=== PATIENT | female | born 1955 | race African-American/Black ===

== ENCOUNTER 2016-04-15 12:56 | Inpatient (IN) | payer MEDICAID ==
[~2016-04-15] VITALS: Ht 157.5 cm; Wt 108.9 kg
[~2016-04-15 12:56] MED LIST: ACET-2605 GT; ACET650S26 GT; ALBU2.5V13 HHN; ALBU2.5V38 IH; AMIN30LI4 GT; ASCO500S2 GT; BISA10SU8 RC; BLOO-668 IN; CALC-108 GT; CARV12.5 GT; DOCU50LI GT; EPOE1VIA6 SQ; FERR220S2 GT; GABA-532 GT; INSU100I19 SQ; INSU100V3 SQ; IPRA0.2S9 HHN; LORA1TAB GT; MAGN400O6 GT; MERO1VIA IV; MULT1TAB11 GT; NA P133E RC; NUT.237L36 GT; PANT40SU2 GT; VALP250S GT; ZINC220C8 GT
[2016-04-15 13:00] VITALS: BP 117/52
[2016-04-15 13:30] LABS: ANION GAP 11 (5-14); CALCIUM, SERUM 9.1 mg/dL (8.5-10.1); CARBON DIOXIDE 30 mmol/L (21-32); CHLORIDE 98 mmol/L (98-107); GFR 69 mL/min (>60); GLUCOSE 190 mg/dL (74-106); POTASSIUM 4.2 mmol/L (3.5-5.1); SODIUM SERUM 134 mmol/L (136-145); UREA NITROGEN, BLOOD 32 mg/dL (7-18)
[2016-04-15 13:34] LABS: BASOPHILS # (AUTO) 0.1 /CMM (0.0-0.2); BASOPHILS % (AUTO) 0.5 % (0.0-2.0); DIFF TOTAL % 100 %; EOSINOPHILS # (AUTO) 0.2 /CMM (0.0-0.7); EOSINOPHILS % (AUTO) 1.1 % (0.0-6.0); INR 1.05 (0.87-1.13); LYMPHOCYTES # (AUTO) 4.4 /CMM (0.8-4.8); LYMPHOCYTES % (AUTO) 25.5 % (20.0-44.0); MEAN CORPUSCULAR HEMOGLOBIN 31 PG (26.0-33.0); MEAN CORPUSCULAR HGB CONC 33 g/dl (31.0-36.0); MEAN CORPUSCULAR VOLUME 93 fL (82-100); MONOCYTES # (AUTO) 1.3 /CMM (0.1-1.30); MONOCYTES % (AUTO) 7.4 % (2.0-12.0); NEUTROPHILS # (AUTO) 11.1 /CMM (1.8-8.9); NEUTROPHILS % (AUTO) 65.5 % (43.0-81.0); PLATELET COUNT (AUTO) 342 /CMM (150-450); RED BLOOD CELL COUNT(AUTO) 2.19 MIL/uL (4.0-5.2); WHITE BLOOD COUNT (AUTO) 17.1 K/uL (4.3-11.0)
[2016-04-15 13:37] LABS: HEMATOCRIT 20 % (33-45); HEMOGLOBIN 6.7 g/dL (11.5-14.8)
[2016-04-15 13:38] LABS: TROPONIN I < 0.017 ng/mL (0.00-0.056)
[2016-04-15] MEDS ORDERED: IV SET PRIMARY PUMP SET 1 EA INFUS.SET MC ONE ×2 (13:51→18:41)
[2016-04-15] MEDS ORDERED: LEVOFLOXACIN 750 MG /D5W 150ML 150 ML IV ONE ×2 (13:51→14:00)
[2016-04-15 13:52] LABS: LACTIC ACID 1.8 mmol/L (0.4-2.0)
[2016-04-15] MEDS ORDERED: VANCOMYCIN 1 GM in IV D5W 250 ML IV ONE (14:00)
[2016-04-15 14:14] LABS: KETONES,URINE Negative (NEGATIVE); LEUKOCYTE ESTERASE ,URINE Large (NEGATIVE)
[2016-04-15 14:15] LABS: ANION GAP 10 (5-14); CALCIUM, SERUM 9.1 mg/dL (8.5-10.1); CARBON DIOXIDE 30 mmol/L (21-32); CHLORIDE 98 mmol/L (98-107); GFR 69 mL/min (>60); GLUCOSE 164 mg/dL (74-106); POTASSIUM 4.6 mmol/L (3.5-5.1); SODIUM SERUM 134 mmol/L (136-145); UREA NITROGEN, BLOOD 31 mg/dL (7-18)
[2016-04-15 14:20] LABS: ALANINE AMINOTRANSFERASE 11 U/L (12-78); ASPARTATE AMINOTRANSFERASE 17 U/L (15-37); BILIRUBIN,TOTAL 0.1 mg/dL (0.2-1.0); TOTAL PROTEIN, SERUM 9.8 g/dL (6.4-8.2)
[2016-04-15 14:21] LABS: ADD UA MICROSCOPIC YES
[2016-04-15 14:22] LABS: TROPONIN I < 0.017 ng/mL (0.00-0.056)
[2016-04-15] MEDS ORDERED: CRAN3875 GT (14:22)
[2016-04-15] MEDS ORDERED: NUT.237L30 GT (14:22)
[2016-04-15 14:24] LABS: ALBUMIN 1.3 g/dL (3.4-5.0); INDIRECT BILIRUBIN 0.1 mg/dL (0.0-1.1)
[2016-04-15 14:27] LABS: ADD URINE CULTURE YES; RBC,URINE 0-2 /HPF (0-2)
[2016-04-15 14:36] LABS: ANISOCYTOSIS 1+; EOSINOPHILS % (MANUAL) 1 % (0-4); HYPOCHROMASIA 1+; LYMPHOCYTES % (MANUAL) 25 % (16-48); MICROCYTOSIS 1+; PLATELET ESTIMATE ADEQUATE
[2016-04-15] MEDS ORDERED: ALBUTEROL FS 2.5 MG/3 ML VIAL.NEB IH PRN (15:30)
[2016-04-15] MEDS ORDERED: MISCELLANEOUS MED 1 EA EA GT PRN (15:30)
[2016-04-15] MEDS ORDERED: ONDANSETRON HCL/PF 4 MG/2 ML VIAL IVP PRN (15:30)
[2016-04-15] MEDS ORDERED: MAGNESIUM HYDROXIDE 30 ML UDC GT PRN (15:30)
[2016-04-15] MEDS ORDERED: DEXTROSE 50%-WATER 50 ML DISP.SYRIN IV PRN (15:30)
[2016-04-15] MEDS ORDERED: NA PHOS,M-B/NA PHOS,DI-BA 1 EA ENEMA RC PRN (15:30)
[2016-04-15] MEDS ORDERED: EPOETIN ALFA (10,000 UNIT) 10,000 UNIT/ML VIAL SQ SCH ×2 (15:30→18:33)
[2016-04-15] MEDS ORDERED: LORAZEPAM 1 MG TABLET GT PRN (15:30)
[2016-04-15] MEDS ORDERED: Z GUARD REMEDY 2 OZ OINT TP PRN (15:30)
[2016-04-15] MEDS: DOCUSATE SODIUM LIQ 100 MG/10 ML UDC GT SCH (17:54)
[2016-04-15] MEDS: GABAPENTIN 400 MG CAPSULE GT SCH (17:54)
[2016-04-15] MEDS ORDERED: BLOOD SUGAR DIAGNOSTIC 1 EACH STRIP IN SCH (18:00)
[2016-04-15] MEDS: CARVEDILOL 12.5 MG TABLET GT SCH (18:09)
[2016-04-15] MEDS: CEFTRIAXONE 1 G in IV D5W 50 ML IV SCH (18:44)
[2016-04-15] MEDS: BLOOD SUGAR DIAGNOSTIC 1 EACH STRIP IN SCH (18:45)
[2016-04-15] MEDS: IV NS 0.9% 1,000 ML IV PRN (18:46)
[2016-04-15] MEDS: IPRATROPIUM NEB FS 0.5 MG/2.5 ML AMPUL.NEB HHN SCH (20:14)
[2016-04-15] MEDS: ALBUTEROL FS 2.5 MG/0.5 ML VIAL.NEB HHN SCH (20:15)
[2016-04-15 20:23] VITALS: BP 119/55
[2016-04-15] MEDS: EPOETIN ALFA (10,000 UNIT) 10,000 UNIT/ML VIAL SQ SCH (20:54)
[2016-04-15] MEDS: VALPROIC ACID 250 MG/5 ML UDC GT SCH (20:55)
[2016-04-15] MEDS ORDERED: MEROPENEM 1 G in IV NS 0.9% 100 ML IV SCH (21:00)
[2016-04-15] MEDS: INSULIN DETEMIR 100 UNIT/ML CARTRIDGE SQ SCH (21:10)
[2016-04-15 22:00] VITALS: BP 104/55
[2016-04-15] MEDS ORDERED: BLOOD IV SET 1 EA INFUS.SET MC ONE (22:46)
[2016-04-15] MEDS ORDERED: IV NS 0.9% 250 ML IV ONE (22:46)
[2016-04-15 23:07] VITALS: BP 91/50
[2016-04-15 23:22] VITALS: BP 90/50
[2016-04-15 23:37] VITALS: BP 88/52
[2016-04-16] VITALS (16 sets, daily range): BP systolic 88–129; BP diastolic 44–58
[2016-04-16] MEDS: BLOOD SUGAR DIAGNOSTIC 1 EACH STRIP IN SCH ×4 (00:58→17:23)
[2016-04-16] MEDS: INSULIN REGULAR, HUMAN 100 UNIT/ML 3 ML VIAL SQ PRN ×4 (01:02→17:30)
[2016-04-16] MEDS: IPRATROPIUM NEB FS 0.5 MG/2.5 ML AMPUL.NEB HHN SCH ×4 (01:08→20:19)
[2016-04-16] MEDS: ALBUTEROL FS 2.5 MG/0.5 ML VIAL.NEB HHN SCH ×4 (01:08→20:19)
[2016-04-16] MEDS: GLYTROL 1,000 ML BAG GT SCH (01:11)
[2016-04-16] MEDS ORDERED: BLOOD IV SET 1 EA INFUS.SET MC ONE (01:33)
[2016-04-16] MEDS: ACETAMINOPHEN 325 MG TABLET PO PRN (03:35)
[2016-04-16 08:29] LABS: BILIRUBIN,TOTAL 0.2 mg/dL (0.2-1.0); CALCIUM, SERUM 8.6 mg/dL (8.5-10.1); CREATININE 1.1 mg/dL (0.6-1.3); PHOSPHORUS 4.2 mg/dL (2.5-4.9); POTASSIUM 3.9 mmol/L (3.5-5.1); TOTAL PROTEIN, SERUM 9.1 g/dL (6.4-8.2)
[2016-04-16 08:32] LABS: ALBUMIN 1.2 g/dL (3.4-5.0)
[2016-04-16 08:35] LABS: THYROID STIMULATING HORMONE 6.58 uIU/mL (0.358-3.74)
[2016-04-16 08:47] LABS: BASOPHILS % (AUTO) 0.2 % (0.0-2.0); DIFF TOTAL % 100 %; EOSINOPHILS # (AUTO) 0.1 /CMM (0.0-0.7); EOSINOPHILS % (AUTO) 0.7 % (0.0-6.0); HEMATOCRIT 26 % (33-45); HEMOGLOBIN 8.3 g/dL (11.5-14.8); LYMPHOCYTES # (AUTO) 3.4 /CMM (0.8-4.8); LYMPHOCYTES % (AUTO) 20.2 % (20.0-44.0); MEAN CORPUSCULAR HEMOGLOBIN 29 PG (26.0-33.0); MEAN CORPUSCULAR HGB CONC 32 g/dl (31.0-36.0); MEAN CORPUSCULAR VOLUME 91 fL (82-100); MONOCYTES % (AUTO) 6.1 % (2.0-12.0); NEUTROPHILS # (AUTO) 12.2 /CMM (1.8-8.9); NEUTROPHILS % (AUTO) 72.8 % (43.0-81.0); PLATELET COUNT (AUTO) 336 /CMM (150-450); RED BLOOD CELL COUNT(AUTO) 2.85 MIL/uL (4.0-5.2); WHITE BLOOD COUNT (AUTO) 16.7 K/uL (4.3-11.0)
[2016-04-16] MEDS ORDERED: PANTOPRAZOLE 40 MG/PACK PACK GT SCH (09:00)
[2016-04-16] MEDS ORDERED: ASCORBIC ACID SYRUP 500 MG/5 ML UDC GT SCH (09:00)
[2016-04-16] MEDS: CARVEDILOL 12.5 MG TABLET GT SCH ×2 (09:00→17:14)
[2016-04-16] MEDS: DOCUSATE SODIUM LIQ 100 MG/10 ML UDC GT SCH ×2 (09:21→17:09)
[2016-04-16] MEDS: VALPROIC ACID 250 MG/5 ML UDC GT SCH ×2 (09:21→21:19)
[2016-04-16] MEDS: GABAPENTIN 400 MG CAPSULE GT SCH ×2 (09:21→17:10)
[2016-04-16] MEDS: ZINC SULFATE 220 MG CAPSULE GT SCH (09:21)
[2016-04-16] MEDS: PANTOPRAZOLE 40 MG VIAL IV SCH (09:21)
[2016-04-16] MEDS ORDERED: ASCORBIC ACID 500 MG TABLET GT SCH (10:23)
[2016-04-16 11:35] LABS: LYMPHOCYTES % (MANUAL) 27 % (16-48)
[2016-04-16 11:36] LABS: ANISOCYTOSIS 1+; PLATELET ESTIMATE ADEQUATE
[2016-04-16] MEDS: IV NS 0.9% 1,000 ML IV PRN (15:34)
[2016-04-16] MEDS: CEFTRIAXONE 1 G in IV D5W 50 ML IV SCH (17:15)
[2016-04-16] MEDS ORDERED: HYDROGEL DRESSING 90 GM TUBE TP SCH (18:30)
[2016-04-16] MEDS ORDERED: SECONDARY IV SET 1 EA INFUS.SET MC ONE (21:07)
[2016-04-16] MEDS: MEROPENEM 500 MG in IV NS 0.9% 50 ML IV SCH (21:14)
[2016-04-16] MEDS: INSULIN DETEMIR 100 UNIT/ML CARTRIDGE SQ SCH (21:21)
[2016-04-16] MEDS: HYDROGEL DRESSING 90 GM TUBE TP SCH (21:22)
[2016-04-16] MEDS: Z GUARD REMEDY 2 OZ OINT TP SCH (21:23)
[2016-04-17] VITALS: BP 111/47
[2016-04-17] MEDS: BLOOD SUGAR DIAGNOSTIC 1 EACH STRIP IN SCH ×4 (00:28→18:09)
[2016-04-17] MEDS: INSULIN REGULAR, HUMAN 100 UNIT/ML 3 ML VIAL SQ PRN ×5 (00:30→22:53)
[2016-04-17] MEDS: GLYTROL 1,000 ML BAG GT SCH ×2 (00:33→18:17)
[2016-04-17] MEDS: IPRATROPIUM NEB FS 0.5 MG/2.5 ML AMPUL.NEB HHN SCH ×4 (01:18→19:49)
[2016-04-17] MEDS: ALBUTEROL FS 2.5 MG/0.5 ML VIAL.NEB HHN SCH ×4 (01:18→19:49)
[2016-04-17 04:00] VITALS: BP 111/46
[2016-04-17] MEDS: MEROPENEM 500 MG in IV NS 0.9% 50 ML IV SCH ×3 (05:15→20:38)
[2016-04-17] MEDS: IV NS 0.9% 1,000 ML IV PRN ×2 (05:17→20:37)
[2016-04-17 06:55] VITALS: BP 110/43
[2016-04-17 08:00] VITALS: BP 111/72
[2016-04-17 08:19] LABS: BASOPHILS # (AUTO) 0.1 /CMM (0.0-0.2); BASOPHILS % (AUTO) 0.5 % (0.0-2.0); DIFF TOTAL % 100 %; EOSINOPHILS # (AUTO) 0.1 /CMM (0.0-0.7); EOSINOPHILS % (AUTO) 1.1 % (0.0-6.0); HEMATOCRIT 26 % (33-45); HEMOGLOBIN 8.6 g/dL (11.5-14.8); LYMPHOCYTES # (AUTO) 2.5 /CMM (0.8-4.8); LYMPHOCYTES % (AUTO) 18.8 % (20.0-44.0); MEAN CORPUSCULAR HEMOGLOBIN 31 PG (26.0-33.0); MEAN CORPUSCULAR HGB CONC 34 g/dl (31.0-36.0); MEAN CORPUSCULAR VOLUME 92 fL (82-100); MONOCYTES # (AUTO) 1.1 /CMM (0.1-1.30); MONOCYTES % (AUTO) 8.6 % (2.0-12.0); NEUTROPHILS # (AUTO) 9.3 /CMM (1.8-8.9); PLATELET COUNT (AUTO) 330 /CMM (150-450); WHITE BLOOD COUNT (AUTO) 13.1 K/uL (4.3-11.0)
[2016-04-17 08:37] LABS: CALCIUM, SERUM 8.7 mg/dL (8.5-10.1); POTASSIUM 3.8 mmol/L (3.5-5.1)
[2016-04-17] MEDS: VALPROIC ACID 250 MG/5 ML UDC GT SCH ×2 (08:56→20:55)
[2016-04-17] MEDS: DOCUSATE SODIUM LIQ 100 MG/10 ML UDC GT SCH ×2 (08:56→17:02)
[2016-04-17] MEDS: ZINC SULFATE 220 MG CAPSULE GT SCH (08:57)
[2016-04-17] MEDS: PANTOPRAZOLE 40 MG VIAL IV SCH (08:57)
[2016-04-17] MEDS: GABAPENTIN 400 MG CAPSULE GT SCH ×2 (08:57→17:02)
[2016-04-17] MEDS: CARVEDILOL 12.5 MG TABLET GT SCH ×2 (08:57→17:02)
[2016-04-17] MEDS: HYDROGEL DRESSING 90 GM TUBE TP SCH (09:17)
[2016-04-17] MEDS: Z GUARD REMEDY 2 OZ OINT TP SCH (09:17)
[2016-04-17] MEDS: ASCORBIC ACID 500 MG TABLET GT SCH (12:24)
[2016-04-17 16:00] VITALS: BP 131/64
[2016-04-17 20:00] VITALS: BP 123/60
[2016-04-17] MEDS: EPOETIN ALFA (10,000 UNIT) 10,000 UNIT/ML VIAL SQ SCH (20:40)
[2016-04-17] MEDS: INSULIN DETEMIR 100 UNIT/ML CARTRIDGE SQ SCH (22:52)
[2016-04-18] VITALS: BP 123/63
[2016-04-18] MEDS: BLOOD SUGAR DIAGNOSTIC 1 EACH STRIP IN SCH ×5 (00:13→23:49)
[2016-04-18] MEDS: IPRATROPIUM NEB FS 0.5 MG/2.5 ML AMPUL.NEB HHN SCH ×4 (01:25→20:05)
[2016-04-18] MEDS: ALBUTEROL FS 2.5 MG/0.5 ML VIAL.NEB HHN SCH ×4 (01:26→20:05)
[2016-04-18] MEDS: INSULIN REGULAR, HUMAN 100 UNIT/ML 3 ML VIAL SQ PRN ×3 (05:53→23:51)
[2016-04-18] MEDS: MEROPENEM 500 MG in IV NS 0.9% 50 ML IV SCH ×3 (05:53→21:16)
[2016-04-18 07:00] VITALS: BP 126/56
[2016-04-18 08:00] VITALS: BP 136/72
[2016-04-18] MEDS: ASCORBIC ACID 500 MG TABLET GT SCH (08:12)
[2016-04-18] MEDS: VALPROIC ACID 250 MG/5 ML UDC GT SCH ×2 (08:12→21:16)
[2016-04-18] MEDS: DOCUSATE SODIUM LIQ 100 MG/10 ML UDC GT SCH ×2 (08:13→17:01)
[2016-04-18] MEDS: CARVEDILOL 12.5 MG TABLET GT SCH ×2 (08:13→17:10)
[2016-04-18] MEDS: ZINC SULFATE 220 MG CAPSULE GT SCH (08:13)
[2016-04-18] MEDS: PANTOPRAZOLE 40 MG VIAL IV SCH (08:13)
[2016-04-18] MEDS: GABAPENTIN 400 MG CAPSULE GT SCH ×2 (08:13→17:01)
[2016-04-18] MEDS: Z GUARD REMEDY 2 OZ OINT TP SCH (08:14)
[2016-04-18] MEDS: HYDROGEL DRESSING 90 GM TUBE TP SCH (08:15)
[2016-04-18] MEDS ORDERED: SECONDARY IV SET 1 EA INFUS.SET MC ONE (11:42)
[2016-04-18] MEDS ORDERED: IV NS 0.9% 1,000 ML ONE (11:42)
[2016-04-18 12:00] VITALS: BP 130/70
[2016-04-18] MEDS: GLYTROL 1,000 ML BAG GT SCH (15:41)
[2016-04-18 16:00] VITALS: BP 134/68
[2016-04-18] MEDS: IV NS 0.9% 1,000 ML IV PRN (16:41)
[2016-04-18 20:00] VITALS: BP 130/59
[2016-04-18] MEDS: INSULIN DETEMIR 100 UNIT/ML CARTRIDGE SQ SCH (21:17)
[2016-04-19] MEDS: ALBUTEROL FS 2.5 MG/0.5 ML VIAL.NEB HHN SCH ×2 (01:46→07:27)
[2016-04-19] MEDS: IPRATROPIUM NEB FS 0.5 MG/2.5 ML AMPUL.NEB HHN SCH ×4 (01:46→19:12)
[2016-04-19 04:00] VITALS: BP 123/67
[2016-04-19] MEDS: GLYTROL 1,000 ML BAG GT SCH ×2 (04:43→17:28)
[2016-04-19] MEDS: MEROPENEM 500 MG in IV NS 0.9% 50 ML IV SCH ×3 (04:43→21:01)
[2016-04-19] MEDS: IV NS 0.9% 1,000 ML IV PRN ×2 (04:44→18:43)
[2016-04-19] MEDS: BLOOD SUGAR DIAGNOSTIC 1 EACH STRIP IN SCH ×3 (05:19→17:30)
[2016-04-19] MEDS: INSULIN REGULAR, HUMAN 100 UNIT/ML 3 ML VIAL SQ PRN ×2 (05:20→12:54)
[2016-04-19 07:19] VITALS: BP 117/56
[2016-04-19] MEDS: ASCORBIC ACID 500 MG TABLET GT SCH (08:02)
[2016-04-19] MEDS: DOCUSATE SODIUM LIQ 100 MG/10 ML UDC GT SCH ×2 (08:02→16:51)
[2016-04-19] MEDS: GABAPENTIN 400 MG CAPSULE GT SCH ×2 (08:02→16:51)
[2016-04-19] MEDS: PROSOURCE / PROSTAT (PYXIS) 30 ML UDC GT SCH ×3 (08:02→16:51)
[2016-04-19] MEDS: VALPROIC ACID 250 MG/5 ML UDC GT SCH ×2 (08:09→21:02)
[2016-04-19] MEDS: CARVEDILOL 12.5 MG TABLET GT SCH ×2 (08:10→16:52)
[2016-04-19] MEDS: PANTOPRAZOLE 40 MG VIAL IV SCH (08:11)
[2016-04-19] MEDS: ZINC SULFATE 220 MG CAPSULE GT SCH (08:13)
[2016-04-19] MEDS: HYDROGEL DRESSING 90 GM TUBE TP SCH (08:24)
[2016-04-19] MEDS: Z GUARD REMEDY 2 OZ OINT TP SCH (08:24)
[2016-04-19] MEDS: ALBUTEROL FS 2.5 MG/3 ML VIAL.NEB NEB SCH ×2 (13:38→19:12)
[2016-04-19 16:00] VITALS: BP 136/66
[2016-04-19 20:00] VITALS: BP 122/79
[2016-04-19] MEDS: ACETAMINOPHEN 325 MG TABLET PO PRN (21:01)
[2016-04-19 21:06] VITALS: BP 122/79
[2016-04-19 21:07] LABS: BASOPHILS # (AUTO) 0.1 /CMM (0.0-0.2); BASOPHILS % (AUTO) 0.6 % (0.0-2.0); DIFF TOTAL % 100 %; EOSINOPHILS # (AUTO) 0.2 /CMM (0.0-0.7); EOSINOPHILS % (AUTO) 1.7 % (0.0-6.0); HEMATOCRIT 23 % (33-45); HEMOGLOBIN 7.5 g/dL (11.5-14.8); LYMPHOCYTES # (AUTO) 3.3 /CMM (0.8-4.8); LYMPHOCYTES % (AUTO) 23.5 % (20.0-44.0); MEAN CORPUSCULAR HEMOGLOBIN 31 PG (26.0-33.0); MEAN CORPUSCULAR HGB CONC 33 g/dl (31.0-36.0); MEAN CORPUSCULAR VOLUME 94 fL (82-100); MONOCYTES # (AUTO) 0.7 /CMM (0.1-1.30); MONOCYTES % (AUTO) 5.3 % (2.0-12.0); NEUTROPHILS # (AUTO) 9.6 /CMM (1.8-8.9); NEUTROPHILS % (AUTO) 68.9 % (43.0-81.0); PLATELET COUNT (AUTO) 161 /CMM (150-450); RED BLOOD CELL COUNT(AUTO) 2.45 MIL/uL (4.0-5.2); WHITE BLOOD COUNT (AUTO) 13.9 K/uL (4.3-11.0)
[2016-04-19] MEDS: EPOETIN ALFA (10,000 UNIT) 10,000 UNIT/ML VIAL SQ SCH (21:17)
[2016-04-19] MEDS: INSULIN DETEMIR 100 UNIT/ML CARTRIDGE SQ SCH (22:22)
[2016-04-20] VITALS: BP 116/50
[2016-04-20] MEDS: BLOOD SUGAR DIAGNOSTIC 1 EACH STRIP IN SCH ×4 (00:23→17:55)
[2016-04-20] MEDS: INSULIN REGULAR, HUMAN 100 UNIT/ML 3 ML VIAL SQ PRN ×2 (00:27→12:47)
[2016-04-20] MEDS: ALBUTEROL FS 2.5 MG/3 ML VIAL.NEB NEB SCH ×4 (01:34→19:42)
[2016-04-20] MEDS: IPRATROPIUM NEB FS 0.5 MG/2.5 ML AMPUL.NEB HHN SCH ×4 (01:34→19:42)
[2016-04-20 04:00] VITALS: BP 126/57
[2016-04-20] MEDS: MEROPENEM 500 MG in IV NS 0.9% 50 ML IV SCH ×3 (04:38→21:41)
[2016-04-20 08:00] VITALS: BP 108/44
[2016-04-20] MEDS: ZINC SULFATE 220 MG CAPSULE GT SCH (09:44)
[2016-04-20] MEDS: PANTOPRAZOLE 40 MG VIAL IV SCH (09:44)
[2016-04-20] MEDS: ASCORBIC ACID 500 MG TABLET GT SCH (09:44)
[2016-04-20] MEDS: DOCUSATE SODIUM LIQ 100 MG/10 ML UDC GT SCH ×2 (09:44→17:00)
[2016-04-20] MEDS: GABAPENTIN 400 MG CAPSULE GT SCH ×2 (09:44→17:54)
[2016-04-20] MEDS: PROSOURCE / PROSTAT (PYXIS) 30 ML UDC GT SCH ×3 (09:44→17:53)
[2016-04-20] MEDS: CARVEDILOL 12.5 MG TABLET GT SCH ×2 (09:45→17:54)
[2016-04-20] MEDS: Z GUARD REMEDY 2 OZ OINT TP SCH (09:47)
[2016-04-20] MEDS: HYDROGEL DRESSING 90 GM TUBE TP SCH (09:47)
[2016-04-20] MEDS: VALPROIC ACID 250 MG/5 ML UDC GT SCH ×2 (10:35→21:42)
[2016-04-20] MEDS: IV NS 0.9% 1,000 ML IV PRN (11:20)
[2016-04-20 12:00] VITALS: BP 110/61
[2016-04-20 16:00] VITALS: BP 116/58
[2016-04-20] MEDS: GLYTROL 1,000 ML BAG GT SCH (19:28)
[2016-04-20 20:00] VITALS: BP 139/66
[2016-04-20] MEDS: INSULIN DETEMIR 100 UNIT/ML CARTRIDGE SQ SCH (21:50)
[2016-04-20] MEDS ORDERED: BLOOD IV SET 1 EA INFUS.SET MC ONE (23:06)
[2016-04-20] MEDS ORDERED: IV NS 0.9% 250 ML IV ONE (23:07)
[2016-04-21] VITALS (19 sets, daily range): BP systolic 116–153; BP diastolic 54–71
[2016-04-21] MEDS: BLOOD SUGAR DIAGNOSTIC 1 EACH STRIP IN SCH ×4 (00:36→18:28)
[2016-04-21] MEDS: INSULIN REGULAR, HUMAN 100 UNIT/ML 3 ML VIAL SQ PRN ×3 (00:37→18:30)
[2016-04-21] MEDS: IPRATROPIUM NEB FS 0.5 MG/2.5 ML AMPUL.NEB HHN SCH ×4 (01:10→19:54)
[2016-04-21] MEDS: ALBUTEROL FS 2.5 MG/3 ML VIAL.NEB NEB SCH ×4 (01:10→19:54)
[2016-04-21] MEDS: GABAPENTIN 400 MG CAPSULE GT SCH ×2 (08:43→16:39)
[2016-04-21] MEDS: PROSOURCE / PROSTAT (PYXIS) 30 ML UDC GT SCH ×3 (08:43→16:39)
[2016-04-21] MEDS: MEROPENEM 500 MG in IV NS 0.9% 50 ML IV SCH ×3 (08:43→21:23)
[2016-04-21] MEDS: ZINC SULFATE 220 MG CAPSULE GT SCH (08:44)
[2016-04-21] MEDS: VALPROIC ACID 250 MG/5 ML UDC GT SCH ×2 (08:44→21:23)
[2016-04-21] MEDS: PANTOPRAZOLE 40 MG VIAL IV SCH (08:44)
[2016-04-21] MEDS ORDERED: BLOOD IV SET 1 EA INFUS.SET MC ONE (08:45)
[2016-04-21] MEDS: ASCORBIC ACID 500 MG TABLET GT SCH (08:45)
[2016-04-21] MEDS ORDERED: IV SET PRIMARY PUMP SET 1 EA INFUS.SET MC ONE (08:45)
[2016-04-21] MEDS ORDERED: IV NS 0.9% 0 ML IV ONE (08:45)
[2016-04-21] MEDS: CARVEDILOL 12.5 MG TABLET GT SCH ×2 (08:46→16:40)
[2016-04-21] MEDS ORDERED: IV NS 0.9% 250 ML IV ONE (08:48)
[2016-04-21] MEDS: DOCUSATE SODIUM LIQ 100 MG/10 ML UDC GT SCH ×2 (09:00→16:39)
[2016-04-21] MEDS: ACETAMINOPHEN 325 MG TABLET PO PRN (10:03)
[2016-04-21] MEDS: Z GUARD REMEDY 2 OZ OINT TP SCH (13:56)
[2016-04-21] MEDS: HYDROGEL DRESSING 90 GM TUBE TP SCH (13:56)
[2016-04-21] MEDS ORDERED: SECONDARY IV SET 1 EA INFUS.SET MC ONE (14:13)
[2016-04-21] MEDS: GLYTROL 1,000 ML BAG GT SCH (16:42)
[2016-04-21] MEDS: INSULIN DETEMIR 100 UNIT/ML CARTRIDGE SQ SCH (21:24)
[2016-04-22] VITALS: BP 140/58
[2016-04-22] MEDS: BLOOD SUGAR DIAGNOSTIC 1 EACH STRIP IN SCH ×3 (00:27→12:04)
[2016-04-22] MEDS: IPRATROPIUM NEB FS 0.5 MG/2.5 ML AMPUL.NEB HHN SCH ×3 (01:19→13:03)
[2016-04-22] MEDS: ALBUTEROL FS 2.5 MG/3 ML VIAL.NEB NEB SCH ×3 (01:20→13:02)
[2016-04-22 04:00] VITALS: BP 132/57
[2016-04-22] MEDS: MEROPENEM 500 MG in IV NS 0.9% 50 ML IV SCH ×2 (05:34→12:08)
[2016-04-22 06:50] VITALS: BP 133/52
[2016-04-22] MEDS: Z GUARD REMEDY 2 OZ OINT TP SCH (08:23)
[2016-04-22] MEDS: HYDROGEL DRESSING 90 GM TUBE TP SCH (08:24)
[2016-04-22] MEDS: PROSOURCE / PROSTAT (PYXIS) 30 ML UDC GT SCH ×2 (08:25→12:07)
[2016-04-22] MEDS: DOCUSATE SODIUM LIQ 100 MG/10 ML UDC GT SCH (08:26)
[2016-04-22] MEDS: ZINC SULFATE 220 MG CAPSULE GT SCH (08:26)
[2016-04-22] MEDS: GABAPENTIN 400 MG CAPSULE GT SCH (08:26)
[2016-04-22] MEDS: PANTOPRAZOLE 40 MG VIAL IV SCH (08:26)
[2016-04-22] MEDS: VALPROIC ACID 250 MG/5 ML UDC GT SCH (08:26)
[2016-04-22 08:27] VITALS: BP 131/58
[2016-04-22] MEDS: ASCORBIC ACID 500 MG TABLET GT SCH (08:27)
[2016-04-22] MEDS: CARVEDILOL 12.5 MG TABLET GT SCH (08:27)
== END 2016-04-22 16:15 | DRG 380 ==
LOC: ER 12:59 → TELE 14:34
PROVIDERS: ADMIT Nurse Practitioner Acute Care; ATTEND Nurse Practitioner Acute Care
PROC: 30233N1 Transfusion of Nonautologous Red Blood Cells into Peripheral Vein, Percutaneous Approach (ICD-10-PCS; principal; 2016-04-15)
PROC: 5A1955Z Respiratory Ventilation, Greater than 96 Consecutive Hours (ICD-10-PCS; principal; 2016-04-15)
PROC: 05H633Z Insertion of Infusion Device into Left Subclavian Vein, Percutaneous Approach (ICD-10-PCS; principal; 2016-04-15)
DX: L89.154 Pressure ulcer of sacral region, stage 4 (principal); G93.40 Encephalopathy, unspecified; G93.1 Anoxic brain damage, not elsewhere classified; Z99.11 Dependence on respirator [ventilator] status; J96.11 Chronic respiratory failure with hypoxia; R53.2 Functional quadriplegia; Z93.0 Tracheostomy status; E87.1 Hypo-osmolality and hyponatremia; G40.909 Epilepsy, unspecified, not intractable, without status epilepticus; N39.0 Urinary tract infection, site not specified; E11.9 Type 2 diabetes mellitus without complications; Z93.1 Gastrostomy status; R13.10 Dysphagia, unspecified; I47.1 Supraventricular tachycardia; K92.2 Gastrointestinal hemorrhage, unspecified; I10 Essential (primary) hypertension; G62.9 Polyneuropathy, unspecified; I25.10 Atherosclerotic heart disease of native coronary artery without angina pectoris; K21.9 Gastro-esophageal reflux disease without esophagitis; D64.9 Anemia, unspecified; E66.9 Obesity, unspecified; E78.5 Hyperlipidemia, unspecified; Z86.74 Personal history of sudden cardiac arrest
CPT/HCPCS: 31720; 36415; 71010-TC; 80048-TC; 80053-TC; 80061-TC; 80076-TC; 80164-TC; 81000-TC; 82272-TC; 82962-TC; 83605-TC; 83735-TC; 84100-TC; 84443-TC; 84484-TC; 85025-TC; 85730-TC; 86850-TC; 86921-TC; 87040-TC; 87081-TC; 87086-TC; 94002-TC; 94003-TC; A4216; A4606; A6248; A6253; A6402; A6403; C9113; J0696; J0885; J1815; J1956; J2185; J3370; J7030; J7050; J7060; P9016-BL; Z7610

== ENCOUNTER 2016-05-29 10:49 | Inpatient (IN) | payer MEDICAID ==
[~2016-05-29] VITALS: Ht 172.7 cm; Wt 102.1 kg
[~2016-05-29 10:49] MED LIST changes: -AMIN30LI4 GT; -BISA10SU8 RC; +CRAN3875 GT; -MERO1VIA IV; +NUT.237L30 GT; -NUT.237L36 GT
--- NOTE | 2016-05-29 11:20 | NUR ---
BIB PRIVATE AMBULANCE FROM [facility] FOR LOW H/H. SKIN IS WARM AND DRY. ASSISTED TO HOSPITAL GOWN. PLACED ON MONITOR. BLACK TARRY STOOL NOTED. VENT SETTINGS FOLLOWS: AC=12, RE=763, FIO2=40%, PEEP=0. DR JIMENEZ AT FOR EVAL. G-TUBE NOTED INTACT.
[2016-05-29 11:37] LABS: BASOPHILS % (AUTO) 0.3 % (0.0-2.0); EOSINOPHILS # (AUTO) 0.5 /CMM (0.0-0.7); EOSINOPHILS % (AUTO) 3.3 % (0.0-6.0); HEMATOCRIT 23 % (33-45); HEMOGLOBIN 7.5 g/dL (11.5-14.8); LYMPHOCYTES # (AUTO) 4.7 /CMM (0.8-4.8); LYMPHOCYTES % (AUTO) 30.8 % (20.0-44.0); MEAN CORPUSCULAR HEMOGLOBIN 30 PG (26.0-33.0); MEAN CORPUSCULAR HGB CONC 32 g/dl (31.0-36.0); MEAN CORPUSCULAR VOLUME 94 fL (82-100); MONOCYTES # (AUTO) 1.4 /CMM (0.1-1.30); MONOCYTES % (AUTO) 9.1 % (2.0-12.0); NEUTROPHILS # (AUTO) 8.5 /CMM (1.8-8.9); NEUTROPHILS % (AUTO) 56.5 % (43.0-81.0); PLATELET COUNT (AUTO) 363 /CMM (150-450); RDW COEFFICIENT OF VARIATION 15.1 (11.5-15.0); RED BLOOD CELL COUNT(AUTO) 2.48 MIL/uL (4.0-5.2); WHITE BLOOD COUNT (AUTO) 15.1 K/uL (4.3-11.0)
[2016-05-29 11:45] LABS: CALCIUM, SERUM 9.2 mg/dL (8.5-10.1); CREATININE 1.5 mg/dL (0.6-1.3); POTASSIUM 4.7 mmol/L (3.5-5.1)
[2016-05-29 11:48] LABS: INR 1.05 (0.87-1.13); PROTHROMBIN TIME 10.9 SECS (9.5-12.7)
[2016-05-29 11:51] LABS: BILIRUBIN,TOTAL 0.1 mg/dL (0.2-1.0); TOTAL PROTEIN, SERUM 9.4 g/dL (6.4-8.2)
[2016-05-29 11:53] LABS: ALBUMIN 1.2 g/dL (3.4-5.0)
[2016-05-29] MEDS ORDERED: IV NS 0.9% 1,000 ML ONE ×2 (11:58→12:34)
[2016-05-29] MEDS ORDERED: IV SET PRIMARY 1 EA INFUS.SET MC ONE ×2 (11:58→12:34)
[2016-05-29] MEDS ORDERED: IV NS 0.9% 1,000 ML BAG IV ONE ×2 (12:00→12:30)
[2016-05-29 12:15] LABS: APPEARANCE,URINE Clear (CLEAR); BILIRUBIN,URINE Negative (NEGATIVE); BLOOD, URINE Small Ery/uL (NEGATIVE); COLOR,URINE Yellow (YELLOW); KETONES,URINE Negative (NEGATIVE); LEUKOCYTE ESTERASE ,URINE Small (NEGATIVE); NITRITE, URINE Positive (NEGATIVE); PH,URINE 8.5 (5.0-8.0); PROTEIN,URINE 100 mg/dl (NEGATIVE); UGLUCOSE Negative (NEGATIVE); UROBILINOGEN,URINE 0.2 EU/dL (0.2)
[2016-05-29] MEDS ORDERED: IPRA0.2S9 HHN (12:16)
[2016-05-29] MEDS ORDERED: BACL20TA GT (12:16)
[2016-05-29] MEDS ORDERED: BISA10SU8 RC (12:16)
[2016-05-29 12:22] LABS: RBC,URINE 0-2 /HPF (0-2); TRIPLE PHOSPHATE CRYSTAL,UR Many /HPF (None Seen); URINE AMORPHOUS PHOSPHATES Few /HPF (None Seen)
[2016-05-29 12:23] LABS: ADD URINE CULTURE YES; BACTERIA,URINE Moderate /HPF (None Seen)
[2016-05-29 12:24] LABS: SQUAMOUS EPITHELIAL CELL,UR None Seen /HPF (None Seen)
[2016-05-29] MEDS ORDERED: CEFTRIAXONE 1GM BAG (ER ONLY) 1 GM/50 ML PIGGYBACK IV ONE (12:30)
[2016-05-29] MEDS ORDERED: CEFTRIAXONE 1GM BAG (ER ONLY) 50 ML IV ONE (12:34)
[2016-05-29] MEDS ORDERED: PANTOPRAZOLE 40 MG VIAL ONE (12:34)
[2016-05-29] MEDS ORDERED: IV SET PRIMARY PUMP SET 1 EA INFUS.SET MC ONE (12:34)
[2016-05-29] MEDS ORDERED: PANTOPRAZOLE 40 MG VIAL IV STA (12:44)
--- NOTE | 2016-05-29 12:55 | NUR ---
REPORT GIVEN TO SHASHI DURAN FOR GEOVANNA TELE 111-2
[2016-05-29 13:00] VITALS: BP 120/50
--- NOTE | 2016-05-29 13:00 | NUR ---
SENIOR SOFTWARE ENGINEER NOTES RECEIVED PATIENT WITH ADMISSION DIAGNOSIS OF ANEMIA AND UTI , NON VERBAL , OPENS EYES , NOT IN ACUTE DISTRESS , RESPIRATIONS EVEN AND UNLABORED SPO2 OF 100% VIA MECHANICAL VENTILATOR SETTINGS ORDERED , TRACH OF PORTEX # [address] , SR 55 ON TELE MONITOR , GT PATENT AND INTACT , FC WAS INSERTED IN ER PER KARMA RN , DRAINING VIA GRAVITY WITH CLEAR YELLOW URINE , KCI MATTRESS AND DVT PUMPS PLACED , SKIN ASSESSMENT DONE , NOTED WITH SACRAL ULCER , BILATERAL LOWER BUTTOCKS WOUND AND ABDOMINAL WOUND TOOK PICTURES AND PLACED IN THE CHART , WOUND CONSULT ORDERED , IV OF L FA # 20 AND R WRIST # 18 PATENT AND INTACT , ALL NEEDS ATTENDED , BED ON LOW AND LOCKED POSITION , SIDE RAILS X2 ,CALL LIGHT WITHIN REACH , HOB 45 WILL CONTINUE TO MONITOR , POLST CHECKED , PT CODE STATUS IS FULL CODE ,
--- NOTE | 2016-05-29 13:15 | NUR ---
DRAINAGE INSPECTOR NOTES] ADMISSION ORDERED CARRIED OUT FROM DR WALTON , NOTIFIED PT LABS , CHEST XRAY AND LACTIC ACID OF 2.1 , NOTED WITH DECUBITUS ULCER @ SACRAL AREA , AND ABDOMINAL WOUND , PER MD HE WILL CALL DR BENY WORRELL FOR WOUND EVALUATION ,
[2016-05-29 13:30] LABS: LACTIC ACID 2.1 mmol/L (0.4-2.0)
[2016-05-29] MEDS ORDERED: ACETAMINOPHEN 650 MG/20.3 ML UDC GT PRN (13:30)
[2016-05-29] MEDS ORDERED: IPRATROPIUM NEB FS 0.5 MG/2.5 ML AMPUL.NEB HHN PRN (13:30)
[2016-05-29] MEDS ORDERED: ALBUTEROL FS 2.5 MG/3 ML VIAL.NEB IH PRN (13:30)
[2016-05-29] MEDS: IPRATROPIUM NEB FS 0.5 MG/2.5 ML AMPUL.NEB HHN SCH ×2 (13:30→20:13)
[2016-05-29] MEDS ORDERED: NA PHOS,M-B/NA PHOS,DI-BA 1 EA ENEMA RC PRN (13:30)
[2016-05-29] MEDS ORDERED: MAGNESIUM HYDROXIDE 30 ML UDC GT PRN (13:30)
[2016-05-29] MEDS ORDERED: LORAZEPAM 1 MG TABLET GT PRN (13:30)
[2016-05-29] MEDS ORDERED: MISCELLANEOUS MED 1 EA EA GT PRN (13:30)
[2016-05-29] MEDS ORDERED: BISACODYL SUPP (10 MG) 10 MG/SUPP.RECT SUPP.RECT RC PRN (13:30)
[2016-05-29] MEDS ORDERED: DEXTROSE 50%-WATER 50 ML DISP.SYRIN IV PRN (13:30)
--- NOTE | 2016-05-29 14:30 | NUR ---
METER MECHANIC NOTES DR BENY WORRELL AT BEDSIDE , NOTIFIED PT CAME HERE DUE TO LOW H/H 7.5 , NOTED WITH SACRAL ULCER , BILATERAL LOWER BUTTOCKS WOUNDS AND ABDOMINAL WOUND , PER MD GATHER CONSENT FOR DEBRIDEMENT , ORDERS CARRIED OUT .
[2016-05-29 16:00] VITALS: BP_SYST 101; BP_DIAS 30; BP_DIAS 39
[2016-05-29] MEDS ORDERED: SILVER NITRATE APPLICATOR 1 EA BOX TP ONE ×2 (16:00→16:30)
--- NOTE | 2016-05-29 16:00 | NUR ---
AUTOMOTIVE FLEET SUPERVISOR NOTES CALLED ALFREDO (DAUGHTER) NOTIFIED DR WORRELL IS PLANNING TO DO DEBRIDEMENT OF SACRAL AND BILATERAL LOWER BUTTOCKS WOUND , EXPLAINED THE RISK AND BENEFITS OF THE PROCEDURE , DAUGHTER VERBALIZED UNDERSTANDING , AGREED AND CONSENTED THE PROCEDURE VIA TELEPHONE , WITNESS BY ANOTHER SHASHI LEO ,
[2016-05-29 16:22] LABS: RETICULOCYTE COUNT 2.6 % (0.6-2.5)
[2016-05-29] MEDS: GLYTROL 1,000 ML BAG GT SCH (16:24)
[2016-05-29] MEDS: Z GUARD REMEDY 2 OZ OINT TP PRN (16:27)
[2016-05-29] MEDS: HYDROGEL DRESSING 90 GM TUBE TP PRN (16:27)
[2016-05-29] MEDS: CARVEDILOL 12.5 MG TABLET GT SCH (17:00)
[2016-05-29] MEDS ORDERED: Medication Not On Formulary EA (Cran/Vitc/Mannose/Inulin/Brom (Uti-Stat Liquid) 30 MG) GT SCH (17:00)
--- NOTE | 2016-05-29 17:03 | NUR ---
WIRE STEWARD NOTES COREG 12.5MG HELD PT BP OF 101/30 HR OF 55 ON TELE MONITOR
[2016-05-29] MEDS: BACLOFEN (10 MG) 10 MG TABLET GT SCH (17:11)
[2016-05-29] MEDS: FERROUS SULFATE UDC 300 MG/5 ML UDC GT SCH (17:11)
[2016-05-29] MEDS: DOCUSATE SODIUM LIQ 100 MG/10 ML UDC GT SCH (17:11)
[2016-05-29] MEDS: GABAPENTIN 400 MG CAPSULE GT SCH (17:12)
[2016-05-29] MEDS: BLOOD SUGAR DIAGNOSTIC 1 EACH STRIP IN SCH (17:12)
[2016-05-29] MEDS: EPOETIN ALFA (10,000 UNIT) 10,000 UNIT/ML VIAL SQ SCH (17:13)
[2016-05-29] MEDS: INSULIN REGULAR, HUMAN 100 UNIT/ML 3 ML VIAL SQ PRN (17:14)
[2016-05-29 17:27] LABS: THYROID STIMULATING HORMONE 3.118 uIU/mL (0.358-3.74)
[2016-05-29] MEDS ORDERED: BLOOD SUGAR DIAGNOSTIC 1 EACH STRIP VI SCH (17:30)
[2016-05-29 17:43] LABS: URIC ACID 8.4 mg/dL (2.6-7.2)
--- NOTE | 2016-05-29 17:56 | NUR ---
CAR SUPPLIER NOTES NERA AT BEDSIDE , NOTIFIED PT CAME HERE DUE TO LOW H/H OF 7.5/23 , WBC OF 15.1 , AFEBRILE , BP OF 101/35 , LACTIC ACID OF 1.9 , URINALYSIS RESULT RELAYED ,PT HAS SACRAL ULCER , BILATERAL LOWER BUTTOCKS WOUND , PENDING CULTURES , MUTUAL FUND ACCOUNTANT AWARE
--- NOTE | 2016-05-29 18:32 | NUR ---
RT WILL START ROUTINE TX AT 1930 TO KEEP PROPER TIME AROUND CLOCK.
--- NOTE | 2016-05-29 18:51 | NUR ---
STREETCAR DISPATCHER NOTES PATIENT STABLE AT THIS TIME, NON VERBAL , OPENS EYES , NOT IN ACUTE DISTRESS , RESPIRATIONS EVEN AND UNLABORED SPO2 OF 100% VIA MECHANICAL VENTILATOR SETTINGS ORDERED , TRACH OF PORTEX # [address] , SB 58 ON TELE MONITOR , GT PATENT AND INTACT WITH GTF OF GLYTROL @ 50ML/HR NOTED WITH 20 ML RESIDUALS , FC DRAINING VIA GRAVITY WITH CLEAR YELLOW URINE , ON KCI MATTRESS AND DVT PUMPS , IV OF L FA # 20 AND R WRIST # 18 PATENT AND INTACT PEDRO MIDLINE PATENT INTACT , ALL NEEDS ATTENDED , BED ON LOW AND LOCKED POSITION , SIDE RAILS X2 ,CALL LIGHT WITHIN REACH , HOB 45 REPORT GIVEN TO PM NURSE FOR CONTINUITY OF CARE
[2016-05-29 20:00] VITALS: BP 98/36
--- NOTE | 2016-05-29 20:00 | NUR ---
LOG CHAIN FEEDER NOTES RECEIVED PTS ON BED , ON VENT DEPENDENT , AC SETTING WELL TOLERATED , PTS ON TELE SR ON THE MONITOR NO SOB NO DISTRESS NOTED NO FACIAL GRIMACES NOTED V/S STABLE AFEBRILE PTS SATING 99% ALL NEEDS ATTENDED TOO CALL LIGHT WITH IN REACH ,ALL DUE MEDS GIVEN ORDERED , PTS ON GT FEEDING NO RESIDUAL NOTED , GT TUBE IN PLACE , HOB ELEVATED FOR ASPIRATION PRECAUTION, SUCTION SECRETION DONE, KEPT PTS CLEAN DRY AND COMFORTABLE. WELL CONTINUE TO MONITOR PTS.
[2016-05-29] MEDS: ALBUTEROL FS 2.5 MG/3 ML VIAL.NEB NEB SCH (20:13)
[2016-05-29] MEDS: VALPROIC ACID 250 MG/5 ML UDC GT SCH (20:48)
[2016-05-29] MEDS: INSULIN DETEMIR 100 UNIT/ML CARTRIDGE SQ SCH (21:33)
--- NOTE | 2016-05-29 22:00 | NUR ---
ALTERNATIVE MEDICINE PRACTITIONER NOTES BLOOD SUGAR FOR 10 PM IS 192-30 UNITS OF LEVEMIR GIVEN AND3 UNITS OF REGULAR INSULIN GIVEN PER SLIDING CARE, PTS ON GT FEEDING , WILL CHECK BLOOD SUGAR AT 12MN.
[2016-05-29] MEDS: *INSULIN REGULAR(HUMULIN R)HUM 100 UNIT/ML VIAL SQ PRN (22:06)
[2016-05-30] VITALS: BP 100/41
--- NOTE | 2016-05-30 | NUR ---
telehealth director notes blood sugar for 12mn is 237 -4units insulin regular per sliding given as ordered. will chechk blood sugar again in am, pts is stable at this time
[2016-05-30] MEDS: *INSULIN REGULAR(HUMULIN R)HUM 100 UNIT/ML VIAL SQ PRN ×2 (01:12→21:42)
[2016-05-30] MEDS: IPRATROPIUM NEB FS 0.5 MG/2.5 ML AMPUL.NEB HHN SCH ×4 (02:29→19:51)
[2016-05-30] MEDS: ALBUTEROL FS 2.5 MG/3 ML VIAL.NEB NEB SCH ×4 (02:29→19:51)
[2016-05-30 04:00] VITALS: BP 125/38
[2016-05-30] MEDS: BLOOD SUGAR DIAGNOSTIC 1 EACH STRIP IN SCH ×4 (06:24→17:37)
[2016-05-30] MEDS: INSULIN REGULAR, HUMAN 100 UNIT/ML 3 ML VIAL SQ PRN ×4 (06:26→17:38)
[2016-05-30] MEDS ORDERED: SILVER NITRATE APPLICATOR 1 EA BOX TP ONE (07:00)
[2016-05-30] MEDS ORDERED: LIDOCAINE 1%-EPI 1:100,000 20 ML VIAL TP ONE (07:00)
--- NOTE | 2016-05-30 07:15 | NUR ---
GEOPHYSICAL ENGINEER INITIAL NOTES: Rec'd pt on bed, obtunded, not in any distress. [facility]Portex [facility] with following settings: AC 12, TV 500, FiO2 40%, PEEP 0, not in any respiratory distress. On telemonitoring, SR w/ HR of 64. Pt has MATTHIEU midline G18, LFA G20 and R wrist G18, flushed, patent, clean, dry, and intact, w/ no signs of infection/ infiltration noted. Pt has patent and intact PEG tube on continuous feeding, Glytrol at 600 cc/hr. Provided comfort and safety environment. Call light placed w/in reached. Bed kept low and in locked position. Will turn, reposition and offload heels as per protocol. Will continue to monitor.
--- NOTE | 2016-05-30 07:20 | NUR ---
Received female benny pt on mechanical ventilator. Pt benny is secure. Vent is plugged into a red outlet, alarms are audible, and BVM is at bedside. Addendum: 05/30/16 at 0911 by YOEL WISDOM RT Amended: Links added.
--- NOTE | 2016-05-30 07:26 | NUR ---
ROAD CONDUCTOR NOTES BLOOD SUGAR FOR 6AM IS 157 - 2 UNITS OF REGULAR INSULIN GIVEN PER SLIDING SCALE , PTS IS FOR DIBRIDEMENT TODAY UNDER DR ANAID SWAN, V/S STABLE AFEBRILE, ENDORSE TO SHASHI BUTLER FOR CONTINUITY OF CARE , PTS ON SR ON THE MONITOR SATING 97%.
[2016-05-30 07:50] LABS: BASOPHILS % (AUTO) 0.3 % (0.0-2.0); EOSINOPHILS # (AUTO) 0.5 /CMM (0.0-0.7); EOSINOPHILS % (AUTO) 4.1 % (0.0-6.0); HEMATOCRIT 23 % (33-45); HEMOGLOBIN 7.7 g/dL (11.5-14.8); MEAN CORPUSCULAR HEMOGLOBIN 31 PG (26.0-33.0); MEAN CORPUSCULAR HGB CONC 33 g/dl (31.0-36.0); MEAN CORPUSCULAR VOLUME 94 fL (82-100); MONOCYTES # (AUTO) 0.7 /CMM (0.1-1.30); MONOCYTES % (AUTO) 5.5 % (2.0-12.0); NEUTROPHILS # (AUTO) 7.9 /CMM (1.8-8.9); NEUTROPHILS % (AUTO) 65.1 % (43.0-81.0); PLATELET COUNT (AUTO) 388 /CMM (150-450); RDW COEFFICIENT OF VARIATION 15.7 (11.5-15.0); RED BLOOD CELL COUNT(AUTO) 2.46 MIL/uL (4.0-5.2); WHITE BLOOD COUNT (AUTO) 12.2 K/uL (4.3-11.0)
[2016-05-30 08:00] VITALS: BP 118/44
[2016-05-30 08:08] LABS: CREATININE 1.3 mg/dL (0.6-1.3); MAGNESIUM 2.7 mg/dL (1.8-2.4); PHOSPHORUS 3.3 mg/dL (2.5-4.9); POTASSIUM 4.5 mmol/L (3.5-5.1)
[2016-05-30 08:11] LABS: CARCINOEMBRYONIC AG (CEA) 3.8 ng/mL (0.0-4.7)
[2016-05-30] MEDS: FERROUS SULFATE UDC 300 MG/5 ML UDC GT SCH ×3 (08:40→16:53)
[2016-05-30] MEDS: MULTIVITAMIN LIQ 5 ML UDC GT SCH (08:40)
[2016-05-30] MEDS: DOCUSATE SODIUM LIQ 100 MG/10 ML UDC GT SCH ×2 (08:40→16:53)
[2016-05-30] MEDS: ACETAMINOPHEN 650 MG/20.3 ML UDC GT SCH (08:40)
[2016-05-30] MEDS: ASCORBIC ACID 500 MG TABLET GT SCH (08:41)
[2016-05-30] MEDS: PANTOPRAZOLE 40 MG/PACK PACK GT SCH (08:41)
[2016-05-30] MEDS: GABAPENTIN 400 MG CAPSULE GT SCH ×2 (08:41→16:53)
[2016-05-30] MEDS: ZINC SULFATE 220 MG CAPSULE GT SCH (08:41)
[2016-05-30] MEDS: BACLOFEN (10 MG) 10 MG TABLET GT SCH ×2 (08:42→16:53)
[2016-05-30] MEDS: CARVEDILOL 12.5 MG TABLET GT SCH ×2 (08:42→16:53)
[2016-05-30] MEDS: VALPROIC ACID 250 MG/5 ML UDC GT SCH ×2 (08:44→20:32)
[2016-05-30] MEDS: Z GUARD REMEDY 2 OZ OINT TP PRN (08:45)
[2016-05-30] MEDS: HYDROGEL DRESSING 90 GM TUBE TP PRN (08:46)
--- NOTE | 2016-05-30 11:15 | NUR ---
FINANCIAL LEGAL ASSISTANT NOTES: Pt seen and examined by naval aircrewmanHeather.
--- NOTE | 2016-05-30 11:46 | NUR ---
WOUND CARE CONSULT: PATIENT SEEN AND SKIN ASSESSMENT DONE. VENT TRACH DEPENDENT PATIENT, IMMOBILE, GENERALIZED BODY EDEMA NOTED. INCONTINENT, HAS WATERY STOOLS, ETELVINA 11, ON FIRST STEP HOLDEN MATTRESS. SEE TODAY'S SKIN ASSESSMENT IN PCS ALONG WITH RECOMMENDATIONS. RECOMMEND MOISTURE PROTECTION AND PRESSURE PREVENTION MEASURES ORDERED. ALL DISCUSSED WITH NURSING STAFF.MD IN AGREEMENT WITH PLAN OF CARE. Addendum: 05/30/16 at 1150 by JOSE ROBERTO MCCANN WNDNU Amended: Links added.
[2016-05-30 12:00] VITALS: BP 97/34
[2016-05-30] MEDS: CEFTRIAXONE 1 G in IV D5W 50 ML IV SCH (12:02)
[2016-05-30] MEDS ORDERED: SECONDARY IV SET 1 EA INFUS.SET MC ONE (12:11)
[2016-05-30] MEDS ORDERED: IV SET PRIMARY PUMP SET 1 EA INFUS.SET MC ONE (12:15)
[2016-05-30] MEDS ORDERED: IV NS 0.9% 250 ML IV ONE (12:15)
[2016-05-30 12:33] LABS: VIT D, 25-HYDROXY 15.6 ng/mL (30.0-100.0)
[2016-05-30] MEDS: GLYTROL 1,000 ML BAG GT SCH (15:00)
[2016-05-30 16:00] VITALS: BP 94/35
[2016-05-30] MEDS: FUROSEMIDE 40 MG/4 ML VIAL IV SCH ×2 (16:15→22:05)
--- NOTE | 2016-05-30 18:48 | NUR ---
ASH WORKER CLOSING NOTES: No acute changes noted w/in shift. Pt tolerated prescribed MV settings, not in any respiratory distress, saturating at 100%. On telemonitoring, still SR w/ HR of 69. Pt's MATTHIEU midline G18, LFA G20 and R wrist G18, patent, clean, dry, and intact, w/ no signs of infection/ infiltration noted. On continuous feeding, Glytrol at 600 cc/hr, tolerated well, checked for any residuals. Kept comfortable & rested. Call light placed w/in reached. Bed kept low and in locked position. Wound care done. Turned, repositioned and offloaded heels as per protocol. Will endorse to PM RN.
[2016-05-30 20:00] VITALS: BP 100/49
--- NOTE | 2016-05-30 20:00 | NUR ---
BANDER AND CELLOPHANER MACHINE NOTES RECEIVED PTS ON BED,OBTUNDED ON TELE SR ON THE MONITOR , SATING 97%, V/S STABLE AFEBRILE , NO SOB NO DISTRESS NOTED , NO FACIAL GRAMICES NOTED ,HOB ELEVATED FOR ASPIRATION PRECAUTION .SUCTION SECRETION DONE AND PRN , ALL DUE MEDS GIVEN ORDERED, ALL NEEDS ATTENDED TOO CALL LIGHT WITHIN REACH, KEEP PTS CLEAN DRY AND COMFORTABLE , CONTINUE TO MONITOR PTS.
[2016-05-30] MEDS: INSULIN DETEMIR 100 UNIT/ML CARTRIDGE SQ SCH (21:43)
--- NOTE | 2016-05-30 22:00 | NUR ---
PEDIATRIC NEPHROLOGIST NOTES BLOOD SUGAR FOR 10PM IS 158 - LEVEMIR 30 UNITS ORDERED, 2 UNITS OF REGULAR INSULIN PER SLIDING SCALE . PTS IS COMFORTABLE IN BED , V/S STABLE AFEBRILE. PTS ON GT FEEDING NO RESIDUAL NOTED , FEEDING WELL TOLERATED, WILL CONTINUE TO MONITOR PTS.
[2016-05-31] VITALS: BP 96/41
--- NOTE | 2016-05-31 | NUR ---
RECREATION TECHNICIAN NOTES BLOOD SUGAR FOR 12MN IS 171 NO COVERAGE GIVEN.
[2016-05-31] MEDS: ALBUTEROL FS 2.5 MG/3 ML VIAL.NEB NEB SCH ×4 (00:39→19:24)
[2016-05-31] MEDS: IPRATROPIUM NEB FS 0.5 MG/2.5 ML AMPUL.NEB HHN SCH ×4 (00:39→19:24)
[2016-05-31] MEDS: BLOOD SUGAR DIAGNOSTIC 1 EACH STRIP IN SCH ×5 (00:54→23:25)
[2016-05-31 04:00] VITALS: BP 128/58
[2016-05-31] MEDS: GLYTROL 1,000 ML BAG GT PRN ×2 (04:45→16:59)
--- NOTE | 2016-05-31 04:46 | NUR ---
ADJUDICATION SPECIALIST NOTES GT FEEDING GLYTROL UNABLE TO SCAN , STILL UNVERIFIED ORDER MD MADE AWARE , MANUALY VERIFIED THIS TIME .
[2016-05-31] MEDS: INSULIN REGULAR, HUMAN 100 UNIT/ML 3 ML VIAL SQ PRN ×2 (06:28→12:35)
[2016-05-31 07:19] LABS: CALCIUM, SERUM 9.1 mg/dL (8.5-10.1); CREATININE 1.2 mg/dL (0.6-1.3); POTASSIUM 3.9 mmol/L (3.5-5.1)
--- NOTE | 2016-05-31 07:30 | NUR ---
RN NOTES RECEIVED PT LAYING ON BED, PT IS OBTUNDED, ON MECH VENT SETTINGS PRESCRIBED, SUCTIONED AIRWAY FOR CLEARANCE ROGER WELL. ON GTF GLYTROL, NOTED 60ML GASTRIC RESIDUAL. REPOSITIONED FOR COMFORT, SAFETY MAINTAINED. CALL LIGHT WITHIN REACH, WILL CONT TO MONITOR
--- NOTE | 2016-05-31 07:38 | NUR ---
television repairman notes pts on bed remains on vent setting will tolerated , no sob no distress noted , for possible debridement today under dr friedman . endorse to rn day shift for continuity of care
[2016-05-31 08:00] VITALS: BP_SYST 117; BP_DIAS 46; BP_DIAS 55
[2016-05-31] MEDS: FERROUS SULFATE UDC 300 MG/5 ML UDC GT SCH ×3 (09:07→16:59)
[2016-05-31] MEDS: VALPROIC ACID 250 MG/5 ML UDC GT SCH ×2 (09:07→21:08)
[2016-05-31] MEDS: GABAPENTIN 400 MG CAPSULE GT SCH ×2 (09:07→16:59)
[2016-05-31] MEDS: ACETAMINOPHEN 650 MG/20.3 ML UDC GT SCH (09:07)
[2016-05-31] MEDS: MULTIVITAMIN LIQ 5 ML UDC GT SCH (09:07)
[2016-05-31] MEDS: DOCUSATE SODIUM LIQ 100 MG/10 ML UDC GT SCH ×2 (09:07→16:59)
[2016-05-31] MEDS: PANTOPRAZOLE 40 MG/PACK PACK GT SCH (09:07)
[2016-05-31] MEDS: ZINC SULFATE 220 MG CAPSULE GT SCH (09:07)
[2016-05-31] MEDS: BACLOFEN (10 MG) 10 MG TABLET GT SCH ×2 (09:08→16:59)
[2016-05-31] MEDS: CARVEDILOL 12.5 MG TABLET GT SCH ×2 (09:08→16:50)
[2016-05-31] MEDS: ASCORBIC ACID 500 MG TABLET GT SCH (09:08)
[2016-05-31 12:00] VITALS: BP_SYST 99; BP_DIAS 37; BP_DIAS 57
[2016-05-31] MEDS: CEFTRIAXONE 1 G in IV D5W 50 ML IV SCH (12:34)
[2016-05-31] MEDS: EPOETIN ALFA (10,000 UNIT) 10,000 UNIT/ML VIAL SQ SCH (15:31)
[2016-05-31 16:00] VITALS: BP 96/41
--- NOTE | 2016-05-31 19:24 | NUR ---
PT RCVD ON MECH VENT WITH NOTED SETTINGS. SUCTION SMALL AMOUNT OF YELLOWISH WHITE SECRETIONS. EQUAL BILATERAL BREATH SOUNDS. VENT ALARM WORKING AND AUDIBLE . VENT PLUGGED INTO RED OUTLET. AMBU BAG AT BEDSIDE, WILL CONTINUE TO MONITOR.
--- NOTE | 2016-05-31 19:24 | NUR ---
PT RCVD ON MECH VENT WITH NOTED SETTINGS. SUCTION SMALL AMOUNT OF YELLOWISH WHITE SEMI THICK SECRETIONS. EQUAL BILATERAL BREATH SOUNDS. VENT ALARM WORKING AND AUDIBLE . VENT PLUGGED INTO RED OUTLET. AMBU BAG AT BEDSIDE, WILL CONTINUE TO MONITOR.
[2016-05-31 20:00] VITALS: BP 150/65
--- NOTE | 2016-05-31 20:14 | NUR ---
RN:TELE: DR WORRELL AT BEDSIDE TO PERFORM SACRAL WOUND DEBRIDEMENT. PT TOLERATED PROCEDURE WELL.
[2016-05-31] MEDS: INSULIN DETEMIR 100 UNIT/ML CARTRIDGE SQ SCH (21:08)
[2016-06-01] VITALS: BP 135/68
[2016-06-01] MEDS: ALBUTEROL FS 2.5 MG/3 ML VIAL.NEB NEB SCH ×5 (01:39→20:46)
[2016-06-01] MEDS: IPRATROPIUM NEB FS 0.5 MG/2.5 ML AMPUL.NEB HHN SCH ×5 (01:40→20:46)
[2016-06-01 04:00] VITALS: BP 134/62
[2016-06-01] MEDS: BLOOD SUGAR DIAGNOSTIC 1 EACH STRIP IN SCH ×4 (05:08→23:05)
[2016-06-01] MEDS: INSULIN REGULAR, HUMAN 100 UNIT/ML 3 ML VIAL SQ PRN ×3 (05:09→17:23)
[2016-06-01 07:06] LABS: BASOPHILS % (AUTO) 0.2 % (0.0-2.0); EOSINOPHILS # (AUTO) 0.2 /CMM (0.0-0.7); EOSINOPHILS % (AUTO) 1.5 % (0.0-6.0); HEMATOCRIT 25 % (33-45); LYMPHOCYTES % (AUTO) 21.6 % (20.0-44.0); MEAN CORPUSCULAR HEMOGLOBIN 31 PG (26.0-33.0); MEAN CORPUSCULAR HGB CONC 33 g/dl (31.0-36.0); MEAN CORPUSCULAR VOLUME 95 fL (82-100); MONOCYTES # (AUTO) 0.9 /CMM (0.1-1.30); MONOCYTES % (AUTO) 6.7 % (2.0-12.0); NEUTROPHILS # (AUTO) 9.8 /CMM (1.8-8.9); PLATELET COUNT (AUTO) 369 /CMM (150-450); RDW COEFFICIENT OF VARIATION 16.2 (11.5-15.0); RED BLOOD CELL COUNT(AUTO) 2.58 MIL/uL (4.0-5.2); WHITE BLOOD COUNT (AUTO) 14.1 K/uL (4.3-11.0)
--- NOTE | 2016-06-01 07:15 | NUR ---
JINRIKSHA DRIVER INITIAL NOTES RECEIVED PT FROM PM NURSE, PT RESTING IN BED, A&O X1 OBTUNDED, NON VERBAL, [facility] ORDERED BY MD SAT ABOVE 97%, ON TELE MON SB 59, CHAUDHARY CATH DRAINING URINE VIA GRAVITY, ON GTUBE FEEDING GLYTROL @ 60 ML/HR NO RESIDUAL NOTED, LT FA 20 G, RT WRITS 18G, LT ARM MIDLINE ALL INTACT NO INFILTRATION NOTED, ALL NEEDS MET, ALL SAFETY MEASURES INITIATED, SIDE RAILS X2, BED LOW AND LOCKED, CALL LIGHT WITHIN REACH, WILL CONTINUE TO MONITOR.
[2016-06-01 07:25] LABS: CALCIUM, SERUM 8.8 mg/dL (8.5-10.1); CREATININE 1.1 mg/dL (0.6-1.3); MAGNESIUM 2.6 mg/dL (1.8-2.4); PHOSPHORUS 3.6 mg/dL (2.5-4.9)
[2016-06-01 08:00] VITALS: BP 134/56
[2016-06-01] MEDS: DOCUSATE SODIUM LIQ 100 MG/10 ML UDC GT SCH ×2 (08:15→17:18)
[2016-06-01] MEDS: FERROUS SULFATE UDC 300 MG/5 ML UDC GT SCH ×3 (08:15→17:19)
[2016-06-01] MEDS: VALPROIC ACID 250 MG/5 ML UDC GT SCH ×2 (08:15→20:35)
[2016-06-01] MEDS: ACETAMINOPHEN 650 MG/20.3 ML UDC GT SCH (08:15)
[2016-06-01] MEDS: ZINC SULFATE 220 MG CAPSULE GT SCH (08:15)
[2016-06-01] MEDS: PANTOPRAZOLE 40 MG/PACK PACK GT SCH (08:15)
[2016-06-01] MEDS: GABAPENTIN 400 MG CAPSULE GT SCH ×2 (08:15→17:19)
[2016-06-01] MEDS: MULTIVITAMIN LIQ 5 ML UDC GT SCH (08:15)
[2016-06-01] MEDS: BACLOFEN (10 MG) 10 MG TABLET GT SCH ×2 (08:15→17:19)
[2016-06-01] MEDS: ASCORBIC ACID 500 MG TABLET GT SCH (08:15)
[2016-06-01] MEDS: CARVEDILOL 12.5 MG TABLET GT SCH ×2 (08:16→17:19)
[2016-06-01 12:00] VITALS: BP 113/49
[2016-06-01] MEDS: GLYTROL 1,000 ML BAG GT PRN (12:06)
[2016-06-01] MEDS: CEFTRIAXONE 1 G in IV D5W 50 ML IV SCH (12:06)
[2016-06-01 16:00] VITALS: BP 117/53
--- NOTE | 2016-06-01 18:39 | NUR ---
CRIMINAL INVESTIGATIVE AGENT ENDING NOTES PT STABLE WITH NO ACUTE CHANGES NOTED, ALL DUE MEDS GIVEN, ALL NEEDS MET, BED BATH AND WOUND TX PROVIDED. WILL ENDORSE TO PM NURSE.
--- NOTE | 2016-06-01 19:30 | NUR ---
QUESTIONED DOCUMENTS EXAMINER INITIAL NOTE RECEIVED PT IN BED. OBTUNDED. ON MECH VENT WITH SETTINGS WELL TOLERATED AND SATING WELL. IV MATTHIEU MIDLINE, LFA, R WRIST PATENT, FLUSHING WELL, CLEAN, DRY AND INTACT. GTUBE FEEDING WELL TOLERATED, WITH 10ML RESIDUAL. GTUBE SITE CLEAN, DRY AND INTACT. CHAUDHARY CATHETER DRAINING BY GRAVITY, PATENT. TELE- SINUS RHYTHM 60'S. ALL SAFETY MEASURES IN PLACE. WILL CONTINUE TO MONITOR.
[2016-06-01 20:00] VITALS: BP 149/59
[2016-06-01] MEDS: INSULIN DETEMIR 100 UNIT/ML CARTRIDGE SQ SCH (23:11)
[2016-06-01] MEDS: *INSULIN REGULAR(HUMULIN R)HUM 100 UNIT/ML VIAL SQ PRN (23:11)
[2016-06-02] MEDS: ALBUTEROL FS 2.5 MG/3 ML VIAL.NEB NEB SCH ×5 (01:30→19:31)
[2016-06-02] MEDS: IPRATROPIUM NEB FS 0.5 MG/2.5 ML AMPUL.NEB HHN SCH ×5 (01:30→19:31)
[2016-06-02] MEDS: BLOOD SUGAR DIAGNOSTIC 1 EACH STRIP IN SCH ×3 (05:51→17:23)
[2016-06-02] MEDS: INSULIN REGULAR, HUMAN 100 UNIT/ML 3 ML VIAL SQ PRN ×3 (05:55→17:24)
[2016-06-02] MEDS ORDERED: IV NS 0.9% 250 ML IV ONE (06:05)
--- NOTE | 2016-06-02 06:30 | NUR ---
SILO MAN CLOSING NOTE PT REMAINED STABLE DURING SHIFT. NO ACUTE DISTRESS NOTED. CHAUDHARY CATHETER INTACT, PATENT. IV SITE CLEAN. GTUBE FLUSHING WELL WITH NO RESIDUAL. MECH VENT WELL TOLERATED. WILL ENDORSE TO NEXT SHIFT FOR GEOVANNA.
--- NOTE | 2016-06-02 07:10 | NUR ---
INSTRUMENT LENS GENERATOR NOTES RECEIVED PATIENT IN BED, EYES OPEN, NON VERBAL. ON MECH VENT WITH SETTINGS AC 12 TV 500 FiO2 40% PEEP 0. SHILEY SIZE 6. APPEARS COMFORTABLE IN BED, NO MOANING. ON GTUBE FEEDING GLYTROL AT 60ML/HR. MAINTAIN HOB ELEVATED. MADE COMFORTABLE IN BED. CHAUDHARY CATH INTACT DRAINING TO GRAVITY, URINE CLEAR AND YELLOW. CALL LIGHT WITHIN REACH. WILL CONT TO MONITOR.
[2016-06-02 08:00] VITALS: BP_SYST 138; BP_SYST 164; BP_DIAS 70; BP_DIAS 94
[2016-06-02] MEDS: VALPROIC ACID 250 MG/5 ML UDC GT SCH ×2 (09:03→21:28)
[2016-06-02] MEDS: MULTIVITAMIN LIQ 5 ML UDC GT SCH (09:03)
[2016-06-02] MEDS: FERROUS SULFATE UDC 300 MG/5 ML UDC GT SCH ×3 (09:03→16:54)
[2016-06-02] MEDS: DOCUSATE SODIUM LIQ 100 MG/10 ML UDC GT SCH ×2 (09:03→16:54)
[2016-06-02] MEDS: BACLOFEN (10 MG) 10 MG TABLET GT SCH ×2 (09:04→16:54)
[2016-06-02] MEDS: ZINC SULFATE 220 MG CAPSULE GT SCH (09:04)
[2016-06-02] MEDS: GABAPENTIN 400 MG CAPSULE GT SCH ×2 (09:04→16:54)
[2016-06-02] MEDS: PANTOPRAZOLE 40 MG/PACK PACK GT SCH (09:04)
[2016-06-02] MEDS: ASCORBIC ACID 500 MG TABLET GT SCH (09:05)
[2016-06-02] MEDS: CARVEDILOL 12.5 MG TABLET GT SCH ×2 (09:05→16:54)
[2016-06-02 12:00] VITALS: BP 126/59
[2016-06-02] MEDS: ACETAMINOPHEN 650 MG/20.3 ML UDC GT SCH (12:12)
--- NOTE | 2016-06-02 12:15 | NUR ---
BS 217MG/DL. GIVEN 6 UNITS INSULIN REGULAR SQ PER ISS COVERAGE.
--- NOTE | 2016-06-02 12:30 | NUR ---
PATIENT LISTED ALLERGIES TO ACETAMINOPHEN. SNF MEDICATION RECORDS IN THE CHART, PATIENT IS TAKING TYLENOL Q SHIFT FOR PAIN MANAGEMENT. UN ABLE TO SPEAK TO SNF MEDICAL RECORDS DUE TO CLOSE SERVICE ON WEEK ENDS. CHARGE NURSE MADE AWARE.
[2016-06-02] MEDS: CEFTRIAXONE 1 G in IV D5W 50 ML IV SCH (13:30)
[2016-06-02] MEDS: GLYTROL 1,000 ML BAG GT PRN (14:21)
[2016-06-02 16:00] VITALS: BP 120/54
[2016-06-02] MEDS: HYDROGEL DRESSING 90 GM TUBE TP PRN (17:08)
--- NOTE | 2016-06-02 17:27 | NUR ---
BS 182MG/DL. GIVEN 3 UNITS INSULIN REGULAR SQ PER ISS COVERAGE.
--- NOTE | 2016-06-02 17:40 | NUR ---
Pt tolerated current vent settings well. No changes made. Pt trach is secure. Vent is plugged into a red outlet, alarms are set and audible. Ambu bag at bedside. Addendum: 06/02/16 at 1742 by YOEL WISDOM RT Amended: Links added.
--- NOTE | 2016-06-02 18:48 | NUR ---
CHANGE MANAGEMENT CONSULTANT CLOSING NOTES PATIENT IN BED, NOT IN DISTRESS. CURRENT VENT SETTINGS REMAINS THE SAME AND TOLERATED WELL. ON TELE MONITOR SINUS JORDY HR 58. WOUND DRESSING CHANGED, MADE COMFORTABLE IN BED, TURN AND REPOSITIONED. BLOOD SUGAR MONITORED. ON ANTIBIOTIC WITH NO ADVERSE REACTION, AFEBRILE. MAINTAIN HOB ELEVATED. NO S/S OF ACTIVE BLEEDING. SIDE RAILS UP X2, BED LOW AND LOCKED. WILL ENDORSE TO TRANSCRIPTION SPECIALIST RN FOR CONTINUITY OF CARE.
--- NOTE | 2016-06-02 19:30 | NUR ---
SEALER SANDER INITIAL NOTE PT RESTING IN BED. OBTUNDED AND ON MECH VENT WITH ALL SETTINGS WELL TOLERATED. PT SATING WELL. IV SITES ALL INTACT, PATENT, FLUSHING WELL AND WITH NO S/S OF INFECTION NOTED. GTUBE SITE CLEAN AND INTACT. GTUBE FEEDING WELL TOLERATED WITHOUT RESIDUAL NOTED AT THIS TIME. CHAUDHARY CATHETER IN PLACE, PATENT AND DRAINING CLEAR, YELLOW URINE BY GRAVITY. WILL CONTINUE TO MONITOR.
[2016-06-02 20:00] VITALS: BP 101/44
[2016-06-02] MEDS: INSULIN DETEMIR 100 UNIT/ML CARTRIDGE SQ SCH (21:34)
[2016-06-03] VITALS: BP 102/49
[2016-06-03] MEDS: BLOOD SUGAR DIAGNOSTIC 1 EACH STRIP IN SCH ×5 (00:47→23:02)
[2016-06-03] MEDS: *INSULIN REGULAR(HUMULIN R)HUM 100 UNIT/ML VIAL SQ PRN ×2 (00:53→23:03)
[2016-06-03] MEDS: ALBUTEROL FS 2.5 MG/3 ML VIAL.NEB NEB SCH ×4 (01:02→20:07)
[2016-06-03] MEDS: IPRATROPIUM NEB FS 0.5 MG/2.5 ML AMPUL.NEB HHN SCH ×4 (01:02→20:08)
[2016-06-03] MEDS ORDERED: IV NS 0.9% 250 ML IV ONE (03:35)
[2016-06-03] MEDS ORDERED: IV SET PRIMARY PUMP SET 1 EA INFUS.SET MC ONE (03:35)
[2016-06-03 04:00] VITALS: BP 119/51
[2016-06-03] MEDS: INSULIN REGULAR, HUMAN 100 UNIT/ML 3 ML VIAL SQ PRN ×2 (06:15→11:59)
--- NOTE | 2016-06-03 06:30 | NUR ---
NUISANCE WILDLIFE CONTROL OPERATOR CLOSING NOTE PT REMAINED STABLE DURING SHIFT. MECH VENT WELL TOLERATED. CHAUDHARY CATHETER INTACT, PATENT. IV INTACT, FLUSHING WELL. ALL SAFETY MEASURES IN PLACE. WILL ENDORSE TO NEXT SHIFT FOR GEOVANNA.
--- NOTE | 2016-06-03 07:30 | NUR ---
PT RECEIVED RESTING COMFORTABLY IN BED. NO S/S OR C/O PAIN OR DISTRESS NOTED. SIDE RAILS UP X2, CALL LIGHT LEFT WITHIN REACH. WILL CONTINUE PLAN OF CARE.
[2016-06-03 08:00] VITALS: BP 124/52
[2016-06-03] MEDS: MULTIVITAMIN LIQ 5 ML UDC GT SCH (08:39)
[2016-06-03] MEDS: ACETAMINOPHEN 650 MG/20.3 ML UDC GT SCH (08:39)
[2016-06-03] MEDS: DOCUSATE SODIUM LIQ 100 MG/10 ML UDC GT SCH ×2 (08:40→17:24)
[2016-06-03] MEDS: VALPROIC ACID 250 MG/5 ML UDC GT SCH ×2 (08:40→20:55)
[2016-06-03] MEDS: ASCORBIC ACID 500 MG TABLET GT SCH (08:40)
[2016-06-03] MEDS: GABAPENTIN 400 MG CAPSULE GT SCH ×2 (08:40→17:24)
[2016-06-03] MEDS: ZINC SULFATE 220 MG CAPSULE GT SCH (08:40)
[2016-06-03] MEDS: BACLOFEN (10 MG) 10 MG TABLET GT SCH ×2 (08:40→17:24)
[2016-06-03] MEDS: PANTOPRAZOLE 40 MG/PACK PACK GT SCH (08:40)
[2016-06-03] MEDS: FERROUS SULFATE UDC 300 MG/5 ML UDC GT SCH ×3 (08:40→17:24)
--- NOTE | 2016-06-03 08:40 | NUR ---
GASTRIC RESIDUAL 200ML, FEEDING HELD. WILL CONTINUE TO MONITOR
[2016-06-03] MEDS: CARVEDILOL 12.5 MG TABLET GT SCH ×2 (08:58→17:24)
[2016-06-03 11:48] LABS: BASOPHILS % (AUTO) 0.3 % (0.0-2.0); EOSINOPHILS # (AUTO) 0.3 /CMM (0.0-0.7); EOSINOPHILS % (AUTO) 2.7 % (0.0-6.0); HEMATOCRIT 23 % (33-45); HEMOGLOBIN 7.4 g/dL (11.5-14.8); LYMPHOCYTES # (AUTO) 3.5 /CMM (0.8-4.8); LYMPHOCYTES % (AUTO) 26.8 % (20.0-44.0); MEAN CORPUSCULAR HEMOGLOBIN 31 PG (26.0-33.0); MEAN CORPUSCULAR HGB CONC 32 g/dl (31.0-36.0); MEAN CORPUSCULAR VOLUME 95 fL (82-100); MONOCYTES # (AUTO) 0.9 /CMM (0.1-1.30); NEUTROPHILS # (AUTO) 8.2 /CMM (1.8-8.9); NEUTROPHILS % (AUTO) 63.2 % (43.0-81.0); PLATELET COUNT (AUTO) 378 /CMM (150-450); RDW COEFFICIENT OF VARIATION 16.7 (11.5-15.0); RED BLOOD CELL COUNT(AUTO) 2.43 MIL/uL (4.0-5.2); WHITE BLOOD COUNT (AUTO) 12.9 K/uL (4.3-11.0)
[2016-06-03 12:00] VITALS: BP 121/50
--- NOTE | 2016-06-03 12:00 | NUR ---
GASTRIC RESIDUAL 125 ML, PAGED TO NOTIFY.
[2016-06-03 12:01] LABS: BILIRUBIN,TOTAL 0.1 mg/dL (0.2-1.0); CALCIUM, SERUM 9.2 mg/dL (8.5-10.1); CREATININE 0.9 mg/dL (0.6-1.3); MAGNESIUM 2.5 mg/dL (1.8-2.4); PHOSPHORUS 4.1 mg/dL (2.5-4.9); POTASSIUM 3.8 mmol/L (3.5-5.1); TOTAL PROTEIN, SERUM 9.7 g/dL (6.4-8.2)
[2016-06-03] MEDS: CEFTRIAXONE 1 G in IV D5W 50 ML IV SCH (12:01)
[2016-06-03 12:04] LABS: ALBUMIN 1.3 g/dL (3.4-5.0)
--- NOTE | 2016-06-03 13:00 | NUR ---
FEEDING RESUMED RESIDUAL 100. MD OK TO RESUME.
[2016-06-03] MEDS: EPOETIN ALFA (10,000 UNIT) 10,000 UNIT/ML VIAL SQ SCH (15:43)
--- NOTE | 2016-06-03 18:37 | NUR ---
CHANGE OF SHIFT REPORT PT RESTING COMFORTABLY IN BED. NO S/S OR C/O PAIN OR DISTRESS NOTED. SIDE RAILS UP X2, CALL LIGHT LEFT WITHIN REACH. PT KEPT CLEAN, DRY, AND COMFORTABLE. NO SIGNIFICANT CHANGES SINCE PREVIOUS SHIFT. WILL GIVE REPORT TO MARCOS DANIELLE.
--- NOTE | 2016-06-03 19:30 | NUR ---
TOUR AGENT INITIAL NOTE RECEIVED IN BED. OBT[facility]DED. [facility] WITH ALL SETTINGS WELL TOLERATED AND SATING WELL.TELE- SR 60'S. IV SITES ALL INTACT, FLUSHING WELL AND PATENT. GTUBE FLUSHING WELL AND WITHOUT RESIDUAL. FEEDING WELL TOLERATED. CHAUDHARY CATHETER PATENT AND DRAINING CLEAR, YELLOW URINE BY GRAVITY. WILL CONTINUE TO MONITOR.
[2016-06-03] MEDS: GLYTROL 1,000 ML BAG GT PRN (19:32)
[2016-06-03 20:00] VITALS: BP 110/46
[2016-06-03] MEDS: INSULIN DETEMIR 100 UNIT/ML CARTRIDGE SQ SCH (23:02)
[2016-06-04] VITALS: BP_SYST 121; BP_SYST 133; BP_DIAS 52; BP_DIAS 72
[2016-06-04] MEDS: ALBUTEROL FS 2.5 MG/3 ML VIAL.NEB NEB SCH ×4 (01:54→19:44)
[2016-06-04] MEDS: IPRATROPIUM NEB FS 0.5 MG/2.5 ML AMPUL.NEB HHN SCH ×4 (01:54→19:44)
[2016-06-04 04:00] VITALS: BP 130/43
[2016-06-04] MEDS ORDERED: IV NS 0.9% 250 ML IV ONE (05:05)
[2016-06-04] MEDS: BLOOD SUGAR DIAGNOSTIC 1 EACH STRIP IN SCH ×5 (05:40→23:44)
[2016-06-04] MEDS: INSULIN REGULAR, HUMAN 100 UNIT/ML 3 ML VIAL SQ PRN ×2 (05:45→23:44)
--- NOTE | 2016-06-04 06:35 | NUR ---
SCHOOL PSYCHOLOGY SPECIALIST CLOSING NOTE. PT REMAINED STABLE DURING SHIFT. MECH VENT WELL TOLERATED. IV SITES INTACT AND PATENT. CHAUDHARY CATHETER DRAINING WELL. GTUBE WITH RESIDUAL OF 150ML AND HELD. TREATMENTS DONE. MEDS GIVEN AND WELL TOLERATED. ALL SAFETY MEASURES IN PLACE. WILL ENDORSE TO NEXT SHIFT FOR GEOVANNA.
--- NOTE | 2016-06-04 07:05 | NUR ---
RN INITIAL NOTES RECEIVED PT IN BED, OBTUNDED, PT IS ON [facility] VENT, SHILEY # 6 AC 12 TV 500 FIO2 40% PEEP 0, SATING WELL, NO S/S OF RESP. DISTRESS OR SOB NOTED AT THIS TIME, PT IS ON TELE MONITOR SHOWING SR 65, NO S/S OF PAIN OR DISCOMFORT AT THIS TIME, PT HAS F/C DRAINING WELL TO GRAVITY, PT IS NOTED WITH SKIN ISSUES, HAS G TUBE, FEEDING ON HOLD AT THIS TIME D/T 150 ML RESIDUALS, PATENT/ INTACT, FLUSHING WELL, PT HAS LFA #20G, SL, R WRIST #18G, SL, L MIDLINE, SL, C/D/I/PATENT, FLUSHING WELL, NO INFECTION/ INFILTRATION NOTED AT THIS TIME, ALL SAFETY MEASURES IN PLACE AT ALL TIMES, CALL LIGHT WITHIN EASY REACH, WILL MONITOR PT CLOSELY FOR CHANGES.
[2016-06-04 07:15] LABS: CALCIUM, SERUM 8.9 mg/dL (8.5-10.1); CREATININE 0.8 mg/dL (0.6-1.3); MAGNESIUM 2.6 mg/dL (1.8-2.4); PHOSPHORUS 4.7 mg/dL (2.5-4.9); POTASSIUM 4.6 mmol/L (3.5-5.1)
[2016-06-04 08:00] VITALS: BP 132/54
[2016-06-04 08:21] LABS: BASOPHILS % (AUTO) 0.2 % (0.0-2.0); EOSINOPHILS # (AUTO) 0.2 /CMM (0.0-0.7); EOSINOPHILS % (AUTO) 1.6 % (0.0-6.0); HEMATOCRIT 27 % (33-45); HEMOGLOBIN 8.7 g/dL (11.5-14.8); LYMPHOCYTES % (AUTO) 27.3 % (20.0-44.0); MEAN CORPUSCULAR HEMOGLOBIN 31 PG (26.0-33.0); MEAN CORPUSCULAR HGB CONC 32 g/dl (31.0-36.0); MEAN CORPUSCULAR VOLUME 95 fL (82-100); MONOCYTES # (AUTO) 0.9 /CMM (0.1-1.30); MONOCYTES % (AUTO) 5.9 % (2.0-12.0); NEUTROPHILS # (AUTO) 9.5 /CMM (1.8-8.9); PLATELET COUNT (AUTO) 351 /CMM (150-450); RDW COEFFICIENT OF VARIATION 16.8 (11.5-15.0); RED BLOOD CELL COUNT(AUTO) 2.82 MIL/uL (4.0-5.2); WHITE BLOOD COUNT (AUTO) 14.6 K/uL (4.3-11.0)
[2016-06-04] MEDS: FERROUS SULFATE UDC 300 MG/5 ML UDC GT SCH ×3 (08:29→16:38)
[2016-06-04] MEDS: VALPROIC ACID 250 MG/5 ML UDC GT SCH ×2 (08:29→21:39)
[2016-06-04] MEDS: DOCUSATE SODIUM LIQ 100 MG/10 ML UDC GT SCH ×2 (08:29→16:38)
[2016-06-04] MEDS: MULTIVITAMIN LIQ 5 ML UDC GT SCH (08:29)
[2016-06-04] MEDS: CARVEDILOL 12.5 MG TABLET GT SCH ×2 (08:30→16:39)
[2016-06-04] MEDS: ASCORBIC ACID 500 MG TABLET GT SCH (08:30)
[2016-06-04] MEDS: GABAPENTIN 400 MG CAPSULE GT SCH ×2 (08:30→16:38)
[2016-06-04] MEDS: ACETAMINOPHEN 650 MG/20.3 ML UDC GT SCH (08:30)
[2016-06-04] MEDS: ZINC SULFATE 220 MG CAPSULE GT SCH (08:30)
[2016-06-04] MEDS: PANTOPRAZOLE 40 MG/PACK PACK GT SCH (08:30)
[2016-06-04] MEDS: BACLOFEN (10 MG) 10 MG TABLET GT SCH ×2 (08:30→16:38)
[2016-06-04] MEDS: HYDROGEL DRESSING 90 GM TUBE TP PRN ×2 (08:31→23:45)
[2016-06-04] MEDS: Z GUARD REMEDY 2 OZ OINT TP PRN ×2 (08:31→23:45)
--- NOTE | 2016-06-04 09:09 | NUR ---
RN NOTES CALLED ANGELA GONZALEZ [phone], REGARDING PTS ALLERGIES, GOT HUNG UP ON 3 TIMES, WILL NOTIFY MD AND TRY BACK LATER
[2016-06-04 12:00] VITALS: BP 143/65
[2016-06-04] MEDS: CEFTRIAXONE 1 G in IV D5W 50 ML IV SCH (12:01)
[2016-06-04 16:00] VITALS: BP 135/54
[2016-06-04] MEDS: GLYTROL 1,000 ML BAG GT PRN (16:37)
--- NOTE | 2016-06-04 18:49 | NUR ---
RN CLOSING NOTES PT REMAINED STABLE DURING SHIFT, ALL MD ORDERS CARRIED OUT, ALL MEDICATIONS GIVEN, ALL TREATMENTS CARRIED OUT, PT KEPT CLEAN AND DRY, IV REMAINS INTACT, G TUBE RUNNING FEEDING ORDERED, ALL SAFETY MEASURES IN PLACE AT ALL TIMES, CALL LIGHT WITHIN EASY REACH, REPORT WILL BE GIVEN TO PM RN FOR GEOVANNA
[2016-06-04 20:00] VITALS: BP 130/41
--- NOTE | 2016-06-04 23:00 | NUR ---
COMPLETE BED BATH GIVEN TO PATIENT WITH ASSISTANCE OF MAGGIE SMALL. ALL WOUND CARE DRESSINGS CHANGED. PT TOLERATED WELL. WILL CONTINUE TO MONITOR.
[2016-06-04] MEDS: INSULIN DETEMIR 100 UNIT/ML CARTRIDGE SQ SCH (23:41)
[2016-06-05] VITALS: BP 101/33
[2016-06-05] MEDS ORDERED: DEXTROSE 50%-WATER 50 ML DISP.SYRIN IV PRN
[2016-06-05] MEDS: IPRATROPIUM NEB FS 0.5 MG/2.5 ML AMPUL.NEB HHN SCH ×4 (00:58→19:55)
[2016-06-05] MEDS: ALBUTEROL FS 2.5 MG/3 ML VIAL.NEB NEB SCH ×4 (00:58→19:55)
[2016-06-05 04:00] VITALS: BP_SYST 114; BP_DIAS 37; BP_DIAS 57
--- NOTE | 2016-06-05 04:30 | NUR ---
MIDLINE DRESSING DONE UNDER ASEPTIC TECHNIQUE. PT TOLERATED PROCEDURE WELL. WILL CONTINUE TO MONITOR.
[2016-06-05] MEDS ORDERED: IV NS 0.9% 250 ML IV ONE (05:17)
[2016-06-05] MEDS: GLYTROL 1,000 ML BAG GT PRN (05:29)
[2016-06-05] MEDS: INSULIN REGULAR, HUMAN 100 UNIT/ML 3 ML VIAL SQ PRN (05:31)
[2016-06-05] MEDS: BLOOD SUGAR DIAGNOSTIC 1 EACH STRIP IN SCH ×3 (05:31→18:24)
--- NOTE | 2016-06-05 07:00 | NUR ---
WATER TAXI CAPTAIN- INITIAL NOTE RECEIVED PT OBTUNDED. ON MECHANICAL VENT, SETTINGS ORDERED, RESPIRATIONS EVEN AND UNLABORED, NO SOB OR DISTRESS PRESENT, SATURATING WELL AT 95%. TELE MONITOR REVEALS SINUS RHYTHM, HR= 71. TWO IVS PRESENT: 1) RIGHT WRIST 18G SL AND 2) MATTHIEU MIDLINE ON TKO. BOTH IV SITES FLUSHED, PATENT, INTACT AND FREE OF REDNESS, SWELLING AND INFLAMMATION. PT INCONTINENT OF URINE & STOOL, DIAPER IS CLEAN AND DRY. G-TUBE PRESENT AND RUNNING GLYTROL @ 60 ML/HR. CHAUDHARY CATHETER DRAINING TO GRAVITY. SAFETY MEASURES TAKEN: BED LOCKED AND IN LOW POSITION, SIDE RAILS UP X2 AND BED ALARM ON, WILL CONTINUE TO MONITOR.
--- NOTE | 2016-06-05 07:13 | NUR ---
HAND QUILTER- END OF SHIFT NOTE PT ENDORSED TO DAY SHIFT NURSE IN STABLE CONDITION, IN NO ACUTE DISTRESS.
--- NOTE | 2016-06-05 07:20 | NUR ---
Received female benny pt on mechanical vent. Pt benny is secure. Vent is plugged into a red outlet, alarms are audible, and BVM is at bedside. Addendum: 06/05/16 at 1341 by YOEL WISDOM RT Amended: Links added.
[2016-06-05 07:37] LABS: BASOPHILS % (AUTO) 0.4 % (0.0-2.0); EOSINOPHILS # (AUTO) 0.3 /CMM (0.0-0.7); EOSINOPHILS % (AUTO) 2.3 % (0.0-6.0); HEMATOCRIT 24 % (33-45); HEMOGLOBIN 7.8 g/dL (11.5-14.8); LYMPHOCYTES # (AUTO) 3.9 /CMM (0.8-4.8); LYMPHOCYTES % (AUTO) 30.8 % (20.0-44.0); MEAN CORPUSCULAR HEMOGLOBIN 31 PG (26.0-33.0); MEAN CORPUSCULAR HGB CONC 32 g/dl (31.0-36.0); MEAN CORPUSCULAR VOLUME 97 fL (82-100); MONOCYTES # (AUTO) 1.1 /CMM (0.1-1.30); MONOCYTES % (AUTO) 8.3 % (2.0-12.0); NEUTROPHILS # (AUTO) 7.4 /CMM (1.8-8.9); NEUTROPHILS % (AUTO) 58.2 % (43.0-81.0); PLATELET COUNT (AUTO) 337 /CMM (150-450); RDW COEFFICIENT OF VARIATION 17.5 (11.5-15.0); RED BLOOD CELL COUNT(AUTO) 2.49 MIL/uL (4.0-5.2); WHITE BLOOD COUNT (AUTO) 12.8 K/uL (4.3-11.0)
[2016-06-05 08:00] VITALS: BP 106/45
[2016-06-05 08:03] LABS: CALCIUM, SERUM 8.4 mg/dL (8.5-10.1); CREATININE 0.8 mg/dL (0.6-1.3); MAGNESIUM 2.3 mg/dL (1.8-2.4); PHOSPHORUS 4.4 mg/dL (2.5-4.9); POTASSIUM 4.4 mmol/L (3.5-5.1)
[2016-06-05] MEDS: GABAPENTIN 400 MG CAPSULE GT SCH ×2 (08:53→17:12)
[2016-06-05] MEDS: DOCUSATE SODIUM LIQ 100 MG/10 ML UDC GT SCH ×2 (08:53→17:12)
[2016-06-05] MEDS: CARVEDILOL 12.5 MG TABLET GT SCH ×2 (08:53→17:15)
[2016-06-05] MEDS: FERROUS SULFATE UDC 300 MG/5 ML UDC GT SCH ×3 (08:53→17:12)
[2016-06-05] MEDS: ZINC SULFATE 220 MG CAPSULE GT SCH (08:53)
[2016-06-05] MEDS: ASCORBIC ACID 500 MG TABLET GT SCH (08:54)
[2016-06-05] MEDS: PANTOPRAZOLE 40 MG/PACK PACK GT SCH (08:54)
[2016-06-05] MEDS: BACLOFEN (10 MG) 10 MG TABLET GT SCH ×2 (08:54→17:12)
[2016-06-05] MEDS: MULTIVITAMIN LIQ 5 ML UDC GT SCH (08:54)
[2016-06-05] MEDS: VALPROIC ACID 250 MG/5 ML UDC GT SCH ×2 (09:03→21:26)
[2016-06-05 10:19] LABS: IMMUNOGLOBULIN A, SERUM 747 mg/dL (87-352); IMMUNOGLOBULIN G, SERUM 4178 mg/dL (700-1600)
[2016-06-05 11:25] LABS: *SPE A/G RATIO 0.2 (0.7-1.7); *SPE ALBUMIN 1.7 g/dL (2.9-4.4); *SPE ALPHA-1-GLOBULIN 0.4 g/dL (0.0-0.4); *SPE ALPHA-2-GLOBULIN 1.1 g/dL (0.4-1.0); *SPE BETA GLOBULIN 1.3 g/dL (0.7-1.3); *SPE GLOBULIN, TOTAL 6.9 g/dL (2.2-3.9); *SPE M-SPIKE Not Observed g/dL (Not Observed); *SPE PROTEIN TOTAL 8.6 g/dL (6.0-8.5); *SPEGAMMA GLOBULIN 4.2 g/dL (0.4-1.8)
[2016-06-05 12:00] VITALS: BP 126/56
[2016-06-05 12:31] LABS: IMMUNOGLOBULIN M, SERUM 341 mg/dL (26-217)
[2016-06-05] MEDS: CEFTRIAXONE 1 G in IV D5W 50 ML IV SCH (12:49)
[2016-06-05] MEDS: EPOETIN ALFA (10,000 UNIT) 10,000 UNIT/ML VIAL SQ SCH (15:11)
[2016-06-05 16:00] VITALS: BP 131/56
[2016-06-05 20:00] VITALS: BP 113/36
--- NOTE | 2016-06-05 20:00 | NUR ---
RN INITIAL NOTE; PT RECEIVED ON BED WITHOUT ANY DISTRESS, [facility] , SETTING ORDERED, MATTHIEU PICC LINE INTACT AND PATENT, G TUBE INTACT AND WITH CONTINUE FEEDING GLYTROL @ 60 ML/HR, ASPIRATION PRECAUTION APPLIED, NO RESIDUAL NOTED. F/C INTACT AND DRAINING YELLOWISH URINE. PT IS COMFORTABLE . BED IN LOWEST AND LOCKED POSITION, CALL LIGHT WITHIN REACH, WILL CONTINUE TO MONITOR.
[2016-06-05] MEDS: INSULIN DETEMIR 100 UNIT/ML CARTRIDGE SQ SCH (21:38)
[2016-06-06] VITALS (12 sets, daily range): BP systolic 86–142; BP diastolic 30–63
[2016-06-06] MEDS: INSULIN REGULAR, HUMAN 100 UNIT/ML 3 ML VIAL SQ PRN ×4 (00:18→18:13)
[2016-06-06] MEDS: BLOOD SUGAR DIAGNOSTIC 1 EACH STRIP IN SCH ×4 (00:19→18:14)
[2016-06-06] MEDS: IPRATROPIUM NEB FS 0.5 MG/2.5 ML AMPUL.NEB HHN SCH ×4 (01:38→20:04)
[2016-06-06] MEDS: ALBUTEROL FS 2.5 MG/3 ML VIAL.NEB NEB SCH ×4 (01:39→20:04)
[2016-06-06] MEDS: GLYTROL 1,000 ML BAG GT PRN (05:08)
[2016-06-06 06:45] LABS: BASOPHILS % (AUTO) 0.2 % (0.0-2.0); EOSINOPHILS # (AUTO) 0.2 /CMM (0.0-0.7); EOSINOPHILS % (AUTO) 1.6 % (0.0-6.0); HEMATOCRIT 23 % (33-45); HEMOGLOBIN 7.7 g/dL (11.5-14.8); LYMPHOCYTES # (AUTO) 4.2 /CMM (0.8-4.8); LYMPHOCYTES % (AUTO) 36.2 % (20.0-44.0); MEAN CORPUSCULAR HEMOGLOBIN 32 PG (26.0-33.0); MEAN CORPUSCULAR HGB CONC 33 g/dl (31.0-36.0); MEAN CORPUSCULAR VOLUME 96 fL (82-100); MONOCYTES # (AUTO) 0.9 /CMM (0.1-1.30); MONOCYTES % (AUTO) 7.7 % (2.0-12.0); NEUTROPHILS # (AUTO) 6.3 /CMM (1.8-8.9); NEUTROPHILS % (AUTO) 54.3 % (43.0-81.0); PLATELET COUNT (AUTO) 305 /CMM (150-450); RDW COEFFICIENT OF VARIATION 17.3 (11.5-15.0); RED BLOOD CELL COUNT(AUTO) 2.42 MIL/uL (4.0-5.2); WHITE BLOOD COUNT (AUTO) 11.6 K/uL (4.3-11.0)
[2016-06-06 07:01] LABS: CALCIUM, SERUM 8.5 mg/dL (8.5-10.1); CREATININE 0.9 mg/dL (0.6-1.3); MAGNESIUM 2.6 mg/dL (1.8-2.4); PHOSPHORUS 4.6 mg/dL (2.5-4.9); POTASSIUM 4.3 mmol/L (3.5-5.1)
--- NOTE | 2016-06-06 07:03 | NUR ---
RN END OF SHIFT NOTE; PT REMAINED STABLE DURING THE SHIFT, NO ANY DISTRESS NOTED DURING THE SHIFT,IV INTACT AND PATENT . KEPT CLEAN AND DRY , ALL AM CARE RENDERED, WOUND DRESSING RENDERED, KEPT COMFORTABLE, WILL ENDORSE TO NEXT SHIFT FOR CONTINUITY OF CARE .
--- NOTE | 2016-06-06 08:00 | NUR ---
telecommunication engineer note patient in bed ,no sob noted ,with trach to vent setting as ordered , ambu bag at hob at all time , bed in lowest and locked position .with g tube feeding as ordered ,no residual noted ,keep hob elevated at all time, patient obtunded eys is open , with f\c to gravity with yellow color urine, lt upper arm mid line in place, no s\s infection noted, will cont to monitor closely. call light within reach o
[2016-06-06] MEDS: MULTIVITAMIN LIQ 5 ML UDC GT SCH (10:10)
[2016-06-06] MEDS: DOCUSATE SODIUM LIQ 100 MG/10 ML UDC GT SCH ×2 (10:10→17:13)
[2016-06-06] MEDS: VALPROIC ACID 250 MG/5 ML UDC GT SCH ×2 (10:10→21:13)
[2016-06-06] MEDS: ACIDOPHILUS/BULGARICUS 1 EACH TAB.CHEW PO SCH ×3 (10:11→17:13)
[2016-06-06] MEDS: GABAPENTIN 400 MG CAPSULE GT SCH ×2 (10:11→17:13)
[2016-06-06] MEDS: ZINC SULFATE 220 MG CAPSULE GT SCH (10:11)
[2016-06-06] MEDS: FERROUS SULFATE UDC 300 MG/5 ML UDC GT SCH ×3 (10:11→17:13)
[2016-06-06] MEDS: ASCORBIC ACID 500 MG TABLET GT SCH (10:11)
[2016-06-06] MEDS: CARVEDILOL 12.5 MG TABLET GT SCH ×2 (10:12→17:13)
[2016-06-06] MEDS: BACLOFEN (10 MG) 10 MG TABLET GT SCH ×2 (10:12→17:13)
[2016-06-06] MEDS: PANTOPRAZOLE 40 MG/PACK PACK GT SCH (10:28)
[2016-06-06] MEDS: CEFTRIAXONE 1 G in IV D5W 50 ML IV SCH (12:00)
--- NOTE | 2016-06-06 12:30 | NUR ---
INSOLE DEPARTMENT WORKER NOTE REPORTED TO DR TORRES HG 7.7 WITH ORDER TRANSFUSE 1 UNIT PR[facility] ,ORDER CARRIED OUT
[2016-06-06] MEDS ORDERED: CEFT1FRO2 IV (13:37)
--- NOTE | 2016-06-06 16:00 | NUR ---
DISTRICT CAPTAIN NOTE ABLE TO HOLD DAUGHTER TO GET BLOOD TRANSFUSING CONSENT , SPOKE WITH DR TORRES STATED STILL OK TO TRANSFER TO SNF
--- NOTE | 2016-06-06 17:20 | NUR ---
MINE LABORER NOTE CALLED TO FACILITY FOR DISCHARGE [place]O SPOKE WITH [place], STATED THAT BED NOT AVAILABLE YET , STATED THAT WILL CALL SOPHIE SHERIFFS OFFICER
[2016-06-06 17:22] LABS: FREE LAMBDA LT CHAIN SERUM 468.77 mg/L (5.71-26.30)
[2016-06-06] MEDS ORDERED: BLOOD IV SET 1 EA INFUS.SET MC ONE (17:37)
[2016-06-06] MEDS ORDERED: IV NS 0.9% 250 ML IV ONE (17:37)
--- NOTE | 2016-06-06 18:00 | NUR ---
CYBER DEFENSE ANALYST NOTE SISTER ARIELLA MILTON BACK WITH TELEPHONE CONSENT FOR BLOOD TRANSFUSION OBTAINED
--- NOTE | 2016-06-06 18:00 | NUR ---
teletypewriter installer note cont blood transfusion as ordered, not in acute distress
--- NOTE | 2016-06-06 18:15 | NUR ---
teletray operator note rn from snf called ,stated that ok to accept patient, and report given to benson sawyer
--- NOTE | 2016-06-06 18:16 | NUR ---
TABLE COVER FOLDER NOTE IST UNIT [facility] START TO TRANSFUSE NO ADVERSE REACTION NNOTED
--- NOTE | 2016-06-06 19:00 | NUR ---
TELE R NOTE FALLON DANIELLE FROM [facility] CALLED REPORT GIVEN ORDERED
--- NOTE | 2016-06-06 19:45 | NUR ---
RN NOTES RECEIVED PT BY ASTRID DANIELLE WITH TRACH CONNECTED TO VENT SETTING TOLERATED WELL. AFEBRILE TEMP99 DEG F. WITH ONGOING BLOOD TRANSFUSION PER PREVIOUS NURSE PT IS DISCHARGE TODAY AFTER BT AT [facility] AND REPORT GIVEN TO JOURDAN. WILL CONTINUE TO MONITOR.
[2016-06-06] MEDS: INSULIN DETEMIR 100 UNIT/ML CARTRIDGE SQ SCH (21:22)
--- NOTE | 2016-06-06 21:35 | NUR ---
RN NOTES BLOOD TRANSFUSION DONE TOLERATED WELL SATING 100% WITH TRACH AND VENT TOLERATED WELL AFEBRILE. VS TAKEN TEMP 98.8 RESP 17 PULSE 64 RESP 17 BP 142/63 MMHG. WILL CONTINUE TO MONITOR.
--- NOTE | 2016-06-06 22:30 | NUR ---
RN NOTES PT PICKED UP BY AMBULANCE IN STABLE CONDITION NO ACTIVE BLEEDING. REPORT GIVEN PT IS CLEANED AND DRY. DISCHARGED PAPER GIVEN.
[2016-06-07 00:08] LABS: IMMUNOGLOBULIN A, SERUM 740 mg/dL (87-352); IMMUNOGLOBULIN G, SERUM 4316 mg/dL (700-1600); IMMUNOGLOBULIN M, SERUM 337 mg/dL (26-217)
[2016-06-07 07:28] LABS: *IFEU ALBUMIN 8.8 % (.); *IFEU ALPHA-2-GLOBULIN 8.1 % (.); *IFEU BETA GLOBULIN 29.9 % (.); *IFEU GAMMA GLOBULIN 43.3 % (.); *IFEU M-SPIKE Not Observed % (Not Observed)
== END 2016-06-06 22:44 | DRG 710 ==
LOC: ER 10:51 → TELE1 12:37
PROVIDERS: ADMIT Internal Medicine; ATTEND Internal Medicine
PROC: 05H633Z Insertion of Infusion Device into Left Subclavian Vein, Percutaneous Approach (ICD-10-PCS; principal; 2016-05-29)
PROC: 5A1955Z Respiratory Ventilation, Greater than 96 Consecutive Hours (ICD-10-PCS; principal; 2016-05-29)
PROC: 0KBP0ZZ Excision of Left Hip Muscle, Open Approach (ICD-10-PCS; 2016-05-31)
PROC: 0KBN0ZZ Excision of Right Hip Muscle, Open Approach (ICD-10-PCS; 2016-05-31)
PROC: 30233N1 Transfusion of Nonautologous Red Blood Cells into Peripheral Vein, Percutaneous Approach (ICD-10-PCS; 2016-06-06)
DX: A41.9 Sepsis, unspecified organism (principal); N17.0 Acute kidney failure with tubular necrosis; E43 Unspecified severe protein-calorie malnutrition; Z99.11 Dependence on respirator [ventilator] status; G93.1 Anoxic brain damage, not elsewhere classified; L89.154 Pressure ulcer of sacral region, stage 4; J96.11 Chronic respiratory failure with hypoxia; Z93.0 Tracheostomy status; D68.59 Other primary thrombophilia; E11.9 Type 2 diabetes mellitus without complications; Z93.1 Gastrostomy status; E66.9 Obesity, unspecified; G40.909 Epilepsy, unspecified, not intractable, without status epilepticus; I10 Essential (primary) hypertension; I25.10 Atherosclerotic heart disease of native coronary artery without angina pectoris; K21.9 Gastro-esophageal reflux disease without esophagitis; N39.0 Urinary tract infection, site not specified; R13.10 Dysphagia, unspecified; R53.2 Functional quadriplegia; Z79.899 Other long term (current) drug therapy; Z86.74 Personal history of sudden cardiac arrest; R65.20 Severe sepsis without septic shock; E88.09 Other disorders of plasma-protein metabolism, not elsewhere classified; D63.8 Anemia in other chronic diseases classified elsewhere; Z68.34 Body mass index [BMI] 34.0-34.9, adult; R74.0 Nonspecific elevation of levels of transaminase and lactic acid dehydrogenase [LDH]; L89.322 Pressure ulcer of left buttock, stage 2; L89.312 Pressure ulcer of right buttock, stage 2; K92.2 Gastrointestinal hemorrhage, unspecified
CPT/HCPCS: 31720; 36415; 71010-TC; 80048-TC; 80053-TC; 80076-TC; 81000-TC; 82232; 82272-TC; 82306; 82378; 82728-TC; 82746; 82784; 82962-TC; 83540-TC; 83605-TC; 83615-TC; 83735-TC; 84100-TC; 84155; 84156; 84165; 84166; 84443-TC; 84550-TC; 85025-TC; 85045-TC; 85652-TC; 85730-TC; 86334; 86335; 86850-TC; 86921-TC; 87040-TC; 87070-TC; 87081-TC; 87086-TC; 94002-TC; 94003-TC; 94760-TC; A4606; A4623; A6248; A6253; A6402; A6403; C9113; J0696; J0885; J1815; J1940; J3490; J7030; J7050; J7060; P9016-BL; Z7610

== ENCOUNTER 2016-07-16 14:04 | Inpatient (IN) | payer MEDICAID ==
[~2016-07-16] VITALS: Ht 172.7 cm; Wt 95.3 kg
[~2016-07-16 14:04] MED LIST changes: -ACET-2605 GT; -ALBU2.5V38 IH; +BACL20TA GT; +BISA10SU8 RC; -CALC-108 GT; +CEFT1FRO2 IV
[2016-07-16 14:07] VITALS: BP 99/42
--- NOTE | 2016-07-16 14:07 | NUR ---
MICHI FROM [facility] DUE TO LOW HEMOGLOBIN AND HEMATOCRIT. PATIENT OBTUNDED, VENT/TRACHED DEPENDENT-- AC 12 TV 500 FIO2 30 PEEP 5. SKIN IS WARM TO TOUCH AND NON DIAPHORETIC. PATIENT IS AFEBRILE. GT INTACT. CONNECTED PT TO TELE MONITOR. VSS
--- NOTE | 2016-07-16 14:08 | NUR ---
RT AT BS
[2016-07-16] MEDS ORDERED: PANTOPRAZOLE 40 MG VIAL ONE (14:12)
[2016-07-16] MEDS ORDERED: IV SET PRIMARY PUMP SET 1 EA INFUS.SET MC ONE ×2 (14:13→19:24)
[2016-07-16] MEDS ORDERED: IV NS 0.9% 1,000 ML ONE ×2 (14:13→15:49)
[2016-07-16] MEDS ORDERED: IV NS 0.9% 1,000 ML BAG IV ONE ×2 (14:30→16:00)
[2016-07-16] MEDS ORDERED: PANTOPRAZOLE 40 MG VIAL IV ONE (14:30)
[2016-07-16] MEDS ORDERED: CALC-108 GT (14:42)
[2016-07-16] MEDS ORDERED: AMIN30LI2 GT (14:42)
[2016-07-16] MEDS ORDERED: CLON0.1T GT (14:42)
[2016-07-16] MEDS ORDERED: VALP250S3 GT ×2 (14:42)
[2016-07-16 14:51] LABS: CALCIUM, SERUM 9.6 mg/dL (8.5-10.1); CREATININE 0.9 mg/dL (0.6-1.3); POTASSIUM 4.3 mmol/L (3.5-5.1)
[2016-07-16 14:54] LABS: INR 1.02 (0.87-1.13); PROTHROMBIN TIME 10.6 SECS (9.5-12.7)
[2016-07-16 15:11] LABS: APPEARANCE,URINE Clear (CLEAR); BILIRUBIN,URINE Negative (NEGATIVE); BLOOD, URINE Trace-intact Ery/uL (NEGATIVE); COLOR,URINE Yellow (YELLOW); KETONES,URINE Negative (NEGATIVE); LEUKOCYTE ESTERASE ,URINE Small (NEGATIVE); NITRITE, URINE Positive (NEGATIVE); PROTEIN,URINE 30 mg/dl (NEGATIVE); UGLUCOSE Negative (NEGATIVE); UROBILINOGEN,URINE 0.2 EU/dL (0.2)
[2016-07-16 15:19] LABS: BASOPHILS % (AUTO) 0.2 % (0.0-2.0); EOSINOPHILS # (AUTO) 0.2 /CMM (0.0-0.7); EOSINOPHILS % (AUTO) 1.7 % (0.0-6.0); HEMATOCRIT 21 % (33-45); LYMPHOCYTES # (AUTO) 4.1 /CMM (0.8-4.8); LYMPHOCYTES % (AUTO) 39.6 % (20.0-44.0); MEAN CORPUSCULAR HEMOGLOBIN 32 PG (26.0-33.0); MEAN CORPUSCULAR HGB CONC 33 g/dl (31.0-36.0); MEAN CORPUSCULAR VOLUME 97 fL (82-100); MONOCYTES # (AUTO) 0.8 /CMM (0.1-1.30); MONOCYTES % (AUTO) 7.6 % (2.0-12.0); NEUTROPHILS # (AUTO) 5.3 /CMM (1.8-8.9); NEUTROPHILS % (AUTO) 50.9 % (43.0-81.0); PLATELET COUNT (AUTO) 387 /CMM (150-450); RDW COEFFICIENT OF VARIATION 16.2 (11.5-15.0); WHITE BLOOD COUNT (AUTO) 10.5 K/uL (4.3-11.0)
[2016-07-16 15:21] LABS: BACTERIA,URINE 1+ /HPF (None Seen)
[2016-07-16 15:22] LABS: SQUAMOUS EPITHELIAL CELL,UR Few /HPF (None Seen)
--- NOTE | 2016-07-16 15:22 | NUR ---
CALLED NURSING SUP. FOR TELE BED
--- NOTE | 2016-07-16 15:36 | NUR ---
[facility] PAGED, ELECTRICAL LINE WORKER
[2016-07-16] MEDS ORDERED: CEFTRIAXONE 1GM BAG (ER ONLY) 50 ML IV ONE ×2 (15:49→16:00)
--- NOTE | 2016-07-16 16:12 | NUR ---
REPOPRT GIVEN TO RENARD DANIELLE
--- NOTE | 2016-07-16 16:32 | NUR ---
DR. WILLSON AT BS
[2016-07-16 17:15] VITALS: BP 117/43
--- NOTE | 2016-07-16 17:17 | NUR ---
PEDRO MIDLINE #[address] WILLSON
--- NOTE | 2016-07-16 17:27 | NUR ---
PT TRANSPORTED TO 3W, VSS. RENARD RN VERBALIZED UNDERSTRANDING OF BLOOD TRANSFUSION
--- NOTE | 2016-07-16 17:57 | NUR ---
TRACH/VENT DEPENDANT PT TRANSFERRED TO [facility] RM 308-2. PT ON VENT, SETTINGS PER DR. CARISSA DIXON PLUGGED INTO RED OUTLET. VENT ALARMS CHECKED AND AUDIBLE PER POLICY, NO RESP. DISTRESS NOTED AT THIS TIME. BERRY GARCIA AT [facility], WILL CONTINUE TO MONITOR PT. RENARD DANIELLE AT BEDSIDE POST TRANSFER. Addendum: 07/16/16 at 1800 by RANDOLPH CACERES RT Amended: Links added.
[2016-07-16] MEDS ORDERED: HYDROCODONE/APAP 5/325MG 1 EACH TABLET PO PRN (18:00)
[2016-07-16] MEDS ORDERED: ACETAMINOPHEN 325 MG TABLET PO PRN (18:00)
[2016-07-16] MEDS ORDERED: ACETAMINOPHEN 650 MG/20.3 ML UDC GT PRN (18:00)
[2016-07-16] MEDS ORDERED: MORPHINE SULFATE INJ 2 MG/ML DISP.SYRIN IV PRN (18:00)
[2016-07-16] MEDS ORDERED: GLYTROL 1,000 ML BAG GT PRN (18:00)
[2016-07-16] MEDS ORDERED: ONDANSETRON HCL/PF 4 MG/2 ML VIAL IVP PRN (18:00)
[2016-07-16] MEDS ORDERED: MAG HYDROX/AL HYDROX/SIMETH 30 ML UDC PO PRN (18:00)
[2016-07-16] MEDS ORDERED: MAGNESIUM HYDROXIDE 30 ML UDC PO PRN (18:00)
[2016-07-16] MEDS ORDERED: CLONIDINE HCL 0.1 MG TABLET GT PRN (18:00)
[2016-07-16] MEDS ORDERED: NA PHOS,M-B/NA PHOS,DI-BA 1 EA ENEMA RC PRN (18:00)
[2016-07-16] MEDS ORDERED: MAGNESIUM HYDROXIDE 30 ML UDC GT PRN (18:00)
[2016-07-16] MEDS: BLOOD SUGAR DIAGNOSTIC 1 EACH STRIP IN SCH (18:00)
[2016-07-16] MEDS ORDERED: ZOLPIDEM TARTRATE 5 MG TABLET GT PRN (18:00)
[2016-07-16] MEDS ORDERED: BLOOD SUGAR DIAGNOSTIC 1 EACH STRIP IN SCH (18:00)
[2016-07-16] MEDS ORDERED: BISACODYL SUPP (10 MG) 10 MG/SUPP.RECT SUPP.RECT RC PRN (18:00)
[2016-07-16] MEDS ORDERED: LORAZEPAM 1 MG TABLET GT PRN (18:00)
[2016-07-16] MEDS ORDERED: MAG HYDROX/AL HYDROX/SIMETH 30 ML UDC GT PRN (18:24)
--- NOTE | 2016-07-16 18:35 | NUR ---
RN ADMITTING NOTES PATIENT ARRIVED TO UNIT AT 1735. PATIENT CONNECTED TO A MECHANICAL VENT BY A RESPIRATORY THERAPIST. NO SIGNS AND SYMPTOMS OF DISTRESS, PATIENT WAS CLEANED AND PICTURES WERE TAKEN. WOUND CONSULT ORDERS. PATIENT HAS A LOOSE STOOL, CONTACT ISOLATION PRECAUTION APPLIED. MIDLINE IS INTACT AND PATENT. CHAUDHARY IS DRAINING YELLOW CLEAR URINE.
[2016-07-16] MEDS ORDERED: FEE PK DOSING 1 MIN EA MC ONE (18:52)
--- NOTE | 2016-07-16 18:58 | NUR ---
DR TORRES PAGED REGARDING GT FEEDING ORDER.
[2016-07-16] MEDS ORDERED: SECONDARY IV SET 1 EA INFUS.SET MC ONE (19:24)
[2016-07-16] MEDS: PROSOURCE / PROSTAT (PYXIS) 30 ML UDC GT SCH (19:30)
[2016-07-16] MEDS: FERROUS SULFATE UDC 300 MG/5 ML UDC GT SCH (19:30)
[2016-07-16] MEDS: IV D5/0.45 NACL 1,000 ML IV PRN (19:31)
[2016-07-16] MEDS: BACLOFEN (10 MG) 10 MG TABLET GT SCH (19:31)
[2016-07-16] MEDS: GABAPENTIN 400 MG CAPSULE GT SCH (19:31)
[2016-07-16] MEDS ORDERED: IV NS 0.9% 250 ML IV ONE (19:36)
[2016-07-16] MEDS ORDERED: BLOOD IV SET 1 EA INFUS.SET MC ONE (19:36)
--- NOTE | 2016-07-16 19:45 | NUR ---
quality improvement coordinator closing notes Franny DANIELLE endorsed to next shift RN to continue care. All needs provided, attended, and anticipated. kept patient clean and comfortable in bed, call light with in patient reach.
--- NOTE | 2016-07-16 19:50 | NUR ---
TRAFFIC TECHNICIAN INITIAL NOTES: RECEIVED REPORT FROM RENARD RN, PT IN BED, AWAKE, OPEN EYES SPONTANEOUSLY, NO VERBAL, MECH VENT TRACHE DEPENDENT, WITH THE FF SETTING: AC 12 FIO2 30% PEEP 5, TV 500, PORTEX #9, ON CONTINUOUS PULSE OX SATING 98-100%, SUCTION SET UP SECURED, ALSO PT IN TELE MONITORING SINUS RHYTHM HR 73, AMBU BAG AT BED SIDE, ALL CLINICAL ALARMS CHECKED AND AUDIBLE. PT HAS PEDRO MIDLINE IN PLACED PATENT AND FLUSHING WELL, INFUSING WITH D5 1/2 NS AT 75ML/HR. ALSO PT HAS LEFT FA G 18 PATENT AND FLUSHING WELL, ON HL. NOTED GENERALIZED PITTING EDEMA. BLE KEPT OFFLOADED. PT HAS GTUBE IN PLACED, PT NOTED TO HAVE SOFT ABDOMEN UPON PALPATION, HYPOACTIVE BOWEL SOUND HEARD UPON AUSCULTATION, ALSO PT RECEIVED WITH CHAUDHARY CATHETER INN PLACED DRAINING INTO YELLOW COLORED URINE. SAFETY PRECAUTIONS FOR FALL INITIATED CALL LIGHT IN REACH WILL CONTINUE TO MONITOR.
[2016-07-16 20:00] VITALS: BP 123/58
[2016-07-16] MEDS: PIPERACILLIN /TAZOBACTAM 3.375 G in IV D5W 50 ML IV SCH (20:21)
[2016-07-16] MEDS ORDERED: VANCOMYCIN 1.25 GM in IV D5W 500 ML IV SCH (21:00)
[2016-07-16] MEDS ORDERED: MEROPENEM 1 G in IV NS 0.9% 100 ML IV SCH (21:00)
--- NOTE | 2016-07-16 21:12 | NUR ---
RADIATION THERAPY TECHNICIAN NOTES: RECEIVED CALL FROM FAMILY MEMBER, DEE FOUNTAIN PT'S SISTER ASKING REGARDING PT'S CONDITION, ALSO INFORM REGARDING BLOOD TRANSFUSION, EXPLAIN ABOUT BENEFITS AND IMPORTANCE, PT SISTER GIVING FULL CONSENT REGARDING TRANSFUSION WITNESSED BY SHASHI SETHI
--- NOTE | 2016-07-16 21:20 | NUR ---
VISUAL MERCHANDISING ASSOCIATE NOTES: CHECKED PATENTCY OF GTUBE, PT NOTED TO HAVE 50ML OF GTUBE RESIDUAL, PT'S ABDOMEN SODT TO TOUCH AND HYPOACTIVE BOWEL SOUND NOTED UPON AUSCULTATION, NO ABDOMINAL DISTENTION NOTED, WILL CONTINUE TO MONITOR
[2016-07-16] MEDS: VALPROIC ACID 250 MG/5 ML UDC GT SCH (21:29)
--- NOTE | 2016-07-16 21:29 | NUR ---
MANAGER GREEN NOTES: PRN TYLENOL ADMINISTERED ORDERED VIA GTUBE FOR TEMP 101.2, ALSO COOLING MEASURES PROVIDED, EXCESS BLANKET WERE REMOVED
[2016-07-16] MEDS: VANCOMYCIN 1.25 GM in IV D5W 500 ML IV SCH (21:30)
[2016-07-16] MEDS ORDERED: INSULIN DETEMIR 100 UNIT/ML CARTRIDGE SQ ONE (22:07)
[2016-07-16] MEDS ORDERED: INSULIN REGULAR, HUMAN 100 UNIT/ML 10 ML VIAL ONE (22:07)
[2016-07-16] MEDS: INSULIN DETEMIR 100 UNIT/ML CARTRIDGE SQ SCH (22:21)
--- NOTE | 2016-07-16 22:21 | NUR ---
RESIDENT MEDICAL OFFICER NOTES: CHECKED BLOOD SUGAR REVEAL 172, LEVEMIR 30UNITS SQ ADMINISTERED TO THE PT, PT ON IVF D5 1/2 NS AT 75ML/HR, ALSO ON GTUBE FEEDING GLYTROL ULTRAPAK AT 60ML/HR
--- NOTE | 2016-07-16 22:22 | NUR ---
BRUSH WORKER NOTES: RECHECK TEMP AND REVEAL 100.9, RELAYED TO [employer]OP[employer] TALEO MANAGER, COOLING MEASURES CONTINUED, WILL RECHECK TEMP AGAIN IN 30MINS
[2016-07-16 23:11] VITALS: BP 106/48
--- NOTE | 2016-07-16 23:12 | NUR ---
YACHT RIGGER NOTES: RECHECKED TEMP AND REVEAL 98.2, CONTINUE COOLING MEASURES, VS TAKEN AND RECORDED
[2016-07-16 23:45] VITALS: BP 115/58
--- NOTE | 2016-07-16 23:53 | NUR ---
BLOOD TRANSFUSION: 1ST UNIT OF PRBC ADMINISTERED AT THIS TIME, VS TAKEN AND RECORDED PRIOR TO ADMINISTERING THE BLOOD, COSIGNED BY SHASHI SETHI, WILL STAY WITH THE PT TO MONITOR FOR ANY S/S/ OF TRANSFUSION REACTION,
[2016-07-17] VITALS (26 sets, daily range): BP systolic 96–140; BP diastolic 51–79
[2016-07-17] MEDS: BLOOD SUGAR DIAGNOSTIC 1 EACH STRIP IN SCH ×5 (00:03→23:50)
[2016-07-17] MEDS: INSULIN REGULAR, HUMAN 100 UNIT/ML 3 ML VIAL SQ PRN ×4 (00:05→18:37)
--- NOTE | 2016-07-17 00:06 | NUR ---
ACCU CHECK: BLOOD SUGAR TAKEN AND REVEAL 276, 9UNITS OF INSULIN GIVEN PER SLIDING SCALE, PT ON GTUBE FEEDING GLYTROL 60ML/HR
--- NOTE | 2016-07-17 01:00 | NUR ---
CARDIOLOGY PHYSICIAN NOTES: SUCTION PT SECRETIONS, OBTAINED WHITISH SECRETIONS MODERATE IN AMOUNT. ORAL CARE PROVIDED AFTERWARDS
--- NOTE | 2016-07-17 02:32 | NUR ---
GARBAGE PERSON NOTES: COMPLETED 1ST UNIT OF PRBC, NO BLOOD TRANSFUSION REACTION NOTED, VS TAKEN AND RECORDED, WILL CONTINUE TO MONITOR
[2016-07-17] MEDS: PIPERACILLIN /TAZOBACTAM 3.375 G in IV D5W 50 ML IV SCH ×5 (02:36→23:50)
--- NOTE | 2016-07-17 02:38 | NUR ---
ZOSYN: IV ANTIBIOTIC ZOSYN 3.375 GM IV ADMINISTERED LATE, SCHEDULE SHOULD BE 0000, HOWEVER UNABLE TO HANG THE MEDICATION BECAUSE PT ONGOING BLOOD TRANSFUSION, CONFERENCE PLANNER ANNETTE CUEVAS, TO GIVE IV ATB AFTER TRANSFUSION.
[2016-07-17] MEDS ORDERED: BLOOD IV SET 1 EA INFUS.SET MC ONE (03:10)
[2016-07-17] MEDS ORDERED: IV NS 0.9% 250 ML IV ONE (03:10)
--- NOTE | 2016-07-17 03:42 | NUR ---
Pt was received on appropriate settings. Vent is plugged into the red oulet, ambubag by bedside, no extra trache in the room. Pt obtundent, with no distress. Pt received medication and suctioning on time. Sera BOWENP Addendum: 07/17/16 at 0345 by GEM VERNON RT Amended: Links added.
--- NOTE | 2016-07-17 03:48 | NUR ---
BLOOD TRANSFUSION: 2ND UNIT OF PRBC ADMINISTERED AT THIS TIME, VS TAKEN AND RECORDED PRIOR TO ADMINISTERING THE BLOOD, WILL STAY WITH THE PT FOR 30MINS TO MONITOR FOR ANY S/S OF BLOOD TRANSFUSION REACTION, WILL CONTINUE TO MONITOR
[2016-07-17] MEDS: PANTOPRAZOLE 40 MG/PACK PACK GT SCH (05:11)
--- NOTE | 2016-07-17 05:14 | NUR ---
accu check: checked blood sugar and reveal 151, 2units of insulin given per sliding scale, pt on ivf and gtube feeding. will monitor pt for any s/s/ of hypoglycemia. also due meds given at this time, gtube residual and patency were checked prior to administering the medication
--- NOTE | 2016-07-17 06:45 | NUR ---
blood transfusion: completed 2nd unit of prbc, vs taken and recorded, no blood transfusion reaction noted, will continue to monitor pt,
--- NOTE | 2016-07-17 07:00 | NUR ---
MASTER AUTOMOTIVE TECHNICIAN CLOSING NOTES: PT IN BED, AWAKE, [facility],NO SOB NOTED, SPO2 REMAINS 98-100%. REMAINS ON SINUS RHYTHM HR 65. PEDRO MIDLINE REMAINS PATENT AND FLUSHING WELL, INFUSING WITH D5 1/2 NS AT 75ML/HR, ALSO GTUBE REMAINS INFUSING WITH GLYTROL 60ML/HR, LATEST GASTRIC RESIDUAL IS 55ML. SUCTION PT PRN, BLE KEPT OFFLOADED. VS REMAINS STABLE, NEEDS ATTENDED. RESPIRATORY SPECIMEN, WOUND SPECIMEN, AND STOOL SPECIMEN ALL SENT TO LAB. WILL ENDORSE TO DAY RN FOR GEOVANNA.
[2016-07-17] MEDS ORDERED: PANTOPRAZOLE 40 MG TABLET.DR PO SCH (07:30)
--- NOTE | 2016-07-17 07:30 | NUR ---
RN NOTES PT RECEIVED IN BED. EYES OPEN; OBTUNDED. IN NO APPARENT DISTRESS. RESPIRATIONS EVEN AND UNLABORED ON ORDERED VENT SETTINGS; SINUS RHYTHM ON TELE MONITOR. AFEBRILE AT THIS TIME. WILL CONTINUE TO CLOSELY MONITOR. CALL LIGHT WITHIN REACH
[2016-07-17] MEDS: VANCOMYCIN 1.25 GM in IV D5W 500 ML IV SCH ×2 (08:50→20:01)
[2016-07-17] MEDS ORDERED: Medication Not On Formulary EA (Cran/Vitc/Mannose/Inulin/Brom (Uti-Stat Liquid) 30 MG) GT SCH (09:00)
[2016-07-17] MEDS: CALCIUM CARB 250MG /VITAMIN D 1 UDTAB GT SCH (09:55)
[2016-07-17] MEDS: ZINC SULFATE 220 MG CAPSULE GT SCH (09:55)
[2016-07-17] MEDS: DOCUSATE SODIUM LIQ 100 MG/10 ML UDC GT SCH ×2 (09:55→17:43)
[2016-07-17] MEDS: GABAPENTIN 400 MG CAPSULE GT SCH ×2 (09:55→17:44)
[2016-07-17] MEDS: BACLOFEN (10 MG) 10 MG TABLET GT SCH ×2 (09:55→17:44)
[2016-07-17] MEDS: PROSOURCE / PROSTAT (PYXIS) 30 ML UDC GT SCH ×2 (09:55→17:44)
[2016-07-17] MEDS: FERROUS SULFATE UDC 300 MG/5 ML UDC GT SCH ×3 (09:55→17:43)
[2016-07-17] MEDS: CARVEDILOL 12.5 MG TABLET GT SCH ×2 (09:56→17:45)
[2016-07-17] MEDS: MULTIVITAMINS W-MINERALS 1 TAB TABLET GT SCH (09:56)
[2016-07-17] MEDS: ASCORBIC ACID 500 MG TABLET GT SCH (09:56)
[2016-07-17] MEDS: VALPROIC ACID 250 MG/5 ML UDC GT SCH ×3 (09:57→23:38)
--- NOTE | 2016-07-17 10:21 | NUR ---
WOUND CARE CONSULT: PT PRESENTS WITH STAGE IV ULCER TO SACRUM AND EXCORIATED AREA TO RT POSTERIOR UPPER LEG, PRESENT ON ADMISSION. RECOMMEND SURGICAL CONSULT. PT INCONTINENT OF STOOL. FIRST STEP MATTRESS ORDERED. ALL SKIN AND WOUND RECOMMENDATIONS DISCUSSED WITH NURSING STAFF. MD IN AGREEMENT WITH PLAN OF CARE. Addendum: 07/17/16 at 1022 by CELESTINA PICKERING WNDNU Amended: Links added.
[2016-07-17] MEDS ORDERED: HYDROGEL DRESSING 90 GM TUBE TP PRN (10:30)
--- NOTE | 2016-07-17 10:30 | NUR ---
RN NOTES PT SEEN BY WOUND NURSECELESTINA. WITH RECOMMENDATIONS FOR WOUND CARE. WILL CHANGE TO [facility] 1ST STEP MATTRESS RECOMMENDED. WILL CONTINUE TO MONITOR
[2016-07-17 11:17] LABS: BASOPHILS % (AUTO) 0.2 % (0.0-2.0); EOSINOPHILS # (AUTO) 0.1 /CMM (0.0-0.7); EOSINOPHILS % (AUTO) 1.2 % (0.0-6.0); HEMATOCRIT 29 % (33-45); HEMOGLOBIN 9.7 g/dL (11.5-14.8); LYMPHOCYTES # (AUTO) 3.1 /CMM (0.8-4.8); LYMPHOCYTES % (AUTO) 24.6 % (20.0-44.0); MEAN CORPUSCULAR HEMOGLOBIN 30 PG (26.0-33.0); MEAN CORPUSCULAR HGB CONC 33 g/dl (31.0-36.0); MEAN CORPUSCULAR VOLUME 91 fL (82-100); MONOCYTES % (AUTO) 8.2 % (2.0-12.0); NEUTROPHILS # (AUTO) 8.3 /CMM (1.8-8.9); NEUTROPHILS % (AUTO) 65.8 % (43.0-81.0); PLATELET COUNT (AUTO) 359 /CMM (150-450); RDW COEFFICIENT OF VARIATION 20.1 (11.5-15.0); RED BLOOD CELL COUNT(AUTO) 3.22 MIL/uL (4.0-5.2); WHITE BLOOD COUNT (AUTO) 12.6 K/uL (4.3-11.0)
[2016-07-17 11:39] LABS: BILIRUBIN,TOTAL 0.4 mg/dL (0.2-1.0); CALCIUM, SERUM 9.4 mg/dL (8.5-10.1); CREATININE 0.9 mg/dL (0.6-1.3); PHOSPHORUS 5.3 mg/dL (2.5-4.9); POTASSIUM 3.9 mmol/L (3.5-5.1)
[2016-07-17 11:40] LABS: ALBUMIN 1.5 g/dL (3.4-5.0); BILIRUBIN,DIRECT 0.1 mg/dL (0.0-0.2); MAGNESIUM 2.1 mg/dL (1.8-2.4); TOTAL PROTEIN, SERUM 10.1 g/dL (6.4-8.2)
[2016-07-17 11:48] LABS: THYROID STIMULATING HORMONE 0.014 uIU/mL (0.358-3.74)
[2016-07-17 11:50] LABS: INR 1.05 (0.87-1.13); PROTHROMBIN TIME 11.3 SECS (9.5-12.7)
[2016-07-17] MEDS: DAKINS QUARTER STRENGTH (0.125%) 480 ML BOTTLE TOP SCH (11:57)
[2016-07-17] MEDS: HYDROGEL DRESSING 90 GM TUBE TP SCH (11:57)
[2016-07-17] MEDS: LACTOBACILLUS RHAMNOSUS GG 1 EACH CAP.SPRINK GT SCH (17:44)
[2016-07-17] MEDS: EPOETIN ALFA (10,000 UNIT) 10,000 UNIT/ML VIAL SQ SCH (17:44)
--- NOTE | 2016-07-17 18:00 | NUR ---
RN NOTES PT IN BED. OBTUNDED; ABLE TO OPEN EYES. IN NO APPARENT DISTRESS. RESPIRATIONS EVEN AND UNLABORED ON ORDERED VENT SETTINGS. TOLERATED ALL DUE MEDS AND TREATMENT. TURN AND REPOSITIONED Q2H. KEPT CLEAN AND DRY. AFEBRILE THE WHOLE SHIFT. WILL ENDORSE TO ONCOMING SHIFT
--- NOTE | 2016-07-17 19:35 | NUR ---
RN OPENING NOTES RECEIVED REPORT FROM MARTA RN. FOUND Pt IN BED. EQUAL CHEST RISE AND FALL NOTED. NO S/S OF ACUTE DISTRESS OR SOB NOTED. Pt IS BEDBOUND AND OBTUNDED. CHAUDHARY CATHETER IN PLACE. VENT SETTINGS: AC 12, TV 500, PEEP 5, FIO2 30%. GT FEEDING GLYTROL @55ML/HR. IV ACCESS ON PEDRO MIDLINE D51/2NS @75ML/HR INFUSING WELL. LFA 18G, SL. SAFETY MEASURES IN PLACE. BED LOW, LOCKED, HOB ELEVATED, SIDE RAILS UP, CALL LIGHT AND BEDSIDE TABLE WITHIN REACH. WILL CONTINUE TO MONITOR Pt THROUGHOUT THE NIGHT.
--- NOTE | 2016-07-17 22:00 | NUR ---
RN NOTES LEVEMIR 30UN GIVEN. BG OF 217. ON CONTINOUS GT FEEDING GLYTROL @55ML/HR
[2016-07-17] MEDS: INSULIN DETEMIR 100 UNIT/ML CARTRIDGE SQ SCH (23:50)
[2016-07-18] VITALS (7 sets, daily range): BP systolic 104–121; BP diastolic 50–60
--- NOTE | 2016-07-18 | NUR ---
RN NOTES BG 226. ADMINISTERED 6UN OF INSULIN PER SLIDING SCALE. ON CONTINUOUS GT FEED.
[2016-07-18] MEDS: GLYTROL 1,000 ML BAG GT PRN ×2 (03:11→22:47)
[2016-07-18] MEDS: INSULIN REGULAR, HUMAN 100 UNIT/ML 3 ML VIAL SQ PRN ×5 (03:15→23:14)
[2016-07-18] MEDS: PIPERACILLIN /TAZOBACTAM 3.375 G in IV D5W 50 ML IV SCH ×4 (05:57→23:53)
[2016-07-18] MEDS: BLOOD SUGAR DIAGNOSTIC 1 EACH STRIP IN SCH ×4 (05:57→23:53)
[2016-07-18] MEDS: PANTOPRAZOLE 40 MG/PACK PACK GT SCH (06:12)
--- NOTE | 2016-07-18 06:35 | NUR ---
RN CLOSING NOTES NO SIGNIFICANT CHANGES DURING THE NIGHT. NO S/S OF ACUTE DISTRESS OR SOB NOTED. ALL NEEDS MET AND ATTENDED TO. SAFETY MEASURES IN PLACE. TELE READING SR 61. WILL ENDORSE TO DAYSHIFT RN FOR Pt's GEOVANNA.
[2016-07-18 07:32] LABS: BASOPHILS % (AUTO) 0.1 % (0.0-2.0); EOSINOPHILS # (AUTO) 0.2 /CMM (0.0-0.7); EOSINOPHILS % (AUTO) 1.4 % (0.0-6.0); HEMATOCRIT 25 % (33-45); HEMOGLOBIN 8.6 g/dL (11.5-14.8); LYMPHOCYTES # (AUTO) 3.7 /CMM (0.8-4.8); LYMPHOCYTES % (AUTO) 32.2 % (20.0-44.0); MEAN CORPUSCULAR HEMOGLOBIN 31 PG (26.0-33.0); MEAN CORPUSCULAR HGB CONC 34 g/dl (31.0-36.0); MEAN CORPUSCULAR VOLUME 91 fL (82-100); MONOCYTES # (AUTO) 1.3 /CMM (0.1-1.30); NEUTROPHILS # (AUTO) 6.4 /CMM (1.8-8.9); NEUTROPHILS % (AUTO) 55.3 % (43.0-81.0); PLATELET COUNT (AUTO) 277 /CMM (150-450); RDW COEFFICIENT OF VARIATION 19.7 (11.5-15.0); RED BLOOD CELL COUNT(AUTO) 2.78 MIL/uL (4.0-5.2); WHITE BLOOD COUNT (AUTO) 11.6 K/uL (4.3-11.0)
--- NOTE | 2016-07-18 07:40 | NUR ---
RN NOTES PATIENT RECEIVED RESTING COMFORTABLY IN BED, ORIENTED,NONVERBAL. RESPIRATIONS EVEN AND UNLABORED, DENIES ANY PAIN OR DISCOMFORT AT THIS TIME. IV ACCESS PATENT INTACT, NO REDNESS OR INFILTRATION NOTED. CONTINUED ON MECHANICAL VENTILATION AND TELEMETRY MONITORING, KEPT CLEAN DRY AND COMFORTABLE, CALL LIGHT WITHIN EASY REACH WILL CONTINUE TO MONITOR
[2016-07-18 07:41] LABS: CALCIUM, SERUM 8.8 mg/dL (8.5-10.1); MAGNESIUM 1.8 mg/dL (1.8-2.4); PHOSPHORUS 3.6 mg/dL (2.5-4.9); POTASSIUM 3.2 mmol/L (3.5-5.1)
[2016-07-18] MEDS: VANCOMYCIN 1.25 GM in IV D5W 500 ML IV SCH ×2 (08:00→19:36)
[2016-07-18] MEDS: DOCUSATE SODIUM LIQ 100 MG/10 ML UDC GT SCH (09:30)
[2016-07-18] MEDS: ASCORBIC ACID 500 MG TABLET GT SCH (09:30)
[2016-07-18] MEDS: GABAPENTIN 400 MG CAPSULE GT SCH ×2 (09:30→17:04)
[2016-07-18] MEDS: FERROUS SULFATE UDC 300 MG/5 ML UDC GT SCH ×3 (09:30→17:04)
[2016-07-18] MEDS: BACLOFEN (10 MG) 10 MG TABLET GT SCH ×2 (09:30→17:04)
[2016-07-18] MEDS: PROSOURCE / PROSTAT (PYXIS) 30 ML UDC GT SCH ×2 (09:30→17:04)
[2016-07-18] MEDS: VALPROIC ACID 250 MG/5 ML UDC GT SCH ×3 (09:30→22:37)
[2016-07-18] MEDS: LACTOBACILLUS RHAMNOSUS GG 1 EACH CAP.SPRINK GT SCH ×2 (09:31→17:04)
[2016-07-18] MEDS: ZINC SULFATE 220 MG CAPSULE GT SCH (09:31)
[2016-07-18] MEDS: MULTIVITAMINS W-MINERALS 1 TAB TABLET GT SCH (09:31)
[2016-07-18] MEDS: CALCIUM CARB 250MG /VITAMIN D 1 UDTAB GT SCH (09:31)
[2016-07-18] MEDS: CARVEDILOL 12.5 MG TABLET GT SCH ×2 (09:33→17:05)
[2016-07-18] MEDS: HYDROGEL DRESSING 90 GM TUBE TP SCH (09:33)
[2016-07-18] MEDS: DAKINS QUARTER STRENGTH (0.125%) 480 ML BOTTLE TOP SCH (09:34)
[2016-07-18] MEDS ORDERED: POTASSIUM CHLORIDE 20 MEQ POWDER PACKET GT ONE (10:00)
[2016-07-18] MEDS ORDERED: IV SET PRIMARY PUMP SET 1 EA INFUS.SET MC ONE (11:22)
[2016-07-18] MEDS: POTASSIUM CL. PREMIX PERIPHER. 50 ML IV SCH ×4 (11:47→16:18)
[2016-07-18] MEDS: IV D5/0.45 NACL 1,000 ML IV PRN (11:48)
--- NOTE | 2016-07-18 19:28 | NUR ---
RN NOTES PATIENT COMFORTABLY IN BED, NONVERBAL. RESPIRATIONS EVEN AND UNLABORED, DENIES ANY PAIN OR DISCOMFORT AT THIS TIME. IV ACCESS PATENT INTACT, NO REDNESS OR INFILTRATION NOTED. CONTINUED ON MECHANICAL VENTILATION AND TELEMETRY MONITORING, KEPT CLEAN DRY AND COMFORTABLE, CALL LIGHT WITHIN EASY REACH, ENDORSED TO NEXT SHIFT FOR CONTINUITY OF CARE
[2016-07-18] MEDS: INSULIN DETEMIR 100 UNIT/ML CARTRIDGE SQ SCH (23:12)
[2016-07-19 00:17] VITALS: BP 104/58
[2016-07-19 04:00] VITALS: BP 96/42
[2016-07-19] MEDS: PIPERACILLIN /TAZOBACTAM 3.375 G in IV D5W 50 ML IV SCH ×4 (05:50→23:23)
[2016-07-19] MEDS: BLOOD SUGAR DIAGNOSTIC 1 EACH STRIP IN SCH ×4 (05:50→23:38)
[2016-07-19] MEDS: IV D5/0.45 NACL 1,000 ML IV PRN ×2 (05:57→19:55)
[2016-07-19] MEDS: PANTOPRAZOLE 40 MG/PACK PACK GT SCH (05:57)
[2016-07-19] MEDS: INSULIN REGULAR, HUMAN 100 UNIT/ML 3 ML VIAL SQ PRN ×4 (06:08→23:40)
--- NOTE | 2016-07-19 06:21 | NUR ---
YACHT CAPTAIN NOTES AWAKE AND ALERT. RESPONDS TO TACTILE STIMULI. WITH SAME VENT SETTINGS. NOT IN ANY DISTRESS. NO SOB NOTED. NO S/SX OF PAIN OR DISCOMFORT AT THIS TIME. ON TELE SB @ 56 WITH IVF & GTF INFUSING WELL. AM CARE DONE. MONITORED ACCORDINGLY. CALL LIGHT WITHIN REACH. BED IN LOWEST POSITION. SR UP X 3 FOR SAFETY. WILL ENDORSE TO NEXT SHIFT.
[2016-07-19 07:03] LABS: CALCIUM, SERUM 9.2 mg/dL (8.5-10.1); MAGNESIUM 2.1 mg/dL (1.8-2.4); PHOSPHORUS 4.1 mg/dL (2.5-4.9); POTASSIUM 3.7 mmol/L (3.5-5.1)
[2016-07-19 07:11] VITALS: BP 102/46
[2016-07-19] MEDS: GABAPENTIN 400 MG CAPSULE GT SCH ×2 (08:58→16:17)
[2016-07-19] MEDS: LACTOBACILLUS RHAMNOSUS GG 1 EACH CAP.SPRINK GT SCH ×2 (08:58→16:17)
[2016-07-19] MEDS: PROSOURCE / PROSTAT (PYXIS) 30 ML UDC GT SCH ×2 (08:58→16:17)
[2016-07-19] MEDS: ASCORBIC ACID 500 MG TABLET GT SCH (08:58)
[2016-07-19] MEDS: BACLOFEN (10 MG) 10 MG TABLET GT SCH ×2 (08:58→16:16)
[2016-07-19] MEDS: CALCIUM CARB 250MG /VITAMIN D 1 UDTAB GT SCH (08:58)
[2016-07-19] MEDS: MULTIVITAMINS W-MINERALS 1 TAB TABLET GT SCH (08:58)
[2016-07-19] MEDS: ZINC SULFATE 220 MG CAPSULE GT SCH (08:58)
[2016-07-19] MEDS: FERROUS SULFATE UDC 300 MG/5 ML UDC GT SCH ×3 (08:58→16:17)
[2016-07-19] MEDS: CARVEDILOL 12.5 MG TABLET GT SCH ×2 (09:00→16:41)
[2016-07-19] MEDS: DAKINS QUARTER STRENGTH (0.125%) 480 ML BOTTLE TOP SCH (09:28)
[2016-07-19] MEDS: HYDROGEL DRESSING 90 GM TUBE TP SCH (09:28)
[2016-07-19] MEDS: VALPROIC ACID 250 MG/5 ML UDC GT SCH ×3 (10:15→22:28)
[2016-07-19 12:00] VITALS: BP_SYST 115; BP_SYST 141; BP_DIAS 55; BP_DIAS 64
[2016-07-19 16:00] VITALS: BP 115/55
[2016-07-19] MEDS: GLYTROL 1,000 ML BAG GT PRN (16:15)
[2016-07-19] MEDS: EPOETIN ALFA (10,000 UNIT) 10,000 UNIT/ML VIAL SQ SCH (17:13)
--- NOTE | 2016-07-19 18:00 | NUR ---
RN NOTES PATIENT SEEN BY ID, WILL CARRY OUT ORDERS AND CONTINUE TO MONITOR
--- NOTE | 2016-07-19 18:48 | NUR ---
RN NOTES PATIENT RESTING COMFORTABLY IN BED, NONVERBAL. RESPIRATIONS EVEN AND UNLABORED, DENIES ANY PAIN OR DISCOMFORT AT THIS TIME. IV ACCESS PATENT INTACT, NO REDNESS OR INFILTRATION NOTED. CHAUDHARY CATHETER DRAINING CLEAR YELLOW URINE, PATENT AND INTACT. CONTINUED ON MECHANICAL VENTILATION AND TELEMETRY MONITORING, KEPT CLEAN DRY AND COMFORTABLE, CALL LIGHT WITHIN EASY REACH WILL CONTINUE TO MONITOR AND ENDORSE TO NEXT SHIFT FOR CONTINUITY OF CARE
--- NOTE | 2016-07-19 19:45 | NUR ---
teletypesetter initial notes: received report from gini sawyer, pt in bed, awake, open eyes spontaneously non verbal, mech vent trache dependent with the ff setting ac 12 tv 500 peep 5 fio2 30%, portex #9, ambu bag at bed side, clinical alarms checked and audible. pt has bibi midline patent and flushing well, infusing with d5 1/2 ns at 75ml/hr, pt also have gtube in placed receiving glytrol ultrapak at 55ml/hr. pt's abdomen soft to touch, with active bowel sound heard upon auscultation. ble offloaded. on sinus lani hr 56. safety precautions for fall initiated call light in reach will continue to monitor
[2016-07-19] MEDS: VANCOMYCIN 1.25 GM in IV D5W 500 ML IV SCH (19:48)
[2016-07-19] MEDS ORDERED: SET RED CAP 1 EA INFUS.SET MC ONE (19:49)
[2016-07-19] MEDS ORDERED: SECONDARY IV SET 1 EA INFUS.SET MC ONE (19:49)
[2016-07-19 20:00] VITALS: BP 129/62
--- NOTE | 2016-07-19 20:37 | NUR ---
gtube check: pt's abdomen soft to touch, with active bowel sound heard upon auscultation. checked gtube patency and residual, pt noted to have 70ml of gtube residual, will continue to monitor
[2016-07-19] MEDS: INSULIN DETEMIR 100 UNIT/ML CARTRIDGE SQ SCH (22:28)
--- NOTE | 2016-07-19 22:29 | NUR ---
ACCU CHECK: CHECKED BLOOD SUGAR AND REVEAL 186, 30UNITS OF LEVEMIR GIVEN ORDERED, ALSO CHECKED PT'S GTUBE RESIDUAL OBTAINED 60ML, ADMINISTERED DUE MEDS AT THIS TIME.
--- NOTE | 2016-07-19 23:40 | NUR ---
ACCU CHECK: CHECKED BLOOD SUGAR AND REVEAL 211, 6UNITS OF INSULIN GIVEN PER SLIDING SCALE, PT ON GTUBE FEEING, WILL MONITOR PT FOR S/S OF HYPOGLYCEMIA
[2016-07-20] VITALS: BP 127/61
--- NOTE | 2016-07-20 02:59 | NUR ---
RESIDUAL CHECK: CHECKED PT'S GTUBE RESIDUAL NOTED TO BE 35ML, YELLOWISH COLOR, ALSO CHANGED ALL SUCTION ST UP AND TUBING
--- NOTE | 2016-07-20 03:45 | NUR ---
AM CARE: ASSISTED LEAD ENTERPRISE ARCHITECT IN PROVIDING BED BATH TO THE PT, WOUND CARE DONE ORDERED, SUCTION PT NEEDED, OBTAINED WHITISH SECRETIONS MODERATE IN AMOUNT,
[2016-07-20 04:00] VITALS: BP 121/56
[2016-07-20] MEDS: PIPERACILLIN /TAZOBACTAM 3.375 G in IV D5W 50 ML IV SCH ×4 (05:26→23:16)
[2016-07-20] MEDS: PANTOPRAZOLE 40 MG/PACK PACK GT SCH (05:26)
[2016-07-20] MEDS: BLOOD SUGAR DIAGNOSTIC 1 EACH STRIP IN SCH ×4 (05:26→23:16)
[2016-07-20] MEDS: INSULIN REGULAR, HUMAN 100 UNIT/ML 3 ML VIAL SQ PRN ×2 (05:26→23:17)
--- NOTE | 2016-07-20 05:27 | NUR ---
ACCU CHECK: CHECKED BLOOD SUGAR AND REVEAL 74, NO INSULIN COVERAGE GIVEN PER SLIDING SCALE, PT AWAKE, RECEIVING GTUBE FEEDING GLYTROL AT 55ML/HR AND IVF D5 1/2NS AT 75ML/HR. ALSO CHECKED PT'S GTUBE PATENCY AND RESIDUAL, PT RESIDUAL OBTAINED IS 60ML. DUE MEDS GIVEN. WILL CONTINUE TO MONITOR
--- NOTE | 2016-07-20 06:38 | NUR ---
CAR SWEEPER CLOSING NOTES: PT IN BED, AWAKE, TOLERATED [facility] VENT SETTING WELL. AMBU BAG AVAILABLE AT BED SIDE. REMAINS SINUS RHYTHM HR 62. PEDRO MIDLINE REMAINS PATENT AND FLUSHING WELL, INFUSING WITH D5 1/2NS AT 75ML/HR, GTUBE REMAINS PATENT AND RECEIVING GLYTROL ULTRAPAK AT 55ML/HR, LATEST GTUBE RESIDUAL IS 60ML. CHAUDHARY CATHETER REMAINS IN PLACED. VS REMAINS STABLE, BUE AND BLE OFFLOADED. NEEDS ATTENDED. SAFETY PRECAUTIONS FOR FALL REMAINS ENGAGED, CALL LIGHT IN REACH. WILL ENDORSE TO DAY RN FOR GEOVANNA.
[2016-07-20 07:06] LABS: CREATININE 0.9 mg/dL (0.6-1.3); MAGNESIUM 2.3 mg/dL (1.8-2.4); PHOSPHORUS 4.3 mg/dL (2.5-4.9); POTASSIUM 3.7 mmol/L (3.5-5.1)
[2016-07-20 07:22] LABS: EOSINOPHILS # (AUTO) 0.3 /CMM (0.0-0.7); EOSINOPHILS % (AUTO) 2.4 % (0.0-6.0); HEMATOCRIT 25 % (33-45); HEMOGLOBIN 8.5 g/dL (11.5-14.8); LYMPHOCYTES # (AUTO) 2.8 /CMM (0.8-4.8); LYMPHOCYTES % (AUTO) 24.4 % (20.0-44.0); MEAN CORPUSCULAR HEMOGLOBIN 31 PG (26.0-33.0); MEAN CORPUSCULAR HGB CONC 33 g/dl (31.0-36.0); MEAN CORPUSCULAR VOLUME 92 fL (82-100); MONOCYTES # (AUTO) 0.9 /CMM (0.1-1.30); NEUTROPHILS # (AUTO) 7.4 /CMM (1.8-8.9); NEUTROPHILS % (AUTO) 65.2 % (43.0-81.0); PLATELET COUNT (AUTO) 268 /CMM (150-450); RDW COEFFICIENT OF VARIATION 18.4 (11.5-15.0); RED BLOOD CELL COUNT(AUTO) 2.77 MIL/uL (4.0-5.2); WHITE BLOOD COUNT (AUTO) 11.3 K/uL (4.3-11.0)
--- NOTE | 2016-07-20 07:45 | NUR ---
DEVELOPMENT MECHANIC NOTES OPENING NOTES RECEIVED PATIENT ASLEEP IN BED, HEAD OF BED ELEVATED, OPEN EYES NON VERBAL. PATIENT ON VENTILATOR AC 12, TV 500, PEEP 5 FIO2 30%.PATIENT"S MIDLINE PATENT AND INTACT. CALL LIGHT WITHIN PATIENT REACH. WILL CONTINUE TO MONITOR PATIENT ACCORDINGLY.
[2016-07-20 08:00] VITALS: BP 126/59
[2016-07-20] MEDS: FERROUS SULFATE UDC 300 MG/5 ML UDC GT SCH ×3 (11:08→17:08)
[2016-07-20] MEDS: PROSOURCE / PROSTAT (PYXIS) 30 ML UDC GT SCH ×2 (11:08→17:09)
[2016-07-20] MEDS: VALPROIC ACID 250 MG/5 ML UDC GT SCH ×3 (11:09→21:45)
[2016-07-20] MEDS: MULTIVITAMINS W-MINERALS 1 TAB TABLET GT SCH (11:09)
[2016-07-20] MEDS: BACLOFEN (10 MG) 10 MG TABLET GT SCH ×2 (11:09→17:08)
[2016-07-20] MEDS: LACTOBACILLUS RHAMNOSUS GG 1 EACH CAP.SPRINK GT SCH ×2 (11:09→17:08)
[2016-07-20] MEDS: CALCIUM CARB 250MG /VITAMIN D 1 UDTAB GT SCH (11:10)
[2016-07-20] MEDS: ZINC SULFATE 220 MG CAPSULE GT SCH (11:10)
[2016-07-20] MEDS: ASCORBIC ACID 500 MG TABLET GT SCH (11:10)
[2016-07-20] MEDS: GABAPENTIN 400 MG CAPSULE GT SCH ×2 (11:10→17:09)
[2016-07-20] MEDS: CARVEDILOL 12.5 MG TABLET GT SCH ×2 (11:11→17:00)
[2016-07-20] MEDS: HYDROGEL DRESSING 90 GM TUBE TP SCH (11:11)
[2016-07-20] MEDS: DAKINS QUARTER STRENGTH (0.125%) 480 ML BOTTLE TOP SCH (11:12)
[2016-07-20 12:00] VITALS: BP 133/62
--- NOTE | 2016-07-20 13:30 | NUR ---
RN NOTES G-TUBE FEEDING HELD FOR ONE HOUR DUE TO RESIDUAL OF 100CC.
[2016-07-20 16:00] VITALS: BP 105/55
[2016-07-20] MEDS: IV D5/0.45 NACL 1,000 ML IV PRN (17:07)
[2016-07-20] MEDS ORDERED: DOSING PER PHARMACY-AMIKACI IV XX PRN (17:30)
[2016-07-20] MEDS ORDERED: FEE PK DOSING 1 MIN EA MC ONE (18:14)
--- NOTE | 2016-07-20 18:58 | NUR ---
RN CLOSING NOTES ALL NEEDS PROVIDED, ATTENDED AND ANTICIPATED. ON TELE MONITOR SR HEART RATE OF 61. MONITORED FOR RESIDUAL. KEPT PATIENT CLEAN AND COMFORTABLE IN BED, CALL LIGHT WITHIN PATIENT REACH, WILL CONTINUE TO MONITOR ACCORDINGLY. ENDORSED TO NEXT SHIFT RN TO CONTINUE CARE.
--- NOTE | 2016-07-20 19:30 | NUR ---
EXPERIMENTAL TECHNICIAN INITIAL NOTES: received report from reina sawyer, pt in bed, asleep, non verbal, no facial grimace noted at this time,on sinus rhythm hr 62 mech vent trache dependent with the ff setting ac 12 tv 500 peep 5 fio2 30%, portex #9, ambu bag at bed side, clinical alarms checked and audible. bibi midline patent and flushing well, infusing with d5 1/2 ns at 75ml/hr, pt also have gtube in placed receiving glytrol ultrapak at 55ml/hr. pt's abdomen soft to touch, with active bowel sound heard upon auscultation. ble offloaded. . safety precautions for fall initiated call light in reach will continue to monitor
[2016-07-20 20:00] VITALS: BP 115/52
[2016-07-20] MEDS: VANCOMYCIN 1.25 GM in IV D5W 500 ML IV SCH (20:00)
[2016-07-20] MEDS ORDERED: AMIKACIN 1,000 MG in IV D5W 100 ML IV SCH (20:00)
[2016-07-20] MEDS ORDERED: SECONDARY IV SET 1 EA INFUS.SET MC ONE (20:25)
--- NOTE | 2016-07-20 20:45 | NUR ---
VANCO THROUGH: VANCOMYCIN 1.25 MG IV NOT ADMINISTERED AT THIS TIME, VANCO TROUGH IS 25, PER PARAMETER DO NOT GIVE WHEN VANCO TROUGH IS GREATER THAN 20
[2016-07-20] MEDS: INSULIN DETEMIR 100 UNIT/ML CARTRIDGE SQ SCH (22:02)
--- NOTE | 2016-07-20 22:03 | NUR ---
ACCUCHECK: CHECKED BLOOD SUGARA ND REVEAL 146, LEVEMIR 30UNITS GIVEN ORDERED, ALSO CHECKED GTUBE PATENCY AND RESIDUAL, OBTAINED 60ML OF YELLOWISH COLOR, ABDOMEN SOFT TO TOUCH WITH ACTIVE BOWEL SOUND HEARD UPON AUSCULTATION, DUE MEDS GIVEN AT THIS TIME,
--- NOTE | 2016-07-20 23:18 | NUR ---
ACCU CHECK: CHECKED BLOOD SUGAR AND REVEAL 162, 3UNITS OF INSULIN GIVEN PER SLIDING SCALE, PT ON GTUBE FEEDING, WILL MONITOR PT FOR ANY S/S OF HYPOGLYCEMIA
[2016-07-21] VITALS (11 sets, daily range): BP systolic 67–138; BP diastolic 31–76
[2016-07-21] MEDS: GLYTROL 1,000 ML BAG GT PRN (03:26)
--- NOTE | 2016-07-21 03:26 | NUR ---
RN NOTES: GTUBE RESIDUAL CHECKED AT THIS TIME, OBTAINED 50ML YELLOWISH COLOR, ABDOMEN SOFT TO TOUCH WITH ACTIVE BOWEL SOUND HEARD UPON AUSCULTATION, ADMINISTERED NEW BAG OF GLYTROL ULTRAPAK AT 55ML/HR, CHANGED SUCTION SET UP AND TUBING,
[2016-07-21] MEDS: BLOOD SUGAR DIAGNOSTIC 1 EACH STRIP IN SCH ×3 (05:20→17:36)
[2016-07-21] MEDS: PIPERACILLIN /TAZOBACTAM 3.375 G in IV D5W 50 ML IV SCH ×3 (05:20→17:36)
[2016-07-21] MEDS: PANTOPRAZOLE 40 MG/PACK PACK GT SCH (05:20)
[2016-07-21] MEDS: INSULIN REGULAR, HUMAN 100 UNIT/ML 3 ML VIAL SQ PRN (05:20)
--- NOTE | 2016-07-21 05:21 | NUR ---
ACCU CHECK: BLOOD SUGAR CHECK AND REVEAL 85, NO INSULIN COVERAGE GIVEN PER SLIDING SCALE, PT ON GTUBE FEEDING GLYTROL 55ML/HR, AND RECEIVING IVF AT 75ML/HR
--- NOTE | 2016-07-21 06:33 | NUR ---
SENIOR FIELD ENGINEER CLOSING NOTES: PT IN BED, AWAKE, [facility]. AMBU BAG AVAILABLE AT BED SIDE. REMAINS SINUS RHYTHM HR 62. PEDRO MIDLINE REMAINS PATENT AND FLUSHING WELL, INFUSING WITH D5 1/2NS AT 75ML/HR, CHAUDHARY CATHETER REMAINS IN PLACED DRAINING INTO YELLOW COLORED URINE, NO ABDOMINAL DISTENTION NOTED. GTUBE REMAINS PATENT AND RECEIVING GLYTROL ULTRAPAK AT 55ML/HR, VS REMAINS STABLE, BUE AND BLE OFFLOADED. NEEDS ATTENDED. SAFETY PRECAUTIONS FOR FALL REMAINS ENGAGED, CALL LIGHT IN REACH. WILL ENDORSE TO DAY RN FOR GEOVANNA.
[2016-07-21 06:48] LABS: BASOPHILS % (AUTO) 0.2 % (0.0-2.0); EOSINOPHILS # (AUTO) 0.5 /CMM (0.0-0.7); EOSINOPHILS % (AUTO) 3.6 % (0.0-6.0); HEMATOCRIT 26 % (33-45); HEMOGLOBIN 8.4 g/dL (11.5-14.8); MEAN CORPUSCULAR HEMOGLOBIN 30 PG (26.0-33.0); MEAN CORPUSCULAR HGB CONC 33 g/dl (31.0-36.0); MEAN CORPUSCULAR VOLUME 93 fL (82-100); MONOCYTES # (AUTO) 0.8 /CMM (0.1-1.30); MONOCYTES % (AUTO) 5.6 % (2.0-12.0); NEUTROPHILS # (AUTO) 9.3 /CMM (1.8-8.9); NEUTROPHILS % (AUTO) 68.6 % (43.0-81.0); PLATELET COUNT (AUTO) 288 /CMM (150-450); RDW COEFFICIENT OF VARIATION 18.8 (11.5-15.0); RED BLOOD CELL COUNT(AUTO) 2.76 MIL/uL (4.0-5.2); WHITE BLOOD COUNT (AUTO) 13.5 K/uL (4.3-11.0)
[2016-07-21 07:21] LABS: CALCIUM, SERUM 9.3 mg/dL (8.5-10.1); MAGNESIUM 2.3 mg/dL (1.8-2.4); PHOSPHORUS 4.7 mg/dL (2.5-4.9); POTASSIUM 2.9 mmol/L (3.5-5.1)
--- NOTE | 2016-07-21 07:53 | NUR ---
AM RN NOTES RECEIVED PT IN STABLE CONDITION, ON MECHANICAL VENT, NOB ELEVATED, NO S/S OF PAIN, WILL MONITOR.
[2016-07-21] MEDS: ZINC SULFATE 220 MG CAPSULE GT SCH (08:44)
[2016-07-21] MEDS: BACLOFEN (10 MG) 10 MG TABLET GT SCH ×2 (08:44→16:20)
[2016-07-21] MEDS: PROSOURCE / PROSTAT (PYXIS) 30 ML UDC GT SCH ×2 (08:44→16:19)
[2016-07-21] MEDS: GABAPENTIN 400 MG CAPSULE GT SCH ×2 (08:44→16:19)
[2016-07-21] MEDS: MULTIVITAMINS W-MINERALS 1 TAB TABLET GT SCH (08:44)
[2016-07-21] MEDS: VALPROIC ACID 250 MG/5 ML UDC GT SCH ×3 (08:44→22:21)
[2016-07-21] MEDS: ASCORBIC ACID 500 MG TABLET GT SCH (08:44)
[2016-07-21] MEDS: FERROUS SULFATE UDC 300 MG/5 ML UDC GT SCH ×3 (08:44→16:20)
[2016-07-21] MEDS: LACTOBACILLUS RHAMNOSUS GG 1 EACH CAP.SPRINK GT SCH ×2 (08:45→16:20)
[2016-07-21] MEDS: CARVEDILOL 12.5 MG TABLET GT SCH ×2 (08:45→16:20)
[2016-07-21] MEDS: CALCIUM CARB 250MG /VITAMIN D 1 UDTAB GT SCH (08:45)
[2016-07-21] MEDS: HYDROGEL DRESSING 90 GM TUBE TP SCH (08:46)
[2016-07-21] MEDS: DAKINS QUARTER STRENGTH (0.125%) 480 ML BOTTLE TOP SCH (08:46)
[2016-07-21] MEDS ORDERED: SECONDARY IV SET 1 EA INFUS.SET MC ONE (09:51)
[2016-07-21] MEDS: POTASSIUM CL. PREMIX PERIPHER. 50 ML IV SCH ×4 (09:55→14:08)
[2016-07-21] MEDS: IV D5/0.45 NACL 1,000 ML IV PRN (12:52)
--- NOTE | 2016-07-21 19:29 | NUR ---
PT IN STABLE CONDITION, NO SOB OR DISTRESS NOTED, HOB ELEVATED, TOLERATED WELL TO GTF, INDORSED TO NEXT SHIFT FOR GEOVANNA.
--- NOTE | 2016-07-21 19:35 | NUR ---
RN OPENING NOTES RECEIVED REPORT FROM MARTA RN. FOUND Pt AWAKE IN BED. OBTUNDED. NO S/S OF ACUTE DISTRESS OR SOB NOTED. EQUAL CHEST RISE AND FALL. VENT SETTINGS: AC 12, PEEP 5, TV 500, FIO2 30%, PORTEX #9. TELE SR 60's. CHAUDHARY CATHETER IN PLACE. IV ACCESS ON PEDRO MIDLINE IVF D5 1/2NS @75ML/HR. SAFETY MEASURES IN PLACE. BED LOW, LOCKED, HOB ELEVATED, & SIDE RAILS UP. WILL CONTINUE TO MONITOR Pt THROUGHOUT THE NIGHT FOR SAFETY.
[2016-07-21] MEDS: INSULIN DETEMIR 100 UNIT/ML CARTRIDGE SQ SCH (22:00)
--- NOTE | 2016-07-21 22:00 | NUR ---
RN NOTES WITH HELD TEZ 30UN DUE TO LOW BG OF 97. WILL RECHECK BG @0000.
[2016-07-21] MEDS: VANCOMYCIN 1 GM in IV D5W 250 ML IV SCH (22:20)
[2016-07-22] VITALS (7 sets, daily range): BP systolic 90–125; BP diastolic 37–69
--- NOTE | 2016-07-22 | NUR ---
BG 136. ADMINISTERED 2UN OF INSULIN PER SLIDING SCALE.
[2016-07-22] MEDS: BLOOD SUGAR DIAGNOSTIC 1 EACH STRIP IN SCH ×4 (00:39→17:43)
[2016-07-22] MEDS: PIPERACILLIN /TAZOBACTAM 3.375 G in IV D5W 50 ML IV SCH ×4 (00:39→17:43)
[2016-07-22] MEDS: INSULIN REGULAR, HUMAN 100 UNIT/ML 3 ML VIAL SQ PRN ×5 (00:41→21:12)
[2016-07-22] MEDS: PANTOPRAZOLE 40 MG/PACK PACK GT SCH (06:35)
[2016-07-22] MEDS: GLYTROL 1,000 ML BAG GT PRN (06:38)
--- NOTE | 2016-07-22 06:45 | NUR ---
BG 164. ADMINISTERED 3UN OF INSULIN PER SLIDING SCALE. ON CONTINUOUS GT FEEDING.
--- NOTE | 2016-07-22 06:46 | NUR ---
RN CLOSING NOTES NO SIGNIFICANT CHANGES DURING THE SHIFT. ALL NEEDS MET AND ATTENDED TO. SAFETY MEASURES IN PLACE. WILL ENDORSE TO DAYSHIFT RN FOR Pt's GEOVANNA.
[2016-07-22 07:14] LABS: EOSINOPHILS # (AUTO) 0.8 /CMM (0.0-0.7); EOSINOPHILS % (AUTO) 5.8 % (0.0-6.0); HEMATOCRIT 28 % (33-45); HEMOGLOBIN 9.2 g/dL (11.5-14.8); LYMPHOCYTES # (AUTO) 3.9 /CMM (0.8-4.8); MEAN CORPUSCULAR HEMOGLOBIN 31 PG (26.0-33.0); MEAN CORPUSCULAR HGB CONC 33 g/dl (31.0-36.0); MEAN CORPUSCULAR VOLUME 94 fL (82-100); MONOCYTES # (AUTO) 0.7 /CMM (0.1-1.30); MONOCYTES % (AUTO) 5.5 % (2.0-12.0); NEUTROPHILS % (AUTO) 59.7 % (43.0-81.0); PLATELET COUNT (AUTO) 293 /CMM (150-450); RDW COEFFICIENT OF VARIATION 18.8 (11.5-15.0); RED BLOOD CELL COUNT(AUTO) 2.98 MIL/uL (4.0-5.2); WHITE BLOOD COUNT (AUTO) 13.4 K/uL (4.3-11.0)
--- NOTE | 2016-07-22 07:30 | NUR ---
MS RN MS RN RECEIVED ON BED,NON VERBAL PATIENT, NOT IN ANY FORM OF DISTRESS, RESPIRATIONS EVEN AND UNLABORED,NO SOB NOTED, VENT DEPENDENT PATIENT,W/ G TUBE FEEDING OFF AT THIS TIME, REPOSITIONED FOR COMFORT, ALL NEEDS ATTENDED.
[2016-07-22 07:58] LABS: CALCIUM, SERUM 9.2 mg/dL (8.5-10.1); MAGNESIUM 2.3 mg/dL (1.8-2.4); PHOSPHORUS 4.4 mg/dL (2.5-4.9); POTASSIUM 3.4 mmol/L (3.5-5.1)
[2016-07-22] MEDS: VALPROIC ACID 250 MG/5 ML UDC GT SCH ×3 (08:48→21:00)
[2016-07-22] MEDS: FERROUS SULFATE UDC 300 MG/5 ML UDC GT SCH ×3 (08:49→17:42)
[2016-07-22] MEDS: PROSOURCE / PROSTAT (PYXIS) 30 ML UDC GT SCH ×2 (08:49→17:42)
[2016-07-22] MEDS: CALCIUM CARB 250MG /VITAMIN D 1 UDTAB GT SCH (08:50)
[2016-07-22] MEDS: MULTIVITAMINS W-MINERALS 1 TAB TABLET GT SCH (08:50)
[2016-07-22] MEDS: LACTOBACILLUS RHAMNOSUS GG 1 EACH CAP.SPRINK GT SCH ×2 (08:50→17:42)
[2016-07-22] MEDS: GABAPENTIN 400 MG CAPSULE GT SCH ×2 (08:50→17:42)
[2016-07-22] MEDS: BACLOFEN (10 MG) 10 MG TABLET GT SCH ×2 (08:50→17:41)
[2016-07-22] MEDS: ZINC SULFATE 220 MG CAPSULE GT SCH (08:50)
[2016-07-22] MEDS: ASCORBIC ACID 500 MG TABLET GT SCH (08:50)
[2016-07-22] MEDS: Z GUARD REMEDY 2 OZ OINT TP PRN (08:52)
[2016-07-22] MEDS: CARVEDILOL 12.5 MG TABLET GT SCH ×2 (08:52→17:41)
[2016-07-22] MEDS: HYDROGEL DRESSING 90 GM TUBE TP SCH (08:52)
[2016-07-22] MEDS: DAKINS QUARTER STRENGTH (0.125%) 480 ML BOTTLE TOP SCH (08:53)
--- NOTE | 2016-07-22 09:00 | NUR ---
ms rn due meds given via gtuibe, tolerated well, w/o residual
--- NOTE | 2016-07-22 09:50 | NUR ---
ms rn was seen by dr. nassar, w/ orders made and carried out.
[2016-07-22] MEDS ORDERED: POTASSIUM CHLORIDE 20 MEQ POWDER PACKET NG SCH (11:00)
[2016-07-22] MEDS ORDERED: POTASSIUM CHLORIDE 20 MEQ TAB.PRT.SR PO ONE (11:30)
--- NOTE | 2016-07-22 11:44 | NUR ---
ms rn am care done w/ forest pathology teacher, dressing to sacral wound changed.
[2016-07-22] MEDS: EPOETIN ALFA (10,000 UNIT) 10,000 UNIT/ML VIAL SQ SCH (17:43)
--- NOTE | 2016-07-22 18:00 | NUR ---
MS RN ON BED, NO DISTRESS NOTED,ALL NEEDS ATTENDED.
[2016-07-22] MEDS: IV D5/0.45 NACL 1,000 ML IV PRN (18:09)
--- NOTE | 2016-07-22 19:35 | NUR ---
RN OPENING NOTES RECEIVED REPORT FROM MARTA AMARAL. Pt IS OBTUNDED. VENT SETTINGS: AC 12, TV 500, PEEP 5, FIO2 30%, WITH PORTEX #9. TELE READING SR 60's-70'S. CHAUDHARY CATHETER IN PLACE. GT FEEDING GLYTROL @55ML/HR. IV ACCESS ON PEDRO MIDLINE IVF D5 1/2NS @75ML/HR. SAFETY MEASURES IN PLACE. BED LOW, LOCKED, HOB ELEVATED, SIDE RAILS UP. WILL CONTINUE TO MONITOR Pt THROUGHOUT THE SHIFT.
[2016-07-22] MEDS ORDERED: SECONDARY IV SET 1 EA INFUS.SET MC ONE (20:42)
[2016-07-22] MEDS ORDERED: IV SET PRIMARY PUMP SET 1 EA INFUS.SET MC ONE (20:42)
[2016-07-22] MEDS: AMIKACIN 1,000 MG in IV D5W 100 ML IV SCH (20:42)
[2016-07-22] MEDS: INSULIN DETEMIR 100 UNIT/ML CARTRIDGE SQ SCH (21:09)
--- NOTE | 2016-07-22 22:00 | NUR ---
BG 195. ADMINISTERED SCHEDULED LEVEMIR 30UN. ALSO GAVE ADDITIONAL 3UN OF INSULIN COVERAGE PER SLIDING SCALE. ON CONTINUOUS GT FEEDING.
[2016-07-22] MEDS: VANCOMYCIN 1 GM in IV D5W 250 ML IV SCH (22:15)
[2016-07-23] VITALS (19 sets, daily range): BP systolic 82–135; BP diastolic 36–68
--- NOTE | 2016-07-23 | NUR ---
BG 235. ADMINISTERED 6UN OF INSULIN PER SLIDING SCALE. ON CONTINUOUS GT FEED. WILL CONTINUE TO MONITOR BG LEVELS.
[2016-07-23] MEDS: PIPERACILLIN /TAZOBACTAM 3.375 G in IV D5W 50 ML IV SCH ×4 (00:06→22:27)
[2016-07-23] MEDS: BLOOD SUGAR DIAGNOSTIC 1 EACH STRIP IN SCH ×5 (00:07→23:41)
[2016-07-23] MEDS: INSULIN REGULAR, HUMAN 100 UNIT/ML 3 ML VIAL SQ PRN ×4 (00:19→18:22)
--- NOTE | 2016-07-23 06:00 | NUR ---
BG 135. ADMINISTERED 2UN OF INSULIN PER SLIDING SCALE. ON CONTINUOUS GT FEEDING.
[2016-07-23] MEDS: PANTOPRAZOLE 40 MG/PACK PACK GT SCH (06:18)
--- NOTE | 2016-07-23 06:45 | NUR ---
RN CLOSING NOTES NO SIGNIFICANT CHANGES DURING THE NIGHT. NO S/S OF ACUTE DISTRESS OR SOB. ALL NEEDS MET AND ATTENDED TO. SAFETY MEASURES CARRIED OUT. WILL ENDORSE TO DAYSDALIA RN FOR Pt's GEOVANNA. Addendum: 07/23/16 at 0652 by RASHID DIXON RN TELE READING SR 60s-70s
[2016-07-23 06:55] LABS: BASOPHILS % (AUTO) 0.2 % (0.0-2.0); EOSINOPHILS # (AUTO) 0.8 /CMM (0.0-0.7); EOSINOPHILS % (AUTO) 6.3 % (0.0-6.0); HEMATOCRIT 22 % (33-45); HEMOGLOBIN 7.4 g/dL (11.5-14.8); LYMPHOCYTES # (AUTO) 4.5 /CMM (0.8-4.8); LYMPHOCYTES % (AUTO) 37.5 % (20.0-44.0); MEAN CORPUSCULAR HEMOGLOBIN 31 PG (26.0-33.0); MEAN CORPUSCULAR HGB CONC 33 g/dl (31.0-36.0); MEAN CORPUSCULAR VOLUME 94 fL (82-100); MONOCYTES # (AUTO) 0.8 /CMM (0.1-1.30); MONOCYTES % (AUTO) 6.5 % (2.0-12.0); NEUTROPHILS % (AUTO) 49.5 % (43.0-81.0); PLATELET COUNT (AUTO) 239 /CMM (150-450); RED BLOOD CELL COUNT(AUTO) 2.35 MIL/uL (4.0-5.2); WHITE BLOOD COUNT (AUTO) 12.1 K/uL (4.3-11.0)
[2016-07-23 07:13] LABS: CALCIUM, SERUM 9.1 mg/dL (8.5-10.1); CREATININE 1.2 mg/dL (0.6-1.3); MAGNESIUM 2.3 mg/dL (1.8-2.4); PHOSPHORUS 4.2 mg/dL (2.5-4.9); POTASSIUM 4.4 mmol/L (3.5-5.1)
[2016-07-23] MEDS: GLYTROL 1,000 ML BAG GT PRN (07:33)
--- NOTE | 2016-07-23 08:00 | NUR ---
FEED PREPARATION OPERATOR OPENING NOTES RECEIVED PATIENT ON BED, NON VERBAL, ON VENTILATOR. RESPIRATIONS EVEN AND UNLABORED, NO DISTRESS IN ANY FORM. TELEMETRY SINUS RHYTHM 72. IV SITE PATENT AND INTACT. CHAUDHARY CATHETER IN PLACE WITH CLEAR MARYAM URINE. PATIENT ON G-TUBE FEEDING GLYTROL @ 55 ML/HR. BED IN LOWEST POSITION. SIDE RAILS UP. HEAD OF BED ELEVATED. WILL CONTINUE TO MONITOR..
[2016-07-23] MEDS: VALPROIC ACID 250 MG/5 ML UDC GT SCH ×2 (08:54→16:32)
[2016-07-23] MEDS: ZINC SULFATE 220 MG CAPSULE GT SCH (08:55)
[2016-07-23] MEDS: FERROUS SULFATE UDC 300 MG/5 ML UDC GT SCH ×3 (08:55→16:34)
[2016-07-23] MEDS: CALCIUM CARB 250MG /VITAMIN D 1 UDTAB GT SCH (08:56)
[2016-07-23] MEDS: LACTOBACILLUS RHAMNOSUS GG 1 EACH CAP.SPRINK GT SCH ×2 (08:59→16:34)
[2016-07-23] MEDS: ASCORBIC ACID 500 MG TABLET GT SCH (08:59)
[2016-07-23] MEDS: GABAPENTIN 400 MG CAPSULE GT SCH ×2 (08:59→16:34)
[2016-07-23] MEDS: CARVEDILOL 12.5 MG TABLET GT SCH ×2 (09:00→16:33)
[2016-07-23] MEDS: BACLOFEN (10 MG) 10 MG TABLET GT SCH ×2 (09:00→16:33)
[2016-07-23] MEDS: MULTIVITAMINS W-MINERALS 1 TAB TABLET GT SCH (09:17)
[2016-07-23] MEDS: PROSOURCE / PROSTAT (PYXIS) 30 ML UDC GT SCH ×2 (09:18→16:32)
[2016-07-23] MEDS: DAKINS QUARTER STRENGTH (0.125%) 480 ML BOTTLE TOP SCH (10:00)
[2016-07-23] MEDS: HYDROGEL DRESSING 90 GM TUBE TP SCH (10:02)
[2016-07-23 12:48] LABS: APPEARANCE,URINE CLOUDY (CLEAR); BILIRUBIN,URINE NEGATIVE (NEGATIVE); BLOOD, URINE TRACE Ery/uL (NEGATIVE); COLOR,URINE YELLOW (YELLOW); KETONES,URINE NEGATIVE (NEGATIVE); LEUKOCYTE ESTERASE ,URINE 1+ (NEGATIVE); NITRITE, URINE NEGATIVE (NEGATIVE); PH,URINE 5.5 (5.0-8.0); PROTEIN,URINE 1+ mg/dl (NEGATIVE); UGLUCOSE NEGATIVE (NEGATIVE); UROBILINOGEN,URINE 0.2 EU/dL (0.2)
[2016-07-23 13:02] LABS: BACTERIA,URINE 1+ /HPF (None Seen); MUCUS,URINE Moderate /LPF (None Seen); YEAST,URINE Moderate /HPF (None Seen)
[2016-07-23 13:03] LABS: URINE AMORPHOUS URATE Moderate /HPF (None Seen)
[2016-07-23] MEDS: IV D5/0.45 NACL 1,000 ML IV PRN (14:15)
--- NOTE | 2016-07-23 14:50 | NUR ---
DR CARVAJAL ORDERED FOR MICROBIOLOGY REPORT SENSITIVITIES OF THE MRSA FROM THE SACRAL WOUND AND CALLED MICROBIOLOGY IN [facility] AND SPOKE TO RAMILA WHO STATED THAT THEY WILL DO IT TODAY AND HAVE THE RESULT BY TIMI.
[2016-07-23] MEDS ORDERED: BLOOD IV SET 1 EA INFUS.SET MC ONE (15:30)
[2016-07-23] MEDS ORDERED: IV NS 0.9% 250 ML IV ONE (15:30)
--- NOTE | 2016-07-23 16:20 | NUR ---
STARTED TRANSFUSING FIRST UNIT PRBC.STABLE V/S AND AFEBRILE.PT HAS NO S/S OF PAIN OR DISTRESS.WILL CONTINUE TO MONITOR FOR ANY ADVERSE REACTIONS.
--- NOTE | 2016-07-23 16:35 | NUR ---
TRANSFUSING FIRST UNIT PRBC WITH NO ADVERSE REACTIONS NOTED.VITAL SIGNS STABLE.WILL CONTINUE TO MONITOR.
--- NOTE | 2016-07-23 17:35 | NUR ---
G-TUBE FEEDING HOLD, RESIDUAL 100 MLs.
--- NOTE | 2016-07-23 18:46 | NUR ---
TRANSFUSED 2ND UNIT PRBC WITH STABLE V/S.PT IS AFEBRILE AND WITH NO S/S OF PAIN OR DISTRESS.ENDORSED IV ATBS TO ADMINISTER:ZOSYN AND ZYVOX IV TO NIGHT NURSE.
--- NOTE | 2016-07-23 18:46 | NUR ---
COMPLETED FIRST UNIT PRBC WITH STABLE V/S AND NO ADVERSE REACTIONS NOTED.WILL TRANSFUSE SECOND UNIT PRBC AND MONITOR FOR ANY ADVERSE REACTION.
--- NOTE | 2016-07-23 19:30 | NUR ---
RN NOTES: -RECEIVED PATIENT IN BED,OBSTUNDED, NON VERBAL,ON VENTILATOR, NO SIGN OF RESPIRATORY DISTRESS NOTED,ON TELE MONITORING SINUS RHYTHM, ON ISOLATION PRECAUTION FOR MRSA AND PSEUDOMONAS, ON CHAUDHARY CATH DRAINING WELL AT 100CC LEVEL.FEEDING ON HOLD RESIDUAL IS MORE THAN 100 CC, PEG TUBE IN SITE,BLOOD TRANSFUSSION SECOND UNIT ONGOING STARTED AT 1845PM,V/S MONITORED AND MONITOR FOR TRANSFUSION REACTION.BED LOW AND LOCKED, CALL LIGHT WITHIN REACH, ALARM ON AT ALL TIME.
--- NOTE | 2016-07-23 20:00 | NUR ---
RN NOTES: PATIENT HAD BOWEL MOVEMENT, BED BATH RENDERED CLEAN AND CHANGE,DRESSING DONE ON THE PRESSURE SORE SITE, DRESSING DRY AND INTACT.OFF LOADING DONE,TURNING AND REPOSITION DONE.
[2016-07-23] MEDS ORDERED: LINEZOLID RTU BAG 600 MG in PREMIX 1 EA IV SCH (21:00)
--- NOTE | 2016-07-23 21:45 | NUR ---
RN NOTES: BLOOD TRANSFUSSION SECOND UNIT FINISHED AT 5 WITH LATEST V/S-BP-123/64 AFEBRILE NO SIGN OF RESPIRATORY DISTESS, NO SIGN OF TRANSFUSION REACTION NOTED, V/S WITH IN RANGE.
[2016-07-23] MEDS: INSULIN DETEMIR 100 UNIT/ML CARTRIDGE SQ SCH (22:00)
--- NOTE | 2016-07-23 22:45 | NUR ---
RN NOTES: BLOOD SUGAR CHECK-63 , NO INSULIN GIVEN PER SCALE, EVENING DOSE OF INSULIN NOT GIVEN.CM NOTIFIED,RESIDUAL IS STILL MORE THAN 100ML FROM PEG TUBE,FEEDING NOT STARTED,ON IVF OF D5 1/2 NS AT 75ML/HR. -ZOSYN FOR 1800 GIVEN AT 2245 AFTER BT.
[2016-07-23] MEDS: LINEZOLID RTU BAG 600 MG in PREMIX 1 EA IV SCH (23:44)
[2016-07-24] VITALS (7 sets, daily range): BP systolic 120–153; BP diastolic 51–75
--- NOTE | 2016-07-24 | NUR ---
RN NOTES; BLOOD SUGAR CHECKED-57,BP-121/57 MD-68 PATIENT IS NOT DIAPHORETIC,SUCTIONING AND TURNING DONE,(REMOTE OPERATIONS PRODUCER) WAS NOTIFIED OF PATIENT BLOOD SUGAR, IV/ANTIBIOTIC ON GOING,BT IS FINISHED AND FEEDING ON HOLD DUE DUE RESIDUAL,HE JUST VERBALLY ORDERED TO MONITOR PATIENT DO NOT GIVE ANY INSULIN AND CONTINUE WITH IV FLUIDS.RECHECK SUGAR AFTER AN HOUR.
[2016-07-24] MEDS: VALPROIC ACID 250 MG/5 ML UDC GT SCH ×4 (00:21→21:19)
[2016-07-24] MEDS: PIPERACILLIN /TAZOBACTAM 3.375 G in IV D5W 50 ML IV SCH ×4 (00:23→17:54)
--- NOTE | 2016-07-24 01:00 | NUR ---
RN NOTES: BLOOD SUGAR CHECKED -87, KEEP ON MONIOTRING FOR SIGN OF HYPER AND HYPOGLYCEMIA, TURNING AND REPOSITIONING DONE.
[2016-07-24] MEDS ORDERED: SECONDARY IV SET 1 EA INFUS.SET MC ONE (05:24)
[2016-07-24] MEDS: BLOOD SUGAR DIAGNOSTIC 1 EACH STRIP IN SCH ×3 (05:56→17:54)
--- NOTE | 2016-07-24 06:45 | NUR ---
RN NOTES: MORNING CARE DONE, REPOSITION, PASS BM CLEAN AND CHANGE,PANTOPRAZOLE NOT GIVEN, RESIDUAL MORE THAN 100,KEPT ON HIGH FOWLERS POSITION, ENDORSED FOR CONTINUITY OF CARE.
[2016-07-24 08:09] LABS: CALCIUM, SERUM 9.6 mg/dL (8.5-10.1); CREATININE 1.1 mg/dL (0.6-1.3); POTASSIUM 4.6 mmol/L (3.5-5.1)
[2016-07-24] MEDS ORDERED: IV SET PRIMARY PUMP SET 1 EA INFUS.SET MC ONE (08:14)
[2016-07-24] MEDS: FERROUS SULFATE UDC 300 MG/5 ML UDC GT SCH ×3 (08:40→16:56)
[2016-07-24] MEDS: GABAPENTIN 400 MG CAPSULE GT SCH ×2 (08:40→16:56)
[2016-07-24] MEDS: PROSOURCE / PROSTAT (PYXIS) 30 ML UDC GT SCH ×2 (08:40→16:57)
[2016-07-24] MEDS: CALCIUM CARB 250MG /VITAMIN D 1 UDTAB GT SCH (08:41)
[2016-07-24] MEDS: LACTOBACILLUS RHAMNOSUS GG 1 EACH CAP.SPRINK GT SCH ×2 (08:41→16:56)
[2016-07-24] MEDS: MULTIVITAMINS W-MINERALS 1 TAB TABLET GT SCH (08:41)
[2016-07-24] MEDS: CARVEDILOL 12.5 MG TABLET GT SCH ×2 (08:41→16:57)
[2016-07-24] MEDS: BACLOFEN (10 MG) 10 MG TABLET GT SCH ×2 (08:41→16:56)
[2016-07-24] MEDS: ZINC SULFATE 220 MG CAPSULE GT SCH (08:41)
[2016-07-24] MEDS: ASCORBIC ACID 500 MG TABLET GT SCH (08:41)
[2016-07-24] MEDS: HYDROGEL DRESSING 90 GM TUBE TP SCH (08:42)
[2016-07-24] MEDS: LINEZOLID RTU BAG 600 MG in PREMIX 1 EA IV SCH ×2 (08:42→21:18)
[2016-07-24] MEDS: DAKINS QUARTER STRENGTH (0.125%) 480 ML BOTTLE TOP SCH (08:43)
[2016-07-24] MEDS: PANTOPRAZOLE 40 MG/PACK PACK GT SCH (08:44)
--- NOTE | 2016-07-24 08:53 | NUR ---
MS/RN Medications Morning medications given via GT.
--- NOTE | 2016-07-24 09:30 | NUR ---
MS/RN S/B Dr Huerta Seen by Dr Huerta - patient top be discharged to sub acute at [facility] today.
--- NOTE | 2016-07-24 10:00 | NUR ---
MS/RN Morning care Morning care provided to patient, skin kept clean and dry. Has been turned and repositioned every 2-3 hours to prevent further skin breakdown, heels off loaded on two pillows.
[2016-07-24] MEDS ORDERED: LINE600I9 IV (10:57)
[2016-07-24] MEDS ORDERED: AMIK250V14 IJ (10:57)
[2016-07-24] MEDS ORDERED: PIPE2.257 IV (10:57)
--- NOTE | 2016-07-24 13:28 | NUR ---
MS/ticket collector or usher paperwork Exit care prepared, copies of medical record made. Midline to stay in place as patient needs to continue with IVAB. Pictures taken of all wounds and all dressing changed. Call received from case management assistant Brittany, facility does not have any isolation bed at this time and will rearrange to accommodate patient, at this time, transport placed on hold.
--- NOTE | 2016-07-24 14:01 | NUR ---
MS/RN Dr Reyna Orellana at bedside for debridement of wounds. Telephone consent obtained from family.
--- NOTE | 2016-07-24 16:00 | NUR ---
MS/crisis nurse on hold Discharge on hold at this time as no isolation bed at facility.
[2016-07-24] MEDS: IV D5/0.45 NACL 1,000 ML IV PRN (17:54)
[2016-07-24] MEDS: EPOETIN ALFA (10,000 UNIT) 10,000 UNIT/ML VIAL SQ SCH (18:07)
[2016-07-24] MEDS: INSULIN REGULAR, HUMAN 100 UNIT/ML 3 ML VIAL SQ PRN (18:10)
[2016-07-24] MEDS: GLYTROL 1,000 ML BAG GT PRN (18:15)
--- NOTE | 2016-07-24 19:03 | NUR ---
MS RN CLOSING NOTES PT REMAINS STABLE AWAITING ISOLATION BED AT FACILITY. ENDORSE TO RADIOSONDE OPERATOR
--- NOTE | 2016-07-24 19:30 | NUR ---
HVAC SERVICE MANAGER NOTES RECEIVED PATIENT IN BED,AWAKE, NON VERBAL, ON VENTILATOR, VENT SETTINGS ORDERED. NO APPARENT DISTRESS NOTED, NO SOB, NO FACIAL GRIMACING NOTED.IV LINE LINES PATENT, INFUSING, D5 1/S NS AT 75ML/HR. G TUBE PATENT. PATIENT TO BE DISCHARGED ONCE BED IS AVAILABLE AT FACILITY. ALL NEEDS MET, KEPT CLEAN AND DRY.
[2016-07-24] MEDS: AMIKACIN 1,000 MG in IV D5W 100 ML IV SCH (20:00)
--- NOTE | 2016-07-24 20:45 | NUR ---
ROOFER NOTES PHARMACIST CALLED TO ASK IF PT IS ON DIALYSIS OR NOT. NOTIFIED HER PT IS NOT ON DIALYSIS. WILL CONTINUE TO MONITOR.
--- NOTE | 2016-07-24 21:00 | NUR ---
SLURRY CONTROL TENDER NOTES CALLED PHARMACIST TO VERIFY IF PT IS GETTING AMIKACIN OR NOT. PHARMACIST ALREADY LEFT. NOTIFIED NURSING VACUUM BOTTLE ASSEMBLER TO PLACE A CALL TO PHARMACIST MENAGERIE SUPERINTENDENT. WILL CONTINUE TO MONITOR.
--- NOTE | 2016-07-24 21:45 | NUR ---
MEDICAL RADIATION DOSIMETRIST NOTES RN SUP CALLED PHARMACIST PROFESSIONAL APPLICATION DESIGNER. NOTIFIED HER RE PT'S AMIKACIN ORDER. WITH NEW ORDERS TO HOLD AMIKACIN FOR TONIGHT. ORDERS NOTED AND CARRIED OUT. WILL CONTINUE TO MONITOR.
[2016-07-24] MEDS: INSULIN DETEMIR 100 UNIT/ML CARTRIDGE SQ SCH (22:11)
[2016-07-25] VITALS: BP 133/63
[2016-07-25] MEDS: PIPERACILLIN /TAZOBACTAM 3.375 G in IV D5W 50 ML IV SCH ×4 (00:20→18:05)
[2016-07-25] MEDS: BLOOD SUGAR DIAGNOSTIC 1 EACH STRIP IN SCH ×4 (00:20→18:08)
[2016-07-25 04:00] VITALS: BP 148/69
[2016-07-25] MEDS: PANTOPRAZOLE 40 MG/PACK PACK GT SCH (05:18)
[2016-07-25] MEDS: INSULIN REGULAR, HUMAN 100 UNIT/ML 3 ML VIAL SQ PRN ×2 (06:01→12:40)
--- NOTE | 2016-07-25 07:00 | NUR ---
PSYCHIATRIC NURSE NOTES PATIENT IN BED IN NO APPARENT DISTRESS, VENT SETTINGS ORDERED, NO SOB NOTES, NO FACIAL GRIMACING NOTED. ALL NEEDS MET, KEPT CLEAN AND DRY, WOUND DRESSING CHANGED, F/C INSERTED, DRAINING WELL. ALL NEEDS MET KEPT CLEAN AND DRY.
[2016-07-25 07:16] VITALS: BP 146/76
--- NOTE | 2016-07-25 07:30 | NUR ---
MS RN INITIAL NOTES RECEIVED REPORT FROM DIRECTOR SHOPPER MARKETING. PT IS IN BED STABLE NO APPARENT SIGNS OF DISTRESS AT THIS TIME. VENT SETTINGS AC 12, PEEP 5, TV 500, FiO2 305. MIDLINE ON PEDRO WITH D5 1/2 NS RUNNING AT 75 ML/HR WITH NO SIGNS OF INFILTRATION. AWAITING FURTHER DISCHARGE INSTRUCTIONS TO ANGELA GONZALEZ. WILL CONTINUE TO MONITOR.
[2016-07-25] MEDS: LINEZOLID RTU BAG 600 MG in PREMIX 1 EA IV SCH ×2 (08:24→21:09)
[2016-07-25] MEDS: VALPROIC ACID 250 MG/5 ML UDC GT SCH ×3 (08:24→21:09)
[2016-07-25] MEDS: ASCORBIC ACID 500 MG TABLET GT SCH (08:25)
[2016-07-25] MEDS: GABAPENTIN 400 MG CAPSULE GT SCH ×2 (08:25→18:07)
[2016-07-25] MEDS: FERROUS SULFATE UDC 300 MG/5 ML UDC GT SCH ×3 (08:25→18:06)
[2016-07-25] MEDS: MULTIVITAMINS W-MINERALS 1 TAB TABLET GT SCH (08:25)
[2016-07-25] MEDS: ZINC SULFATE 220 MG CAPSULE GT SCH (08:25)
[2016-07-25] MEDS: PROSOURCE / PROSTAT (PYXIS) 30 ML UDC GT SCH ×2 (08:26→18:05)
[2016-07-25] MEDS: LACTOBACILLUS RHAMNOSUS GG 1 EACH CAP.SPRINK GT SCH ×2 (08:26→18:06)
[2016-07-25] MEDS: CALCIUM CARB 250MG /VITAMIN D 1 UDTAB GT SCH (08:26)
[2016-07-25] MEDS: CARVEDILOL 12.5 MG TABLET GT SCH ×2 (08:26→18:08)
[2016-07-25] MEDS: HYDROGEL DRESSING 90 GM TUBE TP SCH (08:27)
[2016-07-25] MEDS: DAKINS QUARTER STRENGTH (0.125%) 480 ML BOTTLE TOP SCH (08:27)
[2016-07-25] MEDS: BACLOFEN (10 MG) 10 MG TABLET GT SCH ×2 (08:36→18:06)
--- NOTE | 2016-07-25 08:55 | NUR ---
MS SHASHI GTUBE FEEDING RESIDUAL WAS 90. HELD TUBE FEEDING. D5 1/2 NS IS RUNNING AT 75 ML/HR. WILL REASSESS.
[2016-07-25 09:15] LABS: CALCIUM, SERUM 9.2 mg/dL (8.5-10.1); CREATININE 0.9 mg/dL (0.6-1.3); POTASSIUM 3.7 mmol/L (3.5-5.1)
[2016-07-25 09:23] VITALS: BP 146/76
[2016-07-25 11:00] LABS: BASOPHILS % (AUTO) 0.2 % (0.0-2.0); EOSINOPHILS # (AUTO) 0.4 /CMM (0.0-0.7); EOSINOPHILS % (AUTO) 4.1 % (0.0-6.0); HEMATOCRIT 32 % (33-45); HEMOGLOBIN 10.6 g/dL (11.5-14.8); LYMPHOCYTES # (AUTO) 2.9 /CMM (0.8-4.8); MEAN CORPUSCULAR HEMOGLOBIN 30 PG (26.0-33.0); MEAN CORPUSCULAR HGB CONC 33 g/dl (31.0-36.0); MEAN CORPUSCULAR VOLUME 91 fL (82-100); MONOCYTES # (AUTO) 0.7 /CMM (0.1-1.30); MONOCYTES % (AUTO) 6.4 % (2.0-12.0); NEUTROPHILS # (AUTO) 6.3 /CMM (1.8-8.9); NEUTROPHILS % (AUTO) 61.3 % (43.0-81.0); PLATELET COUNT (AUTO) 215 /CMM (150-450); RDW COEFFICIENT OF VARIATION 19.9 (11.5-15.0); RED BLOOD CELL COUNT(AUTO) 3.53 MIL/uL (4.0-5.2); WHITE BLOOD COUNT (AUTO) 10.3 K/uL (4.3-11.0)
[2016-07-25] MEDS ORDERED: AMIKACIN 1,000 MG in IV D5W 100 ML IV SCH (15:00)
[2016-07-25 16:00] VITALS: BP 147/63
[2016-07-25] MEDS ORDERED: BLOOD IV SET 1 EA INFUS.SET MC ONE (17:06)
[2016-07-25] MEDS ORDERED: SECONDARY IV SET 1 EA INFUS.SET MC ONE (17:56)
--- NOTE | 2016-07-25 18:00 | NUR ---
MS RN MIDLINE PATIENTS MIDLINE WAS LEAKING, CONNECTION WAS OFF AND WAS ABLE TO ADJUST IT.
[2016-07-25] MEDS: IV D5/0.45 NACL 1,000 ML IV PRN (18:05)
--- NOTE | 2016-07-25 18:15 | NUR ---
MS RN GLUCOSE CHECK PT BLOOD GLUCOSE WAS 36. GAVE D5 PUSH. AT 1840 BLOOD GLUCOSE WAS 126. NO SIGNS OF SOB OR DISTRESS.
[2016-07-25] MEDS: DEXTROSE 50%-WATER 50 ML DISP.SYRIN IV PRN (18:21)
--- NOTE | 2016-07-25 18:59 | NUR ---
MS RN CLOSING NOTES PATIENT IS NOW STABLE, CONTINUES TO HAVE ORAL AND NASAL SECRETIONS. SUCTION NEEDED. ENDORSE TO INSURANCE ACCOUNT REPRESENTATIVE TO MONITOR BLOOD GLUCOSE
--- NOTE | 2016-07-25 19:30 | NUR ---
INTERNET RETAILER NOTES RECEIVED PATIENT IN BED, IN NO APPARENT DISTRESS, VENT SETTINGS ORDERED, NO SOB NOTED, NO FACIAL GRIMACING NOTED. MID LINE PATENT INFUSING D51/2 NS AT75CC/HR. NOTED WITH BP OF 98/47 HR 58, WILL CONTINUE TO MONITOR FOR ANY CHANGES. ALL NEEDS MET, KEPT CLEAN AND DRY. BED IN LOCKED POSITION, CALL LIGHT WITHIN REACH.
[2016-07-25 20:00] VITALS: BP 109/50
--- NOTE | 2016-07-25 21:59 | NUR ---
RECEIVED NEW ORDERS FROM DR. POND TO DECREASE LEVEMIR TO 25 UNITS SQ QHS. ORDERS NOTED AND CARRIED OUT.
[2016-07-25] MEDS: INSULIN DETEMIR 100 UNIT/ML CARTRIDGE SQ SCH (22:03)
[2016-07-26] VITALS: BP 121/56
[2016-07-26] MEDS: PIPERACILLIN /TAZOBACTAM 3.375 G in IV D5W 50 ML IV SCH ×3 (00:07→12:38)
[2016-07-26] MEDS: BLOOD SUGAR DIAGNOSTIC 1 EACH STRIP IN SCH ×4 (00:07→17:10)
[2016-07-26] MEDS: GLYTROL 1,000 ML BAG GT PRN (01:36)
--- NOTE | 2016-07-26 03:00 | NUR ---
RUBBER STAMP DIES INSPECTOR NOTES PATIENT IN BED SLEEPING, IN NO APPARENT DISTRESS, NO SOB NOTED, NO FACIAL GRIMACING NOTED. ALL NEEDS MET, KEPT CLEAN AND DRY.
[2016-07-26 04:00] VITALS: BP 140/73
[2016-07-26] MEDS: PANTOPRAZOLE 40 MG/PACK PACK GT SCH (05:29)
--- NOTE | 2016-07-26 06:44 | NUR ---
ADVISORY SOFTWARE ENGINEER CLOSING NOTES PATIENT IN BED, IN NO APPARENT DISTRESS, NO SOB, NO FACIAL GRIMACING NOTED. VENT SETTING ORDERED, G TUBE PATENT, IV LINE PATENT. DRESSING CHANGED DONE DUE TO DRESSING BEING SOILED. ALL NEEDS MET, KEPT CLEAN AND DRY.
[2016-07-26 07:16] LABS: CALCIUM, SERUM 9.6 mg/dL (8.5-10.1); CREATININE 0.9 mg/dL (0.6-1.3)
[2016-07-26 08:00] VITALS: BP 147/68
--- NOTE | 2016-07-26 08:00 | NUR ---
FLAME CHANNELER OPENING NOTES RECEIVED PATIENT ON BED, NON VERBAL, ON VENTILATOR. RESPIRATIONS EVEN AND UNLABORED, NO DISTRESS IN ANY FORM. TELEMETRY SINUS RHYTHM 63. IV SITE PATENT AND INTACT. CHAUDHARY CATHETER IN PLACE WITH CLEAR MARYAM URINE. PATIENT ON G-TUBE FEEDING GLYTROL @ 55 ML/HR. BED IN LOWEST POSITION. SIDE RAILS UP. HEAD OF BED ELEVATED. WILL CONTINUE TO MONITOR..
--- NOTE | 2016-07-26 10:15 | NUR ---
GTUBE FEEDING HELD, RESIDUAL 150 ML.
[2016-07-26] MEDS: ZINC SULFATE 220 MG CAPSULE GT SCH (10:18)
[2016-07-26] MEDS: VALPROIC ACID 250 MG/5 ML UDC GT SCH ×3 (10:18→22:21)
[2016-07-26] MEDS: ASCORBIC ACID 500 MG TABLET GT SCH (10:18)
[2016-07-26] MEDS: FERROUS SULFATE UDC 300 MG/5 ML UDC GT SCH ×3 (10:18→17:09)
[2016-07-26] MEDS: MULTIVITAMINS W-MINERALS 1 TAB TABLET GT SCH (10:18)
[2016-07-26] MEDS: CALCIUM CARB 250MG /VITAMIN D 1 UDTAB GT SCH (10:19)
[2016-07-26] MEDS: LACTOBACILLUS RHAMNOSUS GG 1 EACH CAP.SPRINK GT SCH ×2 (10:19→17:10)
[2016-07-26] MEDS: BACLOFEN (10 MG) 10 MG TABLET GT SCH ×2 (10:19→17:09)
[2016-07-26] MEDS: POTASSIUM CHLORIDE 20 MEQ POWDER PACKET NG SCH ×3 (10:20→15:07)
[2016-07-26] MEDS: GABAPENTIN 400 MG CAPSULE GT SCH ×2 (10:20→17:09)
[2016-07-26] MEDS: CARVEDILOL 12.5 MG TABLET GT SCH ×2 (10:24→17:09)
[2016-07-26] MEDS: PROSOURCE / PROSTAT (PYXIS) 30 ML UDC GT SCH ×2 (10:25→17:09)
[2016-07-26] MEDS: DAKINS QUARTER STRENGTH (0.125%) 480 ML BOTTLE TOP SCH (10:52)
[2016-07-26] MEDS: HYDROGEL DRESSING 90 GM TUBE TP SCH (10:53)
[2016-07-26] MEDS: LINEZOLID RTU BAG 600 MG in PREMIX 1 EA IV SCH ×2 (11:01→22:21)
[2016-07-26 11:05] VITALS: BP 137/72
--- NOTE | 2016-07-26 11:20 | NUR ---
GTUBE FEEDING RESUMED, RESIDUAL 5 ML
[2016-07-26] MEDS: IV D5/0.45 NACL 1,000 ML IV PRN (12:37)
[2016-07-26] MEDS ORDERED: POTASSIUM PHOSPHATE MM 15 MMOL in IV D5W 250 ML IV SCH (13:00)
[2016-07-26] MEDS ORDERED: IV SET PRIMARY PUMP SET 1 EA INFUS.SET MC ONE (15:15)
[2016-07-26] MEDS: POTASSIUM PHOSPHATE MM 7.5 MMOL in IV D5W 100 ML IV SCH ×2 (15:23→17:09)
[2016-07-26] MEDS ORDERED: POTASSIUM CHLORIDE 20 MEQ POWDER PACKET GT ONE (15:30)
[2016-07-26 16:00] VITALS: BP 132/60
[2016-07-26] MEDS: EPOETIN ALFA (10,000 UNIT) 10,000 UNIT/ML VIAL SQ SCH (17:12)
--- NOTE | 2016-07-26 18:50 | NUR ---
RN PM NOTES PT STABLE VITAL SIGNS. NO ACUTE DISTRESS NOTED. NO CHANGE IN CONDITION. BED IN LOWEST POSITION. SIDE RAILS UP. CALL LIGHT WITHIN REACH. WILL CONTINUE TO MONITOR
--- NOTE | 2016-07-26 19:30 | NUR ---
TELE/RN NOTES RECEIVED PT. LYING IN BED. PT. OPENS EYES, IS OBTUNDED AND HAS A PORTEX 9 TRACH. PT. IS VENT/TRACH DEPENDENT. CURRENT VENT SETTINGS: AC 12, TV 500, FIO2 30%, PEEP5. BREATHING EVEN AND UNLABORED. NO SOB, RESPIRATORY DISTRESS OR S/S OF PAIN NOTED AT THIS TIME. PT. WITH EXTERNAL INVESTIGATOR INTERNAL REVENUE PRESENT AND INTACT. CURRENT RHYTHM SINUS RHYTHM HR 68. PT. WITH G-TUBE PRESENT, PATENT AND INTACT ADMINISTERING TO PT. GLYTROL @ 55ML/HR. PT. TOLERATING WELL. NO RESIDUALS NOTED. PT. WITH CHAUDHARY CATHETER PRESENT, PATENT AND INTACT DRAINING SLIGHTLY CLOUDY YELLOW URINE. BED IN LOWEST POSITION, CALL LIGHT WITHIN REACH, SIDE RAILS UP X3, BED ALARM ON. WILL CONTINUE TO MONITOR.
[2016-07-26 20:45] VITALS: BP 126/58
[2016-07-26] MEDS: INSULIN DETEMIR 100 UNIT/ML CARTRIDGE SQ SCH (22:39)
[2016-07-27] VITALS (7 sets, daily range): BP systolic 129–160; BP diastolic 55–78
[2016-07-27] MEDS: BLOOD SUGAR DIAGNOSTIC 1 EACH STRIP IN SCH ×4 (00:49→17:09)
[2016-07-27] MEDS: INSULIN REGULAR, HUMAN 100 UNIT/ML 3 ML VIAL SQ PRN ×5 (00:50→23:59)
[2016-07-27] MEDS: GLYTROL 1,000 ML BAG GT PRN (04:35)
[2016-07-27] MEDS: IV D5/0.45 NACL 1,000 ML IV PRN ×2 (04:35→20:26)
[2016-07-27 06:42] LABS: BASOPHILS % (AUTO) 0.2 % (0.0-2.0); EOSINOPHILS # (AUTO) 0.3 /CMM (0.0-0.7); EOSINOPHILS % (AUTO) 3.8 % (0.0-6.0); HEMATOCRIT 35 % (33-45); HEMOGLOBIN 11.8 g/dL (11.5-14.8); LYMPHOCYTES # (AUTO) 3.9 /CMM (0.8-4.8); LYMPHOCYTES % (AUTO) 43.2 % (20.0-44.0); MEAN CORPUSCULAR HEMOGLOBIN 31 PG (26.0-33.0); MEAN CORPUSCULAR HGB CONC 34 g/dl (31.0-36.0); MEAN CORPUSCULAR VOLUME 91 fL (82-100); MONOCYTES # (AUTO) 0.9 /CMM (0.1-1.30); MONOCYTES % (AUTO) 9.6 % (2.0-12.0); NEUTROPHILS # (AUTO) 3.9 /CMM (1.8-8.9); NEUTROPHILS % (AUTO) 43.2 % (43.0-81.0); PLATELET COUNT (AUTO) 134 /CMM (150-450); RDW COEFFICIENT OF VARIATION 19.3 (11.5-15.0); RED BLOOD CELL COUNT(AUTO) 3.87 MIL/uL (4.0-5.2); WHITE BLOOD COUNT (AUTO) 9.1 K/uL (4.3-11.0)
[2016-07-27] MEDS: PANTOPRAZOLE 40 MG/PACK PACK GT SCH (06:42)
--- NOTE | 2016-07-27 07:05 | NUR ---
TELE/RN NOTES PT. LYING IN BED RESTING. BREATHING EVEN AND UNLABORED. NO SOB, RESPIRATORY DISTRESS OR S/S OF PAIN NOTED AT THIS TIME. PT. WITH EXTERNAL MONEY COUNTER PRESENT AND INTACT. CURRENT RHYTHM SINUS RHYTHM HR 71. PT. WITH G-TUBE PRESENT, PATENT AND INTACT ADMINISTERING TO PT. GLYTROL @ 55ML/HR. PT. TOLERATING WELL. NO RESIDUALS NOTED. PT. WITH CHAUDHARY CATHETER PRESENT, PATENT AND INTACT EMPTIED 1000ML SLIGHTLY CLOUDY YELLOW URINE. ALL PT. NEEDS MET. OFFLOADED. TURNED AND REPOSITIONED Q2H AND NEEDED. BED IN LOWEST POSITION, CALL LIGHT WITHIN REACH, SIDE RAILS UP X3, BED ALARM ON. WILL ENDORSE TO DAYSHIFT NURSE FOR CONTINUITY OF CARE.
[2016-07-27 07:08] LABS: CALCIUM, SERUM 9.3 mg/dL (8.5-10.1); CREATININE 0.9 mg/dL (0.6-1.3); MAGNESIUM 1.9 mg/dL (1.8-2.4); PHOSPHORUS 4.6 mg/dL (2.5-4.9); POTASSIUM 4.4 mmol/L (3.5-5.1)
--- NOTE | 2016-07-27 07:30 | NUR ---
TELE/RN NOTES RECEIVED PATIENT LYING IN BED WITH HOB SLIGHTLY ELEVATED. OPENS EYES ONLY, OBTUNDED, WITH TRACH IN PLACE PORTEX 9. ON MECH. VENT/TRACH DEPENDENT. BREATHING EVEN AND UNLABORED. NO SOB, RESPIRATORY DISTRESS OR S/S OF PAIN NOTED AT THIS TIME. W/ G-TUBE PRESENT, PATENT AND INTACT, ON GLYTROL @ 55ML/HR TOLERATING WELL. NO RESIDUALS NOTED. WITH CHAUDHARY CATHETER IN SITU DRAINING TO CLEAR YELLOW URINE OUTPUT. CALL LIGHT WITHIN REACH, SIDE RAILS UP X3, BED ALARM ON. CALL LIGHT WITHIN REACH, WILL CONTINUE TO MONITOR.
--- NOTE | 2016-07-27 08:00 | NUR ---
OPERATIONS OFFICER AFLOAT NOTES. SEEN AND EXAMINED BY DR. TORRES WITH NO NEW ORDERS MADE. STILL AWAITING FOR SNF PLACEMENT
[2016-07-27] MEDS: FERROUS SULFATE UDC 300 MG/5 ML UDC GT SCH ×3 (08:46→16:03)
[2016-07-27] MEDS: VALPROIC ACID 250 MG/5 ML UDC GT SCH ×3 (08:46→21:25)
[2016-07-27] MEDS: LACTOBACILLUS RHAMNOSUS GG 1 EACH CAP.SPRINK GT SCH ×2 (08:47→16:03)
[2016-07-27] MEDS: MULTIVITAMINS W-MINERALS 1 TAB TABLET GT SCH (08:47)
[2016-07-27] MEDS: CALCIUM CARB 250MG /VITAMIN D 1 UDTAB GT SCH (08:47)
[2016-07-27] MEDS: ZINC SULFATE 220 MG CAPSULE GT SCH (08:47)
[2016-07-27] MEDS: GABAPENTIN 400 MG CAPSULE GT SCH ×2 (08:47→16:03)
[2016-07-27] MEDS: ASCORBIC ACID 500 MG TABLET GT SCH (08:47)
[2016-07-27] MEDS: CARVEDILOL 12.5 MG TABLET GT SCH ×2 (08:48→16:04)
[2016-07-27] MEDS: BACLOFEN (10 MG) 10 MG TABLET GT SCH ×2 (08:48→16:03)
[2016-07-27] MEDS: LINEZOLID RTU BAG 600 MG in PREMIX 1 EA IV SCH ×2 (08:50→20:25)
[2016-07-27] MEDS: PROSOURCE / PROSTAT (PYXIS) 30 ML UDC GT SCH ×2 (08:51→16:03)
[2016-07-27] MEDS: HYDROGEL DRESSING 90 GM TUBE TP SCH (08:53)
[2016-07-27] MEDS: DAKINS QUARTER STRENGTH (0.125%) 480 ML BOTTLE TOP SCH (08:54)
[2016-07-27] MEDS: AMIKACIN 1,000 MG in IV D5W 100 ML IV SCH (15:07)
--- NOTE | 2016-07-27 18:26 | NUR ---
JAVA ANDROID DEVELOPER NOTES ALL NEEDS ANTICIPATED AND ATTENDED. TURN AND REPOSITIONED Q2HRS DONE. ENDORSED TO INCOMING SHIFT FOR CONTINUITY OF CARE.
--- NOTE | 2016-07-27 19:30 | NUR ---
HEATER HELPER FORGE NOTE RECEIVED PATIENT FROM DAY SHIFT, PATIENT IS OBTUNDED, ON VENT, NO S/S OF RESPIRATORY DISTRESS AND NO FACIAL GRIMACE NOTED. RIGHT UPPER ARM MID LINE IS PATENT AND INTACT, D51/2 IS RUNNING. G TUBE NOTED, 10ML OF RESIDUAL, TOLERATING WELL. CHAUDHARY CATH PRESENT WITH CLEAR YELLOW URINE. TELE MONITOR SR 72. SRX2, BED IN LOW POSITION, CALL LIGHT WITHIN REACH, WILL CONTINUE TO MONITOR PATIENT.
[2016-07-27] MEDS ORDERED: SECONDARY IV SET 1 EA INFUS.SET MC ONE (20:20)
[2016-07-27] MEDS: INSULIN DETEMIR 100 UNIT/ML CARTRIDGE SQ SCH (21:27)
[2016-07-28] VITALS: BP 127/60
[2016-07-28] MEDS: GLYTROL 1,000 ML BAG GT PRN (00:03)
[2016-07-28 04:30] VITALS: BP 120/60
[2016-07-28] MEDS: PANTOPRAZOLE 40 MG/PACK PACK GT SCH (06:09)
[2016-07-28] MEDS: INSULIN REGULAR, HUMAN 100 UNIT/ML 3 ML VIAL SQ PRN ×3 (06:09→17:09)
[2016-07-28] MEDS: BLOOD SUGAR DIAGNOSTIC 1 EACH STRIP IN SCH ×4 (06:10→17:08)
--- NOTE | 2016-07-28 06:44 | NUR ---
VIDEO TAPE DUPLICATOR NOTE PATIENT IS RESTING IN BED COMFORTABLY, NO ACUTE DISTRESS NOTED DURING THE LIGHT INDUSTRIAL SUPERVISOR. MORNING CARE RENDERED, AND DRESSING CHANGED WELL. KEPT SUCTIONING HER MOUTH AND NOSE FOR SECRETION. TELE MONITOR SR 65. WILL ENDORSE TO DAY SHIFT NURSE FOR GEOVANNA.
[2016-07-28 07:23] LABS: CALCIUM, SERUM 9.2 mg/dL (8.5-10.1); CREATININE 0.8 mg/dL (0.6-1.3); POTASSIUM 3.6 mmol/L (3.5-5.1)
--- NOTE | 2016-07-28 07:30 | NUR ---
TELE/RN NOTES RECEIVED PATIENT LYING IN BED WITH HOB SLIGHTLY ELEVATED. OPENS EYES ONLY, OBTUNDED, WITH TRACH IN PLACE PORTEX 9. ON MECH. VENT/TRACH DEPENDENT. BREATHING EVEN AND UNLABORED. NO SOB, RESPIRATORY DISTRESS OR S/S OF PAIN NOTED AT THIS TIME. G-TUBE PRESENT, PATENT AND INTACT, ON GLYTROL @ 55ML/HR TOLERATING WELL. NO RESIDUALS NOTED. WITH CHAUDHARY CATHETER IN SITU DRAINING TO CLEAR YELLOW URINE OUTPUT. CALL LIGHT WITHIN REACH, SIDE RAILS UP X3, BED ALARM ON. CALL LIGHT WITHIN REACH, WILL CONTINUE TO MONITOR.
[2016-07-28 08:00] VITALS: BP_SYST 124; BP_SYST 134; BP_DIAS 65
[2016-07-28] MEDS: FERROUS SULFATE UDC 300 MG/5 ML UDC GT SCH ×3 (08:44→16:33)
[2016-07-28] MEDS: LACTOBACILLUS RHAMNOSUS GG 1 EACH CAP.SPRINK GT SCH ×2 (08:45→16:34)
[2016-07-28] MEDS: ASCORBIC ACID 500 MG TABLET GT SCH (08:45)
[2016-07-28] MEDS: CALCIUM CARB 250MG /VITAMIN D 1 UDTAB GT SCH (08:45)
[2016-07-28] MEDS: MULTIVITAMINS W-MINERALS 1 TAB TABLET GT SCH (08:45)
[2016-07-28] MEDS: VALPROIC ACID 250 MG/5 ML UDC GT SCH ×3 (08:45→21:47)
[2016-07-28] MEDS: ZINC SULFATE 220 MG CAPSULE GT SCH (08:45)
[2016-07-28] MEDS: GABAPENTIN 400 MG CAPSULE GT SCH ×2 (08:45→16:34)
[2016-07-28] MEDS: CARVEDILOL 12.5 MG TABLET GT SCH ×2 (08:45→16:33)
[2016-07-28] MEDS: BACLOFEN (10 MG) 10 MG TABLET GT SCH ×2 (08:45→16:33)
[2016-07-28] MEDS: HYDROGEL DRESSING 90 GM TUBE TP SCH (08:46)
[2016-07-28] MEDS: DAKINS QUARTER STRENGTH (0.125%) 480 ML BOTTLE TOP SCH (08:46)
[2016-07-28] MEDS: PROSOURCE / PROSTAT (PYXIS) 30 ML UDC GT SCH ×2 (08:48→16:34)
[2016-07-28] MEDS: LINEZOLID RTU BAG 600 MG in PREMIX 1 EA IV SCH ×2 (08:53→21:47)
[2016-07-28] MEDS: SCOPOLAMINE HBR 1 EA PATCH.TD72 TD SCH (08:56)
[2016-07-28 12:00] VITALS: BP_SYST 121; BP_DIAS 53; BP_DIAS 56
[2016-07-28] MEDS: IV D5/0.45 NACL 1,000 ML IV PRN ×2 (15:31→21:50)
[2016-07-28 16:00] VITALS: BP 150/69
--- NOTE | 2016-07-28 17:54 | NUR ---
RT RECEIVED PT TRACHED ON [facility] VENT WITH SETTINGS PER MD ORDER. SOCIAL SCIENCE PROFESSOR DONE. BILAT BREATH SOUNDS ON AUSCULTATION. VENT PLUGGED INTO RED OUTLET. ALARMS ON AND WORKING PROPERLY. AMBU BAG AT HEAD OF BED. PORTEX #9 CUFFED TRACH SECURED AND AIRWAY PATENT. SUCTIONS MOD AMOUNTS OF THICK, PALE YELLOW SECRETIONS. NO SOB OR SIGNS OF DISTRESS NOTED AT THIS TIME. WILL CONTINUE TO MONITOR THE PATIENT FOR ANY CHANGES. Addendum: 07/28/16 at 1757 by NEVAEH VELASQUEZ RT Amended: Links added.
--- NOTE | 2016-07-28 19:27 | NUR ---
RN NOTE;' RECEIVED PT IN BED . VENT DEPENDENT BREATHING EVENLY. TRACH IN PLACE. NO SOB. NAD. SKIN WARM AND DRY. NO S/S OF PAIN OR DISCOMFORT,. GT IN PLACE. GTF ROGER WELL. HOB ELEVATED. F/C IN PLACE. DRAINING .CLEAR YELLOW URINE. HEART MONITOR IN PLACE., READING SB :54. WILL CONT TO MONITOR
[2016-07-28 20:00] VITALS: BP 118/62
[2016-07-28] MEDS: INSULIN DETEMIR 100 UNIT/ML CARTRIDGE SQ SCH (22:02)
[2016-07-29] VITALS: BP 107/50
[2016-07-29] MEDS: BLOOD SUGAR DIAGNOSTIC 1 EACH STRIP IN SCH ×5 (00:10→23:00)
[2016-07-29] MEDS: INSULIN REGULAR, HUMAN 100 UNIT/ML 3 ML VIAL SQ PRN ×3 (00:11→23:05)
[2016-07-29 00:21] VITALS: BP 107/50
[2016-07-29 04:00] VITALS: BP 128/65
--- NOTE | 2016-07-29 04:01 | NUR ---
PLACED A CALL TO LAB AND SPOKE TO AKOSUA REGARDING AMIKACIN TROUGH LEVEL. PER AKOSUA IT'S A SENT OUT LAB AND THE RESULT WILL TAKE AROUND 4 HOURS. WILL WAIT FOR THE RESULT AND WILL HOLD ON TO THE MEDICATION FOR NOW UNTIL THE RESULT IS AVAILABLE.
[2016-07-29] MEDS: PANTOPRAZOLE 40 MG/PACK PACK GT SCH (05:20)
[2016-07-29 06:00] VITALS: BP 130/60
[2016-07-29] MEDS: GLYTROL 1,000 ML BAG GT PRN (06:15)
--- NOTE | 2016-07-29 06:40 | NUR ---
RN NOTE; PT IN BED SLEEPING, BREATHING EVENLY. NO SOB. NAD. TRACH IN PLACE. VENT DEPENDENT. SKIN WARM AND DRY. GTF ROGER WELL. W/ HOB ELEVATED. SB ON TELE MONITOR W/ RATE OF 56. NO S/S OF PAIN OR DISCOMFORT. CLEANED AND DRIED. REPOSITIONED ROUTINELY. SUCTIONED PRN. CALL LIGHT WITHIN REACH. WILL CONT TO MONITOR AND WILL ENDORSE TO AM SHIFT FOR GEOVANNA.
[2016-07-29] MEDS: AMIKACIN 1,000 MG in IV D5W 100 ML IV SCH (07:00)
--- NOTE | 2016-07-29 07:00 | NUR ---
RECEIVED A CALL FROM LAB REPORTING AMIKACIN TROUGH LEVEL: 6.1. PLACED A CALL TO THE PHARMACY AND RELAYED THE LEVEL TO THE PHARMACIST . PER HER TO HOLD ON TO THE AMIKACIN FOR NOW AND SHE WILL F/U LATER.
[2016-07-29 07:12] LABS: CALCIUM, SERUM 9.3 mg/dL (8.5-10.1); CREATININE 0.8 mg/dL (0.6-1.3); MAGNESIUM 2.1 mg/dL (1.8-2.4); PHOSPHORUS 5.1 mg/dL (2.5-4.9); POTASSIUM 3.6 mmol/L (3.5-5.1)
[2016-07-29 07:24] LABS: BASOPHILS % (AUTO) 0.1 % (0.0-2.0); EOSINOPHILS # (AUTO) 0.3 /CMM (0.0-0.7); EOSINOPHILS % (AUTO) 3.2 % (0.0-6.0); HEMATOCRIT 35 % (33-45); HEMOGLOBIN 11.8 g/dL (11.5-14.8); LYMPHOCYTES # (AUTO) 3.7 /CMM (0.8-4.8); LYMPHOCYTES % (AUTO) 45.7 % (20.0-44.0); MEAN CORPUSCULAR HEMOGLOBIN 31 PG (26.0-33.0); MEAN CORPUSCULAR HGB CONC 34 g/dl (31.0-36.0); MEAN CORPUSCULAR VOLUME 92 fL (82-100); MONOCYTES # (AUTO) 0.7 /CMM (0.1-1.30); MONOCYTES % (AUTO) 9.1 % (2.0-12.0); NEUTROPHILS # (AUTO) 3.4 /CMM (1.8-8.9); NEUTROPHILS % (AUTO) 41.9 % (43.0-81.0); PLATELET COUNT (AUTO) 109 /CMM (150-450); RDW COEFFICIENT OF VARIATION 18.8 (11.5-15.0); WHITE BLOOD COUNT (AUTO) 8.1 K/uL (4.3-11.0)
--- NOTE | 2016-07-29 07:30 | NUR ---
RN NOTE; PT IN BED SLEEPING, BREATHING EVENLY. NO SOB. NAD. TRACH IN PLACE. VENT DEPENDENT. SKIN WARM AND DRY. GTF ROGER WELL. W/ HOB ELEVATED. SB ON TELE MONITOR W/ RATE OF 56. NO S/S OF PAIN OR DISCOMFORT. CALL LIGHT WITHIN REACH. WILL CONT TO MONITOR AND WILL ENDORSE TO AM SHIFT FOR GEOVANNA.
[2016-07-29] MEDS: ZINC SULFATE 220 MG CAPSULE GT SCH (08:34)
[2016-07-29] MEDS: BACLOFEN (10 MG) 10 MG TABLET GT SCH ×2 (08:34→16:22)
[2016-07-29] MEDS: VALPROIC ACID 250 MG/5 ML UDC GT SCH ×3 (08:34→21:43)
[2016-07-29] MEDS: ASCORBIC ACID 500 MG TABLET GT SCH (08:35)
[2016-07-29] MEDS: CARVEDILOL 12.5 MG TABLET GT SCH ×2 (08:35→16:24)
[2016-07-29] MEDS: CALCIUM CARB 250MG /VITAMIN D 1 UDTAB GT SCH (08:36)
[2016-07-29] MEDS: LACTOBACILLUS RHAMNOSUS GG 1 EACH CAP.SPRINK GT SCH ×2 (08:36→16:22)
[2016-07-29] MEDS: GABAPENTIN 400 MG CAPSULE GT SCH ×2 (08:36→16:29)
[2016-07-29] MEDS: MULTIVITAMINS W-MINERALS 1 TAB TABLET GT SCH (08:37)
[2016-07-29] MEDS: FERROUS SULFATE UDC 300 MG/5 ML UDC GT SCH ×3 (08:37→16:22)
[2016-07-29] MEDS: LINEZOLID RTU BAG 600 MG in PREMIX 1 EA IV SCH (08:39)
[2016-07-29] MEDS ORDERED: SECONDARY IV SET 1 EA INFUS.SET MC ONE ×2 (08:41→22:48)
[2016-07-29] MEDS: DAKINS QUARTER STRENGTH (0.125%) 480 ML BOTTLE TOP SCH (09:57)
[2016-07-29] MEDS: HYDROGEL DRESSING 90 GM TUBE TP SCH (09:57)
[2016-07-29] MEDS: PROSOURCE / PROSTAT (PYXIS) 30 ML UDC GT SCH ×2 (09:57→16:29)
[2016-07-29] MEDS ORDERED: AMIKACIN 1,000 MG in IV D5W 100 ML IV SCH (15:00)
[2016-07-29 16:00] VITALS: BP 133/56
[2016-07-29] MEDS: EPOETIN ALFA (10,000 UNIT) 10,000 UNIT/ML VIAL SQ SCH (18:00)
--- NOTE | 2016-07-29 19:30 | NUR ---
RN NOTE;' RECEIVED PT IN BED . VENT DEPENDENT BREATHING EVENLY. TRACH IN PLACE. NO SOB. NAD. SKIN WARM AND DRY. NO S/S OF PAIN OR DISCOMFORT,. GT IN PLACE. GTF ROGER WELL. HOB ELEVATED. F/C IN PLACE. DRAINING .CLEAR YELLOW URINE. HEART MONITOR IN PLACE., READING SR:60. WILL CONT TO MONITOR
[2016-07-29 20:00] VITALS: BP 157/77
--- NOTE | 2016-07-29 20:32 | NUR ---
PT W/ PENDING RESULT FOR AMIKACIN . PLACED A CALL TO PHARMACY A SPOKE TO PAUL THE PHARMACIST FOR FURTHER INSTRUCTION. PER PAUL TO GIVE THE MEDICATION FOR LEVEL < OR =4 . AND HOLD FOR THE LEVEL ABOVE 4. WILL AWAIT FOR THE RESULT.
[2016-07-29] MEDS: INSULIN DETEMIR 100 UNIT/ML CARTRIDGE SQ SCH (21:44)
[2016-07-29] MEDS: IV D5/0.45 NACL 1,000 ML IV PRN (21:46)
[2016-07-30] VITALS (8 sets, daily range): BP systolic 107–144; BP diastolic 47–67
[2016-07-30] MEDS: GLYTROL 1,000 ML BAG GT PRN (05:30)
[2016-07-30] MEDS: BLOOD SUGAR DIAGNOSTIC 1 EACH STRIP IN SCH ×3 (05:30→18:12)
[2016-07-30] MEDS: PANTOPRAZOLE 40 MG/PACK PACK GT SCH (05:31)
--- NOTE | 2016-07-30 06:40 | NUR ---
RN NOTE; PT IN BED W/ NO ACUTE DISTRESS. NO ACUTE CHANGES OVER THE NIGHT . REMAINED STABLE, AFEBRILE. W/ NO S/S OF PAIN OR DISCOMFORT. CLEANED AND DRIED. WOUND CARE RENDERED. REPOSITIONED ROUTINELY. SUCTIONED PRN. CALL LIGHT WITHIN REACH, WILL CONT TO MONITOR AND WILL ENDORSE TO DAY SHIFT FOR GEOVANNA.
[2016-07-30] MEDS: PROSOURCE / PROSTAT (PYXIS) 30 ML UDC GT SCH ×2 (08:38→16:26)
[2016-07-30] MEDS: VALPROIC ACID 250 MG/5 ML UDC GT SCH ×3 (08:39→22:30)
[2016-07-30] MEDS: LACTOBACILLUS RHAMNOSUS GG 1 EACH CAP.SPRINK GT SCH ×2 (08:39→16:18)
[2016-07-30] MEDS: GABAPENTIN 400 MG CAPSULE GT SCH ×2 (08:39→16:18)
[2016-07-30] MEDS: FERROUS SULFATE UDC 300 MG/5 ML UDC GT SCH ×3 (08:39→16:18)
[2016-07-30] MEDS: CALCIUM CARB 250MG /VITAMIN D 1 UDTAB GT SCH (08:39)
[2016-07-30] MEDS: ASCORBIC ACID 500 MG TABLET GT SCH (08:40)
[2016-07-30] MEDS: BACLOFEN (10 MG) 10 MG TABLET GT SCH ×2 (08:40→16:19)
[2016-07-30] MEDS: CARVEDILOL 12.5 MG TABLET GT SCH ×2 (08:40→16:19)
[2016-07-30] MEDS: MULTIVITAMINS W-MINERALS 1 TAB TABLET GT SCH (08:40)
[2016-07-30] MEDS: ZINC SULFATE 220 MG CAPSULE GT SCH (08:40)
[2016-07-30] MEDS: Z GUARD REMEDY 2 OZ OINT TP PRN (08:41)
[2016-07-30] MEDS: DAKINS QUARTER STRENGTH (0.125%) 480 ML BOTTLE TOP SCH (08:42)
[2016-07-30] MEDS: HYDROGEL DRESSING 90 GM TUBE TP SCH (08:42)
--- NOTE | 2016-07-30 09:57 | NUR ---
Dr. Warner gave verbal orders to d/c iv fluids.
--- NOTE | 2016-07-30 10:01 | NUR ---
bed scale not working
--- NOTE | 2016-07-30 19:40 | NUR ---
end of shift left patient in stable condition. breathing and LOC unchanged. no complications with f/c, GT or iv. patient had moderate secretions in trach, nose and mouth. provided extensive skin care. discussed plan of care with daughter at bed side. call light in reach. isolation precautions observed.
[2016-07-30] MEDS: INSULIN DETEMIR 100 UNIT/ML CARTRIDGE SQ SCH (22:29)
[2016-07-31 00:16] VITALS: BP 126/60
[2016-07-31] MEDS: BLOOD SUGAR DIAGNOSTIC 1 EACH STRIP IN SCH ×3 (00:48→11:24)
[2016-07-31] MEDS: INSULIN REGULAR, HUMAN 100 UNIT/ML 3 ML VIAL SQ PRN (00:49)
[2016-07-31] MEDS: PANTOPRAZOLE 40 MG/PACK PACK GT SCH (05:17)
[2016-07-31 06:45] LABS: BASOPHILS % (AUTO) 0.3 % (0.0-2.0); EOSINOPHILS # (AUTO) 0.3 /CMM (0.0-0.7); EOSINOPHILS % (AUTO) 2.8 % (0.0-6.0); HEMATOCRIT 31 % (33-45); HEMOGLOBIN 10.6 g/dL (11.5-14.8); LYMPHOCYTES # (AUTO) 3.9 /CMM (0.8-4.8); LYMPHOCYTES % (AUTO) 39.8 % (20.0-44.0); MEAN CORPUSCULAR HEMOGLOBIN 31 PG (26.0-33.0); MEAN CORPUSCULAR HGB CONC 34 g/dl (31.0-36.0); MEAN CORPUSCULAR VOLUME 92 fL (82-100); MONOCYTES # (AUTO) 0.9 /CMM (0.1-1.30); MONOCYTES % (AUTO) 8.9 % (2.0-12.0); NEUTROPHILS # (AUTO) 4.7 /CMM (1.8-8.9); NEUTROPHILS % (AUTO) 48.2 % (43.0-81.0); PLATELET COUNT (AUTO) 177 /CMM (150-450); RDW COEFFICIENT OF VARIATION 19.6 (11.5-15.0); WHITE BLOOD COUNT (AUTO) 9.8 K/uL (4.3-11.0)
[2016-07-31 06:51] LABS: CALCIUM, SERUM 9.1 mg/dL (8.5-10.1); CREATININE 0.8 mg/dL (0.6-1.3); POTASSIUM 3.3 mmol/L (3.5-5.1)
[2016-07-31 07:07] VITALS: BP 120/53
--- NOTE | 2016-07-31 07:27 | NUR ---
RN NOTES RECEIVED PT IN BED. OBTUNDED; EYES OPEN. IN NO APPARENT DISTRESS. RESPIRATIONS EVEN AND UNLABORED ON ORDERED VENT SETTINGS. CALL LIGHT WITHIN REACH. WILL CONTINUE TO MONITOR
[2016-07-31 08:00] VITALS: BP 100/50
[2016-07-31] MEDS: CARVEDILOL 12.5 MG TABLET GT SCH (09:00)
[2016-07-31] MEDS: HYDROGEL DRESSING 90 GM TUBE TP SCH (09:23)
[2016-07-31] MEDS: FERROUS SULFATE UDC 300 MG/5 ML UDC GT SCH ×2 (09:24→13:36)
[2016-07-31] MEDS: DAKINS QUARTER STRENGTH (0.125%) 480 ML BOTTLE TOP SCH (09:24)
[2016-07-31] MEDS: VALPROIC ACID 250 MG/5 ML UDC GT SCH (09:24)
[2016-07-31] MEDS: ASCORBIC ACID 500 MG TABLET GT SCH (09:24)
[2016-07-31] MEDS: BACLOFEN (10 MG) 10 MG TABLET GT SCH (09:25)
[2016-07-31] MEDS: MULTIVITAMINS W-MINERALS 1 TAB TABLET GT SCH (09:25)
[2016-07-31] MEDS: CALCIUM CARB 250MG /VITAMIN D 1 UDTAB GT SCH (09:25)
[2016-07-31] MEDS: LACTOBACILLUS RHAMNOSUS GG 1 EACH CAP.SPRINK GT SCH (09:25)
[2016-07-31] MEDS: ZINC SULFATE 220 MG CAPSULE GT SCH (09:25)
[2016-07-31] MEDS: GABAPENTIN 400 MG CAPSULE GT SCH (09:25)
[2016-07-31] MEDS: PROSOURCE / PROSTAT (PYXIS) 30 ML UDC GT SCH (09:36)
[2016-07-31] MEDS: SCOPOLAMINE HBR 1 EA PATCH.TD72 TD SCH (10:04)
[2016-07-31] MEDS: DEXTROSE 50%-WATER 50 ML DISP.SYRIN IV PRN (11:25)
--- NOTE | 2016-07-31 11:31 | NUR ---
RN NOTES PT NOTED TO HAVE BS OF 45- INNO DISTRESS. PROTOCOL INITIATED- ADMINISTERED D50. REPEAT BS NOTED IMPROVED @ 11. WILL CONTINUE TO CLOSELY MONITOR
--- NOTE | 2016-07-31 12:10 | NUR ---
RN NOTES RECEIVED NEW ORDER FOR DISCHARGE- NOTED AND CARRIED OUT. PICTURES PLACED IN CHART. REPORT GIVEN TO NURSE JAYESH FROM [facility]. FAXED OVER INFORMATION ABOUT PT'S INFECTION BEING COLONIZED ( PER ID). APPRECIATED INFORMATION
[2016-07-31] MEDS ORDERED: POTASSIUM CHLORIDE 20 MEQ POWDER PACKET GT SCH (12:30)
[2016-07-31 14:12] VITALS: BP 133/64
[2016-07-31 16:00] VITALS: BP 132/63
--- NOTE | 2016-07-31 17:00 | NUR ---
RN NOTES PT DISCHARGED TO [facility]. PICKED UP BY 2 EMT'S AND 1 RT. IN NO DISTRESS. DAUGHTER AWARE OF TRANSFER
== END 2016-07-31 17:00 | DRG 710 ==
LOC: ER 14:06 → TELE 17:11 → MED 07-29 11:00 → TELE 07-29 21:26
PROVIDERS: ADMIT Internal Medicine; ATTEND Internal Medicine
PROC: 5A1955Z Respiratory Ventilation, Greater than 96 Consecutive Hours (ICD-10-PCS; principal; 2016-07-16)
PROC: 30233N1 Transfusion of Nonautologous Red Blood Cells into Peripheral Vein, Percutaneous Approach (ICD-10-PCS; principal; 2016-07-16)
PROC: B546ZZA Ultrasonography of Right Subclavian Vein, Guidance (ICD-10-PCS; 2016-07-19)
PROC: 05H533Z Insertion of Infusion Device into Right Subclavian Vein, Percutaneous Approach (ICD-10-PCS; 2016-07-19)
PROC: 0QB10ZZ Excision of Sacrum, Open Approach (ICD-10-PCS; 2016-07-24)
DX: A41.9 Sepsis, unspecified organism (principal); N17.0 Acute kidney failure with tubular necrosis; G93.1 Anoxic brain damage, not elsewhere classified; E43 Unspecified severe protein-calorie malnutrition; Z99.11 Dependence on respirator [ventilator] status; J15.1 Pneumonia due to Pseudomonas; L89.154 Pressure ulcer of sacral region, stage 4; J44.0 Chronic obstructive pulmonary disease with (acute) lower respiratory infection; J96.11 Chronic respiratory failure with hypoxia; J96.12 Chronic respiratory failure with hypercapnia; R53.2 Functional quadriplegia; R13.10 Dysphagia, unspecified; N39.0 Urinary tract infection, site not specified; I47.1 Supraventricular tachycardia; D63.8 Anemia in other chronic diseases classified elsewhere; I25.10 Atherosclerotic heart disease of native coronary artery without angina pectoris; K21.9 Gastro-esophageal reflux disease without esophagitis; I10 Essential (primary) hypertension; G40.909 Epilepsy, unspecified, not intractable, without status epilepticus; E78.5 Hyperlipidemia, unspecified; E11.9 Type 2 diabetes mellitus without complications; J44.9 Chronic obstructive pulmonary disease, unspecified; K92.2 Gastrointestinal hemorrhage, unspecified; Z93.1 Gastrostomy status; Z93.0 Tracheostomy status; R65.20 Severe sepsis without septic shock; D68.59 Other primary thrombophilia; E11.649 Type 2 diabetes mellitus with hypoglycemia without coma; E11.69 Type 2 diabetes mellitus with other specified complication; E87.6 Hypokalemia; Z87.440 Personal history of urinary (tract) infections; Z86.74 Personal history of sudden cardiac arrest; E66.2 Morbid (severe) obesity with alveolar hypoventilation; Z79.899 Other long term (current) drug therapy; Z88.4 Allergy status to anesthetic agent; Z88.5 Allergy status to narcotic agent; Z88.8 Allergy status to other drugs, medicaments and biological substances; Z91.018 Allergy to other foods; B49 Unspecified mycosis
CPT/HCPCS: 31720; 36415; 71010-TC; 80048-TC; 80053-TC; 80061-TC; 80076-TC; 80150; 80202-TC; 81000-TC; 82272-TC; 82553-TC; 82746; 82962-TC; 83010; 83540-TC; 83605-TC; 83615-TC; 83735-TC; 84100-TC; 84443-TC; 85025-TC; 85045-TC; 85652-TC; 85730-TC; 86850-TC; 86921-TC; 87040-TC; 87070-TC; 87081-TC; 87086-TC; 87186-TC; 93307-TC; 94002-TC; 94003-TC; 94762-TC; A4216; A4606; A4623; A6248; A6253; A6402; A6403; A7526; C1769; C9113; J0278; J0696; J0885; J1815; J2020; J2185; J2543; J3370; J3480; J3490; J7030; J7050; J7060; P9016-BL; Z7610

== ENCOUNTER 2016-08-13 05:59 | Inpatient (IN) | payer MEDICAID ==
[2016-08-13] VITALS (61 sets, daily range): BP systolic 64–140; BP diastolic 27–68
[~2016-08-13] VITALS: Ht 170.2 cm; Wt 125.7 kg
[~2016-08-13 05:59] MED LIST changes: -ALBU2.5V13 HHN; +AMIN30LI2 GT; +CALC-108 GT; -CEFT1FRO2 IV; +CLON0.1T GT; -IPRA0.2S9 HHN; +VALP250S3 GT
--- NOTE | 2016-08-13 06:05 | NUR ---
To bed 05 a 61 yo female bibra with c/o "shortness of breathng since 514." Upon arrival to er, patient is obtunded, bp is 88/31, temp via rectum is 100.7, hr is 70's. With trach to mech vent, maintained patent airway. Suctioned for airway clearance. Kept hob elevated. Noted with dependent edema on the extremities. Cardiac monitoring on. Initiated comfort measures. Awaiting for er md osullivan.
--- NOTE | 2016-08-13 06:10 | NUR ---
placed patient on mech vent with settings rate 12, tv 500, fiO2 100%, peep 5, janna wel with o2 saturation is 96% at this time.
--- NOTE | 2016-08-13 06:20 | NUR ---
started a saline lock on the right hand g20, blood drawn and sent to lab.
[2016-08-13] MEDS ORDERED: ACETAMINOPHEN 650 MG/SUPP.RECT RC ONE ×2 (06:31→07:00)
[2016-08-13 06:33] LABS: BASOPHILS % (AUTO) 0.2 % (0.0-2.0); EOSINOPHILS % (AUTO) 0.2 % (0.0-6.0); HEMATOCRIT 21 % (33-45); LYMPHOCYTES # (AUTO) 3.3 /CMM (0.8-4.8); LYMPHOCYTES % (AUTO) 21.7 % (20.0-44.0); MEAN CORPUSCULAR HEMOGLOBIN 31 PG (26.0-33.0); MEAN CORPUSCULAR HGB CONC 33 g/dl (31.0-36.0); MEAN CORPUSCULAR VOLUME 94 fL (82-100); MONOCYTES # (AUTO) 0.2 /CMM (0.1-1.30); MONOCYTES % (AUTO) 1.1 % (2.0-12.0); NEUTROPHILS # (AUTO) 11.8 /CMM (1.8-8.9); NEUTROPHILS % (AUTO) 76.8 % (43.0-81.0); PLATELET COUNT (AUTO) 277 /CMM (150-450); RDW COEFFICIENT OF VARIATION 20.8 (11.5-15.0); RED BLOOD CELL COUNT(AUTO) 2.25 MIL/uL (4.0-5.2); WHITE BLOOD COUNT (AUTO) 15.4 K/uL (4.3-11.0)
[2016-08-13 06:34] LABS: HEMOGLOBIN 6.9 g/dL (11.5-14.8)
[2016-08-13] MEDS ORDERED: IV SET PRIMARY 1 EA INFUS.SET MC ONE ×2 (06:45→08:36)
[2016-08-13] MEDS ORDERED: IV NS 0.9% 1,000 ML ONE ×2 (06:45→08:31)
[2016-08-13] MEDS ORDERED: IV SET PRIMARY PUMP SET 1 EA INFUS.SET MC ONE ×4 (06:45→17:05)
[2016-08-13] MEDS ORDERED: MEROPENEM 1 G VIAL IV ONE (06:45)
[2016-08-13 06:46] LABS: APPEARANCE,URINE CLOUDY (CLEAR); BILIRUBIN,URINE NEGATIVE (NEGATIVE); BLOOD, URINE TRACE-INTA Ery/uL (NEGATIVE); COLOR,URINE YELLOW (YELLOW); KETONES,URINE NEGATIVE (NEGATIVE); LEUKOCYTE ESTERASE ,URINE 3+ (NEGATIVE); NITRITE, URINE NEGATIVE (NEGATIVE); PROTEIN,URINE TRACE mg/dl (NEGATIVE); UGLUCOSE NEGATIVE (NEGATIVE); UROBILINOGEN,URINE 0.2 EU/dL (0.2)
[2016-08-13] MEDS ORDERED: VANCOMYCIN 1 GM VIAL ONE (06:46)
[2016-08-13 06:47] LABS: INR 1.03 (0.87-1.13)
[2016-08-13] MEDS ORDERED: IV NS 0.9% 100 ML IV ONE (06:48)
[2016-08-13 06:50] LABS: TROPONIN I < 0.017 ng/mL (0.00-0.056)
[2016-08-13 06:51] LABS: BACTERIA,URINE 4+ /HPF (None Seen); MUCUS,URINE Few /LPF (None Seen); URINE AMORPHOUS URATE Few /HPF (None Seen); WBC,URINE 21-50 /HPF (0-3); YEAST,URINE Few /HPF (None Seen)
[2016-08-13 06:56] LABS: BAND % (MANUAL) 20 % (0.0-5.0); LYMPHOCYTES % (MANUAL) 31 % (16-48); METAMYELOCYTES % 3 % (0-0); MONOCYTES % (MANUAL) 5 % (0-11.0); MYELOCYTES % 3 % (0-0); NEUTROPHILS % (MANUAL) 38 (42-76)
[2016-08-13] MEDS ORDERED: IV NS 0.9% 1,000 ML IV ONE (07:00)
[2016-08-13] MEDS ORDERED: MEROPENEM 1,000 MG in IV NS 0.9% 100 ML IV ONE (07:00)
[2016-08-13] MEDS ORDERED: VANCOMYCIN 1 GM in IV D5W 250 ML IV ONE ×2 (07:00→10:30)
--- NOTE | 2016-08-13 07:11 | NUR ---
Report given to Antonio DANIELLE for doug.
--- NOTE | 2016-08-13 07:15 | NUR ---
SANITATION SUPERINTENDENT NOTES RECEIVED A CALL FROM DR MEREDITH , NOTIFIED ABG RESULT ON VENT SETTINGS OF AC 12 , TV 500 , FIO2 100 PEEP OF , PEAK INSPIRATORY PRESSURE IS 30 , PER MD INCREASE AC OF 22 AND REPEAT ABG AT 1999 , ORDERS CARRIED OUT
[2016-08-13 08:00] LABS: BILIRUBIN,DIRECT 0.5 mg/dL (0.0-0.2); BILIRUBIN,TOTAL 0.7 mg/dL (0.2-1.0); CALCIUM, SERUM 9.4 mg/dL (8.5-10.1); CARBON DIOXIDE 23 mmol/L (21-32); CHLORIDE 99 mmol/L (98-107); CREATININE 2.2 mg/dL (0.6-1.3); GLUCOSE 76 mg/dL (74-106); POTASSIUM 4.7 mmol/L (3.5-5.1); SODIUM SERUM 132 mmol/L (136-145)
[2016-08-13 08:01] LABS: ALANINE AMINOTRANSFERASE 31 U/L (12-78); ALKALINE PHOSPHATASE 433 U/L (46-116); ASPARTATE AMINOTRANSFERASE 41 U/L (15-37); TOTAL PROTEIN, SERUM 7.9 g/dL (6.4-8.2)
[2016-08-13 08:09] LABS: ALBUMIN 0.8 g/dL (3.4-5.0); UREA NITROGEN, BLOOD 93 mg/dL (7-18)
[2016-08-13] MEDS ORDERED: IV NS 0.9% 1,000 ML BAG IV ONE ×2 (08:30→10:30)
[2016-08-13] MEDS ORDERED: IV NS 0.9% 2,000 ML ONE (08:36)
--- NOTE | 2016-08-13 09:56 | NUR ---
PAGED DR ESCAMILLA PROFESSOR OF GERMAN FOR PANEL
--- NOTE | 2016-08-13 10:26 | NUR ---
PT TO CT
[2016-08-13] MEDS ORDERED: NOREPINEPHRINE 8 MG in IV D5W 500 ML IV PRN ×2 (10:30→13:00)
[2016-08-13] MEDS ORDERED: MEROPENEM 1 G in IV NS 0.9% 100 ML IV SCH (10:30)
[2016-08-13] MEDS ORDERED: ONDANSETRON HCL/PF 4 MG/2 ML VIAL IVP PRN (10:30)
[2016-08-13] MEDS ORDERED: NOREPINEPHRINE 16 MG in IV D5W 500 ML IV PRN (10:30)
--- NOTE | 2016-08-13 10:49 | NUR ---
LEVOPHED STARTED AT 8MCG/ML. WILL CONTINUE TO MONITOR.
--- NOTE | 2016-08-13 12:00 | NUR ---
PIGMENT MIXER PATIENT IS NEUROLOGICALLY OBTUNDED. PATIENT IS UNABLE TO SIGN BLOOD TRANSFUSION AND PICC LINE CONSENT FOR SELF. EMERGENCY CONSENTS DONE DUE TO HEMODYNAMIC INSTABILITY. ER PHYSICIAN AND PRIMARY PHYSICIAN AWARE. RN LEFT A MESSAGE WITH DAUGHTER ALFREDO WHO DID NOT REGIONAL TRANSFER LIAISON THE PHONE. AWAITING CALL BACK.
--- NOTE | 2016-08-13 12:00 | NUR ---
ESL INSTRUCTIONAL ASSISTANT NOTES RECEIVED PATIENT FROM ER WITH ADMITTING DX OF ANEMIA , SEPTIC SHOCK , NOT IN ACUTE DISTRESS , RESPIRATIONS EVEN AND UNLABORED WITH SPO2 OF 100% VIA AC 12 , TV 500 FIO2 100 PEEP OF 0 , PORTEX # [address] , SR 85 ON BEDSIDE MONITOR , FC DRAINING VIA GRAVITY WITH CLOUDY YELLOW URINE CONCENTRATED , GT PATENT AND INTACT CLAMMED , ON NANDO BED , SKIN ASSESSMENT DONE , TOOK PICTURES AND PLACED IN THE CHART , RENDERED TREATMENT AND ORDERED WOUND CONSULT , IV OF R HAND # 20 AND L FA # 18 PATENT AND INTACT SL , PT ON LEVOPHED @ 12MCG/MIN WITH SBP OF 68 / 58 , TITRATION ACCORDINGLY , ADMISSION ORDERED CARRIED OUT , ALL NEEDS ATTENDED , BED ON LOW AND LOCKED POSITION , SIDE RAILS X2 ,FLAT ON BED , WILL CONTINUE TO MONITOR .
[2016-08-13] MEDS ORDERED: IV NS 0.9% 250 ML IV ONE (12:05)
[2016-08-13] MEDS ORDERED: BLOOD IV SET 1 EA INFUS.SET MC ONE (12:05)
[2016-08-13] MEDS: PANTOPRAZOLE 40 MG VIAL IV SCH (12:56)
[2016-08-13] MEDS ORDERED: FEE PK DOSING 1 MIN EA MC ONE (13:09)
[2016-08-13 13:35] LABS: BILIRUBIN,DIRECT 0.8 mg/dL (0.0-0.2); CALCIUM, SERUM 9.1 mg/dL (8.5-10.1); CREATININE 2.1 mg/dL (0.6-1.3); POTASSIUM 4.9 mmol/L (3.5-5.1); TOTAL PROTEIN, SERUM 8.1 g/dL (6.4-8.2)
[2016-08-13 13:36] LABS: ALBUMIN 0.8 g/dL (3.4-5.0)
--- NOTE | 2016-08-13 14:23 | NUR ---
SUPERVISOR PRESSING DEPARTMENT NOTES PAGED DR ESCAMILLA , NOTIFIED REGARDING REPEAT LABS , MD AWARE , NO NEW ORDERS RECEIVED
--- NOTE | 2016-08-13 15:09 | NUR ---
SUPERINTENDENT TERMINAL NOTES DR ROSE AT BEDSIDE , SEEN AND EVALUATED THE PT , DISCUSSED PT HISTORY CC AND ABNORMAL LABS , PT IS OLIGURIC NOTED WITH 50ML URINE OUTPUT SINCE 1200 , 2UNITS PRBC GIVEN , TOLERATING CURRENT VENT SETTINGS OF AC 12 , TV 500 , FIO2 100% PEEP OF 0 WITH SPO2 OF 92-95 % , AFEBRILE , ON LEVOPHED @ 20MCG/MIN , AWARE
[2016-08-13] MEDS ORDERED: Z GUARD REMEDY 4 OZ OINT TP PRN (15:30)
[2016-08-13] MEDS ORDERED: DAKINS FULL STRENGTH (0.5%) 480 ML BOTTLE TOP PRN (16:00)
--- NOTE | 2016-08-13 16:01 | NUR ---
PROGRAMMER ANALYST CONSULTANT NOTES DR CASPER AT BEDSIDE , SEEN AND EVALUATED THE WOUND , PER MD CONTINUE CURRENT TREATMENT , ADD DAKINS SOLUTION FOR PACKING AT SACRAL ULCER , WILL DO DEBRIDEMENT ON FRIDAY , ORDERS CARRIED OUT
--- NOTE | 2016-08-13 17:00 | NUR ---
LOMBARDI DEVELOPER NOTES PAGED EPIC :DR ESCAMILLA TO MARCUS PT HAS LOW URINE OUTPUT , NO IV FLUID ORDER , AWAITING FOR CALL BACK
--- NOTE | 2016-08-13 17:00 | NUR ---
RIM TURNING MACHINE OPERATOR NOTES SPOKE WITH DR ROSE , NOTIFIED PT HAS NO IVF , NO BASELINE ABG , DISCUSSED PT IS OLIGURIC , BLADDER IS NOT DISTENDED , DISUSSED VENT SETTINGS . PER MD CONTINUE AC 12 , TV 500 FIO2 100 PEEP OF 5 , ORDER ABG NOW .
[2016-08-13] MEDS: NOREPINEPHRINE 16 MG in IV D5W 500 ML IV PRN (17:20)
[2016-08-13] MEDS: IV NS 0.9% 1,000 ML IV PRN (17:21)
[2016-08-13 18:16] LABS: ABG BASE EXCESS -10.3 mmol/L; ABG OXYGEN SATURATION 94.7 % (92.0-98.5); ABG PCO2 48.5 mmHg (35.0-45.0); ABG PH 7.179 (7.350-7.450); ABG PO2 86.6 mmHg (75.0-100.0); AaDO2 577.9 mmHg; MetHb 0.9 % (0.0-1.5); O2Hb 93.8 % (94.0-97.0); SITE, ABG Left Brachial; VENT MODE, BG AC 12 500 100% +5
--- NOTE | 2016-08-13 18:39 | NUR ---
DOOR FRAME BUILDER NOTES PAGED DR ROSE , SPOKE WITH TRINY , LEFT A MESSAGE TO NOTIFY REGARDING ABNORMAL ABG , AWAITING FOR CALL BACK
--- NOTE | 2016-08-13 18:40 | NUR ---
TAPE STRINGER NOTES RECEIVED A CALL FROM DR FROST , DISCUSSED ABG RESULT , PT ON AC 12 TV 500 FIO2 100 PEEP OF 5 , INSPIRATORY PEAK PRESSURE OF 30 , PER MD INCREASE AC OF 22 AND REPEAT ABG @ 2100 , ORDERS CARRIED OUT
[2016-08-13] MEDS ORDERED: SECONDARY IV SET 1 EA INFUS.SET MC ONE (19:27)
[2016-08-13] MEDS: MEROPENEM 500 MG in IV NS 0.9% 50 ML IV SCH (20:02)
[2016-08-13 21:07] LABS: HEMOGLOBIN 8.7 g/dL (11.5-14.8)
[2016-08-13 21:16] LABS: ABG BASE EXCESS -8.5 mmol/L; ABG OXYGEN SATURATION 97.8 % (92.0-98.5); ABG PH 7.239 (7.350-7.450); COHb 0.5 % (0.5-1.5); MetHb 0.3 % (0.0-1.5); SITE, ABG Right Radial; VENT MODE, BG A/C; VT, ABG 500 mL
--- NOTE | 2016-08-13 21:40 | NUR ---
ICU/RN- CALLED AND SPOKE WITH DR FROST. INFORMED ABOUT CRITICAL ABG W/ PH - 7.23, PO2 120, PCO2 44, HCO3 18.4. MD ORDERED TO INCREASE AC - 24 AND TV 600. NO FURTHER ORDERS.
--- NOTE | 2016-08-13 22:55 | NUR ---
ICU/RN- ALFREDO MIDDLETON (DAUGHTER) AT BEDSIDE TO SIGN CONSENT FOR SACRAL, BILATERAL THIGH, MIDBACK PRESSURE ULCER DEBRIDEMENT.
[2016-08-14] VITALS (80 sets, daily range): BP systolic 70–120; BP diastolic 31–107
--- NOTE | 2016-08-14 01:30 | NUR ---
BATHING SUIT MAKER: REPORT RECEIVED FROM JULIO DANIELLE FOR CONTINUATION OF CARE.
[2016-08-14] MEDS: IV NS 0.9% 1,000 ML IV PRN (04:46)
[2016-08-14] MEDS: VANCOMYCIN 1 GM in IV D5W 250 ML IV SCH (06:05)
[2016-08-14 06:47] LABS: BASOPHILS # (AUTO) 0.1 /CMM (0.0-0.2); BASOPHILS % (AUTO) 0.2 % (0.0-2.0); HEMATOCRIT 26 % (33-45); HEMOGLOBIN 8.8 g/dL (11.5-14.8); LYMPHOCYTES # (AUTO) 2.1 /CMM (0.8-4.8); LYMPHOCYTES % (AUTO) 9.1 % (20.0-44.0); MEAN CORPUSCULAR HEMOGLOBIN 31 PG (26.0-33.0); MEAN CORPUSCULAR HGB CONC 34 g/dl (31.0-36.0); MEAN CORPUSCULAR VOLUME 92 fL (82-100); MONOCYTES # (AUTO) 0.6 /CMM (0.1-1.30); MONOCYTES % (AUTO) 2.6 % (2.0-12.0); NEUTROPHILS # (AUTO) 20.3 /CMM (1.8-8.9); NEUTROPHILS % (AUTO) 88.1 % (43.0-81.0); PLATELET COUNT (AUTO) 254 /CMM (150-450); RDW COEFFICIENT OF VARIATION 20.1 (11.5-15.0); RED BLOOD CELL COUNT(AUTO) 2.82 MIL/uL (4.0-5.2)
[2016-08-14 06:51] LABS: INR 1.08 (0.87-1.13); PROTHROMBIN TIME 11.6 SECS (9.5-12.7)
[2016-08-14 07:03] LABS: BILIRUBIN,TOTAL 2.4 mg/dL (0.2-1.0); CALCIUM, SERUM 9.4 mg/dL (8.5-10.1); CREATININE 1.9 mg/dL (0.6-1.3); POTASSIUM 4.1 mmol/L (3.5-5.1); TOTAL PROTEIN, SERUM 8.4 g/dL (6.4-8.2)
[2016-08-14] MEDS ORDERED: DEXTROSE 50%-WATER 50 ML DISP.SYRIN ONE (07:10)
[2016-08-14 07:12] LABS: ALBUMIN 0.8 g/dL (3.4-5.0)
[2016-08-14] MEDS ORDERED: DEXTROSE 50%-WATER 50 ML DISP.SYRIN IVP ONE (07:25)
[2016-08-14 07:30] LABS: TROPONIN I 0.604 ng/mL (0.00-0.056)
[2016-08-14] MEDS ORDERED: DEXTROSE 50%-WATER 50 ML DISP.SYRIN IV PRN (07:30)
--- NOTE | 2016-08-14 07:37 | NUR ---
COMBINATION PRESSER : CRITICAL LAB VALUES REPORTED TO GRAYSON , GLUCOSE 32, ALB 0.8, BUN 90 . AWARE THAT PT IS NPO AND GT CLAMPED AND IVF IS NS BUT HE DID NOT GIVE ORDER TO CHANGE IVF . GAVE ORDER TO GIVE D50 IVP AND DO ACC Q6 HR W MILD SLIDING SCALE. INSTRUCTED AM NURSE TO ADDRESS PTS DIET .
--- NOTE | 2016-08-14 08:00 | NUR ---
ICU/RN AM SHIFT INITIAL NOTES RECEIVED PT ASLEEP IN BED, PT IS OBTUNDED, NO ACUTE CHANGE OF CONDITION OR GRIMACING NOTED. PT ON VENTILATOR RATES SET PRESCRIBED, SATURATING @ 100%. SUCTIONED FOR AIRWAY CLEARANCE. ON TELE WITH SINUS RHYTHM, HR 73. WITH ON GOING INFUSION OF LEVOPHED WITH 10MCG/MIN SBP SUSTAINING ABOVE 90. ALSO INFUSING NS @ 100CC/HR. GT CLAMP. CHAUDHARY CATHETER NOTED WITH CLOUDY YELLOW URINE OUTPUT. PT IS COMFORTABLE. SCHEDULED AM MEDS TO BE GIVEN. CL WITHIN REACHED AND SAFETY MAINTAINED. ON GOING MONITORING.
[2016-08-14] MEDS ORDERED: SECONDARY IV SET 1 EA INFUS.SET MC ONE ×2 (08:23→10:46)
[2016-08-14] MEDS: PANTOPRAZOLE 40 MG VIAL IV SCH (09:05)
[2016-08-14] MEDS: MEROPENEM 500 MG in IV NS 0.9% 50 ML IV SCH ×2 (09:05→20:00)
[2016-08-14] MEDS: ALBUMIN 25% 25 GM in PREMIX 1 EA IV SCH ×3 (09:06→20:48)
[2016-08-14 09:45] LABS: ABG BASE EXCESS -6.9 mmol/L; ABG PCO2 27.8 mmHg (35.0-45.0); ABG PH 7.399 (7.350-7.450); ABG PO2 83.1 mmHg (75.0-100.0); AaDO2 386.1 mmHg; COHb 0.5 % (0.5-1.5); MetHb 0.8 % (0.0-1.5); O2Hb 94.8 % (94.0-97.0); SITE, ABG Right Radial; VENT MODE, BG AC 24 600 70% +5
--- NOTE | 2016-08-14 10:00 | NUR ---
ICU/RN ROUNDS - DR. ROSE UPDATED PT'S CONDITION. PT SEEN [address] ROSE, WITH NEW ORDER RECEIVED FOR STAT ABG. RT NOTIFIED. ORDER NOTED AND CARRIED. ON GOING MONITORING.
[2016-08-14] MEDS: IV D5/ 0.9% NACL 1,000 ML IV PRN ×2 (10:39→23:20)
[2016-08-14] MEDS: NOREPINEPHRINE 16 MG in IV D5W 500 ML IV PRN (10:46)
[2016-08-14 11:10] LABS: BAND % (MANUAL) 37 % (0.0-5.0); LYMPHOCYTES % (MANUAL) 7 % (16-48); MONOCYTES % (MANUAL) 2 % (0-11.0); NEUTROPHILS % (MANUAL) 54 (42-76)
--- NOTE | 2016-08-14 11:21 | NUR ---
ICU/RN MD ROUNDS - DR. SWAN UPDATED PT'S CONDITION. PT SEEN & EXAMINED BY DR. SWAN. NO NEW ORDERS RECEIVED AT THIS TIME. MONITORING CONTINUED. Addendum: 08/14/16 at 1127 by EMILE WILSON RN ADDENDUM: DR. SWAN MADE AWARE OF CRITICAL LAB VALUE FOR TROPONIN 0.604. NO NEW ORDER RECEIVED. ALSO NOTIFIED HIM THAT DR. CANNON IS AWARE OF THE RESULT, NO NEW ORDER RECEIVED.
--- NOTE | 2016-08-14 11:34 | NUR ---
WOUND CARE CONSULT: PT WAS UNSTABLE FOR TURNING/SKIN ASSESSMENT. PT FOLLOWED BY SURGICAL TEAM FOR WOUNDS. PT ON NANDO ISOFLEX LOW AIRLOSS BED. WILL SEE PT PT CONDITION PERMITS.
[2016-08-14] MEDS: BLOOD SUGAR DIAGNOSTIC 1 EACH STRIP IN SCH ×3 (11:44→23:45)
[2016-08-14] MEDS ORDERED: BLOOD SUGAR DIAGNOSTIC 1 EACH STRIP IN SCH (12:00)
--- NOTE | 2016-08-14 12:37 | NUR ---
ICU/RN PT ENDORSED - NEW ASSIGNED NURSE REPORT GIVEN TO NURSE BENY TO CONTINUE CARE.
[2016-08-14] MEDS: ACETAMINOPHEN 650 MG/20.3 ML UDC GT PRN (16:22)
--- NOTE | 2016-08-14 18:37 | NUR ---
AUTOMATIC FANCY MACHINE OPERATOR NOTED PT URINE OUTPUT IS <30CC HR PAGED DR. KERRI WORRELL TO NOTIFY, PT IS ON IV FLUIDS 100CC/HR AND ON LEVOPHED, ALL PT NEEDS MEET NO MAJOR CHANGES ON PT CONDITION FROM TAKING OVER, PT HAD TEMP OF 102.0 AT 1600 PROVIDED COOL BATH AND ICE BAGS ALSO GAVE TYLENOL. VS STABLE REPORT GIVEN TO PM NURSE FOR CONTINUITY OF CARE.
--- NOTE | 2016-08-14 20:00 | NUR ---
RN INITIAL NOTE; PT ON THE BED WITHOUT ANY DISTRESS , ON MECH VENT , SETTING ORDERED . SHOWING SR 70 HR ON MONITOR , LFA 20 G PERIPHERAL IV AND PEDRO PICC LINE INTACT AND PATENT WITH CONTINUE D5NS @ 100 ML/HR, ON LEVOPHED DRIP @ 28 MCG . G TUBE CLAMPED AT THIS TIME. F/C INTACT AND DRAINING YELLOW CLOUDY URINE . BED ON THE LOWEST/LOCKED POSITION , SAFETY MEASURES APPLIED. WILL TURN AND REPOSITION Q2H . WILL CONTINUE TO MONITOR .
--- NOTE | 2016-08-14 20:03 | NUR ---
PT RCVD ON MECH VENT WITH NOTED SETTINGS. SXN SMALL AMOUNT OF WHITE THIN SECRETIONS. BILATERAL BS NOTED. VENT ALARM CHECKED AND AUDIBLE. VENT PLUGGED INTO RED OUTLET,AMBU BAG AT [facility]. NO RESPIRATORY DISTRESS NOTED, WILL CONTINUE TO MONITOR.
--- NOTE | 2016-08-14 23:00 | NUR ---
RN NOTE; URINE OUTPUT NOTED DECREASED , ONCKIMO ROBLES INFORMED , RECEIVED ORDER TO INCREASE CURRENT IV FLUID RATE TO 150 ML/HR FOR 4 HOURS, AND MONITOR THE OUTPUT . WILL CONTINUE TO MONITOR .
[2016-08-14] MEDS: INSULIN REGULAR, HUMAN 100 UNIT/ML 3 ML VIAL SQ PRN (23:32)
[2016-08-15] VITALS (59 sets, daily range): BP systolic 84–138; BP diastolic 42–80
[2016-08-15] MEDS: NOREPINEPHRINE 16 MG in IV D5W 500 ML IV PRN (00:01)
--- NOTE | 2016-08-15 03:00 | NUR ---
RN NOTE; URINE OUTPUT ADEQUATE AT THIS TIME . ONGOING D5NS @ 100 ML/HR AT THIS TIME. WILL CONTINUE TO MONITOR
[2016-08-15] MEDS: ALBUMIN 25% 25 GM in PREMIX 1 EA IV SCH (03:05)
[2016-08-15] MEDS: INSULIN REGULAR, HUMAN 100 UNIT/ML 3 ML VIAL SQ PRN (05:29)
[2016-08-15] MEDS: BLOOD SUGAR DIAGNOSTIC 1 EACH STRIP IN SCH ×3 (05:30→18:00)
[2016-08-15 06:31] LABS: HEMATOCRIT 23 % (33-45); HEMOGLOBIN 7.9 g/dL (11.5-14.8); LYMPHOCYTES # (AUTO) 2.1 /CMM (0.8-4.8); LYMPHOCYTES % (AUTO) 7.4 % (20.0-44.0); MEAN CORPUSCULAR HEMOGLOBIN 32 PG (26.0-33.0); MEAN CORPUSCULAR HGB CONC 34 g/dl (31.0-36.0); MEAN CORPUSCULAR VOLUME 93 fL (82-100); MONOCYTES # (AUTO) 1.1 /CMM (0.1-1.30); MONOCYTES % (AUTO) 3.8 % (2.0-12.0); NEUTROPHILS # (AUTO) 25.3 /CMM (1.8-8.9); NEUTROPHILS % (AUTO) 88.8 % (43.0-81.0); PLATELET COUNT (AUTO) 222 /CMM (150-450); RDW COEFFICIENT OF VARIATION 19.9 (11.5-15.0); WHITE BLOOD COUNT (AUTO) 28.5 K/uL (4.3-11.0)
[2016-08-15 07:23] LABS: CALCIUM, SERUM 9.4 mg/dL (8.5-10.1); CREATININE 1.9 mg/dL (0.6-1.3); MAGNESIUM 2.9 mg/dL (1.8-2.4); PHOSPHORUS 4.6 mg/dL (2.5-4.9); POTASSIUM 3.6 mmol/L (3.5-5.1)
--- NOTE | 2016-08-15 07:25 | NUR ---
RN EOS NOTE; PT ON THE BED WITHOUT ANY DISTRESS, MECH VENT TOLERATED WELL. ON LEVO AT 20 MCG AT THIS TIME. TOTAL CARE RENDERED , ALL NEEDS ATTENDED PROMPTLY. ENDORSED TO SHASHI EMANUEL .
--- NOTE | 2016-08-15 07:30 | NUR ---
DENTURES LAB TECHNICIAN Note: Received pt obtunded on bed. On trache to mechanical vent, AC/VC mode with rate of 24, PEEP-7.5 and 70% FIO2 saturating 95-97%. Currently on Levophed drip at 20 mcg/min via MATTHIEU PICC line. HL on LFA patent and intact. GT clamped at this time, 50 ml residual noted. Repositioned for comfort. Continue to monitor.
--- NOTE | 2016-08-15 07:30 | NUR ---
STRUCTURES MECHANIC NOTE: Received pt on bed, awake, alert oriented to person. No c/o pain. Able to follow simple command. On trache (shiley#[id number]) to mechanical vent, AC/VC mode with rate of 14, PEEP-5, FIO2-50 saturating 100%. With GT feeding, Novasource Renal at 30 ml/hr tolerating well. 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 Repositioned for comfort. Addendum: 08/15/16 at 1318 by AMANDA ARNOLD RN wrong entry
[2016-08-15 07:47] LABS: BAND % (MANUAL) 3 % (0.0-5.0); LYMPHOCYTES % (MANUAL) 7 % (16-48); MONOCYTES % (MANUAL) 7 % (0-11.0); NEUTROPHILS % (MANUAL) 83 (42-76)
[2016-08-15] MEDS: PANTOPRAZOLE 40 MG VIAL IV SCH (08:49)
[2016-08-15] MEDS: MEROPENEM 500 MG in IV NS 0.9% 50 ML IV SCH ×2 (08:49→20:19)
[2016-08-15 09:40] LABS: ABG BASE EXCESS -9.4 mmol/L; ABG OXYGEN SATURATION 94.7 % (92.0-98.5); ABG PCO2 32.4 mmHg (35.0-45.0); ABG PH 7.309 (7.350-7.450); ABG PO2 82.2 mmHg (75.0-100.0); AaDO2 382.1 mmHg; COHb 0.5 % (0.5-1.5); MetHb 0.5 % (0.0-1.5); O2Hb 93.8 % (94.0-97.0); PEEP,BG 5 cm H2O; SITE, ABG Right Brachial; VT, ABG 600 mL
[2016-08-15] MEDS: VANCOMYCIN 1 GM in IV D5W 250 ML IV SCH (09:41)
[2016-08-15] MEDS ORDERED: ANESTHESIA TRAY IN PYXIS 1 EA TRAY MC ONE (13:20)
--- NOTE | 2016-08-15 13:41 | NUR ---
WOUND CARE CONSULT WOUND CARE RECEIVED CONSULT. WOUND CARE WILL DEFER WOUND TREATMENT PLANS TO SURGICAL TEAM AT THIS TIME SURGICAL TEAM HAS EVALUATED PATIENT AND WOUNDS. ALL PRESSURE ULCER PREVENTION MEASURES NOTED TO BE IN PLACE AT THIS TIME. PATIENT ON ISOFLEX LOW AIRLOSS SPECIALTY BED, Z GUARD ORDERED FOR SKIN/MOISTURE MANAGEMENT, PATIENT WITH CURRENT ETELVINA AT 10. CONTINUE TURNING AND REPOSITIONING Q 2 HOURS PATIENT CONDITION PERMITS AND BILATERAL HEEL FLOATING.
[2016-08-15] MEDS: IV D5/ 0.9% NACL 1,000 ML IV PRN (14:10)
--- NOTE | 2016-08-15 19:18 | NUR ---
Bedside report given to Juan SENIOR ELECTRICAL CONTROLS ENGINEER
--- NOTE | 2016-08-15 19:30 | NUR ---
PT RCVD ON VENT WITH NOTED SETTINGS. SXN SMALL AMOUNT OF YELLOWISH WHITE SEMI THICK SECRETIONS. BILATERAL BS NOTED. VENT ALARM CHECKED AND AUDIBLE. VENT PLUGGED INTO RED OUTLET,AMBU BAG AT [facility]. NO RESPIRATORY DISTRESS NOTED, WILL CONTINUE TO MONITOR.
--- NOTE | 2016-08-15 20:00 | NUR ---
ARROW POINT ATTACHER DF RECEIVED PT TO ICU OVERFLOW ROOM#103 PT CHRONICALLY ILL PT OBTUNDED WITHDRAWS ONLY TO DEEP TACTILE STIMULI.BUE/BLE FLACCID. PT WITH TRACH WITH AC VENT SETTINGS WITH FIO2 OF 70%.PT WITH LARGE THICK WHITE/YELLOW SECRETIONS FROM TRACH/ORALLY. PT ADMIT DX SEPSIS 2ND UROSEPSIS,BACTEREMIA AND MULTIPLE WOUNDS WITH SEPTIC SHOCK PT REQUIRING VASOPRESSOR SUPPORT WITH LEVOPHED CURRENT RATE AT 14MCG WITH BP OF 103/55.PT SBP GOAL BEING MET AT 14MCG UNABLE TO DECREASE FURTHER. PT WITH MULTIPLE WOUNDS S/P DEBRIDEMENT 08/15 WOUNDS COVERED WITH DRESSINGS C/D/I
[2016-08-16] VITALS (101 sets, daily range): BP systolic 75–134; BP diastolic 26–69
[2016-08-16] MEDS: BLOOD SUGAR DIAGNOSTIC 1 EACH STRIP IN SCH ×5 (00:35→23:21)
--- NOTE | 2016-08-16 00:45 | NUR ---
PROFESSIONAL POKER PLAYER DF ACCU CHECK OF 300 PER DAY SHIFT RN/EMAR NO INSULIN COVERAGE ORDERED FOR PT.WILL F/U WITH .
--- NOTE | 2016-08-16 03:15 | NUR ---
DIRECTOR OF QUALITY CONTROL DF BP OF 128/66 LEVOPHED TITRATED TO 10MCG WILL MONITOR FOR EFFECT. Addendum: 08/16/16 at 0510 by ACE ORDAZ RN BP OF 119/56 LEVOPHED TITRATED DOWN TO 7MCG.
[2016-08-16] MEDS: IV D5/ 0.9% NACL 1,000 ML IV PRN (04:53)
[2016-08-16] MEDS: NOREPINEPHRINE 16 MG in IV D5W 500 ML IV PRN (04:57)
[2016-08-16] MEDS: VANCOMYCIN 1 GM in IV D5W 250 ML IV SCH (06:51)
--- NOTE | 2016-08-16 07:04 | NUR ---
PRACTICING MD ANESTHESIOLOGIST DF BP OF 125/56 I TITRATED LEVOPHED TO 5MCG.
[2016-08-16 07:09] LABS: CALCIUM, SERUM 9.4 mg/dL (8.5-10.1); CREATININE 1.5 mg/dL (0.6-1.3); POTASSIUM 3.1 mmol/L (3.5-5.1)
[2016-08-16 08:25] LABS: ABG BASE EXCESS -8.1 mmol/L; ABG OXYGEN SATURATION 97.7 % (92.0-98.5); ABG PCO2 30.9 mmHg (35.0-45.0); ABG PH 7.349 (7.350-7.450); ABG PO2 114.8 mmHg (75.0-100.0); AaDO2 351.1 mmHg; COHb 1.4 % (0.5-1.5); MetHb 1.4 % (0.0-1.5); SITE, ABG Right Radial
[2016-08-16] MEDS: PANTOPRAZOLE 40 MG VIAL IV SCH (08:28)
--- NOTE | 2016-08-16 08:30 | NUR ---
RT POST ABG RESULTS SHOWN TO DR. ROSE. TITRATED FiO2 TO 55% PER MD ORDER. RN NOTIFIED AND AWARE. PT REMAINS STABLE. WILL CONTINUE TO MONITOR THE PATIENT FOR ANY CHANGE OF CONDITION. Addendum: 08/16/16 at 1418 by NEVAEH VELASQUEZ RT Amended: Links added.
[2016-08-16] MEDS: MEROPENEM 500 MG in IV NS 0.9% 50 ML IV SCH (09:05)
[2016-08-16 10:37] LABS: EOSINOPHILS % (AUTO) 0.1 % (0.0-6.0); HEMATOCRIT 23 % (33-45); HEMOGLOBIN 7.7 g/dL (11.5-14.8); LYMPHOCYTES # (AUTO) 2.5 /CMM (0.8-4.8); LYMPHOCYTES % (AUTO) 7.6 % (20.0-44.0); MEAN CORPUSCULAR HEMOGLOBIN 31 PG (26.0-33.0); MEAN CORPUSCULAR HGB CONC 33 g/dl (31.0-36.0); MEAN CORPUSCULAR VOLUME 93 fL (82-100); MONOCYTES # (AUTO) 1.1 /CMM (0.1-1.30); MONOCYTES % (AUTO) 3.3 % (2.0-12.0); NEUTROPHILS # (AUTO) 29.5 /CMM (1.8-8.9); PLATELET COUNT (AUTO) 206 /CMM (150-450); RDW COEFFICIENT OF VARIATION 19.6 (11.5-15.0)
[2016-08-16 10:40] LABS: WHITE BLOOD COUNT (AUTO) 33.1 K/uL (4.3-11.0)
[2016-08-16] MEDS: POTASSIUM CL. PREMIX PERIPHER. 50 ML IV SCH ×4 (10:48→15:00)
[2016-08-16] MEDS ORDERED: DEXTROSE 50%-WATER 50 ML DISP.SYRIN IV PRN (11:00)
[2016-08-16 11:02] LABS: CALCIUM, SERUM 9.3 mg/dL (8.5-10.1); CREATININE 1.5 mg/dL (0.6-1.3); POTASSIUM 3.1 mmol/L (3.5-5.1)
[2016-08-16 11:48] LABS: BAND % (MANUAL) 6 % (0.0-5.0); LYMPHOCYTES % (MANUAL) 8 % (16-48); METAMYELOCYTES % 3 % (0-0); MONOCYTES % (MANUAL) 8 % (0-11.0); MYELOCYTES % 1 % (0-0); NEUTROPHILS % (MANUAL) 74 (42-76)
[2016-08-16] MEDS: INSULIN REGULAR, HUMAN 100 UNIT/ML 3 ML VIAL SQ PRN ×2 (11:59→18:05)
[2016-08-16] MEDS ORDERED: DOSING PER PHARMACY-AMIKACI IV XX PRN (13:30)
--- NOTE | 2016-08-16 13:42 | NUR ---
Informed Dr. Warner of laboratory result(wbc -33.1, hgb-7.7) and urine culture and sensitivity with multiple resistance to antibiotics
[2016-08-16] MEDS ORDERED: FEE PK DOSING 1 MIN EA MC ONE (14:42)
[2016-08-16] MEDS: AMIKACIN 500 MG in IV D5W 100 ML IV SCH (15:34)
--- NOTE | 2016-08-16 17:40 | NUR ---
RT RECEIVED PT TRACH'D WITH PORTEX #9 CUFFED ON VENT WITH SETTINGS PER MD ORDER. INDUSTRIAL METHODS CONSULTANT DONE. BILAT RHONCHI BREATH SOUNDS ON AUSCULTATION. VENT PLUGGED INTO RED OUTLET. ALARMS ON AND WORKING PROPERLY. TRACH SECURE AND AIRWAY PATENT. SUCTIONED SMALL AMOUNTS OF THICK TERRELL/YELLOW SECRETIONS. ORALLY SUCTIONED. NO SIGNS OF DISTRESS NOTED AT THIS TIME. WILL CONTINUE TO MONITOR THE PATIENT FOR ANY CHANGES. Addendum: 08/16/16 at 1743 by NEVAEH VELASQUEZ RT Amended: Links added.
[2016-08-16] MEDS: METRONIDAZOLE 500MG/ NS 100ML 500 MG in PREMIX 1 EA IV SCH (20:03)
--- NOTE | 2016-08-16 20:35 | NUR ---
AUTOMATIC GLOVE TURNER AND FORMER DF STARTING AT 2034 HYPOTENSIVE 2ND SEPSIS/SHOCK BP OF 80/39,76/36 RESTARTED LEVOPHED AT 5MCG BP INCREASE TO 115/54.PT DAUGHTER CALLED DISCUSSED POC.
[2016-08-16] MEDS ORDERED: IV SET PRIMARY PUMP SET 1 EA INFUS.SET MC ONE (22:59)
[2016-08-16] MEDS ORDERED: SECONDARY IV SET 1 EA INFUS.SET MC ONE (23:00)
--- NOTE | 2016-08-16 23:00 | NUR ---
DIRECTOR BIOSTATISTICS DF LEVOPHED TITRATED TO 8MCG SEE IV FLOW SHEET FOR TITRATION SPREADSHEET.
--- NOTE | 2016-08-16 23:33 | NUR ---
PAID SEARCH MARKETING STRATEGIST DF ACCU CHECK OF 147 NO INSULIN COVERAGE ORDERED PER MD.
[2016-08-17] VITALS (65 sets, daily range): BP systolic 95–162; BP diastolic 43–111
--- NOTE | 2016-08-17 03:15 | NUR ---
HERPETOLOGIST DF WOUND CARE PER ORDERS PER ID ORDERS WOUND CX OBTAINED OF SACRAL WOUND AND SENT TO LAB. VSS BP OF 129/60 LEVOPHED DECREASED TO 6MCG.
[2016-08-17] MEDS: AMIKACIN 500 MG in IV D5W 100 ML IV SCH ×2 (03:48→14:14)
[2016-08-17] MEDS: METRONIDAZOLE 500MG/ NS 100ML 500 MG in PREMIX 1 EA IV SCH ×3 (05:42→20:24)
[2016-08-17] MEDS: BLOOD SUGAR DIAGNOSTIC 1 EACH STRIP IN SCH ×4 (06:12→23:38)
--- NOTE | 2016-08-17 06:29 | NUR ---
MEDICAL BILLER DF BP OF 143/67 LEVOPHED TITRATED OFF.
[2016-08-17 06:48] LABS: CALCIUM, SERUM 9.8 mg/dL (8.5-10.1); CREATININE 1.3 mg/dL (0.6-1.3); POTASSIUM 3.5 mmol/L (3.5-5.1)
[2016-08-17] MEDS: VANCOMYCIN 1 GM in IV D5W 250 ML IV SCH (07:09)
[2016-08-17] MEDS: PANTOPRAZOLE 40 MG VIAL IV SCH (08:05)
[2016-08-17 09:37] LABS: BASOPHILS # (AUTO) 0.1 /CMM (0.0-0.2); BASOPHILS % (AUTO) 0.3 % (0.0-2.0); EOSINOPHILS # (AUTO) 0.4 /CMM (0.0-0.7); EOSINOPHILS % (AUTO) 0.9 % (0.0-6.0); HEMATOCRIT 24 % (33-45); HEMOGLOBIN 7.8 g/dL (11.5-14.8); LYMPHOCYTES # (AUTO) 4.5 /CMM (0.8-4.8); LYMPHOCYTES % (AUTO) 11.5 % (20.0-44.0); MEAN CORPUSCULAR HEMOGLOBIN 31 PG (26.0-33.0); MEAN CORPUSCULAR HGB CONC 33 g/dl (31.0-36.0); MEAN CORPUSCULAR VOLUME 93 fL (82-100); MONOCYTES # (AUTO) 1.3 /CMM (0.1-1.30); MONOCYTES % (AUTO) 3.3 % (2.0-12.0); NEUTROPHILS # (AUTO) 32.6 /CMM (1.8-8.9); PLATELET COUNT (AUTO) 220 /CMM (150-450); RDW COEFFICIENT OF VARIATION 19.4 (11.5-15.0); RED BLOOD CELL COUNT(AUTO) 2.56 MIL/uL (4.0-5.2)
[2016-08-17 09:40] LABS: WHITE BLOOD COUNT (AUTO) 38.8 K/uL (4.3-11.0)
--- NOTE | 2016-08-17 10:15 | NUR ---
ICU/RN - Notes Dr Warner made aware of pt's Hgb 7.8, with no new orders at this time. Per MD, level is okay.
[2016-08-17] MEDS ORDERED: NUTREN PULMONARY 1,000 ML BAG GT PRN (10:30)
[2016-08-17] MEDS ORDERED: BISACODYL SUPP (10 MG) 10 MG/SUPP.RECT SUPP.RECT RC PRN (11:00)
[2016-08-17] MEDS ORDERED: NA PHOS,M-B/NA PHOS,DI-BA 1 EA ENEMA RC PRN (11:00)
[2016-08-17] MEDS ORDERED: Medication Not On Formulary EA (Amino Acids/Protein Hydrolys (Pro-Stat Liquid) 30 ML) GT SCH (11:00)
[2016-08-17] MEDS ORDERED: MAGNESIUM HYDROXIDE 30 ML UDC GT PRN (11:00)
[2016-08-17] MEDS: ASCORBIC ACID SYRUP 500 MG/5 ML UDC GT SCH (11:13)
[2016-08-17] MEDS: DOCUSATE SODIUM LIQ 100 MG/10 ML UDC GT SCH ×2 (11:13→16:04)
[2016-08-17] MEDS: VALPROIC ACID 250 MG/5 ML UDC GT SCH ×3 (11:14→21:02)
[2016-08-17 11:25] LABS: BAND % (MANUAL) 6 % (0.0-5.0); EOSINOPHILS % (MANUAL) 1 % (0-4); LYMPHOCYTES % (MANUAL) 5 % (16-48); METAMYELOCYTES % 2 % (0-0); MONOCYTES % (MANUAL) 3 % (0-11.0); MYELOCYTES % 1 % (0-0); NEUTROPHILS % (MANUAL) 82 (42-76)
[2016-08-17] MEDS: INSULIN REGULAR, HUMAN 100 UNIT/ML 3 ML VIAL SQ PRN ×3 (11:30→23:38)
[2016-08-17 11:48] LABS: ABG BASE EXCESS -10.2 mmol/L; ABG OXYGEN SATURATION 97.5 % (92.0-98.5); ABG PCO2 28.9 mmHg (35.0-45.0); ABG PH 7.326 (7.350-7.450); ABG PO2 109.2 mmHg (75.0-100.0); AaDO2 250.8 mmHg; COHb 1.6 % (0.5-1.5); PEEP,BG 5 cm H2O; SITE, ABG Right Radial; VT, ABG 600 mL
[2016-08-17] MEDS ORDERED: BLOOD SUGAR DIAGNOSTIC 1 EACH STRIP IN SCH (12:00)
[2016-08-17] MEDS: PROSOURCE / PROSTAT (PYXIS) 30 ML UDC GT SCH ×2 (12:00→16:05)
[2016-08-17] MEDS ORDERED: SECONDARY IV SET 1 EA INFUS.SET MC ONE (14:08)
[2016-08-17] MEDS: IV D5/ 0.9% NACL 1,000 ML IV PRN (14:14)
--- NOTE | 2016-08-17 15:08 | NUR ---
ICU/RN - Notes Pt noted with gastric residual >400mL. Dr Warner made aware with orders to stop tube feeding at this time, and to reassess tomorrow AM fore resumption of tube feeding.
[2016-08-17] MEDS: DAKINS QUARTER STRENGTH (0.125%) 480 ML BOTTLE TOP SCH (15:56)
[2016-08-18] VITALS (20 sets, daily range): BP systolic 115–151; BP diastolic 51–86
[2016-08-18] MEDS: AMIKACIN 500 MG in IV D5W 100 ML IV SCH ×2 (02:58→14:34)
[2016-08-18] MEDS ORDERED: IV SET PRIMARY PUMP SET 1 EA INFUS.SET MC ONE (04:16)
[2016-08-18] MEDS: IV D5/ 0.9% NACL 1,000 ML IV PRN (04:36)
[2016-08-18] MEDS: METRONIDAZOLE 500MG/ NS 100ML 500 MG in PREMIX 1 EA IV SCH ×3 (04:36→21:48)
[2016-08-18] MEDS: INSULIN REGULAR, HUMAN 100 UNIT/ML 3 ML VIAL SQ PRN ×3 (05:17→17:50)
[2016-08-18] MEDS: BLOOD SUGAR DIAGNOSTIC 1 EACH STRIP IN SCH ×3 (05:17→17:50)
[2016-08-18 06:51] LABS: CALCIUM, SERUM 9.6 mg/dL (8.5-10.1); POTASSIUM 3.4 mmol/L (3.5-5.1)
--- NOTE | 2016-08-18 07:21 | NUR ---
RN:ICU: ENDORSED VANCO TROUGH AND 0700 VANCO DOSE TO ONCOMING SHIFT.
--- NOTE | 2016-08-18 08:00 | NUR ---
No Vanc given per pharmacy request.
[2016-08-18] MEDS ORDERED: VANCOMYCIN 1 GM in IV D5W 250 ML IV SCH (09:00)
[2016-08-18] MEDS: VALPROIC ACID 250 MG/5 ML UDC GT SCH ×3 (09:30→21:48)
[2016-08-18] MEDS: ASCORBIC ACID SYRUP 500 MG/5 ML UDC GT SCH (09:30)
[2016-08-18] MEDS: DOCUSATE SODIUM LIQ 100 MG/10 ML UDC GT SCH ×2 (09:30→16:20)
[2016-08-18] MEDS: PANTOPRAZOLE 40 MG VIAL IV SCH (09:30)
[2016-08-18] MEDS: DAKINS QUARTER STRENGTH (0.125%) 480 ML BOTTLE TOP SCH (09:50)
[2016-08-18 10:43] LABS: EOSINOPHILS # (AUTO) 0.2 /CMM (0.0-0.7); EOSINOPHILS % (AUTO) 0.7 % (0.0-6.0); HEMATOCRIT 22 % (33-45); HEMOGLOBIN 7.1 g/dL (11.5-14.8); LYMPHOCYTES # (AUTO) 3.6 /CMM (0.8-4.8); LYMPHOCYTES % (AUTO) 13.6 % (20.0-44.0); MEAN CORPUSCULAR HEMOGLOBIN 31 PG (26.0-33.0); MEAN CORPUSCULAR HGB CONC 33 g/dl (31.0-36.0); MEAN CORPUSCULAR VOLUME 94 fL (82-100); MONOCYTES # (AUTO) 0.6 /CMM (0.1-1.30); MONOCYTES % (AUTO) 2.4 % (2.0-12.0); NEUTROPHILS # (AUTO) 22.3 /CMM (1.8-8.9); NEUTROPHILS % (AUTO) 83.3 % (43.0-81.0); PLATELET COUNT (AUTO) 208 /CMM (150-450); RDW COEFFICIENT OF VARIATION 20.1 (11.5-15.0); RED BLOOD CELL COUNT(AUTO) 2.33 MIL/uL (4.0-5.2); WHITE BLOOD COUNT (AUTO) 26.7 K/uL (4.3-11.0)
[2016-08-18 11:24] LABS: ABG BASE EXCESS -6.7 mmol/L; ABG PCO2 35.4 mmHg (35.0-45.0); ABG PH 7.332 (7.350-7.450); ABG PO2 118.8 mmHg (75.0-100.0); AaDO2 197.9 mmHg; PEEP,BG 5 cm H2O; SITE, ABG Right Radial; VENT MODE, BG AC 24 600 +5; VT, ABG 600 mL
[2016-08-18 12:39] LABS: BAND % (MANUAL) 1 % (0.0-5.0); LYMPHOCYTES % (MANUAL) 10 % (16-48); MONOCYTES % (MANUAL) 3 % (0-11.0); MYELOCYTES % 1 % (0-0); NEUTROPHILS % (MANUAL) 85 (42-76)
[2016-08-18] MEDS: PROSOURCE / PROSTAT (PYXIS) 30 ML UDC GT SCH ×3 (12:52→16:21)
[2016-08-18] MEDS ORDERED: POTASSIUM CL. PREMIX PERIPHER. 50 ML ONE ×2 (13:00→14:14)
[2016-08-18] MEDS: POTASSIUM CL. PREMIX PERIPHER. 50 ML IV SCH ×2 (13:04→14:22)
[2016-08-18] MEDS ORDERED: GLYTROL 1,000 ML BAG NG PRN (15:00)
--- NOTE | 2016-08-18 17:18 | NUR ---
PT RECEIVED TRACHED ON MECHANICAL VENT W/ SETTINGS PER MD ORDER. TRACH PATENT, SECURE. VENT IN RED OUTLET, AMBUBAG AT BEDSIDE, VENT ALARMS CHECKED AND AUDIBLE. PT SX'ED AND LAVAGED PRN. NO RESP DISTRESS NOTED. PLAN IS CONTINUE CARE W/ CURRENT MD ORDERS AND MONITOR FOR CHANGES. Addendum: 08/18/16 at 1719 by AGUEDA BRAXTON RT Amended: Links added.
--- NOTE | 2016-08-18 19:35 | NUR ---
PT RCVD ON MECH VENT WITH NOTED SETTINGS. SXN MODERATE AMOUNT OF YELLOWISH THICK SECRETIONS. BILATERAL BS NOTED. VENT ALARM WORKING AND AUDIBLE. VENT PLUGGED INTO RED OUTLET,AMBU BAG AT [facility]. NO SOB OR RESPIRATORY DISTRESS NOTED, WILL CONTINUE TO MONITOR THE PATIENT.
--- NOTE | 2016-08-18 20:00 | NUR ---
RN INITIAL NOTE; PT ON THE BED WITHOUT ANY DISTRESS , PT IS OBTUNDED . [facility] , SETTINGS ORDERED , SHOWING SR WITH HR 84 ON TELE MONITOR . PEDRO PICC LINE INTACT AND PATENT WITH CONTINUE D5NS @ 50 ML/HR. WITH G TUBE CLAMPED , STILL RESIDUAL PRESENT. F/C INTACT AND DRAINING CLOUDY URINE . BED IN THE LOWEST/LOCKED POSITION , SAFETY MEASURES APPLIED. WILL TURN AND REPOSITION . WILL CONTINUE TO MONITOR.
[2016-08-19] VITALS: BP 149/69
[2016-08-19] MEDS: BLOOD SUGAR DIAGNOSTIC 1 EACH STRIP IN SCH ×4 (00:49→18:17)
[2016-08-19] MEDS: IV D5/ 0.9% NACL 1,000 ML IV PRN (00:49)
[2016-08-19] MEDS: INSULIN REGULAR, HUMAN 100 UNIT/ML 3 ML VIAL SQ PRN ×4 (00:49→18:16)
[2016-08-19] MEDS: AMIKACIN 500 MG in IV D5W 100 ML IV SCH ×2 (03:00→17:32)
[2016-08-19 04:00] VITALS: BP 140/64
[2016-08-19] MEDS: METRONIDAZOLE 500MG/ NS 100ML 500 MG in PREMIX 1 EA IV SCH ×3 (04:53→21:43)
--- NOTE | 2016-08-19 07:10 | NUR ---
AMIKACIN PEAK AND TROUGH LEVEL HIGH , HELD IT PER ORDER . LEEANN FROM PHARMACY INFORMED .
--- NOTE | 2016-08-19 07:37 | NUR ---
RN EOS NOTE; PT REMAINED STABLE DURING THE SHIFT. NO ANY DISTRESS NOTED. G TUBE RESIDUAL STILL NOTED. ASPIRATION PRECAUTION APPLIED. ENDORSED TO DAY SHIFT NURSE FOR CONTINUITY OF CARE.
[2016-08-19 07:40] LABS: CALCIUM, SERUM 9.1 mg/dL (8.5-10.1); CREATININE 0.8 mg/dL (0.6-1.3); POTASSIUM 3.1 mmol/L (3.5-5.1)
--- NOTE | 2016-08-19 07:55 | NUR ---
INITIAL NURSING NOTE: PT IN BED WITH NO DISTRESS, CALM AND COMFORTABLE. ON MECH VENT WITH SETTINGS SET ORDERED. PEDRO PICC LINE INTACT AND PATENT W/ CONTINUOUS D5NS @50 ML/HR. G-TUBE HAS RESIDUAL PRESENT. BED IN LOWEST POSITION AND PATIENT IS IN BED SAFELY. WILL CONTINUE TO TURN AND REPOSITION AND MONITOR FOR ANY CHANGES IN CONDITION.
[2016-08-19 08:00] VITALS: BP 144/52
[2016-08-19] MEDS: ASCORBIC ACID SYRUP 500 MG/5 ML UDC GT SCH (08:47)
[2016-08-19] MEDS: DOCUSATE SODIUM LIQ 100 MG/10 ML UDC GT SCH ×2 (08:47→16:30)
[2016-08-19] MEDS: VALPROIC ACID 250 MG/5 ML UDC GT SCH ×3 (08:47→21:43)
[2016-08-19] MEDS: PANTOPRAZOLE 40 MG VIAL IV SCH (08:47)
[2016-08-19] MEDS: HYDROGEL DRESSING 90 GM TUBE TP PRN (08:48)
[2016-08-19] MEDS: PROSOURCE / PROSTAT (PYXIS) 30 ML UDC GT SCH ×3 (08:49→16:30)
[2016-08-19] MEDS: DAKINS QUARTER STRENGTH (0.125%) 480 ML BOTTLE TOP SCH (08:49)
[2016-08-19] MEDS ORDERED: VANCOMYCIN 1 GM in IV D5W 250 ML IV SCH (09:00)
[2016-08-19 09:08] LABS: ABG BASE EXCESS -4.8 mmol/L; ABG OXYGEN SATURATION 96.6 % (92.0-98.5); ABG PCO2 32.6 mmHg (35.0-45.0); ABG PH 7.393 (7.350-7.450); AaDO2 188.8 mmHg; COHb 1.3 % (0.5-1.5); MetHb 0.5 % (0.0-1.5); O2Hb 94.9 % (94.0-97.0); PEEP,BG 5 cm H2O; SITE, ABG Right Radial; VT, ABG 600 mL
[2016-08-19] MEDS: POTASSIUM CHLORIDE 20 MEQ POWDER PACKET GT SCH ×2 (11:47→12:25)
[2016-08-19 12:00] VITALS: BP 160/61
[2016-08-19 13:32] LABS: BASOPHILS # (AUTO) 0.1 /CMM (0.0-0.2); BASOPHILS % (AUTO) 0.5 % (0.0-2.0); EOSINOPHILS # (AUTO) 0.2 /CMM (0.0-0.7); EOSINOPHILS % (AUTO) 0.9 % (0.0-6.0); HEMATOCRIT 22 % (33-45); HEMOGLOBIN 7.3 g/dL (11.5-14.8); LYMPHOCYTES # (AUTO) 3.3 /CMM (0.8-4.8); LYMPHOCYTES % (AUTO) 15.9 % (20.0-44.0); MEAN CORPUSCULAR HEMOGLOBIN 31 PG (26.0-33.0); MEAN CORPUSCULAR HGB CONC 33 g/dl (31.0-36.0); MEAN CORPUSCULAR VOLUME 93 fL (82-100); MONOCYTES # (AUTO) 0.7 /CMM (0.1-1.30); MONOCYTES % (AUTO) 3.4 % (2.0-12.0); NEUTROPHILS # (AUTO) 16.5 /CMM (1.8-8.9); NEUTROPHILS % (AUTO) 79.3 % (43.0-81.0); PLATELET COUNT (AUTO) 196 /CMM (150-450); RDW COEFFICIENT OF VARIATION 18.7 (11.5-15.0); WHITE BLOOD COUNT (AUTO) 20.8 K/uL (4.3-11.0)
[2016-08-19 14:13] LABS: BAND % (MANUAL) 2 % (0.0-5.0); EOSINOPHILS % (MANUAL) 1 % (0-4); LYMPHOCYTES % (MANUAL) 17 % (16-48); MONOCYTES % (MANUAL) 9 % (0-11.0); NEUTROPHILS % (MANUAL) 71 (42-76)
[2016-08-19] MEDS ORDERED: SECONDARY IV SET 1 EA INFUS.SET MC ONE (14:14)
[2016-08-19] MEDS: VANCOMYCIN 0.75 GM in IV D5W 250 ML IV SCH (14:20)
[2016-08-19] MEDS ORDERED: EPOETIN ALFA (10,000 UNIT) 10,000 UNIT/ML VIAL SQ SCH (15:00)
[2016-08-19] MEDS: IV D5W 1,000 ML IV PRN ×2 (15:04→15:11)
[2016-08-19 16:00] VITALS: BP 159/60
--- NOTE | 2016-08-19 17:56 | NUR ---
RN NOTES PLACED A FOLLOW UP CALL TO DR PAREDES FOR GI CONSULT REGARDING PT HAVING HIGH RESIDUAL, AWAITING FOR CALL BACK.
--- NOTE | 2016-08-19 18:04 | NUR ---
RN NOTES SPOKE WITH DR REGGIE MD ORDERED KUB, ORDER READ BACK NOTED AND CARRIED OUT
--- NOTE | 2016-08-19 18:28 | NUR ---
CLOSING RN NOTE PATIENT COMFORTABLE, CALM, AND INTERMITTENTLY SLEEPING. ALL CARE TOLERATED WELL W/O ANY SIGNS OF PAIN. ALL MEDICATIONS TOLERATED. GI CONSULT INITIATED D/T RESIDUALS FROM GT.
--- NOTE | 2016-08-19 19:20 | NUR ---
RN INITIAL NOTES RECEIVED PATIENT AWAKE, WITH EYES OPENED WITH NOTED TRACKING. PATIENT IS NONVERBAL. PATIENT WITH NO ACUTE SIGNS OF ANY DISTRESS/DISCOMFORT. PATIENT IS ST ON TELE WITH HR OF 102. REPOSITIONED FOR COMFORT. PATIENT WITH TRACH, ON MECH VENT. TOLERATING CURRENT SETTINGS WELL, AIRWAY SUCTIONED AND OBTAINED, THICK, YELLOWISH-WHITE SPUTUM. PEDRO PICC LINE, 3 PORT LUMEN, FLUSHED AND PATENT, IVF INFUSING WELL ORDERED. PATIENT ON NPO, GT CLAMPED, PATIENT STILL NOTED WITH INCREASED RESIDUAL, NOTED WITH 240CC OF MILK-CONSISTENCY RESIDUAL. F/C INTACT AND DRAINING WELL. PATIENT'S NEEDS ANTICIPATED AND MET. SAFETY AND COMFORT ENSURED. WILL MONITOR CLOSELY.
[2016-08-19 20:00] VITALS: BP 160/67
[2016-08-19] MEDS: ACETAMINOPHEN 650 MG/20.3 ML UDC GT PRN (21:43)
[2016-08-20] VITALS (8 sets, daily range): BP systolic 138–176; BP diastolic 52–78
[2016-08-20] MEDS: BLOOD SUGAR DIAGNOSTIC 1 EACH STRIP IN SCH ×4 (00:48→17:39)
[2016-08-20] MEDS: INSULIN REGULAR, HUMAN 100 UNIT/ML 3 ML VIAL SQ PRN ×3 (00:49→17:44)
--- NOTE | 2016-08-20 01:00 | NUR ---
RN NOTES PATIENT WAS GIVEN TYLENOL PRIOR FOR NOTED LOW GRADE FEVER OF 100.6 AND EPISODE OF TACHYCARDIA AT HR OF 110 AT 2100. PATIENT'S TEMP AT 0000, NOTED TO BE 101.7, AXILLARY. PATIENT PROVIDED WITH COOLING MEASURES AND BED BATH. PATIENT'S TEMP RECHECKED AT THIS TIME AND NOTED TO BE 100.5. COOLING MEASURES CONTINUOUS. WILL MONITOR.
[2016-08-20] MEDS: METRONIDAZOLE 500MG/ NS 100ML 500 MG in PREMIX 1 EA IV SCH ×3 (05:37→21:20)
[2016-08-20] MEDS: IV D5W 1,000 ML IV PRN (05:37)
[2016-08-20 06:50] LABS: CALCIUM, SERUM 8.8 mg/dL (8.5-10.1); CREATININE 0.8 mg/dL (0.6-1.3); POTASSIUM 3.3 mmol/L (3.5-5.1)
--- NOTE | 2016-08-20 06:50 | NUR ---
RN CLOSING NOTES PATIENT TOLERATING MECH VENT SETTINGS WELL, AIRWAY SUCTIONED NEEDED. REMAINS SR-ST WITH HR OF 90-110s. PATIENT STILL WITH LOW GRADE FEVER, 99.9, CONT ON COOLING MEASURES. GT CLAMPED, STILL WITH HIGH RESIDUALS OF 180CC AT THIS TIME. F/C REMAINS INTACT. ALL DUE MEDS GIVEN ORDERED. AM LABS DRAWN. PATIENT'S NEEDS ANTICIPATED AND MET. WOUND TREATMENT RENDERED ORDERED. TRACH CARE DONE. SAFETY AND COMFORT ENSURED. BED IN LOW AND LOCKED POSITION. WILL ENDORSE ACCORDINGLY FOR CONTINUITY OF CARE.
--- NOTE | 2016-08-20 08:05 | NUR ---
RN INITIAL NOTE RECEIVED PT ASLEEP, COMFORTABLE, SILENT. PT IS NONVERBAL. NO SIGNS OF PAIN/DISCOMFORT NOTED UPON ASSESSMENT. PT IS ST ON TELE. PATIENT HAS A TRACH/MECH VENT SET-UP. TOLERATING THE VENT/TRACH WELL AND WILL CONTINUE TO MONITOR FOR ANY SPUTUM/DRAINAGE FOR SUCTIONING. PEDRO PICC LINE/3-PORT LUMEN IS CURRENTLY STILL PATENT. PATIENT IS NPO, GT CLAMPED, BUT STILL WITH INCREASED RESIDUAL WITH APPROX 200CC OF FLUIDS BROWN IN COLOR. PA WENT INTO THE ROOM TO ASSESS THE PT WELL, ASKING FOR ANY NEW INFORMATION IN WHICH WE ASKED TO POSSIBLY START REGLAN IV FOR THIS PATIENT.
[2016-08-20] MEDS: ASCORBIC ACID SYRUP 500 MG/5 ML UDC GT SCH (08:42)
[2016-08-20] MEDS: VALPROIC ACID 250 MG/5 ML UDC GT SCH ×3 (08:43→21:21)
[2016-08-20] MEDS: PANTOPRAZOLE 40 MG VIAL IV SCH (08:43)
[2016-08-20] MEDS: DOCUSATE SODIUM LIQ 100 MG/10 ML UDC GT SCH ×2 (08:43→16:35)
[2016-08-20] MEDS: PROSOURCE / PROSTAT (PYXIS) 30 ML UDC GT SCH ×3 (08:48→16:36)
[2016-08-20] MEDS: DAKINS QUARTER STRENGTH (0.125%) 480 ML BOTTLE TOP SCH (08:49)
[2016-08-20] MEDS ORDERED: POTASSIUM CHLORIDE 20 MEQ POWDER PACKET GT ONE (11:30)
[2016-08-20] MEDS: VANCOMYCIN 0.75 GM in IV D5W 250 ML IV SCH (11:44)
[2016-08-20 12:39] LABS: ABG OXYGEN SATURATION 91.7 % (92.0-98.5); ABG PCO2 28.9 mmHg (35.0-45.0); ABG PH 7.408 (7.350-7.450); ABG PO2 63.2 mmHg (75.0-100.0); AaDO2 224.8 mmHg; COHb 2.3 % (0.5-1.5); MetHb 1.1 % (0.0-1.5); O2Hb 88.6 % (94.0-97.0); PEEP,BG 5 cm H2O; SITE, ABG Right Brachial; VT, ABG 600 mL
[2016-08-20] MEDS: FUROSEMIDE 20 MG/2 ML VIAL IV SCH (15:40)
--- NOTE | 2016-08-20 16:10 | NUR ---
RN NOTES PT HAD EPISODE OF LOW GRADE FEVER 100.3 AND DIARRHEA, NERA AWARE. PT WAS SEEN AT BEDSIDE. PER ANDREW COLLECT STOOL FOR C .DIFF
--- NOTE | 2016-08-20 16:31 | NUR ---
RN NOTES SPECIMEN FOR STOOL C DIFF COLLECTED, SENT TO LAB FOR TESTING
[2016-08-20] MEDS: AMIKACIN 500 MG in IV D5W 100 ML IV SCH (16:36)
[2016-08-20] MEDS: GLYTROL 1,000 ML BAG GT PRN (17:46)
--- NOTE | 2016-08-20 18:59 | NUR ---
RN CLOSING NOTES PT TOLERATED MECH VENT SETTINGS, AIRWAY SUCTIONED NEEDED. ST WITH HR SUSTAINING IN THE 100-110. COOLING MEASURES PLACED FOR PT WELL COMFORT MEASURES. GT CLAMPED WITH RESIDUALS OF 150-200CC. F/C INTACT AND DRAINED DURING SHIFT. ALL MEDICATIONS AND TREATMENT TOLERATED WELL. BED IN LOW POSITION WITH WHEELS LOCKED FOR SAFETY. WOUND CARE DONE ORDERED. ANY CARE THAT NEEDED TO BE ENDORSED WILL BE DONE.
--- NOTE | 2016-08-20 20:00 | NUR ---
TELE 1 RN NOTE PT IN BED OBTUNDED EYES OPEN. ON VENT/TRACH TOLERATING THE SETTINGS. NO DISTRESS OR DISCOMFORT NOTED. NO S/S OF PAIN NOTED. GT INTACT AND PATENT INFUSING GLYTROL AT 20 ML/HR, 0 RESIDUAL AT THIS TIME. IVF D5W INFUSING AT 70 ML/HR, NO S/S OF INFILTRATION NOTED. PT IS RUNNING LOW GRADE FEVER 100.4, TYLENOL 650 MG VIA GT GIVEN. ALSO APPLIED BODY COOLING MEASURES.F/C INTACT AND PATENT DRAINING YELLOWISH COLOR URINE. REPOSITION HER FOR SKIN MANAGEMENT. SIDE RAILS UP X 3 AND CALL LIGHT WITHIN REACH. CONTINUE TO MONITOR HER. Addendum: 08/20/16 at 2056 by DOV RIOS RN ON TELE SINUS TACH WITH PVC HR 106 Addendum: 08/20/16 at 2213 by DOV RIOS RN PT WAS WITH RESIDUAL 50 ML GREENISH COLOR FLUID NOT 0 ML WRITTEN IN ERROR.
[2016-08-20] MEDS: ACETAMINOPHEN 650 MG/20.3 ML UDC GT PRN (20:09)
--- NOTE | 2016-08-20 21:00 | NUR ---
TELE 1 RN NOTE TEMP CAME DOWN TO 98..8
[2016-08-20] MEDS: METOCLOPRAMIDE HCL 10 MG/2 ML VIAL IV SCH (21:21)
[2016-08-20] MEDS: CARVEDILOL 6.25 MG TABLET PO SCH (21:21)
[2016-08-21] VITALS (10 sets, daily range): BP systolic 103–139; BP diastolic 44–68
--- NOTE | 2016-08-21 | NUR ---
TELE 1 RN NOTE PT IS RUNNING LOW GRADE FEVER, BODY COOLING MEASURES APPLIED. REPOSITION HER Q2H. KEPT HER DRY AND CLEAN.
[2016-08-21] MEDS: BLOOD SUGAR DIAGNOSTIC 1 EACH STRIP IN SCH ×4 (00:30→17:45)
[2016-08-21] MEDS: INSULIN REGULAR, HUMAN 100 UNIT/ML 3 ML VIAL SQ PRN ×4 (00:31→17:44)
--- NOTE | 2016-08-21 04:00 | NUR ---
TELE 1 RN NOTE BED BATH GIVEN. WOUND DRESSING DONE ORDERED. ALSO PT WITH GTF RESIDUAL 60 ML. KEPT HOB ELEVATED.GTF INFUSING AT 20 ML/HR.
[2016-08-21] MEDS: METRONIDAZOLE 500MG/ NS 100ML 500 MG in PREMIX 1 EA IV SCH ×3 (05:39→21:20)
[2016-08-21] MEDS: METOCLOPRAMIDE HCL 10 MG/2 ML VIAL IV SCH ×3 (05:39→21:21)
[2016-08-21] MEDS: IV D5W 1,000 ML IV PRN (05:48)
--- NOTE | 2016-08-21 06:15 | NUR ---
RUBBER FACTORY WORKER 1 NOTE PT IN BED OBTUNDED. ON VENT/TRACH, TOLERATING SETTINGS WELL, NO DISTRESS OR DISCOMFORT NOTED. NO S/S OF PAIN NOTED. GTF INFUSING WELL AT 20 ML/HR, RESIDUAL IS REMAIN HIGH 70 ML. HOB ELEVATED. IVF D5W INFUSING AT 75 ML/HR, NO S/S OF INFILTRATION NOTED. PICC LINE INTACT AND PATENT PEDRO. REPOSITION HER Q2H, KEPT HER DRY AND CLEAN. WILL ENDORSE TO DAY SHIFT NURSE FOR CONTINUE TO CARE.
[2016-08-21 06:16] LABS: BASOPHILS # (AUTO) 0.1 /CMM (0.0-0.2); BASOPHILS % (AUTO) 0.3 % (0.0-2.0); LYMPHOCYTES # (AUTO) 3.4 /CMM (0.8-4.8); LYMPHOCYTES % (AUTO) 12.6 % (20.0-44.0); MEAN CORPUSCULAR HEMOGLOBIN 32 PG (26.0-33.0); MEAN CORPUSCULAR HGB CONC 34 g/dl (31.0-36.0); MEAN CORPUSCULAR VOLUME 93 fL (82-100); MONOCYTES # (AUTO) 0.8 /CMM (0.1-1.30); MONOCYTES % (AUTO) 2.8 % (2.0-12.0); NEUTROPHILS # (AUTO) 22.8 /CMM (1.8-8.9); NEUTROPHILS % (AUTO) 84.3 % (43.0-81.0); PLATELET COUNT (AUTO) 222 /CMM (150-450); RDW COEFFICIENT OF VARIATION 19.9 (11.5-15.0)
[2016-08-21 06:24] LABS: RED BLOOD CELL COUNT(AUTO) 1.94 MIL/uL (4.0-5.2)
[2016-08-21 06:29] LABS: HEMATOCRIT 18 % (33-45); HEMOGLOBIN 6.1 g/dL (11.5-14.8)
--- NOTE | 2016-08-21 06:35 | NUR ---
TELE 1 RN NOTE LAB ARIE CHARLES CALLED AND REPORTED H/H RESULT 6.03/13, INFORMED ALSO CHARGE NURSE THE RESULT. DR WALTON CALLED AND RECEIDED NEW ORDER TO INFUSE 1 UNITS OF PRBC. ORDER NOTED AND CARRIED OUT.
[2016-08-21 06:46] LABS: BILIRUBIN,TOTAL 0.5 mg/dL (0.2-1.0); CALCIUM, SERUM 8.4 mg/dL (8.5-10.1); CREATININE 0.8 mg/dL (0.6-1.3); MAGNESIUM 1.6 mg/dL (1.8-2.4); PHOSPHORUS 3.2 mg/dL (2.5-4.9); POTASSIUM 2.9 mmol/L (3.5-5.1); TOTAL PROTEIN, SERUM 8.3 g/dL (6.4-8.2)
[2016-08-21 06:52] LABS: ALBUMIN 1.1 g/dL (3.4-5.0)
--- NOTE | 2016-08-21 06:55 | NUR ---
TELE 1 RN NOTE GT RESIDUAL CHECKED 10 ML ONLY. KEPT HOB ELEVATED.
[2016-08-21 07:17] LABS: BAND % (MANUAL) 1 % (0.0-5.0); LYMPHOCYTES % (MANUAL) 12 % (16-48); MONOCYTES % (MANUAL) 4 % (0-11.0); NEUTROPHILS % (MANUAL) 83 (42-76)
--- NOTE | 2016-08-21 07:20 | NUR ---
PT RECEIVED TRACHED ON MECHANICAL VENT W/ SETTINGS PER MD. VENT IN RED OUTLET, AMBUBAG AT BEDSIDE, VENT ALARMS CHECKED AND AUDIBLE. TRACH TUBE SECURE, PATENT. PT SX'ED AND LAVAGED PRN. NO RESP DISTRESS NOTED. PLAN IS TO CONTINUE CARE W/ CURRENT MD ORDERS AND MONITOR FOR CHANGES. Addendum: 08/21/16 at 0803 by AGUEDA BRAXTON RT Amended: Links added.
[2016-08-21] MEDS: FUROSEMIDE 20 MG/2 ML VIAL IV SCH (09:55)
[2016-08-21] MEDS: PANTOPRAZOLE 40 MG VIAL IV SCH (09:55)
[2016-08-21] MEDS: VALPROIC ACID 250 MG/5 ML UDC GT SCH ×3 (09:56→21:21)
[2016-08-21] MEDS: DOCUSATE SODIUM LIQ 100 MG/10 ML UDC GT SCH ×2 (09:56→17:00)
[2016-08-21] MEDS: ASCORBIC ACID SYRUP 500 MG/5 ML UDC GT SCH (09:56)
[2016-08-21] MEDS: CARVEDILOL 6.25 MG TABLET PO SCH ×2 (09:56→21:21)
[2016-08-21] MEDS: PROSOURCE / PROSTAT (PYXIS) 30 ML UDC GT SCH ×3 (09:57→17:43)
[2016-08-21] MEDS: DAKINS QUARTER STRENGTH (0.125%) 480 ML BOTTLE TOP SCH (09:57)
[2016-08-21] MEDS ORDERED: POTASSIUM CHLORIDE 20 MEQ POWDER PACKET GT ONE (10:00)
[2016-08-21] MEDS ORDERED: BLOOD IV SET 1 EA INFUS.SET MC ONE (10:01)
[2016-08-21] MEDS ORDERED: IV NS 0.9% 250 ML IV ONE (10:02)
[2016-08-21] MEDS: Magnesium 1GM/D5W 100ML PREMIX 100 ML IV SCH ×4 (12:15→15:34)
[2016-08-21] MEDS: POTASSIUM CL. PREMIX PERIPHER. 50 ML IV SCH ×4 (12:16→15:34)
[2016-08-21] MEDS: VANCOMYCIN 0.75 GM in IV D5W 250 ML IV SCH (13:53)
[2016-08-21] MEDS: ACETAMINOPHEN 650 MG/20.3 ML UDC GT PRN (13:53)
[2016-08-21] MEDS ORDERED: IV SET PRIMARY PUMP SET 1 EA INFUS.SET MC ONE ×2 (14:08→14:13)
[2016-08-21] MEDS: AMIKACIN 500 MG in IV D5W 100 ML IV SCH (17:42)
--- NOTE | 2016-08-21 19:30 | NUR ---
PATIENT CARE COORDINATOR INITIAL NOTE RECEIVED REPORT FROM MARIBEL DANIELLE. PT IN BED. OBTUNDED. CHRONIC VENT TRACH, TOLERATING CURRENT VENT SETTINGS. LUNG SOUNDS RHONCHI. BOWEL SOUNDS PRESENT WITH GT PATENT AND INTACT TOLERATING CURRENT VENT SETTINGS. PULSES PRESENT. IV PATENT AND INTACT. REPOSITIONED FOR COMFORT. CHAUDHARY INTACT AND DRAINING YELLOW URINE. BED IN LOW LOCKED POSITION. WILL CONTINUE TO MONITOR.
[2016-08-22] VITALS: BP 134/55
[2016-08-22] MEDS: BLOOD SUGAR DIAGNOSTIC 1 EACH STRIP IN SCH ×5 (00:21→23:44)
[2016-08-22] MEDS: INSULIN REGULAR, HUMAN 100 UNIT/ML 3 ML VIAL SQ PRN ×4 (00:22→23:43)
[2016-08-22 04:00] VITALS: BP 116/52
[2016-08-22] MEDS ORDERED: SECONDARY IV SET 1 EA INFUS.SET MC ONE (04:52)
[2016-08-22] MEDS: GLYTROL 1,000 ML BAG GT PRN (04:58)
[2016-08-22] MEDS: IV D5W 1,000 ML IV PRN ×2 (04:58→20:15)
[2016-08-22] MEDS: METRONIDAZOLE 500MG/ NS 100ML 500 MG in PREMIX 1 EA IV SCH ×3 (04:58→20:16)
[2016-08-22] MEDS: METOCLOPRAMIDE HCL 10 MG/2 ML VIAL IV SCH ×3 (05:09→21:13)
[2016-08-22 06:32] LABS: BASOPHILS % (AUTO) 0.1 % (0.0-2.0); LYMPHOCYTES # (AUTO) 2.8 /CMM (0.8-4.8); LYMPHOCYTES % (AUTO) 9.7 % (20.0-44.0); MEAN CORPUSCULAR HEMOGLOBIN 31 PG (26.0-33.0); MEAN CORPUSCULAR HGB CONC 34 g/dl (31.0-36.0); MEAN CORPUSCULAR VOLUME 92 fL (82-100); MONOCYTES # (AUTO) 0.6 /CMM (0.1-1.30); NEUTROPHILS # (AUTO) 25.2 /CMM (1.8-8.9); NEUTROPHILS % (AUTO) 88.2 % (43.0-81.0); PLATELET COUNT (AUTO) 224 /CMM (150-450); RDW COEFFICIENT OF VARIATION 19.5 (11.5-15.0); RED BLOOD CELL COUNT(AUTO) 2.22 MIL/uL (4.0-5.2); WHITE BLOOD COUNT (AUTO) 28.6 K/uL (4.3-11.0)
[2016-08-22 06:51] LABS: CALCIUM, SERUM 8.5 mg/dL (8.5-10.1); CREATININE 0.9 mg/dL (0.6-1.3)
--- NOTE | 2016-08-22 07:30 | NUR ---
QUALITY ASSURANCE MONITOR FINAL INITIAL NOTE RECEIVED PT IN BED. OBTUNDED. CHRONIC VENT TRACH, TOLERATING CURRENT VENT SETTINGS. LUNG SOUNDS RHONCHI.G.T SITE CDI AND PATENT. IV PATENT AND INTACT. REPOSITIONED FOR COMFORT. CHAUDHARY INTACT AND DRAINING YELLOW URINE. BED IN LOW LOCKED POSITION. WILL CONTINUE TO MONITOR.
[2016-08-22 07:36] LABS: HEMOGLOBIN 6.9 g/dL (11.5-14.8)
[2016-08-22 07:37] LABS: HEMATOCRIT 20 % (33-45)
[2016-08-22 08:00] VITALS: BP 107/52
[2016-08-22 08:39] LABS: BAND % (MANUAL) 3 % (0.0-5.0); LYMPHOCYTES % (MANUAL) 16 % (16-48); MONOCYTES % (MANUAL) 3 % (0-11.0); NEUTROPHILS % (MANUAL) 78 (42-76)
[2016-08-22] MEDS: FUROSEMIDE 20 MG/2 ML VIAL IV SCH (09:04)
[2016-08-22] MEDS: ASCORBIC ACID SYRUP 500 MG/5 ML UDC GT SCH (09:04)
[2016-08-22] MEDS: VALPROIC ACID 250 MG/5 ML UDC GT SCH ×3 (09:04→21:14)
[2016-08-22] MEDS: DOCUSATE SODIUM LIQ 100 MG/10 ML UDC GT SCH ×2 (09:04→16:49)
[2016-08-22] MEDS: CARVEDILOL 6.25 MG TABLET PO SCH ×2 (09:05→21:13)
[2016-08-22] MEDS: PANTOPRAZOLE 40 MG VIAL IV SCH (09:07)
[2016-08-22] MEDS: DAKINS QUARTER STRENGTH (0.125%) 480 ML BOTTLE TOP SCH (09:18)
[2016-08-22] MEDS: PROSOURCE / PROSTAT (PYXIS) 30 ML UDC GT SCH ×3 (09:18→16:55)
[2016-08-22] MEDS ORDERED: POTASSIUM CHLORIDE 20 MEQ POWDER PACKET GT SCH (11:30)
[2016-08-22 12:00] VITALS: BP 109/49
[2016-08-22] MEDS: VANCOMYCIN 0.75 GM in IV D5W 250 ML IV SCH (12:21)
--- NOTE | 2016-08-22 13:05 | NUR ---
DR ESCAMILLA NOTIFIED ABOUT G.T FEEDING RESIDUALS OF 150 ML AFTER FEEDING WAS HELD IN PILE DRIVING SETTER.NO NEW ORDERS.WILL CONTINUE TO HOLD.
[2016-08-22 16:00] VITALS: BP 134/58
[2016-08-22] MEDS: AMIKACIN 500 MG in IV D5W 100 ML IV SCH (17:00)
--- NOTE | 2016-08-22 19:30 | NUR ---
Received patient obtunded.Chronic Vent trach dependent respiratory failure.Continued on same vent settings and well tolerated.SPO2 96%.Lung sounds with rhonchi all throughout.Suction small amount white thick secretions.GT feeding remains on hold due to high residual 150 ml.BS active.IVF infusing to PEDRO PICC Line.Site intact.Tele SR. Feverish 100.6.Cooling measures done.Turned and repositioned offloading pressure points.No acute distress noted.Continue monitoring.
[2016-08-22 20:00] VITALS: BP 122/42
--- NOTE | 2016-08-22 20:01 | NUR ---
PT RECEIVED TRACHED ON MECHANICAL VENT W/ SETTINGS PER MD. VENT IN RED OUTLET, AMBUBAG AT BEDSIDE, VENT ALARMS CHECKED AND AUDIBLE. TRACH TUBE SECURE, PATENT. PT SX'ED AND LAVAGED PRN. NO RESP DISTRESS NOTED. PLAN IS TO CONTINUE CARE W/ CURRENT MD ORDERS AND MONITOR FOR CHANGES. Addendum: 08/22/16 at 2001 by MELVIN HYATT RT Amended: Links added.
--- NOTE | 2016-08-22 21:10 | NUR ---
AMIKACIN DOSE NOT ADMINISTERED DUE AMIKACIN TROUGH LEVEL ELEVATED 8.0
[2016-08-23] VITALS (25 sets, daily range): BP systolic 95–154; BP diastolic 36–87
[2016-08-23] MEDS: METRONIDAZOLE 500MG/ NS 100ML 500 MG in PREMIX 1 EA IV SCH ×3 (04:37→23:10)
[2016-08-23] MEDS: METOCLOPRAMIDE HCL 10 MG/2 ML VIAL IV SCH ×3 (04:37→23:10)
[2016-08-23] MEDS: BLOOD SUGAR DIAGNOSTIC 1 EACH STRIP IN SCH ×4 (05:39→23:11)
[2016-08-23] MEDS: INSULIN REGULAR, HUMAN 100 UNIT/ML 3 ML VIAL SQ PRN ×3 (05:41→23:23)
[2016-08-23 06:04] LABS: CALCIUM, SERUM 8.4 mg/dL (8.5-10.1); POTASSIUM 3.3 mmol/L (3.5-5.1)
[2016-08-23 06:23] LABS: BASOPHILS % (AUTO) 0.2 % (0.0-2.0); EOSINOPHILS # (AUTO) 0.1 /CMM (0.0-0.7); EOSINOPHILS % (AUTO) 0.4 % (0.0-6.0); LYMPHOCYTES # (AUTO) 2.6 /CMM (0.8-4.8); LYMPHOCYTES % (AUTO) 12.4 % (20.0-44.0); MEAN CORPUSCULAR HEMOGLOBIN 33 PG (26.0-33.0); MEAN CORPUSCULAR HGB CONC 34 g/dl (31.0-36.0); MEAN CORPUSCULAR VOLUME 96 fL (82-100); MONOCYTES # (AUTO) 0.4 /CMM (0.1-1.30); MONOCYTES % (AUTO) 2.1 % (2.0-12.0); NEUTROPHILS % (AUTO) 84.9 % (43.0-81.0); PLATELET COUNT (AUTO) 186 /CMM (150-450); RDW COEFFICIENT OF VARIATION 19.3 (11.5-15.0); WHITE BLOOD COUNT (AUTO) 21.2 K/uL (4.3-11.0)
--- NOTE | 2016-08-23 06:37 | NUR ---
Patient resting no significant changes noted during the shift.VS stable.SR.No s/s of pain noted. AM care done.All due medications administered.BS coverage given per sliding scale.Turned and repositioned.Urine for C/S collected and sent to lab.wound care done.
[2016-08-23 06:51] LABS: HEMOGLOBIN 6.2 g/dL (11.5-14.8)
[2016-08-23 06:52] LABS: HEMATOCRIT 18 % (33-45)
--- NOTE | 2016-08-23 07:03 | NUR ---
LAB called regarding patient AM lab result H/H 6.04/13.Will endorse to AM shift RN for continuity of care.
--- NOTE | 2016-08-23 07:18 | NUR ---
RN INITIAL NOTES: REC'D PT ON BED, OBTUNDED, OPENS EYES SPONTANEOUSLY. ON MECH VENT VIA TRACH, SATURATING AT 98% ON PRESCRIBED SETTINGS. ON TELEMONITOR, SR. VASQUEZ PICC LINE PL, PATENT & INTACT W/ D5W AT 75 CC/HR INFUSING WELL. GT PATENT & INTACT, NOTED 20 CC RESIDUALS. H/H 6.2/18, NOTED YESTERDAY'S ORDER OF BT 1 UNIT PRBC, WILL TRANSFUSE ORDERED. PROVIDED COMFORT & SAFETY MEASURES. CALL LIGHT PLACED W/IN REACH. BED KEPT LOW & IN LOCKED POS. WILL CONTINUE TO MONITOR.
[2016-08-23] MEDS ORDERED: BLOOD IV SET 1 EA INFUS.SET MC ONE ×4 (07:52→19:56)
[2016-08-23] MEDS ORDERED: IV NS 0.9% 250 ML IV ONE ×3 (07:52→19:55)
--- NOTE | 2016-08-23 08:00 | NUR ---
RN NOTES: BT OF 1 UNIT PRBC STARTED, MONITORED FOR ANY BLOOD TRANSFUSION REACTION.
[2016-08-23] MEDS: FUROSEMIDE 20 MG/2 ML VIAL IV SCH (08:53)
[2016-08-23] MEDS: PANTOPRAZOLE 40 MG VIAL IV SCH (08:53)
[2016-08-23] MEDS: VALPROIC ACID 250 MG/5 ML UDC GT SCH ×3 (08:53→23:11)
[2016-08-23] MEDS: PROSOURCE / PROSTAT (PYXIS) 30 ML UDC GT SCH ×3 (08:54→16:48)
[2016-08-23] MEDS: DOCUSATE SODIUM LIQ 100 MG/10 ML UDC GT SCH ×2 (08:54→16:47)
[2016-08-23] MEDS: ASCORBIC ACID SYRUP 500 MG/5 ML UDC GT SCH (08:54)
[2016-08-23] MEDS: CARVEDILOL 6.25 MG TABLET PO SCH ×2 (08:55→23:12)
[2016-08-23] MEDS: DAKINS QUARTER STRENGTH (0.125%) 480 ML BOTTLE TOP SCH (08:57)
--- NOTE | 2016-08-23 10:00 | NUR ---
RN NOTES: PT SEEN & EXAMINED BY DR. ROSE.
[2016-08-23 10:17] LABS: BAND % (MANUAL) 2 % (0.0-5.0); LYMPHOCYTES % (MANUAL) 17 % (16-48); MONOCYTES % (MANUAL) 3 % (0-11.0); NEUTROPHILS % (MANUAL) 78 (42-76)
--- NOTE | 2016-08-23 11:15 | NUR ---
RN NOTES: 1 UNIT OF PRBC TRANSFUSED, NO BT REACTION NOTED. VS WNL.
[2016-08-23] MEDS ORDERED: IV NS 0.9% 500 ML IV ONE (11:58)
--- NOTE | 2016-08-23 12:00 | NUR ---
RN NOTES: DR. ESCAMILLA MADE AWARE THAT THIS AM ONLY 20 CC OF RESIDUAL NOTED FROM G-TUBE. ORDERED TO RESTART TUBE FEEDING TO 20 CC/HR THEN DC CURRENT IV FLUID.
[2016-08-23] MEDS ORDERED: IV SET PRIMARY PUMP SET 1 EA INFUS.SET MC ONE ×2 (12:19→21:14)
[2016-08-23] MEDS ORDERED: SECONDARY IV SET 1 EA INFUS.SET MC ONE ×2 (12:19→16:36)
[2016-08-23] MEDS ORDERED: POTASSIUM CHLORIDE 20 MEQ POWDER PACKET GT SCH (12:30)
--- NOTE | 2016-08-23 13:00 | NUR ---
RN NOTES: DR. ESCAMILLA ORDERED 2 MORE UNITS OF PRBC, NOTED & CARRIED OUT.
--- NOTE | 2016-08-23 14:30 | NUR ---
RN NOTES: PRIOR TO RESTARTING TUBE FEEDING, NOTED [address] CANNON MADE AWARE W/ ORDERS TO HOLD THE FEEDING FOR NOW, NO NEED FOR IVF AT THIS TIME.
--- NOTE | 2016-08-23 15:00 | NUR ---
RN NOTES: DR. CANNON MADE AWARE OF FEVER 99.7 POST BT OF 1 UNIT PRBC. PER MD, CONTINUE GIVING 2 UNITS OF PRBC, GIVE TYLENOL FOR THE FEVER.
[2016-08-23] MEDS: ACETAMINOPHEN 650 MG/20.3 ML UDC GT PRN (15:09)
--- NOTE | 2016-08-23 15:16 | NUR ---
RN NOTES: 1/2 UNIT OF PRBC STARTED, PT ALREADY AFEBRILE (TYLENOL GIVEN), STILL MONITORED FOR BT REACTION/S.
[2016-08-23 16:10] LABS: ABG BASE EXCESS -4.7 mmol/L; ABG OXYGEN SATURATION 95.6 % (92.0-98.5); ABG PCO2 30.9 mmHg (35.0-45.0); ABG PH 7.413 (7.350-7.450); ABG PO2 80.5 mmHg (75.0-100.0); AaDO2 205.2 mmHg; COHb 2.1 % (0.5-1.5); O2Hb 92.6 % (94.0-97.0); PEEP,BG 5 cm H2O; SITE, ABG Left Brachial; VT, ABG 600 mL
[2016-08-23] MEDS: VANCOMYCIN 0.75 GM in IV D5W 250 ML IV SCH (16:31)
[2016-08-23] MEDS: AMIKACIN 500 MG in IV D5W 100 ML IV SCH (16:47)
--- NOTE | 2016-08-23 18:00 | NUR ---
RN NOTES: ANDREW ID MADE AWARE OF FEVER W/ NO ORDERS.
--- NOTE | 2016-08-23 18:20 | NUR ---
RN NOTES: 1/2 UNIT OF PRBC TRANSFUSED, TEMP AT 99.3.
--- NOTE | 2016-08-23 19:00 | NUR ---
RN CLOSING NOTES: PT TOLERATED MV SETTINGS, NO DESATURATION NOTED. SECRETIONS SUCTIONED. WOUND CARE DONE. TURNED/ REPOSITIONED. TRANSFUSED TOTAL OF 2 UNITS PRBC W/IN SHIFT. PT IS FEBRILE, POSS DELAYED REACTION FROM 1ST BT, MD IS AWARE W/ ORDERS TO STILL CONTINUE GIVING BLOOD. KEPT WELL RESTED. COOLING MEASURES PROVIDED. PEDRO PICC LINE KEPT PATENT & INTACT. GT STILL CLAMPED DUE TO HIGH RESIDUALS. CALL LIGHT PLACED W/IN REACH. BED KEPT LOW & IN LOCKED POS. ISOLATION PREC OBSERVED. ENDORSED TO PM RN FOR TRANSFUSION OF 1 MORE UNIT OF PRBC.
--- NOTE | 2016-08-23 19:46 | NUR ---
PT RECEIVED TRACHED ON MECHANICAL VENT W/ SETTINGS PER MD. VENT IN RED OUTLET, AMBUBAG AT BEDSIDE, VENT ALARMS CHECKED AND AUDIBLE. TRACH TUBE SECURE, PATENT. PT SX'ED AND LAVAGED PRN. NO RESP DISTRESS NOTED. PLAN IS TO CONTINUE CARE W/ CURRENT MD ORDERS AND MONITOR FOR CHANGES Addendum: 08/23/16 at 1946 by MELVIN HYATT RT Amended: Links added.
--- NOTE | 2016-08-23 23:43 | NUR ---
PT RCVD TRACHED ON THE VENT WITH NOTED SETTINGS, SUCTION MODERATE AMOUNT OF YELLOWISH WHITE THICK SECRETIONS, VENT ALARMS WORKING AND AUDIBLE, VENT PLUGGED IN TO RED OUTLET . BUSINESS MANAGER COLLEGE OR UNIVERSITY CUFF PRESSURE NOTED. BILATERAL BS NOTED ,NO SOB OR RESPIRATORY DISTRESS NOTED AT THIS TIME, WILL CONTINUE TO MONITOR THE PATIENT.
[2016-08-24] VITALS: BP 122/52
[2016-08-24 04:00] VITALS: BP 118/53
[2016-08-24] MEDS: METRONIDAZOLE 500MG/ NS 100ML 500 MG in PREMIX 1 EA IV SCH ×3 (05:12→21:15)
[2016-08-24] MEDS: METOCLOPRAMIDE HCL 10 MG/2 ML VIAL IV SCH ×3 (05:12→21:15)
[2016-08-24] MEDS: BLOOD SUGAR DIAGNOSTIC 1 EACH STRIP IN SCH ×3 (05:13→17:22)
[2016-08-24] MEDS: INSULIN REGULAR, HUMAN 100 UNIT/ML 3 ML VIAL SQ PRN ×3 (05:15→17:23)
[2016-08-24 06:50] LABS: BASOPHILS % (AUTO) 0.2 % (0.0-2.0); HEMATOCRIT 28 % (33-45); HEMOGLOBIN 9.4 g/dL (11.5-14.8); LYMPHOCYTES # (AUTO) 2.1 /CMM (0.8-4.8); LYMPHOCYTES % (AUTO) 11.3 % (20.0-44.0); MEAN CORPUSCULAR HEMOGLOBIN 32 PG (26.0-33.0); MEAN CORPUSCULAR HGB CONC 34 g/dl (31.0-36.0); MEAN CORPUSCULAR VOLUME 93 fL (82-100); MONOCYTES # (AUTO) 0.5 /CMM (0.1-1.30); MONOCYTES % (AUTO) 2.6 % (2.0-12.0); NEUTROPHILS # (AUTO) 16.2 /CMM (1.8-8.9); NEUTROPHILS % (AUTO) 85.9 % (43.0-81.0); PLATELET COUNT (AUTO) 172 /CMM (150-450); RDW COEFFICIENT OF VARIATION 17.8 (11.5-15.0); RED BLOOD CELL COUNT(AUTO) 2.97 MIL/uL (4.0-5.2); WHITE BLOOD COUNT (AUTO) 18.8 K/uL (4.3-11.0)
[2016-08-24 07:01] LABS: CALCIUM, SERUM 8.2 mg/dL (8.5-10.1); POTASSIUM 3.3 mmol/L (3.5-5.1)
[2016-08-24 08:00] VITALS: BP 101/44
[2016-08-24] MEDS: ASCORBIC ACID SYRUP 500 MG/5 ML UDC GT SCH (08:11)
[2016-08-24] MEDS: DOCUSATE SODIUM LIQ 100 MG/10 ML UDC GT SCH ×2 (08:11→16:08)
[2016-08-24] MEDS: FUROSEMIDE 20 MG/2 ML VIAL IV SCH (08:11)
[2016-08-24] MEDS: PANTOPRAZOLE 40 MG VIAL IV SCH (08:11)
[2016-08-24] MEDS: DAKINS QUARTER STRENGTH (0.125%) 480 ML BOTTLE TOP SCH (08:13)
[2016-08-24] MEDS: VALPROIC ACID 250 MG/5 ML UDC GT SCH ×3 (08:13→21:22)
[2016-08-24] MEDS: PROSOURCE / PROSTAT (PYXIS) 30 ML UDC GT SCH ×3 (08:14→16:08)
[2016-08-24] MEDS: CARVEDILOL 6.25 MG TABLET PO SCH ×2 (08:15→21:00)
[2016-08-24 08:41] LABS: BAND % (MANUAL) 3 % (0.0-5.0); EOSINOPHILS % (MANUAL) 1 % (0-4); LYMPHOCYTES % (MANUAL) 16 % (16-48); MONOCYTES % (MANUAL) 2 % (0-11.0); NEUTROPHILS % (MANUAL) 78 (42-76)
[2016-08-24 09:07] LABS: ABG BASE EXCESS -7.2 mmol/L; ABG OXYGEN SATURATION 93.7 % (92.0-98.5); ABG PCO2 38.7 mmHg (35.0-45.0); ABG PO2 74.2 mmHg (75.0-100.0); AaDO2 202.6 mmHg; COHb 1.9 % (0.5-1.5); MetHb 0.9 % (0.0-1.5); O2Hb 91.1 % (94.0-97.0); PEEP,BG 5 cm H2O; SITE, ABG Right Brachial; VT, ABG 600 mL
--- NOTE | 2016-08-24 10:59 | NUR ---
RN INITIAL NOTE RECEIVED PT IN BED, OBTUNDED, SLEEPING. ON MECH VENT VIA TRACH, SATURATING AT 99% ON SETTINGS ORDERED BY MD. ON TELE/SR. PEDRO PICC LINE PATENT AND INTACT. GT PATENT AND INTACT WITH LOTS OF AIR TAKEN OUT. HELD BP MEDICATION DUE TO LABILE PULSE FROM 48-75 BPM. CALL LIGHT PLACED W/IN REACH. BED KEPT LOW & IN LOCKED POS. WILL CONTINUE TO MONITOR.
[2016-08-24 12:00] VITALS: BP 95/35
[2016-08-24] MEDS ORDERED: POTASSIUM CHLORIDE 20 MEQ POWDER PACKET GT SCH (12:00)
[2016-08-24] MEDS: VANCOMYCIN 0.75 GM in IV D5W 250 ML IV SCH (12:24)
[2016-08-24 16:00] VITALS: BP 118/41
[2016-08-24] MEDS: ACETAMINOPHEN 650 MG/20.3 ML UDC GT PRN (17:46)
--- NOTE | 2016-08-24 18:12 | NUR ---
RN NOTE DAUGHTER AT BEDSIDE. ALL QUESTIONS ANSWERED REGARDING CARE. WILL MONITOR FOR NEED FOR EDUCATION REGARDING MOTHERS CARE.
[2016-08-24] MEDS: GLYTROL 1,000 ML BAG GT PRN (18:22)
[2016-08-24 20:00] VITALS: BP 89/53
[2016-08-24] MEDS ORDERED: FLUCONAZOLE IN NS,PREMIX 200 MG in PREMIX 1 EA IV SCH ×2 (21:30)
[2016-08-24] MEDS ORDERED: FLUCONAZOLE IN NS 100 ML IV ONE (21:41)
[2016-08-24] MEDS ORDERED: SECONDARY IV SET 1 EA INFUS.SET MC ONE (21:46)
[2016-08-25] VITALS (33 sets, daily range): BP systolic 72–128; BP diastolic 35–58
--- NOTE | 2016-08-25 | NUR ---
TELE/CDL B DRIVER GT RESIDUALS GREATER THAN 300. GTF HELD. GT CLAMPED. WILL CONTINUE TO MONITOR.
[2016-08-25] MEDS: ACETAMINOPHEN 650 MG/20.3 ML UDC GT PRN ×2 (00:02→13:29)
[2016-08-25] MEDS: BLOOD SUGAR DIAGNOSTIC 1 EACH STRIP IN SCH ×4 (00:02→17:34)
[2016-08-25] MEDS: INSULIN REGULAR, HUMAN 100 UNIT/ML 3 ML VIAL SQ PRN ×2 (00:05→17:34)
[2016-08-25] MEDS ORDERED: IV NS 0.9% 250 ML IV ONE ×2 (03:21→05:30)
--- NOTE | 2016-08-25 03:22 | NUR ---
TELE/HEAD SHIPPER NEW CHAUDHARY CATH PLACED VIA STERILE PROCEDURE PER ID REQUEST. PT TOLERATED WELL. WILL CONTINUE TO MONITOR.
[2016-08-25] MEDS: AMIKACIN 500 MG in IV D5W 100 ML IV SCH (04:02)
[2016-08-25] MEDS: METRONIDAZOLE 500MG/ NS 100ML 500 MG in PREMIX 1 EA IV SCH ×3 (05:41→21:56)
[2016-08-25] MEDS: METOCLOPRAMIDE HCL 10 MG/2 ML VIAL IV SCH ×3 (05:41→21:56)
[2016-08-25 07:00] LABS: CALCIUM, SERUM 8.1 mg/dL (8.5-10.1)
--- NOTE | 2016-08-25 07:30 | NUR ---
RN INITIAL NOTES PT IS IN BED, HOB ELEVATED, OBTUNDED, NON VERBAL, SINUS RHYTHM ON TELE MONITOR. ON MECH VENT, TOLERATING IT WELL. NO RESPIRATORY DISTRESS NOTED. PEDRO PICC LINE IS FLUSHED AND PATENT. GT CLAMPED, PT NOT TOLERATING CONTINUOUS FEEDING. WILL CALL MD FOR IVF FOR HYDRATION.WILL CONTINUE TO MONITOR RESIDUALS. SIDE RAILS UP, BED LOCKED AND IN LOWEST POSITION, STILL ON ISOLATION CONTACT, IN URINE.
[2016-08-25 07:58] LABS: POTASSIUM 2.8 mmol/L (3.5-5.1)
[2016-08-25] MEDS: FUROSEMIDE 20 MG/2 ML VIAL IV SCH (08:54)
[2016-08-25] MEDS: DOCUSATE SODIUM LIQ 100 MG/10 ML UDC GT SCH ×2 (08:54→17:24)
[2016-08-25] MEDS: ASCORBIC ACID SYRUP 500 MG/5 ML UDC GT SCH (08:55)
[2016-08-25] MEDS: PANTOPRAZOLE 40 MG VIAL IV SCH (08:55)
[2016-08-25] MEDS: VALPROIC ACID 250 MG/5 ML UDC GT SCH ×3 (08:55→21:58)
[2016-08-25] MEDS: CARVEDILOL 6.25 MG TABLET PO SCH ×2 (08:56→21:57)
[2016-08-25] MEDS: PROSOURCE / PROSTAT (PYXIS) 30 ML UDC GT SCH ×3 (08:56→17:24)
[2016-08-25] MEDS: DAKINS QUARTER STRENGTH (0.125%) 480 ML BOTTLE TOP SCH (08:57)
[2016-08-25 09:37] LABS: BASOPHILS % (AUTO) 0.2 % (0.0-2.0); EOSINOPHILS % (AUTO) 0.1 % (0.0-6.0); HEMATOCRIT 26 % (33-45); HEMOGLOBIN 8.6 g/dL (11.5-14.8); LYMPHOCYTES # (AUTO) 2.2 /CMM (0.8-4.8); LYMPHOCYTES % (AUTO) 17.5 % (20.0-44.0); MEAN CORPUSCULAR HEMOGLOBIN 31 PG (26.0-33.0); MEAN CORPUSCULAR HGB CONC 33 g/dl (31.0-36.0); MEAN CORPUSCULAR VOLUME 93 fL (82-100); MONOCYTES # (AUTO) 0.4 /CMM (0.1-1.30); MONOCYTES % (AUTO) 3.1 % (2.0-12.0); NEUTROPHILS # (AUTO) 10.1 /CMM (1.8-8.9); NEUTROPHILS % (AUTO) 79.1 % (43.0-81.0); PLATELET COUNT (AUTO) 169 /CMM (150-450); RDW COEFFICIENT OF VARIATION 18.2 (11.5-15.0); RED BLOOD CELL COUNT(AUTO) 2.79 MIL/uL (4.0-5.2); WHITE BLOOD COUNT (AUTO) 12.8 K/uL (4.3-11.0)
[2016-08-25] MEDS ORDERED: IV SET PRIMARY PUMP SET 1 EA INFUS.SET MC ONE ×3 (10:52→16:23)
[2016-08-25] MEDS ORDERED: IV D5/ 0.9% NACL 1,000 ML IV ONE (10:53)
[2016-08-25] MEDS: IV D5/ 0.9% NACL 1,000 ML IV SCH ×2 (11:01→22:37)
[2016-08-25] MEDS: VANCOMYCIN 0.75 GM in IV D5W 250 ML IV SCH (11:01)
[2016-08-25] MEDS: POTASSIUM CHLORIDE 20 MEQ POWDER PACKET GT SCH ×3 (12:09→15:22)
[2016-08-25 12:25] LABS: ABG BASE EXCESS -6.8 mmol/L; ABG OXYGEN SATURATION 88.9 % (92.0-98.5); ABG PCO2 27.9 mmHg (35.0-45.0); ABG PO2 54.5 mmHg (75.0-100.0); AaDO2 234.6 mmHg; COHb 1.1 % (0.5-1.5); MetHb 0.3 % (0.0-1.5); O2Hb 87.7 % (94.0-97.0); PEEP,BG 5 cm H2O; SITE, ABG Right Radial; VT, ABG 600 mL
--- NOTE | 2016-08-25 13:56 | NUR ---
CALLED DR SOUSA, REQUEST OF OK A TRANSFER TO ICU - PT' SATURATION OF 85% ON MECHANICAL VENT @75% FIO2, WITH LABORED BREATHING, FEVER OF 101.2, TYLENOL GIVEN, COOLING MEASURES PROVIDED, ALL MEDS ORDERED GIVEN, LABS ORDERED. SPOKE WITH ALFREDO FAMILY MEMBER, WAITING FOR TRANSFER
--- NOTE | 2016-08-25 14:30 | NUR ---
REPORT GIVEN TO ASTRID DANIELLE FOR CONTINUATION OF CARE.
--- NOTE | 2016-08-25 15:20 | NUR ---
CREDIT PROFESSIONAL NOTE RECEIVED PATENT ROM FÉLIX RN ,PATIENT AWAKE BUT ANABLE TO FOLLOW ANY COMMAND, BOTH EYES OPEN , ON TELE MONITOR SR 95 , WITH CHAUDHARY CATH TO GRAVITY WITH SMALL AMT OF YELLOW COLOR URINE NOTED IN TUBE , ON ISOFLEX BED FOR SKIN MANAGEMENT, G TUBER CLUMPED DUE TI HIGH RESIDUAL, RT UPPER ARM WITH PICC LINE IN PLACE ON IVF ORDERED AT 80 ML PER HOUR ,CHEST X RAY DONE ORDERED , KEEP HOB ELEVATED AT ALL TIME , BED IN LOWEST AND LOCKED POSITION , WILL CONT TO MONITOR CLOSELY
--- NOTE | 2016-08-25 15:33 | NUR ---
BASKETBALL SCOUT NOTE CALLED TO DR ROSE NOTIFIED THAT RR 40 OK TO START DIPRIVAN PER DR ROSE WILL F\U BP 114/51
[2016-08-25] MEDS: PROPOFOL 100 ML IV PRN ×2 (15:52→20:00)
--- NOTE | 2016-08-25 15:57 | NUR ---
LEASE PURCHASE DRIVER NOTE DIPRIVAN 20 MCG\ MIN STARTED ORDERED BP 114/51 SAT 92% HR 93 RR 34
--- NOTE | 2016-08-25 16:00 | NUR ---
AUTOMOTIVE REFINISHER NOTE UNABLE TO REPOSITION ,PATIENT HEMODYNAMICALLY NOT STABLE AT THIS TIME, KEEP CLEAN DRY ,WILL MONITOR CLOSELY
[2016-08-25] MEDS: NOREPINEPHRINE 8 MG in IV D5W 500 ML IV PRN (16:29)
--- NOTE | 2016-08-25 16:30 | NUR ---
TIP TESTER NOTE BP 88/36 RR32 ON LEVOPHED AT 10 MCG\HI DIPROVAN AT 20 MCG\KG\MIN
--- NOTE | 2016-08-25 16:36 | NUR ---
TRAINING PROFESSIONAL NOTE STARTED ON LEVOPHED AT 2MCG\MIN AND DIPRIVAN AT 30 MCG\ MIN
--- NOTE | 2016-08-25 17:44 | NUR ---
MANAGER COMMODITIES NOTE BP 117/51 CONT ON LEVOPHED ON 20MCG\MIN AND DIPRIVAN ON 30 MAC\MIN
--- NOTE | 2016-08-25 18:42 | NUR ---
SINGEING TORCH OPERATOR NOTE CONT ON DIPRIVAN 30 MCG\KG\MIN AND LEVOPHED AT 7 MAC\MIN ON IVF AT 80 M L PER HOUR, WILL CONT TO MONITOR
[2016-08-26] VITALS (80 sets, daily range): BP systolic 79–148; BP diastolic 39–77
[2016-08-26] MEDS: PROPOFOL 100 ML IV PRN ×2 (01:00→06:58)
[2016-08-26] MEDS: BLOOD SUGAR DIAGNOSTIC 1 EACH STRIP IN SCH ×5 (01:48→23:48)
[2016-08-26] MEDS: INSULIN REGULAR, HUMAN 100 UNIT/ML 3 ML VIAL SQ PRN ×4 (01:48→23:49)
--- NOTE | 2016-08-26 03:00 | NUR ---
UPSETTER NOTES GT PULLED OUT DURING CLEANING. CHAUDHARY CATH INSERTED INTO GASTRIC STOMA TO KEEP PATENT.
[2016-08-26 05:04] LABS: BASOPHILS % (AUTO) 0.1 % (0.0-2.0); EOSINOPHILS % (AUTO) 0.2 % (0.0-6.0); HEMATOCRIT 26 % (33-45); HEMOGLOBIN 8.8 g/dL (11.5-14.8); LYMPHOCYTES # (AUTO) 2.7 /CMM (0.8-4.8); LYMPHOCYTES % (AUTO) 17.5 % (20.0-44.0); MEAN CORPUSCULAR HEMOGLOBIN 32 PG (26.0-33.0); MEAN CORPUSCULAR HGB CONC 34 g/dl (31.0-36.0); MEAN CORPUSCULAR VOLUME 93 fL (82-100); MONOCYTES # (AUTO) 0.1 /CMM (0.1-1.30); MONOCYTES % (AUTO) 0.5 % (2.0-12.0); NEUTROPHILS # (AUTO) 12.8 /CMM (1.8-8.9); NEUTROPHILS % (AUTO) 81.7 % (43.0-81.0); PLATELET COUNT (AUTO) 172 /CMM (150-450); RDW COEFFICIENT OF VARIATION 19.1 (11.5-15.0); RED BLOOD CELL COUNT(AUTO) 2.78 MIL/uL (4.0-5.2); WHITE BLOOD COUNT (AUTO) 15.7 K/uL (4.3-11.0)
[2016-08-26] MEDS: METOCLOPRAMIDE HCL 10 MG/2 ML VIAL IV SCH ×3 (05:15→20:31)
[2016-08-26] MEDS: METRONIDAZOLE 500MG/ NS 100ML 500 MG in PREMIX 1 EA IV SCH ×3 (05:15→20:31)
[2016-08-26 05:24] LABS: ALANINE AMINOTRANSFERASE < 6 U/L (12-78); ALKALINE PHOSPHATASE 131 U/L (46-116); ASPARTATE AMINOTRANSFERASE 13 U/L (15-37); BILIRUBIN,TOTAL 0.4 mg/dL (0.2-1.0); CALCIUM, SERUM 8.1 mg/dL (8.5-10.1); CARBON DIOXIDE 20 mmol/L (21-32); CHLORIDE 118 mmol/L (98-107); GLUCOSE 244 mg/dL (74-106); MAGNESIUM 1.8 mg/dL (1.8-2.4); PHOSPHORUS 3.6 mg/dL (2.5-4.9); SODIUM SERUM 150 mmol/L (136-145); UREA NITROGEN, BLOOD 29 mg/dL (7-18)
[2016-08-26 05:44] LABS: ALBUMIN 0.9 g/dL (3.4-5.0); POTASSIUM 2.4 mmol/L (3.5-5.1)
--- NOTE | 2016-08-26 06:00 | NUR ---
JOINERY SETTER OUT NOTES PT'S DAUGHTER CALLED FOR UPDATES. MADE AWARE OF INCREASED GASTRIC RESIDUAL AND PULLED OUT GT. DAUGHTER GAVE CONSENT TO INSERT NEW G-TUBE. CONSENT SIGNED BY TWO RN AND PLACED IN CHART.
[2016-08-26] MEDS ORDERED: POTASSIUM CL. PREMIX PERIPHER. 50 ML ONE (06:46)
[2016-08-26] MEDS ORDERED: IV SET PRIMARY PUMP SET 1 EA INFUS.SET MC ONE ×2 (06:54→17:54)
[2016-08-26] MEDS: POTASSIUM CL. PREMIX PERIPHER. 50 ML IV SCH ×6 (06:59→12:14)
[2016-08-26] MEDS: VALPROIC ACID 250 MG/5 ML UDC GT SCH ×3 (08:00→22:00)
[2016-08-26] MEDS: CARVEDILOL 6.25 MG TABLET PO SCH ×2 (08:05→20:31)
[2016-08-26] MEDS: ASCORBIC ACID SYRUP 500 MG/5 ML UDC GT SCH (08:05)
[2016-08-26] MEDS: DOCUSATE SODIUM LIQ 100 MG/10 ML UDC GT SCH ×2 (08:05→16:21)
[2016-08-26] MEDS: PROSOURCE / PROSTAT (PYXIS) 30 ML UDC GT SCH ×3 (08:05→16:21)
[2016-08-26] MEDS: DAKINS QUARTER STRENGTH (0.125%) 480 ML BOTTLE TOP SCH (08:07)
[2016-08-26] MEDS: PANTOPRAZOLE 40 MG VIAL IV SCH (08:08)
[2016-08-26] MEDS: FUROSEMIDE 20 MG/2 ML VIAL IV SCH (08:09)
[2016-08-26] MEDS ORDERED: SECONDARY IV SET 1 EA INFUS.SET MC ONE ×2 (08:16→14:52)
[2016-08-26] MEDS ORDERED: DOSE PER PHARMACY MICAFUNGIN 1 EA XX PRN (09:00)
[2016-08-26 09:06] LABS: BAND % (MANUAL) 41 % (0.0-5.0); NEUTROPHILS % (MANUAL) 25 (42-76)
[2016-08-26 09:07] LABS: LYMPHOCYTES % (MANUAL) 24 % (16-48); METAMYELOCYTES % 7 % (0-0); MONOCYTES % (MANUAL) 1 % (0-11.0); MYELOCYTES % 2 % (0-0)
[2016-08-26] MEDS: MICAFUNGIN SODIUM 100 MG in IV NS 0.9% 100 ML IV SCH (09:26)
[2016-08-26] MEDS: NOREPINEPHRINE 8 MG in IV D5W 500 ML IV PRN (09:27)
[2016-08-26 09:32] LABS: ABG BASE EXCESS -8.4 mmol/L; ABG PCO2 35.6 mmHg (35.0-45.0); ABG PO2 126.2 mmHg (75.0-100.0); AaDO2 298.5 mmHg; MetHb 0.7 % (0.0-1.5); O2Hb 96.3 % (94.0-97.0); PEEP,BG 5 cm H2O; SITE, ABG Left Radial; VT, ABG 600 mL
--- NOTE | 2016-08-26 10:11 | NUR ---
DR. ESCAMILLA NOTIFEID ABOUT THE GTUBE DISPLACED. HE ORDERS TO CONSULT WITH DR. GOLDSTEIN FOR F/U REPLACEMENT OF GTUBE. Addendum: 08/26/16 at 1017 by JOHN CANTRELL RN CALLED DR GOLDSTEIN OFFICE [phone] NOTIFIED SPECIALTY SALES CONSULTANT OF CONSULT. SHE TAKES PT'S INFORMATION AND CALLBACK NUMBER AND STATES SHE WILL PASS THE CONSULTATION ONTO DR. GOLDSTEIN
[2016-08-26] MEDS ORDERED: IV D5/ 0.9% NACL 1,000 ML IV PRN (10:22)
[2016-08-26] MEDS ORDERED: IV D5/0.45 NACL 1,000 ML IV ONE (11:00)
--- NOTE | 2016-08-26 11:37 | NUR ---
VERIFIED/DOUBLE CHECKED WITH PHARMACY, VANCO TROUGH IS 20 AND TODAYS DOSAGE IS 0.75GM. THEY STATE TO GIVE THE DOSE.
[2016-08-26] MEDS: VANCOMYCIN 0.75 GM in IV D5W 250 ML IV SCH (12:07)
--- NOTE | 2016-08-26 12:50 | NUR ---
CALLS BACK TAKES PT INFORMATION ORDERS TO OBTAIN CONSENT FOR EGD WITH GTUBE PLACEMENT WHICH WILL BY DONE ON FRIDAY.
--- NOTE | 2016-08-26 13:02 | NUR ---
PHARMACY NOTIFIED ABOUT AMIKACIN DOSAGE AT 1600 LAST TROUGH WAS 8 ON 08/22/16. THEY ORDER TO DRAW AMIKACIN TROUGH PRIOR TO THE DOSAGE BUT GIVE THE 1600 DOSE (THE TROUGH WILL TAKE AT LEAST 12HRS TO RESULT). THEY WILL THEN ADJUST THE NEXT DOSE.
--- NOTE | 2016-08-26 14:49 | NUR ---
DR. ESCAMILLA NOTIFIED THAT THE PATIENT IS SCHEDULED FOR GTUBE REPLACEMENT ON FRIDAY WITH DR. GOLDSTEIN. ASKED IF NGT PLACEMENT IS NECESSARY AT THIS TIME BECAUSE PT IS ON PO MEDS DEPAKOTE (EVEN THOUGH SHE WAS NOT TOLERATING, RESIDUALS HIGH 400MLs PER PM SHIFT LAST NIGHT). ORDERS TO HOLD OFF ON THE NG TUBE AND KEEP HER NPO UNTIL GTUBE IS REPLACED. PT'S IVF WERE ALREADY ADJUSTED FOR NPO STATUS LAST NIGHT: D5NS @80.
[2016-08-26] MEDS: AMIKACIN 500 MG in IV D5W 100 ML IV SCH (15:01)
--- NOTE | 2016-08-26 17:03 | NUR ---
RESPIRATORY RATE HIGH 35-40'S SPO2 IS 85%. HME CHANGED. O2 TITRATED GRADUALLY UP TO 80%. DIPRIVAN RESTARTED TO SLOW DOWN RESPIRATORY RATE. SBP DROPS INTO 70'S LEVOPHED RESTARTED.
--- NOTE | 2016-08-26 19:45 | NUR ---
PLASMA CENTER NURSE: PT RECEIVED IN BED CONNECTED TO VENT AT AC 24 TV 600 FIO2 80 -PEEP O . PT IS TACHYPNEIC AND DESATURATING TO 91%. DIPRIVAN INCREASED .HOB ELEVATED AND SUCTIONED PT NEEDED VIA TRACH AND ORALLY . MINIMAL SECRETIONS NOTED. PROVIDED 100% FIO2 FOR 2 MINUTES BUT PT STILL HAS LOW O2 SAT . DISCUSSED WITH RT . STAT ABG ORDERED.
--- NOTE | 2016-08-26 20:00 | NUR ---
DIE TURNER: PT NOTED TO BE GRUNTING AND SWEATING . BLOOD GLUCOSE CHECKED AND WNL AT 117 .TEMP CHECKED AND PT HAS LOW GRADE TEMP ,COOLING MEASURES DONE AND FAN IN ROOM.
--- NOTE | 2016-08-26 20:32 | NUR ---
MEAT CUTTING BLOCK REPAIRER: 2100 COREG NON-ADMINISTERED BECAUSE PT HAS NO GT AND ALSO PT IS ON VASOPRESSORS.
[2016-08-26 20:56] LABS: ABG BASE EXCESS -7.7 mmol/L; ABG OXYGEN SATURATION 94.1 % (92.0-98.5); ABG PCO2 27.6 mmHg (35.0-45.0); ABG PH 7.385 (7.350-7.450); ABG PO2 70.5 mmHg (75.0-100.0); AaDO2 470.9 mmHg; COHb 0.7 % (0.5-1.5); MetHb 0.5 % (0.0-1.5); PEEP,BG 0 cm H2O; SITE, ABG Right Radial; VT, ABG 600 mL
--- NOTE | 2016-08-26 21:00 | NUR ---
PHARMACY PICKING TECHNICIAN: ABG RESULTS READ TO CHARGE NURSE. PTS 02 SAT 98% AT THIS TIME. RESP RATE 35 .NO NEED TO CALL MD AT THIS TIME. .WILL CONT TO MONITOR RESPIRATORY STATUS
--- NOTE | 2016-08-26 22:10 | NUR ---
ENAMEL BURNER DEPSHERWINE HELD DUE TO NO GT . AWARE
--- NOTE | 2016-08-26 22:11 | NUR ---
FLIGHT ENGINEER: TRANSFERRED PT TO ICU 260 VIA ACLS PROTOCOL. REPORT GIVEN TO JULIO DANIELLE.
--- NOTE | 2016-08-26 22:44 | NUR ---
PT TRANSFERRED TO ICU.
[2016-08-27] VITALS (86 sets, daily range): BP systolic 79–128; BP diastolic 42–71
[2016-08-27] MEDS: PROPOFOL 100 ML IV PRN ×7 (00:21→22:46)
[2016-08-27 04:51] LABS: BASOPHILS % (AUTO) 0.3 % (0.0-2.0); EOSINOPHILS % (AUTO) 0.1 % (0.0-6.0); HEMATOCRIT 27 % (33-45); HEMOGLOBIN 8.9 g/dL (11.5-14.8); LYMPHOCYTES # (AUTO) 2.6 /CMM (0.8-4.8); LYMPHOCYTES % (AUTO) 16.6 % (20.0-44.0); MEAN CORPUSCULAR HEMOGLOBIN 31 PG (26.0-33.0); MEAN CORPUSCULAR HGB CONC 34 g/dl (31.0-36.0); MEAN CORPUSCULAR VOLUME 93 fL (82-100); MONOCYTES # (AUTO) 0.5 /CMM (0.1-1.30); NEUTROPHILS # (AUTO) 12.7 /CMM (1.8-8.9); PLATELET COUNT (AUTO) 166 /CMM (150-450); RDW COEFFICIENT OF VARIATION 18.7 (11.5-15.0); RED BLOOD CELL COUNT(AUTO) 2.84 MIL/uL (4.0-5.2); WHITE BLOOD COUNT (AUTO) 15.9 K/uL (4.3-11.0)
[2016-08-27 05:11] LABS: INR 1.5 (0.87-1.13); PROTHROMBIN TIME 16.5 SECS (9.5-12.7)
[2016-08-27] MEDS ORDERED: IV SET PRIMARY PUMP SET 1 EA INFUS.SET MC ONE ×4 (05:11→16:03)
[2016-08-27 05:15] LABS: CALCIUM, SERUM 8.3 mg/dL (8.5-10.1); CREATININE 0.9 mg/dL (0.6-1.3)
[2016-08-27 05:18] LABS: POTASSIUM 2.5 mmol/L (3.5-5.1)
[2016-08-27] MEDS: BLOOD SUGAR DIAGNOSTIC 1 EACH STRIP IN SCH ×3 (05:20→17:36)
[2016-08-27] MEDS: METRONIDAZOLE 500MG/ NS 100ML 500 MG in PREMIX 1 EA IV SCH ×2 (05:20→13:34)
[2016-08-27] MEDS: METOCLOPRAMIDE HCL 10 MG/2 ML VIAL IV SCH ×2 (05:20→13:39)
[2016-08-27 05:45] LABS: BAND % (MANUAL) 58 % (0.0-5.0); LYMPHOCYTES % (MANUAL) 20 % (16-48); METAMYELOCYTES % 1 % (0-0); MONOCYTES % (MANUAL) 4 % (0-11.0); NEUTROPHILS % (MANUAL) 17 (42-76)
--- NOTE | 2016-08-27 05:54 | NUR ---
ICU/RN- K- 2.5. CALLED [facility], SPOKE TO DR. ENCARNACION. ORDERED TO GIVE KCL 60 MEQ IV. ORDERS CARRIED OUT.
[2016-08-27] MEDS ORDERED: POTASSIUM CL. PREMIX PERIPHER. 50 ML ONE (06:11)
[2016-08-27] MEDS: POTASSIUM CL. PREMIX PERIPHER. 50 ML IV SCH ×12 (06:18→22:20)
--- NOTE | 2016-08-27 07:58 | NUR ---
O.R. CALLS TO VERIFY THAT THE PT IS SCHEDULED FOR GTUBE REPLACEMENT TODAY AT 1300. PER OR NURSE, THE SURGEON WILL NOW BE DR. SANTAMARIA (INSTEAD OF DR. GOLDSTEIN) FOR THE PROCEDURE. SHE STATES THAT EM WAS INVOLVED AND DIDN'T WANT THE PT TO HAVE GTUBE REPLACED SOONER.
[2016-08-27] MEDS: VALPROIC ACID 250 MG/5 ML UDC GT SCH (08:00)
[2016-08-27] MEDS: FUROSEMIDE 20 MG/2 ML VIAL IV SCH (08:05)
[2016-08-27] MEDS: PANTOPRAZOLE 40 MG VIAL IV SCH (08:05)
[2016-08-27] MEDS: MICAFUNGIN SODIUM 100 MG in IV NS 0.9% 100 ML IV SCH (08:05)
[2016-08-27] MEDS: DAKINS QUARTER STRENGTH (0.125%) 480 ML BOTTLE TOP SCH (08:20)
[2016-08-27] MEDS: ASCORBIC ACID SYRUP 500 MG/5 ML UDC GT SCH (08:20)
[2016-08-27] MEDS: DOCUSATE SODIUM LIQ 100 MG/10 ML UDC GT SCH (08:20)
[2016-08-27] MEDS: CARVEDILOL 6.25 MG TABLET PO SCH (08:21)
[2016-08-27] MEDS: PROSOURCE / PROSTAT (PYXIS) 30 ML UDC GT SCH ×2 (08:21→13:00)
[2016-08-27 09:23] LABS: ABG BASE EXCESS -8.6 mmol/L; ABG OXYGEN SATURATION 95.4 % (92.0-98.5); ABG PCO2 26.2 mmHg (35.0-45.0); ABG PH 7.383 (7.350-7.450); ABG PO2 81.3 mmHg (75.0-100.0); AaDO2 461.6 mmHg; COHb 0.1 % (0.5-1.5); MetHb 0.6 % (0.0-1.5); O2Hb 94.7 % (94.0-97.0); PEEP,BG 0 cm H2O; SITE, ABG Right Radial; VT, ABG 600 mL
[2016-08-27] MEDS: ALBUMIN 25% 25 GM in PREMIX 1 EA IV SCH ×3 (10:58→21:13)
[2016-08-27] MEDS: NOREPINEPHRINE 16 MG in IV D5W 500 ML IV PRN (11:09)
[2016-08-27] MEDS ORDERED: SECONDARY IV SET 1 EA INFUS.SET MC ONE ×2 (11:20→16:30)
[2016-08-27] MEDS: VANCOMYCIN 500 MG in IV D5W 100 ML IV SCH (11:21)
[2016-08-27] MEDS: INSULIN REGULAR, HUMAN 100 UNIT/ML 3 ML VIAL SQ PRN ×2 (11:29→17:41)
[2016-08-27] MEDS ORDERED: Potassium Chloride 20 MEQ in IV D5/0.45 NACL 1,000 ML IV PRN (12:00)
[2016-08-27] MEDS: LORAZEPAM INJ 2 MG/ML VIAL IV PRN (12:33)
--- NOTE | 2016-08-27 13:00 | NUR ---
PER DR ROSE SURGICAL PROCEDURE FOR PEG PLACEMENT CANCELLED PT TOO SICK
[2016-08-27 13:53] LABS: ABG BASE EXCESS -10.6 mmol/L; ABG OXYGEN SATURATION 91.9 % (92.0-98.5); ABG PH 7.272 (7.350-7.450); ABG PO2 70.7 mmHg (75.0-100.0); AaDO2 608.3 mmHg; COHb 0.2 % (0.5-1.5); MetHb 0.5 % (0.0-1.5); O2Hb 91.3 % (94.0-97.0); PEEP,BG 8 cm H2O; SITE, ABG Right Radial
--- NOTE | 2016-08-27 14:00 | NUR ---
ABG ON 100%, PRESSURE CONTROL 52 PEEP 8 WITH PH 7.27/ PCO2 34/ PO2 [address] CHUNG. NO CHANGES PER MD.
--- NOTE | 2016-08-27 14:30 | NUR ---
LONG D/W PT'S SISTER WHO UNDERSTANDS GRAVITY OF SITUATION AND INSTABILITY OF PT AND IS GOING TO [facility] TO DECIDE AGGRESSIVENESS OF CARE
[2016-08-27] MEDS ORDERED: Potassium Chloride 40 MEQ in IV D5W 1,000 ML IV PRN (15:00)
[2016-08-27] MEDS ORDERED: POTASSIUM CHLORIDE 20 MEQ TAB.PRT.SR PO ONE (15:00)
--- NOTE | 2016-08-27 15:55 | NUR ---
LONG D/W DAUGHTER ALFREDO WHO IS DPOA ALONG WITH MECHANISM ASSEMBLER LUCIANO BASILIO-DECISION FOR DNR STATUS BUT CONTINUE FULL AGGRESSIVE CARE. ALL MEDS AND ANTI SEIZURE MEDS AND KCL REPLACEMENT D/W ROMÁN BASILIO. REPLACEMENT PEG REMAINS ON HOLD PT TOO UNSTABLE
[2016-08-27] MEDS: VALPROATE 500 MG in IV D5W 100 ML IV SCH (16:52)
[2016-08-27] MEDS: MEROPENEM 500 MG in IV NS 0.9% 50 ML IV SCH (18:13)
--- NOTE | 2016-08-27 20:09 | NUR ---
INVOICE CHECKER. INITIAL ASSESSMENT. RECEIVED THE PT REST ON THE BED. TRACH TO VENT CONNECTED. NONVERBAL. 21 DEALER SHOWING NSR. PORTEX 9,AC 24, PRESSURE SUPPORT 52,FIO2 100%, PEEP 8, SAT 98%. IV RT UPPER ARM PICC LINE IVF D51/2NSWITH 40MEQ K 80ML/H,DIPRIVAN 80MCG/KG/MIN, LEVOPHED 18MCG/MIN NPO. FC PATENT. HOB ELEVATED. TURN AND REPOSITION Q2H. WILL CONTINUE TO MONITOR VITALS.
--- NOTE | 2016-08-27 23:39 | NUR ---
PT RECEIVED TRACH ON VENT ON NOTED SETTINGS. TOLERATING VENT SETTINGS. SX'D FOR MOD AMT OF THICK PALE SECRETIONS. VENT ALARMS SET AND AUDIBLE. KAHLILU BAG AT [facility]. VENT PLUGGED INTO RED OUTLET. WILL CONTINUE TO MONITOR. Addendum: 08/27/16 at 2340 by JUAN SR RT Amended: Links added.
[2016-08-28] VITALS (67 sets, daily range): BP systolic 95–128; BP diastolic 52–71
[2016-08-28] MEDS: BLOOD SUGAR DIAGNOSTIC 1 EACH STRIP IN SCH ×5 (00:35→23:57)
[2016-08-28] MEDS: PROPOFOL 100 ML IV PRN ×11 (00:36→22:10)
[2016-08-28] MEDS: VALPROATE 500 MG in IV D5W 100 ML IV SCH ×3 (00:58→16:01)
[2016-08-28] MEDS: NOREPINEPHRINE 16 MG in IV D5W 500 ML IV PRN ×2 (00:59→14:25)
[2016-08-28] MEDS: MEROPENEM 500 MG in IV NS 0.9% 50 ML IV SCH ×2 (04:14→16:01)
[2016-08-28] MEDS: ALBUMIN 25% 25 GM in PREMIX 1 EA IV SCH (04:14)
[2016-08-28 05:02] LABS: BASOPHILS % (AUTO) 0.2 % (0.0-2.0); EOSINOPHILS # (AUTO) 0.2 /CMM (0.0-0.7); EOSINOPHILS % (AUTO) 1.3 % (0.0-6.0); HEMATOCRIT 26 % (33-45); HEMOGLOBIN 8.9 g/dL (11.5-14.8); LYMPHOCYTES # (AUTO) 4.2 /CMM (0.8-4.8); LYMPHOCYTES % (AUTO) 25.3 % (20.0-44.0); MEAN CORPUSCULAR HEMOGLOBIN 33 PG (26.0-33.0); MEAN CORPUSCULAR HGB CONC 35 g/dl (31.0-36.0); MEAN CORPUSCULAR VOLUME 94 fL (82-100); MONOCYTES # (AUTO) 0.4 /CMM (0.1-1.30); MONOCYTES % (AUTO) 2.3 % (2.0-12.0); NEUTROPHILS # (AUTO) 11.7 /CMM (1.8-8.9); NEUTROPHILS % (AUTO) 70.9 % (43.0-81.0); PLATELET COUNT (AUTO) 203 /CMM (150-450); RDW COEFFICIENT OF VARIATION 19.7 (11.5-15.0); RED BLOOD CELL COUNT(AUTO) 2.72 MIL/uL (4.0-5.2); WHITE BLOOD COUNT (AUTO) 16.5 K/uL (4.3-11.0)
[2016-08-28 05:13] LABS: CALCIUM, SERUM 8.4 mg/dL (8.5-10.1); CREATININE 1.1 mg/dL (0.6-1.3); MAGNESIUM 1.4 mg/dL (1.8-2.4); PHOSPHORUS 3.4 mg/dL (2.5-4.9); POTASSIUM 4.6 mmol/L (3.5-5.1)
[2016-08-28 05:38] LABS: EOSINOPHILS % (MANUAL) 1 % (0-4); LYMPHOCYTES % (MANUAL) 24 % (16-48); MONOCYTES % (MANUAL) 2 % (0-11.0); NEUTROPHILS % (MANUAL) 73 (42-76)
[2016-08-28] MEDS ORDERED: AMIKACIN 500 MG in IV D5W 100 ML IV SCH (06:00)
--- NOTE | 2016-08-28 06:29 | NUR ---
PROJECT MANAGEMENT ANALYST. PT DAUGHTER LIZZETTE WAS AT BED SIDE LAST NIGHT. SHE CHANGED PT CODE STATUS. NOW PT IS FULL CODE.. VIKI AWARE.
--- NOTE | 2016-08-28 06:32 | NUR ---
SHEARER HELPER. AM CARE, ORAL CARE, BED BATH GIVEN LINEN CHANGED. REMAINING SAME VENT SETTINGS IV RT UPPER ARM PICC LINE IVF D5NS WITH 40KCL 80ML/H, DIPRIVAN 60MCG/KG/MIN LEVOPHED 18MCG/MIN. NPO. TEMPERATURE 100. HOB ELEVATED. TURN AND REPOSITION Q2H. WILL CONTINUE TO MONITOR VITALS.
--- NOTE | 2016-08-28 07:26 | NUR ---
PATIENT REC'D TRACHED ON [facility] VENT WITH SETTINGS SET PER . VENT ALARMS CHECKED + AUDIBLE. CUFF PRESSURE CHECKED DATA SOLUTIONS ARCHITECT. TRACH SECURE AND IN PROPER POSITION. VENT PLUGGED INTO RED OUTLET. B/S DIM COARSE. SX'D WITH SM AMT PALE SEMITHICK SECRETIONS. PATIENT IN CRITICAL CONDITION. AMBU BAG AT [facility]. CONT CURRENT PLAN OF RESP CARE. Addendum: 08/28/16 at 1446 by THOR ZUÑIGA RT Amended: Links added.
--- NOTE | 2016-08-28 08:00 | NUR ---
ICU/RN: PT RECEIVED ON VENT, TACHYPNEIC, ON LEVOPHED AND DIPRIVAN DRIP. SEDATION VACATION PROVIDED, PT STARTS TO DESATURATE AND RR INCREASES. PLACED BACK ON SEDATION. PEG ACCESS KEPT PATENT BY FC DRAINING TO GRAVITY. SAFETY MEASURES IN PLACE. WILL CONT TO MONITOR PT.
[2016-08-28 08:13] LABS: ABG BASE EXCESS -14.7 mmol/L; ABG OXYGEN SATURATION 97.7 % (92.0-98.5); ABG PCO2 33.4 mmHg (35.0-45.0); ABG PH 7.188 (7.350-7.450); ABG PO2 109.1 mmHg (75.0-100.0); AaDO2 498.4 mmHg; COHb 0.9 % (0.5-1.5); MetHb 0.7 % (0.0-1.5); O2Hb 96.1 % (94.0-97.0); PEEP,BG 8 cm H2O; SITE, ABG Right Radial
[2016-08-28] MEDS: PANTOPRAZOLE 40 MG VIAL IV SCH (08:57)
--- NOTE | 2016-08-28 09:00 | NUR ---
ICU/RN: LABS, RESP STATUS, ABG RESULTS DISCUSSED WITH DR ROSE AND DR GOLDSTEIN. MD'S AGREE TO KEEP PEG PLACEMENT ON HOLD UNTIL PT IS STABLE. PER GI MD INSERT NGT; NOTIFY WHEN PT CLEAR FOR PROCEDURE. PER PULMO, CHANGE IVF TO D5W WITH 2 AMPS SODIUM BICARB @ 70CC/HR; REPEAT ABG IN 2 HOURS. VENT CHANGES NOTED, COMMUNICATED WITH RT. ORDERS NOTED AND CARRIED OUT.
[2016-08-28] MEDS ORDERED: IV SET PRIMARY PUMP SET 1 EA INFUS.SET MC ONE ×5 (09:05→20:25)
[2016-08-28] MEDS: MICAFUNGIN SODIUM 100 MG in IV NS 0.9% 100 ML IV SCH (09:15)
[2016-08-28] MEDS: Magnesium 1GM/D5W 100ML PREMIX 100 ML IV SCH ×4 (09:25→12:34)
[2016-08-28] MEDS ORDERED: Sodium Bicarbonate 100 MEQ in IV D5W 1,000 ML IV PRN (09:30)
[2016-08-28] MEDS: DAKINS QUARTER STRENGTH (0.125%) 480 ML BOTTLE TOP SCH (10:16)
[2016-08-28] MEDS ORDERED: IV NS 0.9% 250 ML IV ONE (11:02)
[2016-08-28] MEDS: VANCOMYCIN 500 MG in IV D5W 100 ML IV SCH (11:12)
[2016-08-28 11:30] LABS: ABG BASE EXCESS -14.7 mmol/L; ABG OXYGEN SATURATION 97.5 % (92.0-98.5); ABG PCO2 25.8 mmHg (35.0-45.0); ABG PH 7.249 (7.350-7.450); ABG PO2 114.1 mmHg (75.0-100.0); AaDO2 429.2 mmHg; COHb 0.3 % (0.5-1.5); MetHb 0.5 % (0.0-1.5); O2Hb 96.7 % (94.0-97.0); SITE, ABG Right Radial
[2016-08-28] MEDS: LORAZEPAM INJ 2 MG/ML VIAL IV PRN (11:38)
[2016-08-28] MEDS: ACETAMINOPHEN 650 MG/20.3 ML UDC GT PRN (11:38)
[2016-08-28] MEDS: INSULIN REGULAR, HUMAN 100 UNIT/ML 3 ML VIAL SQ PRN ×2 (13:52→17:02)
--- NOTE | 2016-08-28 14:00 | NUR ---
ICU/RN: WOUND CARE, BED BATH RENDERED. TURNED AND REPOSITIONED FOR COMFORT. PT REQUIRES FREQUENT ORAL, TRACHEAL AND NASAL SUCTIONING OF THICK WHITE SECRETIONS.
[2016-08-28] MEDS: Sodium Bicarbonate 100 MEQ in IV D5W 1,000 ML IV PRN ×2 (14:13→23:58)
[2016-08-28] MEDS: HYDROGEL DRESSING 90 GM TUBE TP PRN (15:08)
[2016-08-28] MEDS ORDERED: SECONDARY IV SET 1 EA INFUS.SET MC ONE (16:19)
--- NOTE | 2016-08-28 16:40 | NUR ---
ICU/RN: HAD LONG DISCUSSION WITH ALFREDO, DAUGHTER AND DPOA REGARDING CODE STATUS AND AGGRESSIVENESS OF CARE. UPDATED THAT PT REMAINS IN CRITICAL CONDITION, REQUIRES PRESSORS, CONTINUES TO BE FEBRILE AND LABS REVEAL WORSENING GAS EXCHANGE. AFTER EXTENSIVE DISCUSSION AND EDUCATION, DAUGHTER STATES "I STILL WANT TO GIVE IT A FEW MORE DAYS AND SEE IF THE ANTIBIOTICS WILL DO THE TRICK AND THE FLUIDS GO DOWN." PT KEPT FULL CODE PER DPOA WISHES.
--- NOTE | 2016-08-28 17:30 | NUR ---
ICU/RN: LUCIANO ABSILIO, HEATING ENGINEER ROUNDS. UPDATED ON PT STATUS, ABN LABS DISCUSSED WITH HEATING ENGINEER. PER HEATING ENGINEER OK TO RESUME NGT FEEDING; FOLLOW MONKEY TRAINER RECS FOR RATE AND SUPPLEMENTATION. NOTED AND CARRIED OUT.
--- NOTE | 2016-08-28 19:30 | NUR ---
RN INITIAL NOTES RECEIVED PT AWAKE ON BED, OBTUNDED, OPENS EYES ONLY. ON VENT, PRESSURE CONTROL 54, AC 28, 65% FIO2, PEEP 6, PORTEX 9, SATURATING WELL, NO S/S OF RESP DISTRESS. SEDATED ON DIPRIVAN @ 60MCG/KG/MIN. CURRENTLY SR ON THE MONITOR, HR 70'S, ON LEVO DRIP @ 18MCG/MIN. RIGHT NARE NGT IS CLAMPED, WILL BE STARTED WITH GLYTROL FEEDING. CHAUDHARY INTACT. RIGHT UPPER ARM PICC WITH NABICARB @ 70MLS/HR, FLUSHED AND PATENT, NO S/S OF INFILTRATION/INFECTION, DRESSING CDI. BED LOW AND LOCKED, SIDERAILS UP. WILL MONITOR Addendum: 08/28/16 at 2024 by CUONG MUNOZ RN PATIENT'S GTUBE STOMA KEPT PATENT WITH A CHAUDHARY CATHETER IN PLACE
[2016-08-28] MEDS: GLYTROL 1,000 ML BAG GT PRN (19:55)
--- NOTE | 2016-08-28 23:30 | NUR ---
RN NOTES NOTIFIED ON-CALL DR. MCCABE THAT PATIENT HAS RECENTLY BEEN STARTED WITH GLYTROL FEEDING @ 20MLS/HR BUT CURRENTLY HAS 180MLS RESIDUALS. ALSO NOTIFIED HIM THAT PATIENT HAD HIGH RESIDUALS A FEW DAYS AGO WELL. DR MCCABE ORDERED FOR FEEDING TO BE HELD FOR 2HRS, THEN RESUME FEEDING. HE ALSO ORDERED FOR REGLAN 10MG IV Q6H TO BE STARTED. WILL INITIATE ORDERS
[2016-08-28] MEDS ORDERED: METOCLOPRAMIDE HCL 10 MG/2 ML VIAL ONE (23:44)
[2016-08-28] MEDS: METOCLOPRAMIDE HCL 10 MG/2 ML VIAL IV SCH (23:58)
[2016-08-29] VITALS (75 sets, daily range): BP systolic 82–132; BP diastolic 40–73
[2016-08-29] MEDS: PROPOFOL 100 ML IV PRN ×11 (00:43→23:01)
[2016-08-29] MEDS ORDERED: IV SET PRIMARY PUMP SET 1 EA INFUS.SET MC ONE ×4 (02:14→23:07)
[2016-08-29] MEDS ORDERED: IV NS 0.9% 250 ML IV ONE (02:15)
[2016-08-29] MEDS: IV NS 0.9% 250 ML IV PRN (03:05)
[2016-08-29 04:48] LABS: BASOPHILS % (AUTO) 0.3 % (0.0-2.0); EOSINOPHILS # (AUTO) 0.4 /CMM (0.0-0.7); EOSINOPHILS % (AUTO) 3.8 % (0.0-6.0); HEMATOCRIT 26 % (33-45); HEMOGLOBIN 9.1 g/dL (11.5-14.8); LYMPHOCYTES # (AUTO) 2.4 /CMM (0.8-4.8); LYMPHOCYTES % (AUTO) 25.3 % (20.0-44.0); MEAN CORPUSCULAR HEMOGLOBIN 32 PG (26.0-33.0); MEAN CORPUSCULAR HGB CONC 35 g/dl (31.0-36.0); MEAN CORPUSCULAR VOLUME 93 fL (82-100); MONOCYTES # (AUTO) 0.3 /CMM (0.1-1.30); MONOCYTES % (AUTO) 3.3 % (2.0-12.0); NEUTROPHILS # (AUTO) 6.3 /CMM (1.8-8.9); NEUTROPHILS % (AUTO) 67.3 % (43.0-81.0); PLATELET COUNT (AUTO) 158 /CMM (150-450); RDW COEFFICIENT OF VARIATION 18.5 (11.5-15.0); RED BLOOD CELL COUNT(AUTO) 2.81 MIL/uL (4.0-5.2); WHITE BLOOD COUNT (AUTO) 9.4 K/uL (4.3-11.0)
[2016-08-29 04:59] LABS: CALCIUM, SERUM 8.4 mg/dL (8.5-10.1); CREATININE 1.3 mg/dL (0.6-1.3); MAGNESIUM 1.8 mg/dL (1.8-2.4); PHOSPHORUS 3.6 mg/dL (2.5-4.9)
[2016-08-29] MEDS ORDERED: METOCLOPRAMIDE HCL 10 MG/2 ML VIAL ONE (05:13)
[2016-08-29] MEDS: BLOOD SUGAR DIAGNOSTIC 1 EACH STRIP IN SCH ×4 (05:28→23:46)
[2016-08-29] MEDS: METOCLOPRAMIDE HCL 10 MG/2 ML VIAL IV SCH ×4 (05:28→20:00)
[2016-08-29 05:29] LABS: BAND % (MANUAL) 44 % (0.0-5.0); EOSINOPHILS % (MANUAL) 5 % (0-4); LYMPHOCYTES % (MANUAL) 15 % (16-48); METAMYELOCYTES % 2 % (0-0); MONOCYTES % (MANUAL) 2 % (0-11.0); MYELOCYTES % 2 % (0-0); NEUTROPHILS % (MANUAL) 29 (42-76); REACTIVE LYMPHOCYTES 1 % (0-0)
[2016-08-29] MEDS: MEROPENEM 500 MG in IV NS 0.9% 50 ML IV SCH ×2 (05:29→16:09)
[2016-08-29] MEDS: INSULIN REGULAR, HUMAN 100 UNIT/ML 3 ML VIAL SQ PRN ×2 (05:29)
--- NOTE | 2016-08-29 06:30 | NUR ---
RN CLOSING NOTES PT REMAINS STABLE OF THE MOMENT. ALL DUE MEDS GIVEN, AM CARE PROVIDED. WILL ENDORSE CONTINUITY OF CARE TO AM RN
[2016-08-29] MEDS: NOREPINEPHRINE 16 MG in IV D5W 500 ML IV PRN (07:54)
--- NOTE | 2016-08-29 08:00 | NUR ---
ICU/RN: SEDATION VACATION PROVIDED. PT NOTED WITH INCREASED RR WITH DROP IN SPO2, INCREASED HR. PLACED BACK ON SEDATION.
[2016-08-29] MEDS: DAKINS QUARTER STRENGTH (0.125%) 480 ML BOTTLE TOP SCH (08:03)
[2016-08-29] MEDS: PANTOPRAZOLE 40 MG VIAL IV SCH (08:03)
[2016-08-29] MEDS: MICAFUNGIN SODIUM 100 MG in IV NS 0.9% 100 ML IV SCH (08:03)
[2016-08-29] MEDS ORDERED: SECONDARY IV SET 1 EA INFUS.SET MC ONE (08:06)
[2016-08-29] MEDS: HYDROGEL DRESSING 90 GM TUBE TP PRN (08:09)
--- NOTE | 2016-08-29 09:00 | NUR ---
ICU/RN: DUE MEDS ADMINISTERED. PT PLACED ON SEDATION VACATION, PT UNABLE TO FOLLOW COMMANDS, EYES RESPONDS TO LIGHT, DOES NOT TRACK. TACHYPNEA 30-40'S AND INCREASED HR NOTED OFF SEDATION. PLACED BACK ON DIPRIVAN FOR COMFORT. GTF HELD. RESIDUALS >250CC. WILL REASSESS AND RESUME TF ACCORDINGLY.
[2016-08-29] MEDS: VALPROATE 500 MG in IV D5W 100 ML IV SCH ×4 (09:12→16:34)
[2016-08-29] MEDS: VANCOMYCIN 500 MG in IV D5W 100 ML IV SCH (11:04)
[2016-08-29 13:44] LABS: ABG BASE EXCESS -10.9 mmol/L; ABG OXYGEN SATURATION 96.7 % (92.0-98.5); ABG PH 7.281 (7.350-7.450); ABG PO2 98.2 mmHg (75.0-100.0); AaDO2 330.5 mmHg; COHb 0.2 % (0.5-1.5); MetHb 0.6 % (0.0-1.5); O2Hb 95.9 % (94.0-97.0); PEEP,BG 6 cm H2O; SITE, ABG Right Radial; VENT MODE, BG PC54
[2016-08-29] MEDS: Sodium Bicarbonate 100 MEQ in IV D5W 1,000 ML IV PRN (14:15)
--- NOTE | 2016-08-29 15:00 | NUR ---
ICU/RN: LUCIANO BASILIO, RETAIL CLIENT MANAGER ROUNDS. UPDATED ON PT STATUS. PER RETAIL CLIENT MANAGER, IF PT HAS DIARRHEA DURING TF HOLD REGLAN. RETAIL CLIENT MANAGER AWARE PT UNABLE TO TOLERATE TF, HAS INCREASED RESIDUALS. ABN LABS DW RETAIL CLIENT MANAGER.
--- NOTE | 2016-08-29 15:28 | NUR ---
VENT CHANGES MADE MICHAEL ELLSWORTH MD ORDER: FIO2 55% Addendum: 08/29/16 at 1529 by SARITA DELGADO RT Amended: Links added.
--- NOTE | 2016-08-29 15:40 | NUR ---
ICU/RN: BED BATH AND WOUND CARE RENDERED. GTF HELD. PT WITH MUCOID AND LIQUID STOOL. STOOL SAMPLE COLLECTED AND SENT TO LAB.
--- NOTE | 2016-08-29 15:51 | NUR ---
PLACED BACK TO 65% FIO2 DUE TO 88 - 89% IN 55% FIO2. Addendum: 08/29/16 at 1554 by SARITA DELGADO RT Amended: Links added.
[2016-08-29] MEDS: LORAZEPAM INJ 2 MG/ML VIAL IV PRN (17:16)
--- NOTE | 2016-08-29 19:45 | NUR ---
RT PATIENT REC'D ON [facility] VENT WITH SETTINGS SET PER MD ROGER PORRAS. VENT ALARMS CHECKED + AUDIBLE. CUFF PRESSURE CHECKED POMOLOGIST. VENT PLUGGED INTO RED OUTLET. B/S DIM COARSE. SX'D WITH SM/MD KESSLER PALE SEMITHICK SECRETIONS. NO DISTRESS AT THIS TIME. AMBU BAG AT [facility]. CONT CURRENT PLAN OF RESP CARE. Addendum: 08/29/16 at 1946 by MELVIN HYATT RT Amended: Links added.
--- NOTE | 2016-08-29 20:00 | NUR ---
Received patient sedated.Chronic trach vent dependent respiratory failure now on pressure control. SR per monitor with Levophed infusing@ 8 mcg/min for BP control and will titrate accordingly.Diprivan drip a@ 60 mcg/kg/min and D5W + Sodium Bicarb 2 amp @ 70 ml/hr all infusing via PEDRO PICC LINE site intact.NGT feeding on hold D/T high residual MD aware.FC draining small amount urine.With multiple wounds.Skin care protocol implemented.Turned and repositioned offloading pressure points. No acute distress noted.
[2016-08-30] VITALS (110 sets, daily range): BP systolic 58–117; BP diastolic 30–58
[2016-08-30] MEDS: VALPROATE 500 MG in IV D5W 100 ML IV SCH ×3 (00:30→17:20)
[2016-08-30] MEDS: PROPOFOL 100 ML IV PRN ×9 (01:31→21:30)
[2016-08-30] MEDS: METOCLOPRAMIDE HCL 10 MG/2 ML VIAL IV SCH ×4 (02:00→20:00)
[2016-08-30] MEDS: MEROPENEM 500 MG in IV NS 0.9% 50 ML IV SCH ×2 (04:34→16:42)
[2016-08-30] MEDS: NOREPINEPHRINE 16 MG in IV D5W 500 ML IV PRN ×3 (04:35→22:17)
[2016-08-30] MEDS ORDERED: IV SET PRIMARY PUMP SET 1 EA INFUS.SET MC ONE ×5 (04:44→19:40)
[2016-08-30 05:00] LABS: BASOPHILS % (AUTO) 0.2 % (0.0-2.0); EOSINOPHILS # (AUTO) 0.2 /CMM (0.0-0.7); EOSINOPHILS % (AUTO) 2.5 % (0.0-6.0); HEMATOCRIT 25 % (33-45); LYMPHOCYTES # (AUTO) 2.1 /CMM (0.8-4.8); LYMPHOCYTES % (AUTO) 21.9 % (20.0-44.0); MEAN CORPUSCULAR HEMOGLOBIN 34 PG (26.0-33.0); MEAN CORPUSCULAR HGB CONC 37 g/dl (31.0-36.0); MEAN CORPUSCULAR VOLUME 92 fL (82-100); MONOCYTES # (AUTO) 0.5 /CMM (0.1-1.30); MONOCYTES % (AUTO) 5.3 % (2.0-12.0); NEUTROPHILS # (AUTO) 6.7 /CMM (1.8-8.9); NEUTROPHILS % (AUTO) 70.1 % (43.0-81.0); PLATELET COUNT (AUTO) 123 /CMM (150-450); RDW COEFFICIENT OF VARIATION 17.5 (11.5-15.0); RED BLOOD CELL COUNT(AUTO) 2.68 MIL/uL (4.0-5.2); WHITE BLOOD COUNT (AUTO) 9.6 K/uL (4.3-11.0)
[2016-08-30] MEDS: Sodium Bicarbonate 100 MEQ in IV D5W 1,000 ML IV PRN (05:06)
[2016-08-30 05:14] LABS: ALKALINE PHOSPHATASE 213 U/L (46-116); BILIRUBIN,TOTAL 1.4 mg/dL (0.2-1.0); CALCIUM, SERUM 8.2 mg/dL (8.5-10.1); CARBON DIOXIDE 19 mmol/L (21-32); CHLORIDE 100 mmol/L (98-107); CREATININE 1.5 mg/dL (0.6-1.3); GLUCOSE 283 mg/dL (74-106); MAGNESIUM 1.8 mg/dL (1.8-2.4); PHOSPHORUS 3.5 mg/dL (2.5-4.9); POTASSIUM 3.5 mmol/L (3.5-5.1); SODIUM SERUM 132 mmol/L (136-145); UREA NITROGEN, BLOOD 24 mg/dL (7-18)
[2016-08-30 05:29] LABS: ALANINE AMINOTRANSFERASE < 6 U/L (12-78); ASPARTATE AMINOTRANSFERASE 13 U/L (15-37); TOTAL PROTEIN, SERUM 6.5 g/dL (6.4-8.2)
[2016-08-30 05:32] LABS: BAND % (MANUAL) 43 % (0.0-5.0); EOSINOPHILS % (MANUAL) 3 % (0-4); LYMPHOCYTES % (MANUAL) 17 % (16-48); METAMYELOCYTES % 5 % (0-0); MONOCYTES % (MANUAL) 9 % (0-11.0); MYELOCYTES % 3 % (0-0); NEUTROPHILS % (MANUAL) 20 (42-76)
[2016-08-30] MEDS: BLOOD SUGAR DIAGNOSTIC 1 EACH STRIP IN SCH ×3 (06:00→17:20)
--- NOTE | 2016-08-30 06:15 | NUR ---
Patient resting no significant change noted during the shift.Levophed drip infusing at 9 mcg,Diprivan at 60mcg. Feeding still on hold. AM care done.With loose BM.Turned and repositioned.AM labs resulted.ALBUMIN 1.0 called to VIKI PARRA.No new orders received.PEDRO PICC LINE changed under aseptic technique.Site healthy.
[2016-08-30] MEDS: PANTOPRAZOLE 40 MG VIAL IV SCH (08:11)
[2016-08-30] MEDS: MICAFUNGIN SODIUM 100 MG in IV NS 0.9% 100 ML IV SCH (08:12)
[2016-08-30] MEDS: DAKINS QUARTER STRENGTH (0.125%) 480 ML BOTTLE TOP SCH (08:13)
[2016-08-30] MEDS: GLYTROL 1,000 ML BAG GT PRN (09:27)
[2016-08-30 09:56] LABS: ABG BASE EXCESS -11.2 mmol/L; ABG OXYGEN SATURATION 89.8 % (92.0-98.5); ABG PH 7.301 (7.350-7.450); ABG PO2 61.1 mmHg (75.0-100.0); AaDO2 370.8 mmHg; COHb 0.8 % (0.5-1.5); MetHb 0.8 % (0.0-1.5); O2Hb 88.4 % (94.0-97.0); PEEP,BG 6 cm H2O; SITE, ABG Right Radial; VENT MODE, BG pcv 54
--- NOTE | 2016-08-30 10:49 | NUR ---
AIR FORCE SENIOR OFFICER NOTE 0720: received patient sedated. With trache to vent, no respiratory distress noted at this time. With Lockett cath in GT site, clamped. With NGT intact, feeding on hold for high residuals per previous shift. Noted with 30mL residuals, will restart feeding, called kitchen for feeding formula. With Lockett cath intact, noted with very minimal yellow urine drained to BSD. On isolation precaution for Grabalta in urine. Isolation precaution maintained and observed. SR 70's on the monitor. On Levophed @ 9mcg, will titrate as ordered. 0830: Tried to place Diprivan to 40 for sedation vacation but noted patient with increased workl of breathing, placed back on 60mcg after 15min. 1045: Noted with sustained 87% O2 sat, RT placed FIO2 to 80%, will continue to monitor.
[2016-08-30] MEDS: VANCOMYCIN 500 MG in IV D5W 100 ML IV SCH (11:40)
[2016-08-30] MEDS ORDERED: Sodium Bicarbonate 100 MEQ in IV NS 0.9% 1,000 ML IV PRN (12:00)
[2016-08-30] MEDS: INSULIN REGULAR, HUMAN 100 UNIT/ML 3 ML VIAL SQ PRN (12:08)
[2016-08-30] MEDS ORDERED: Sodium Bicarbonate 100 MEQ in IV D5W 1,000 ML IV PRN (13:00)
[2016-08-30] MEDS: ALBUMIN 25% 25 GM in PREMIX 1 EA IV SCH ×2 (13:16→21:30)
[2016-08-30] MEDS ORDERED: SECONDARY IV SET 1 EA INFUS.SET MC ONE ×2 (16:42→17:55)
--- NOTE | 2016-08-30 16:49 | NUR ---
DIRECTOR OF CLOUD SERVICES NOTE 1200: S/E by Parish, GAMES MANAGER made aware for very minimal UOP. Obtained order for Albumin. Also changed IVF to NS with 2 amps Bicarb, verified IVF order with GAMES MANAGER. 1230: S/E by Dr. Cunningham, with order to place IVF back to D5W with 2 amps Bicarb at 70.
[2016-08-30] MEDS: PHENYLEPHRINE 80 MG in IV D5W 250 ML IV PRN ×2 (18:23→22:12)
--- NOTE | 2016-08-30 18:32 | NUR ---
CONCRETE FINISHER NOTE Spoke with MINNA Kruger and made aware for patient's condition, O2 sat 80's on 100% FIO2 and SBP 80's on max dose of Levophed and will restart on Abdiel, daughter verbalized understanding. All questions and concerns were answered.
--- NOTE | 2016-08-30 18:48 | NUR ---
D/W SIGN PAINTER APPRENTICE PRAFUL THE SPO2 OF 84% ON 100% FIO2 A/C MODE, MAXIMUM LEVOPHED AT 40 MKM AND THAT NEOSYN GTT HAS BEEN STARTED. SBP 86 MMHG. BICARB GTT RUNNING. FAMILY HAS BEEN UPDATED. FULL CODE STATUS. NO NEW ORDERS
--- NOTE | 2016-08-30 19:59 | NUR ---
RT PATIENT REC'D ON [facility] VENT WITH SETTINGS SET PER . VENT ALARMS CHECKED + AUDIBLE. CUFF PRESSURE CHECKED PSYCH THERAPIST. VENT PLUGGED INTO RED OUTLET. B/S DIM COARSE. SX'D WITH CATARINO/MD WALSHT PALE SEMITHICK SECRETIONS. AMBU BAG AT [facility]. CONT CURRENT PLAN OF RESP CARE. Addendum: 08/30/16 at 1999 by MELVIN HYATT RT Amended: Links added.
--- NOTE | 2016-08-30 21:30 | NUR ---
FITNESS/WELLNESS DIRECTOR BP REMAINS IN THE 80s; PER MD CONTINUE TO MONITOR.
--- NOTE | 2016-08-30 21:42 | NUR ---
MD AND RN are aware of patients status,currently saturating at 65%,and on max settings. Addendum: 08/30/16 at 2143 by MELVIN HYATT RT Amended: Links added.
[2016-08-30] MEDS ORDERED: VANCOMYCIN 500 MG in IV D5W 100 ML IV SCH (23:00)
[2016-08-31] VITALS (40 sets, daily range): BP systolic 49–101; BP diastolic 16–73
[2016-08-31] MEDS: VALPROATE 500 MG in IV D5W 100 ML IV SCH ×2
[2016-08-31] MEDS: PROPOFOL 100 ML IV PRN (00:01)
[2016-08-31] MEDS: METOCLOPRAMIDE HCL 10 MG/2 ML VIAL IV SCH ×2 (02:40→08:04)
[2016-08-31] MEDS: IV NS 0.9% 250 ML IV PRN (02:41)
--- NOTE | 2016-08-31 02:45 | NUR ---
SENIOR MANAGER DAUGHTER AT BEDSIDE REQUESTING PROPOFOL TO BE TURNED STATING PT DOES NOT DO WELL ON IT. DISCUSSED CODE STATUS AND DAUGHTER WISHES FOR PT TO REMAIN FULL CODE. CONTINUE TO MONITOR.
[2016-08-31] MEDS: PHENYLEPHRINE 80 MG in IV D5W 250 ML IV PRN ×2 (03:34→07:43)
[2016-08-31] MEDS ORDERED: IV SET PRIMARY PUMP SET 1 EA INFUS.SET MC ONE (04:52)
[2016-08-31 04:55] LABS: BASOPHILS % (AUTO) 0.1 % (0.0-2.0); EOSINOPHILS # (AUTO) 0.1 /CMM (0.0-0.7); EOSINOPHILS % (AUTO) 0.8 % (0.0-6.0); HEMATOCRIT 26 % (33-45); LYMPHOCYTES % (AUTO) 31.6 % (20.0-44.0); MEAN CORPUSCULAR HEMOGLOBIN 34 PG (26.0-33.0); MEAN CORPUSCULAR HGB CONC 35 g/dl (31.0-36.0); MEAN CORPUSCULAR VOLUME 97 fL (82-100); MONOCYTES # (AUTO) 0.2 /CMM (0.1-1.30); NEUTROPHILS # (AUTO) 12.6 /CMM (1.8-8.9); NEUTROPHILS % (AUTO) 66.5 % (43.0-81.0); PLATELET COUNT (AUTO) 132 /CMM (150-450); RED BLOOD CELL COUNT(AUTO) 2.68 MIL/uL (4.0-5.2)
[2016-08-31] MEDS: MEROPENEM 500 MG in IV NS 0.9% 50 ML IV SCH (05:00)
[2016-08-31] MEDS: ALBUMIN 25% 25 GM in PREMIX 1 EA IV SCH (05:01)
[2016-08-31] MEDS: BLOOD SUGAR DIAGNOSTIC 1 EACH STRIP IN SCH ×2 (05:01)
[2016-08-31 05:11] LABS: CALCIUM, SERUM 8.7 mg/dL (8.5-10.1); CREATININE 1.7 mg/dL (0.6-1.3); PHOSPHORUS 7.3 mg/dL (2.5-4.9)
[2016-08-31] MEDS: NOREPINEPHRINE 16 MG in IV D5W 500 ML IV PRN (05:16)
[2016-08-31 05:19] LABS: POTASSIUM 5.4 mmol/L (3.5-5.1)
[2016-08-31 06:05] LABS: BAND % (MANUAL) 14 % (0.0-5.0); LYMPHOCYTES % (MANUAL) 17 % (16-48); METAMYELOCYTES % 37 % (0-0); MYELOCYTES % 19 % (0-0); NEUTROPHILS % (MANUAL) 4 (42-76); PROMYELOCYTES % 2 % (0-0); REACTIVE LYMPHOCYTES 7 % (0-0)
--- NOTE | 2016-08-31 06:31 | NUR ---
COMMUNITY DEVELOPMENT PLANNER UNABLE TO REPOSITION PT SHE IS HEMODYNAMICALLY UNSTABLE THROUGHOUT SHIFT; SATURATION HIGH 50% AND SBP IN THE 80s MAX ON TWO PRESSORS.
--- NOTE | 2016-08-31 07:46 | NUR ---
PIPE MANUFACTURE SUPERVISOR; ASSESSMENT RECEIVED PT VENTED VIA TRACH, ON PRESSURE CONTROL 54 RATE OF 28, PEEP 10 ON 100% FIO2. SATURATIONS RANGING AT 30-49% PULSE SATS. PT MAXED ON LEVOPHED DRIP AT 40MCG/MIN, ROLY AT 300MCG/MIN INFUSING INTO RIGHT UPPER ARM PICC LINE. BLOOD PRESSURE RANGING IN THE MID 80'S SBP. WILL F/U WITH MD REGARDING ADDING OTHER PRESSOR. ACCORDING TO NIGHT NURSE JUAN LUIS FARMWORKER FUR MADE AWARE OF LOW BP BUT NO NEW ORDERS GIVEN TO START OTHER PRESSOR. BICARB DRIP AT 70ML.HR. PT CURRENTLY NOTED PT AFIB ON PARK MAINTENANCE TECHNICIAN. CHAUDHARY CATH INTACT NO URINE OUT PUT NOTED. NG TUBE TO RIGHT NARE CLAMPED. GTUBE CLAMPED. PT REMAINS FULL CODE STATUS WILL CONTINUE CARE.
[2016-08-31] MEDS: PANTOPRAZOLE 40 MG VIAL IV SCH (08:05)
[2016-08-31] MEDS: MICAFUNGIN SODIUM 100 MG in IV NS 0.9% 100 ML IV SCH (08:05)
[2016-08-31] MEDS: DAKINS QUARTER STRENGTH (0.125%) 480 ML BOTTLE TOP SCH (08:26)
--- NOTE | 2016-08-31 08:26 | NUR ---
BALING MACHINE TENDER; CARDIO NOTED PT HAVE DYSRHYTHMIAS, BIGEMINIES, PAUSES. PT CONTINUES FULL CODE STATUS ON LEVOPHED AND ROLY MAXED DOSE. NOTED LEFT PUPIL 4CM NON REACTIVE AND RIGHT PUPIL 5CM NON REACTIVE. PT HAS NO GAG REFLEX. PTS SISTER AT BEDSIDE UPDATE WAS GIVEN SISTER UNDERSTANDS SITUATION BUT IS NOT DPOA AND SHE HAS SPOKEN WITH PTS DAUGHTER TO CHANGE CODE STATUS TO DNR, BUT DAUGHTER STILL WANTS FULL CODE STATUS.
--- NOTE | 2016-08-31 08:56 | NUR ---
ACTIVITY SPECIALIST; CARDIO DR. DAVIES AT BEDSIDE UPDATE WAS GIVEN REGARDING PRESSORS AND UNABLE TO OBTAIN A BP. PTS DAUGHTER ALFREDO AT BEDSIDE GAVE HER UPDATE STILL REMAINS FULL CODE STAUTS
[2016-08-31] MEDS ORDERED: EPINEPHRINE (1:10,000) SYRINGE 1 MG/10 ML DISP.SYRIN IVP ONE (09:09)
[2016-08-31] MEDS ORDERED: SODIUM BICARBONATE SYR 50 MEQ/50 ML DISP.SYRIN IV ONE (09:09)
--- NOTE | 2016-08-31 09:09 | NUR ---
UNDERWEAR TRIMMER; S/P CODE BLUE CODE BLUE CALLED AT 0859. DR. DAVIES AT BEDSIDE TO RUN CODE, SEE CODE BLUE SHEET. PTS FAMILY AT BEDSIDE DECISION MADE TO STOP CODE, DR. COHEN PRONOUNCED AT 0907. FAMILY SUPPORT GIVEN.
--- NOTE | 2016-08-31 09:50 | NUR ---
[employer] BPM DEVELOPER; [employer] CALLED SPOKE WITH JOSE WITH REFERENCE NUMBER [id number]. STATES THAT A RENTAL SALES ASSOCIATE WILL BE CALLING US BACK.
--- NOTE | 2016-08-31 10:24 | NUR ---
WHEEL ADJUSTER; POST MORTUM CARE POST MORTEM CARE GIVEN. PICC LINE, TRACH, AND CHAUDHARY CATH REMOVED.
[2016-08-31] MEDS ORDERED: Sodium Bicarbonate 100 MEQ in IV 1/2NS 1000 ML 1,000 ML IV PRN (10:30)
== END 2016-08-31 09:10 | disposition expired | DRG 710 ==
LOC: ER 06:01 → ICUOV 11:23 → TELE-TD 08-18 13:27 → TELE1 08-19 12:33 → ICUOV 08-25 14:26 → ICU 08-26 22:28
PROVIDERS: ADMIT Internal Medicine; ATTEND Internal Medicine
PROC: 5A1955Z Respiratory Ventilation, Greater than 96 Consecutive Hours (ICD-10-PCS; principal; 2016-08-13)
PROC: 30233N1 Transfusion of Nonautologous Red Blood Cells into Peripheral Vein, Percutaneous Approach (ICD-10-PCS; principal; 2016-08-13)
PROC: 02HV33Z Insertion of Infusion Device into Superior Vena Cava, Percutaneous Approach (ICD-10-PCS; principal; 2016-08-13)
PROC: B548ZZA Ultrasonography of Superior Vena Cava, Guidance (ICD-10-PCS; principal; 2016-08-13)
PROC: 0KBN0ZZ Excision of Right Hip Muscle, Open Approach (ICD-10-PCS; 2016-08-15)
PROC: 0JB70ZZ Excision of Back Subcutaneous Tissue and Fascia, Open Approach (ICD-10-PCS; 2016-08-15)
PROC: 0KBP0ZZ Excision of Left Hip Muscle, Open Approach (ICD-10-PCS; 2016-08-15)
DX: A41.9 Sepsis, unspecified organism (principal); J96.21 Acute and chronic respiratory failure with hypoxia; N17.0 Acute kidney failure with tubular necrosis; I21.4 Non-ST elevation (NSTEMI) myocardial infarction; R65.21 Severe sepsis with septic shock; G93.1 Anoxic brain damage, not elsewhere classified; L89.154 Pressure ulcer of sacral region, stage 4; E43 Unspecified severe protein-calorie malnutrition; J15.6 Pneumonia due to other Gram-negative bacteria; J95.851 Ventilator associated pneumonia; L89.103 Pressure ulcer of unspecified part of back, stage 3; I50.33 Acute on chronic diastolic (congestive) heart failure; D62 Acute posthemorrhagic anemia; E11.9 Type 2 diabetes mellitus without complications; E78.5 Hyperlipidemia, unspecified; E87.6 Hypokalemia; Z93.0 Tracheostomy status; Z90.49 Acquired absence of other specified parts of digestive tract; Z99.11 Dependence on respirator [ventilator] status; I25.10 Atherosclerotic heart disease of native coronary artery without angina pectoris; G40.909 Epilepsy, unspecified, not intractable, without status epilepticus; K21.9 Gastro-esophageal reflux disease without esophagitis; R74.0 Nonspecific elevation of levels of transaminase and lactic acid dehydrogenase [LDH]; F09 Unspecified mental disorder due to known physiological condition; L98.8 Other specified disorders of the skin and subcutaneous tissue; Z68.41 Body mass index [BMI] 40.0-44.9, adult; E88.09 Other disorders of plasma-protein metabolism, not elsewhere classified; R53.2 Functional quadriplegia; Z66 Do not resuscitate; Z74.01 Bed confinement status; R40.3 Persistent vegetative state; N39.0 Urinary tract infection, site not specified; X58.XXXA Exposure to other specified factors, initial encounter; Y93.9 Activity, unspecified; Y92.129 Unspecified place in nursing home as the place of occurrence of the external cause; E87.2 Acidosis; B96.89 Other specified bacterial agents as the cause of diseases classified elsewhere; B37.49 Other urogenital candidiasis; D63.8 Anemia in other chronic diseases classified elsewhere; I47.1 Supraventricular tachycardia; Y84.9 Medical procedure, unspecified as the cause of abnormal reaction of the patient, or of later complication, without mention of misadventure at the time of the procedure; E87.1 Hypo-osmolality and hyponatremia; I10 Essential (primary) hypertension; S71.102A Unspecified open wound, left thigh, initial encounter; S71.101A Unspecified open wound, right thigh, initial encounter; Y84.8 Other medical procedures as the cause of abnormal reaction of the patient, or of later complication, without mention of misadventure at the time of the procedure; S31.829A Unspecified open wound of left buttock, initial encounter; R13.10 Dysphagia, unspecified; Z43.1 Encounter for attention to gastrostomy; Z79.899 Other long term (current) drug therapy
CPT/HCPCS: 31720; 36415; 36569; 36600; 71010-TC; 74000-TC; 80048-TC; 80053-TC; 80076-TC; 80150; 80164-TC; 80202-TC; 81000-TC; 82140-TC; 82272-TC; 82803-TC; 82962-TC; 83605-TC; 83735-TC; 83880; 84100-TC; 84132-TC; 84478-TC; 84484-TC; 85025-TC; 85027-TC; 85610-TC; 85730-TC; 86850-TC; 86921-TC; 87040-TC; 87045-TC; 87070-TC; 87081-TC; 87086-TC; 87186-TC; 92950-TC; 94002-TC; 94003-TC; 94761-TC; 94762-TC; 99082-TC; A4216; A4217; A4606; A6248; A6253; A6402; A6403; C1751; C9113; J0171; J0278; J1450; J1815; J1940; J2060; J2185; J2248; J2370; J2405; J2765; J3370; J3475; J3480; J3490; J7030; J7040; J7042; J7050; J7060; J7070; P9016-BL; P9047; Z7610